=== PATIENT | female | born 1965 | race Caucasian/White ===

== ENCOUNTER 2019-12-13 11:20 | Emergency (ER) | payer OTHER, SELFPAY ==
[2019-12-13 11:22] VITALS: BP 181/105; PULSE 70; RESP 18; TEMP 36.4; O2SAT 99; BMI 24.3
--- NOTE | 2019-12-13 11:45 | XR_ITS ---
EXAMINATION: XR HAND, RIGHT CLINICAL INFORMATION: Pain. Fall. COMPARISON: None TECHNIQUE: PA, lateral, and oblique views of the right hand. FINDINGS: There is a fracture of the base of the fifth metacarpal bone. On the lateral view there is dorsal displacement of the metacarpal shaft with respect to the base. There is also slight radial angulation of the shaft with respect to the base. It is uncertain whether fracture is intra-articular with the fifth USP joint. No other fracture is seen. There is overlying soft tissue swelling. There are several small radiopaque densities in the soft tissues adjacent to the medial or ulnar side of the fifth MCP joint measuring 1 mm. XR/XR hand RT min 3V IMPRESSION: Slightly angulated displaced fracture of the base of the fifth metacarpal bone.
--- NOTE | 2019-12-13 12:14 | ED.FALL ---
HPI - Fall General Chief Complaint: Wound/Laceration Stated Complaint: laceration above rt eye Time Seen by Provider: 12/13/19 11:42 Source: patient Mode of arrival: ambulatory Limitations: no limitations History of Present Illness HPI Narrative: 54 y/o female presenting with laceration above right eyebrow and right hand pain after she sustained a mechanical fall while outside jogging just [employer]. She reports losing her footing when she went from the sidewalk to the grass. She hit her head on the cement and landed on her right hand. She did not lose consciousness. She is not on blood thinners. She denies headache, nausea, vision changes. MD complaint: fall Onset (ago): hour(s) (1) Fall from: standing Fall witnessed: yes, by bystander Place fall occurred: street Loss of consciousness: none Prolonged down time: no Symptoms prior to fall: none Context: tripped/slipped Location of injury: head Location of injury - extremities: right: hand Severity: moderate Severity scale (1-10): 7 Related Data Home Medications Medication Instructions Recorded Confirmed atenolol 25 mg tablet mg PO Q OTHER DAY PRN 11/15/19 11/15/19 atorvastatin 40 mg tablet mg PO 11/15/19 11/15/19 fluoxetine 20 mg capsule 20 mg PO DAILY 11/15/19 11/15/19 Previous Rx's Medication Instructions Recorded cephalexin [Keflex] 500 mg PO QID 7 Days #28 cap 12/13/19 hydrocodone-acetaminophen [Jenkinjones] 1 tab PO Q6H PRN #10 tab 12/13/19 ibuprofen 600 mg PO Q8H PRN #30 tab 12/13/19 Allergies Allergy/AdvReac Type Severity Reaction Status Date / Time Penicillins [PENICILLINS] Allergy Intermediate RASH Unverified 10/26/19 18:59 penicillin V Allergy Unknown rash Unverified 07/14/19 00:00 Review of Systems Review of Systems: Constitutional: No Fever, No Chills ENT/Mouth: No sore throat, No Rhinorrhea, No Swallowing Difficulty Eyes: + Eye Pain, + Swelling, No Redness Cardiovascular: No Chest Pain, No SOB Respiratory: No Cough, No Sputu Gastrointestinal: No Nausea, No Vomiting, No Diarrhea, No abdominal Pain Genitourinary: No Dysuria, No Urinary Frequency, No Hematuria Musculoskeletal: No joint pain, No Myalgias Skin: No Skin Lesions, No rash Neuro: No Weakness, No Numbness, No Dizziness, No Headache Psych: No Anxiety/Panic, No Depression Heme/Lymph: + Bruising, No Lymphadenopathy PMFSH Past Medical History Attestation statement: The following information was validated with the patient. Medical History Carpal tunnel syndrome of right wrist Chronic GERD Generalized anxiety disorder Lipid metabolism disorder Social History Social History Advance Directives: Yes Advance Directives Information Provided: Yes Advance Directives on File: No Physical Exam Vital Signs: Vital Signs: Vital Signs Temp Pulse Resp BP Pulse Ox 12/13/19 11:22 97.6 F 70 18 181/105 H 99 Body Mass Index 24.3 Appearance: Alert. Oriented X3. No acute distress. HEENT: 3cm linear laceration over right eyebrow, no deformity, no active bleeding. Respiratory: No respiratory distress. Skin: Skin warm and dry. Normal skin color. Normal skin turgor. No rashes. Extremities: right hand tenderness and swelling over 5th MCP joint, able to move all 5 digits. Neuro: Oriented X 3. No motor deficit. No sensory deficit. Course Course Course Narrative: patient AAO x3 and non-focal on exam. low suspicion for concussion. lac repaired, see procedure note. XR showed 5th metacarpal base fx, splint applied with adequate positioning. NV intact distally. she is instructed to follow up with Orthopedics and her PCP for suture removal. stable for d/c. Procedures Laceration Laceration 1: Site: face Side (If applicable): right Size (cm): 3 Description: linear Depth: simple, single layer Local Anesthetic: lidocaine 2% Amount of anesthesia used (mL): 3 Pre-repair: irrigated extensively and deep structures intact Skin layer closed with: nylon Size (cm): 6-0 Number of sutures: 6 Technique: simple, interrupted MDM - Fall Differential Diagnosis Differential diagnosis: Likely fracture and concussion without loss of consciousness Critical Care Time Critical Care Time Critical Care Time: No Discharge Plan Discharge Clinical Impression: Laceration Fracture of base of fifth metacarpal bone of right hand Qualifiers: Encounter type: initial encounter Fracture type: closed Fracture alignment: displaced Qualified Code(s): S62.316A - Displaced fracture of base of fifth metacarpal bone, right hand, initial encounter for closed fracture Patient Disposition: Home, Self-Care Instructions: Laceration (ED), Hand Fracture (ED) Additional Instructions: Keep wound clean and dry - do not get wet for 24 hours and then it is okay to use gentle soap and water. Recommend Neosporin or Bacitracin ointment two times per day. Come back to the ER or see your Primary Care Doctor in 10-14 days for suture removal. Keep your right hand in the splint until you are evaluated by an Orthopedic doctor. Limit use of your right hand. If you develop numbness, tinging or loss of function of your hand or fingers call 911 or come back to the ER for further evaluation. Prescriptions: New cephalexin [Keflex] 500 mg capsule 500 mg PO QID 7 Days Qty: 28 RF: 0 ibuprofen 600 mg tablet 600 mg PO Q8H PRN (Reason: pain) Qty: 30 RF: 0 hydrocodone-acetaminophen [Jenkinjones] 5-325 mg tablet 1 tab PO Q6H PRN (Reason: pain) Qty: 10 RF: 0 No Action atorvastatin 40 mg tablet PO RF: 0 atenolol 25 mg tablet PO Q OTHER DAY PRNRF: 0 fluoxetine 20 mg capsule 20 mg PO DAILY RF: 0 Referrals: Usama Davalos MD [Physician] - 2 days Stand Alone Forms: Work/School Release
[2019-12-13] MEDS: Ibuprofen 600 MG TABLET PO (13:05)
[2019-12-13] MEDS: Lidocaine HCl 2 % MPF 5 ML VIAL INFILTRATI (13:06)
== END 2019-12-13 14:00 | disposition home or self-care (01) ==
PROVIDERS: Emergency Provider Emergency Medicine; PCP Internal Medicine
DX: S01.111A Laceration without foreign body of right eyelid and periocular area, initial encounter (principal); S62.316A Displaced fracture of base of fifth metacarpal bone, right hand, initial encounter for closed fracture; M79.641 Pain in right hand; H57.11 Ocular pain, right eye; W01.0XXA Fall on same level from slipping, tripping and stumbling without subsequent striking against object, initial encounter; Y93.9 Activity, unspecified; Y92.9 Unspecified place or not applicable; Y99.9 Unspecified external cause status; Z79.899 Other long term (current) drug therapy
CPT/HCPCS: 12013; 73130; 99283; 99284

== ENCOUNTER 2019-12-18 10:39 | Outpatient (REF) | payer OTHER, SELFPAY ==
--- NOTE | 2019-12-18 11:20 | XR_ITS ---
EXAMINATION: XR HAND, RIGHT CLINICAL INFORMATION: Fracture follow-up. COMPARISON: 12/13/2019 TECHNIQUE: PA, lateral, and oblique views of the right hand. FINDINGS: The contour deformity of the 5th metacarpal proximal metaphysis is again appreciated with slight radial angulation. The contours are slightly more rounded and smooth indicating osseous bridging from callus formation. There is still dorsal displacement of the distal fragment with respect to the proximal metaphysis. XR/XR hand RT min 3V IMPRESSION: Interval changes of healing involving the 5th metacarpal angulated and displaced fracture. The degree of angulation and displacement is unchanged.
== END 2019-12-18 10:40 | disposition home or self-care (01) ==
LOC: HO.HOSX 10:39
PROVIDERS: PCP Internal Medicine; Visit Provider Physician Assistant
DX: S62.308A Unspecified fracture of other metacarpal bone, initial encounter for closed fracture (principal)
CPT/HCPCS: 26600; 29075; 73130

== ENCOUNTER 2020-01-08 13:37 | Outpatient (REF) | payer OTHER, SELFPAY ==
--- NOTE | 2020-01-08 13:37 | XR_ITS ---
EXAMINATION: XR HAND, RIGHT CLINICAL INFORMATION: Fracture COMPARISON: Previous exams from earlier this month TECHNIQUE: PA, lateral, and oblique views of the right hand. FINDINGS: There is a fracture of the base of the fifth metacarpal bone. This appears unchanged in alignment from prior exams. Fracture line is still seen. No bony callus formation is seen. No other fracture is seen. Small density in the soft tissues adjacent to the ulnar side of the fifth MCP joint is again noted. Soft tissues are otherwise unremarkable. XR/XR hand RT min 3V IMPRESSION: No change in the fracture of the base of the fifth metacarpal bone.
== END 2020-01-08 13:38 | disposition home or self-care (01) ==
LOC: HO.HOSX 13:37
PROVIDERS: Visit Provider Physician Assistant
DX: S62.91XA Unspecified fracture of right hand, initial encounter for closed fracture (principal)
CPT/HCPCS: 73130

== ENCOUNTER 2020-03-05 06:08 | Outpatient (REF) | payer OTHER, SELFPAY ==
[2020-03-05 11:01] LABS: MANUAL DIFF FLAG NO
[2020-03-05 11:26] LABS: Basophils Percent Auto 0.8 % (0-2); Eosinophils Absolute Auto 0.1 X10*3/uL (0.0-0.4); Eosinophils Percent Auto 2.5 % (0-4); Hematocrit 41.9 % (37-47); Hemoglobin 13.8 g/dl (12.0-16.0); Imm Gran Abs Auto 0.01 X10*3/uL (0.00-0.03); Imm Gran Pct Auto 0.2 % (0.0-0.4); Lymphocytes Absolute Auto 1.2 X10*3/uL (1.2-4.9); Lymphocytes Percent Auto 25.3 % (20-40); Mean Corpuscular HGB Conc 32.9 g/dl (31.0-35.0); Mean Corpuscular Hemoglobin 30.1 pg (27.0-33.0); Mean Corpuscular Volume 91.5 fL (80-98); Mean Platelet Volume 10.9 fL (9.4-12.3); Monocytes Absolute Auto 0.6 X10*3/uL (0.1-1.2); Monocytes Percent Auto 12.5 % (2-11); Neutrophils Absolute Auto 2.9 X10*3/uL (2.0-8.3); Neutrophils Percent Auto 58.7 % (45-73); Platelet Count 239 X10*3/uL (160-400); Red Blood Count 4.58 X10*6/uL (4.20-5.50); Red Cell Distribution Width 11.4 % (11.0-16.0); White Blood Count 4.9 X10*3/uL (4.8-10.8)
[2020-03-05 12:28] LABS: Anion Gap 15 (12-20); Blood Urea Nitrogen 13 mg/dL (9-16); Calcium 9.4 mg/dL (8.4-10.2); Carbon Dioxide 27 mmol/L (22-29); Chloride 104 mmol/L (96-108); Cholesterol 208 mg/dL; Estimated Glomerular Filt Rate > 60; Glucose Fasting 106 mg/dL (60-99); HDL Cholesterol 59 mg/dL; LDL Cholesterol Calculated 130 mg/dl; Sodium 142 mmol/L (135-145); Triglycerides 96 mg/dL
== END 2020-03-05 06:09 | disposition home or self-care (01) ==
LOC: HO.HMGCLDS 06:08
PROVIDERS: PCP Internal Medicine; Visit Provider Internal Medicine
DX: K21.9 Gastro-esophageal reflux disease without esophagitis (principal); E78.9 Disorder of lipoprotein metabolism, unspecified; F41.1 Generalized anxiety disorder; I10 Essential (primary) hypertension
CPT/HCPCS: 36415; 80048; 80061; 85025

== ENCOUNTER 2020-08-19 15:17 | Outpatient (REF) | payer OTHER, SELFPAY ==
--- NOTE | ~2020-08-19 | MM_ITS ---
EXAMINATION: MM SCREENING DIGITAL BREAST TOMOSYNTHESIS, BILATERAL CLINICAL INFORMATION: Screening. Asymptomatic. The lifetime risk of breast cancer based on the Tyrer-Cuzick Model is 7%. COMPARISON: Mammography: 08/14/2019, 08/08/2018, 06/28/2017, 05/04/2016, 02/14/2015, 06/01/2012 TECHNIQUE: Digital breast tomosynthesis is performed in both the craniocaudal and mediolateral oblique views along with computer-aided detection (CAD). Synthesized 2D images are generated from the tomosynthesis. FINDINGS: There are scattered areas of fibroglandular density (ACR BI-RADS breast composition Category b). There are no significant masses, abnormal calcifications, or other abnormalities. Parenchymal pattern is similar to prior studies. No developing density. The axilla and skin contours are unremarkable. MM/MM tomosynthesis screening BI IMPRESSION: No mammographic evidence of malignancy. ASSESSMENT: BI-RADS 1: Negative RECOMMENDATION: Routine annual mammography screening. This patient's information was entered into a reminder system with a target due date for their next mammogram.
== END 2020-08-19 15:18 | disposition home or self-care (01) ==
LOC: HO.MAMMO 15:17
PROVIDERS: PCP Internal Medicine; Visit Provider Internal Medicine
DX: Z12.31 Encounter for screening mammogram for malignant neoplasm of breast (principal)
CPT/HCPCS: 77063; 77067

== ENCOUNTER 2020-09-17 10:15 | Outpatient (REF) | payer OTHER, SELFPAY ==
[2020-09-17 11:22] LABS: MANUAL DIFF FLAG NO
[2020-09-17 11:35] LABS: Basophils Absolute Auto 0.1 X10*3/uL (0.0-0.2); Basophils Percent Auto 1.3 % (0-2); Eosinophils Absolute Auto 0.1 X10*3/uL (0.0-0.4); Eosinophils Percent Auto 2.3 % (0-4); Hematocrit 41.5 % (37-47); Hemoglobin 13.9 g/dl (12.0-16.0); Imm Gran Abs Auto 0.01 X10*3/uL (0.00-0.03); Imm Gran Pct Auto 0.3 % (0.0-0.4); Lymphocytes Absolute Auto 1.1 X10*3/uL (1.2-4.9); Lymphocytes Percent Auto 29.4 % (20-40); Mean Corpuscular HGB Conc 33.5 g/dl (31.0-35.0); Mean Corpuscular Hemoglobin 30.2 pg (27.0-33.0); Mean Platelet Volume 10.6 fL (9.4-12.3); Monocytes Absolute Auto 0.4 X10*3/uL (0.1-1.2); Monocytes Percent Auto 11.2 % (2-11); Neutrophils Absolute Auto 2.1 X10*3/uL (2.0-8.3); Neutrophils Percent Auto 55.5 % (45-73); Platelet Count 239 X10*3/uL (160-400); Red Blood Count 4.61 X10*6/uL (4.20-5.50); Red Cell Distribution Width 11.1 % (11.0-16.0); White Blood Count 3.8 X10*3/uL (4.8-10.8)
[2020-09-17 12:12] LABS: Alanine Aminotransferase 27 U/L (0-31); Albumin Level 4.5 g/dL (3.5-5.0); Alkaline Phosphatase 85 U/L (39-117); Anion Gap 12 (12-20); Aspartate Amino Transferase 28 U/L (5-31); Bilirubin Total 1.1 mg/dL (0.0-1.0); Blood Urea Nitrogen 11 mg/dL (9-16); Calcium 9.6 mg/dL (8.4-10.2); Carbon Dioxide 29 mmol/L (22-29); Chloride 104 mmol/L (96-108); Cholesterol 176 mg/dL; Estimated Glomerular Filt Rate > 60; Glucose Fasting 96 mg/dL (60-99); HDL Cholesterol 50 mg/dL; LDL Cholesterol Calculated 113 mg/dl; Potassium 4.7 mmol/L (3.3-5.1); Sodium 140 mmol/L (135-145); Total Protein 7.5 g/dL (6.5-8.0); Triglycerides 68 mg/dL
== END 2020-09-17 10:16 | disposition home or self-care (01) ==
LOC: HO.HMGCLDS 10:15
PROVIDERS: PCP Internal Medicine; Visit Provider Internal Medicine
DX: E78.9 Disorder of lipoprotein metabolism, unspecified (principal); F41.1 Generalized anxiety disorder; I10 Essential (primary) hypertension; R21 Rash and other nonspecific skin eruption
CPT/HCPCS: 36415; 80053; 80061; 85025

== ENCOUNTER 2020-11-26 10:43 | Outpatient (REF) | payer OTHER, SELFPAY ==
[2020-11-26 12:05] LABS: Appearance Urine CLEAR; Color Urine YELLOW; Glucose Urine UA NEG (NEG); Leukocyte Esterase Urine NEG (NEG); Nitrite Urine NEG (NEG); PH 5.5 (5.0-8.0); Specific Gravity - Urine >= 1.030 (1.005-1.025); Urine Blood NEG (NEG); Urine Ketones NEG (NEG); Urine Protein NEG (NEG-TRACE)
== END 2020-11-26 10:44 | disposition home or self-care (01) ==
LOC: HO.HMGCLDS 10:43
PROVIDERS: PCP Internal Medicine; Visit Provider Internal Medicine
DX: R30.0 Dysuria (principal)
CPT/HCPCS: 81003

== ENCOUNTER 2021-04-11 09:32 | Outpatient (REF) | payer OTHER, SELFPAY ==
[2021-04-11 11:29] LABS: MANUAL DIFF FLAG NO
[2021-04-11 11:40] LABS: Basophils Percent Auto 0.9 % (0-2); Eosinophils Absolute Auto 0.1 X10*3/uL (0.0-0.4); Hematocrit 41.5 % (37.0-47.0); Hemoglobin 13.6 g/dl (12.0-16.0); Imm Gran Abs Auto 0.01 X10*3/uL (0.00-0.03); Imm Gran Pct Auto 0.2 % (0.0-0.4); Lymphocytes Absolute Auto 1.3 X10*3/uL (1.2-4.9); Lymphocytes Percent Auto 29.1 % (20-40); Mean Corpuscular HGB Conc 32.8 g/dl (31.0-35.0); Mean Corpuscular Hemoglobin 29.8 pg (27.0-33.0); Mean Corpuscular Volume 90.8 fL (80.0-98.0); Mean Platelet Volume 10.7 fL (9.4-12.3); Monocytes Absolute Auto 0.6 X10*3/uL (0.1-1.2); Monocytes Percent Auto 12.1 % (2-11); Neutrophils Absolute Auto 2.5 x10*3/uL (2.0-8.3); Neutrophils Percent Auto 55.7 % (45-73); Platelet Count 220 X10*3/uL (160-400); Red Blood Count 4.57 X10*6/uL (4.20-5.50); Red Cell Distribution Width 11.6 % (11.0-16.0); White Blood Count 4.5 X10*3/uL (4.8-10.8)
[2021-04-11 11:57] LABS: Alanine Aminotransferase 20 U/L (0-31); Albumin Level 4.4 g/dL (3.5-5.0); Alkaline Phosphatase 72 U/L (39-117); Anion Gap 8 (12-20); Aspartate Amino Transferase 23 U/L (5-31); Bilirubin Total 0.9 mg/dL (0.0-1.0); Blood Urea Nitrogen 18 mg/dL (9-16); Carbon Dioxide 31 mmol/L (22-29); Chloride 104 mmol/L (96-108); Estimated Glomerular Filt Rate > 60; Glucose Random 99 mg/dL (60-115); Potassium 4.3 mmol/L (3.3-5.1); Sodium 139 mmol/L (135-145); Total Protein 7.6 g/dL (6.5-8.0)
[2021-04-12 06:40] LABS: LDL Cholesterol Direct 139 mg/dL (<100)
== END 2021-04-11 09:33 | disposition home or self-care (01) ==
LOC: HO.HMGCLDS 09:32
PROVIDERS: Visit Provider Internal Medicine
DX: E78.9 Disorder of lipoprotein metabolism, unspecified (principal); F41.1 Generalized anxiety disorder; I10 Essential (primary) hypertension
CPT/HCPCS: 36415; 80053; 83721; 85025

== ENCOUNTER 2021-08-21 08:20 | Outpatient (REF) | payer OTHER, SELFPAY ==
--- NOTE | ~2021-08-21 | MM_ITS ---
EXAMINATION: MM SCREENING DIGITAL BREAST TOMOSYNTHESIS, BILATERAL CLINICAL INFORMATION: Screening. Asymptomatic. The lifetime risk of breast cancer based on the Tyrer-Cuzick Model is 6%. COMPARISON: Mammography: 08/19/2020, 08/14/2019, 08/08/2018 TECHNIQUE: Digital breast tomosynthesis is performed in both the craniocaudal and mediolateral oblique views along with computer-aided detection (CAD). Synthesized 2D images are generated from the tomosynthesis. Additional left CC view is provided. FINDINGS: There are scattered areas of fibroglandular density (ACR BI-RADS breast composition Category b). There are no significant masses, abnormal calcifications, or other abnormalities. No significant changes from prior studies. MM/MM tomosynthesis screening BI IMPRESSION: No mammographic evidence of malignancy. ASSESSMENT: BI-RADS 1: Negative RECOMMENDATION: Routine annual mammography screening. This patient's information was entered into a reminder system with a target due date for their next mammogram.
== END 2021-08-21 08:21 | disposition home or self-care (01) ==
LOC: HO.MAMMO 08:20
PROVIDERS: Visit Provider Internal Medicine
DX: Z12.31 Encounter for screening mammogram for malignant neoplasm of breast (principal)
CPT/HCPCS: 77063; 77067

== ENCOUNTER 2021-11-21 07:06 | Outpatient (REF) | payer OTHER, SELFPAY ==
[2021-11-21 12:11] LABS: Alanine Aminotransferase 23 U/L (0-31); Albumin Level 4.6 g/dL (3.5-5.0); Alkaline Phosphatase 67 U/L (39-117); Anion Gap 14 (12-20); Aspartate Amino Transferase 29 U/L (5-31); Bilirubin Total 1.4 mg/dL (0.0-1.0); Blood Urea Nitrogen 15 mg/dL (9-16); Calcium 9.8 mg/dL (8.4-10.2); Carbon Dioxide 29 mmol/L (22-29); Chloride 103 mmol/L (96-108); Cholesterol 230 mg/dL; Estimated Glomerular Filt Rate > 60; Glucose Fasting 107 mg/dL (60-99); HDL Cholesterol 64 mg/dL; LDL Cholesterol Calculated 140 mg/dl; Potassium 4.5 mmol/L (3.3-5.1); Sodium 141 mmol/L (135-145); Total Protein 7.6 g/dL (6.5-8.0); Triglycerides 132 mg/dL
== END 2021-11-21 07:07 | disposition home or self-care (01) ==
LOC: HO.HMGCLDS 07:06
PROVIDERS: PCP Internal Medicine; Visit Provider Internal Medicine
DX: I10 Essential (primary) hypertension (principal); F41.1 Generalized anxiety disorder; E78.9 Disorder of lipoprotein metabolism, unspecified; R21 Rash and other nonspecific skin eruption
CPT/HCPCS: 36415; 80053; 80061

== ENCOUNTER 2022-01-21 14:13 | Outpatient (REF) | payer OTHER, SELFPAY ==
[2022-01-21 16:04] LABS: Influenza A PCR NEGATIVE (Negative); Influenza B PCR NEGATIVE (Negative); Resp Syncy Virus RNA Qual PCR NEGATIVE (Negative); SARS COV2 PCR INHOUSE NEGATIVE (Negative)
== END 2022-01-21 14:14 | disposition home or self-care (01) ==
LOC: HO.LNP 14:13
PROVIDERS: Visit Provider Internal Medicine
DX: Z20.822 Contact with and (suspected) exposure to COVID-19 (principal); R09.89 Other specified symptoms and signs involving the circulatory and respiratory systems
CPT/HCPCS: 0241U

== ENCOUNTER 2022-07-17 06:06 | Outpatient (REF) | payer OTHER, SELFPAY ==
[2022-07-17 11:18] LABS: MANUAL DIFF FLAG NO
[2022-07-17 11:39] LABS: Basophils Percent Auto 1.1 % (0-2); Eosinophils Absolute Auto 0.1 X10*3/uL (0.0-0.4); Eosinophils Percent Auto 2.4 % (0-4); Hemoglobin 14.3 g/dl (12.0-16.0); Lymphocytes Absolute Auto 1.7 X10*3/uL (1.2-4.9); Lymphocytes Percent Auto 44.5 % (20-40); Mean Corpuscular HGB Conc 33.3 g/dl (31.0-35.0); Mean Corpuscular Hemoglobin 30.7 pg (27.0-33.0); Mean Corpuscular Volume 92.3 fL (80.0-98.0); Mean Platelet Volume 10.7 fL (9.4-12.3); Monocytes Absolute Auto 0.4 X10*3/uL (0.1-1.2); Monocytes Percent Auto 11.6 % (2-11); Neutrophils Absolute Auto 1.5 x10*3/uL (2.0-8.3); Neutrophils Percent Auto 40.4 % (45-73); Platelet Count 198 X10*3/uL (160-400); Red Blood Count 4.66 X10*6/uL (4.20-5.50); Red Cell Distribution Width 11.5 % (11.0-16.0); White Blood Count 3.8 X10*3/uL (4.8-10.8)
[2022-07-17 11:58] LABS: Alanine Aminotransferase 23 U/L (0-31); Albumin Level 4.5 g/dL (3.5-5.0); Alkaline Phosphatase 70 U/L (39-117); Anion Gap 13 (12-20); Aspartate Amino Transferase 29 U/L (5-31); Bilirubin Total 1.6 mg/dL (0.0-1.0); Blood Urea Nitrogen 15 mg/dL (9-16); Calcium 10.1 mg/dL (8.4-10.2); Carbon Dioxide 29 mmol/L (22-29); Chloride 106 mmol/L (96-108); Estimated Glomerular Filt Rate > 60; Glucose Random 94 mg/dL (60-115); Sodium 144 mmol/L (135-145); Total Protein 7.5 g/dL (6.5-8.0)
[2022-07-17 12:10] LABS: Estimated Average Glucose 100 mg/dL; Hemoglobin A1c % 5.1 %
[2022-07-18 14:18] LABS: LDL Cholesterol Direct 138 mg/dL (<100)
== END 2022-07-17 06:07 | disposition home or self-care (01) ==
LOC: HO.HMGCLDS 06:06
PROVIDERS: PCP Internal Medicine; Visit Provider Internal Medicine
DX: E78.9 Disorder of lipoprotein metabolism, unspecified (principal); F41.1 Generalized anxiety disorder; K21.9 Gastro-esophageal reflux disease without esophagitis; L71.9 Rosacea, unspecified; I10 Essential (primary) hypertension
CPT/HCPCS: 36415; 80053; 83036; 83721; 85025

== ENCOUNTER 2022-08-27 09:19 | Outpatient (REF) | payer OTHER, SELFPAY ==
--- NOTE | ~2022-08-27 | MM_ITS ---
EXAMINATION: MM SCREENING DIGITAL BREAST TOMOSYNTHESIS, BILATERAL CLINICAL INFORMATION: Screening. Asymptomatic. The lifetime risk of breast cancer based on the Tyrer-Cuzick Model is 5%. COMPARISON: Mammography: This study is compared with prior exams dating back to 2017. TECHNIQUE: Digital breast tomosynthesis is performed in both the craniocaudal and mediolateral oblique views along with computer-aided detection (CAD). Synthesized 2D images are generated from the tomosynthesis. FINDINGS: There are scattered areas of fibroglandular density (ACR BI-RADS breast composition Category b). There are no significant masses, abnormal calcifications, or other abnormalities. MM/MM tomosynthesis screening BI IMPRESSION: No mammographic evidence of malignancy. ASSESSMENT: BI-RADS BI-RADS 1 - Negative RECOMMENDATION: Routine annual mammography screening. 1 year F/U This examination should not preclude the clinical evaluation of a suspicious palpable abnormality. This patient's information was entered into a reminder system with a target due date for their next mammogram.
== END 2022-08-27 09:20 | disposition home or self-care (01) ==
LOC: HO.MAMMO 09:19
PROVIDERS: PCP Internal Medicine; Visit Provider Internal Medicine
DX: Z12.31 Encounter for screening mammogram for malignant neoplasm of breast (principal)
CPT/HCPCS: 77063; 77067

== ENCOUNTER → 2022-08-27 09:30 | Outpatient (BNV) | payer OTHER, SELFPAY | PROVIDERS: PCP Internal Medicine; Visit Provider Radiology Diagnostic Radiology | DX: Z12.31 Encounter for screening mammogram for malignant neoplasm of breast (principal) | CPT/HCPCS: 77063; 77067 ==

== ENCOUNTER 2022-12-08 12:53 | Outpatient (AMB) | payer OTHER, SELFPAY ==
--- NOTE | 2022-12-08 12:55 | MHC.PC.OV ---
Vital Signs 12/08/22 12:56 Height 5 ft 2 in Weight 124 lb BMI 22.7 BP 134/80 Blood Pressure Location Lt brachial Position Sitting Pulse 58 Pulse Source Pulse Oximeter Pulse Oximetry (%) 100 Oxygen Delivery Method Room Air Intake Visit Reasons: Transfer from [facility] Note: Pt is here today as a 2ND [facility] transfer from Dr. Peterson Allergies Penicillins [PENICILLINS] Allergy (Intermediate, Verified 12/08/22 12:56) RASH penicillin V Allergy (Unknown, Verified 12/08/22 12:56) rash Medication List - Last Reconciled 12/08/22 by BAILEY Silva atenolol 100 mg PO ONCE 90 days atorvastatin 40 mg PO ONCE 90 days fluoxetine 20 mg PO DAILY 90 days losartan 25 mg PO DAILY Tobacco use date assessed: 12/08/22 Dental Screening Dental Screen Date: 12/08/22 Did you have a dental visit in the last 12 months?: Yes Did you have a dental problem in the last 6 months where you did not have access to dental care?: Yes Was dental information given to patient?: Patient has dentist HPI Transfer from [facility] HPI Details New pt is here to transfer care from another provider. Mammo is up to date. Colon screen is up to date, due next year. HTN: Blood pressure is stable, managed with atenolol 100mg and losartan 25mg. Will order labs. Denies chest pain, shortness of breath, headache, dizziness, and blurred vision. 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 1. Little interest or pleasure in doing things: not at all 2. Feeling down, depressed, or hopeless: not at all 3. Trouble falling or staying asleep, or sleeping too much: not at all 4. Feeling tired or having little energy: not at all 5. Poor appetite or overeating: not at all 6. Feeling bad about yourself - or that you are a failure or have let yourself or your family down: not at all 7. Trouble concentrating on things, such as reading the newspaper or watching television: not at all 8. Moving or speaking so slowly that other people could have noticed. Or the opposite - being so fidgety or restless that you have been moving around a lot more than usual: not at all 9. Thoughts that you would be better off or of hurting yourself in some way: not at all Total score: 0 Depression Screening Interpretation: Negative Depression Screening Done: Yes 51313 - PHQ-9 Billing: Yes Source: Developed by Drs. Braulio Williamson, Chasity Salamanca, Jose Alberto Franco and colleagues, with an educational adelia from [employer]. Thrive Questionnaire Date Thrive assessed: 12/08/22 I am a: Patient What is your living situation today?: I have a steady place to live Within the past 12 months, did the food you bought not last and you didn't have the money to get more?: Never true Within the past 12 months, did you worry whether your food would run out before you got money to buy more?: Never true Do you have trouble paying for medicines?: No Do you have trouble getting transportation to medical appointments?: No Do you have trouble paying your heating and electricity bill?: No Do you have trouble taking care of your child, family member or friend?: No Do you have trouble with day-to-day activities such as bathing, preparing meals, shopping, managing finances, etc.?: No Are you currently unemployed and looking for a job?: No Are you interested in more education?: No RAFAEL-7 AMB Questionnaire RAFAEL-7 Date RAFAEL - 7 assessed: 12/08/22 Feeling nervous, anxious, or on edge: 0 = Not at all Not being able to stop or control worryin = Not at all Worrying too much about different things: 0 = Not at all Trouble relaxin = Not at all Being so restless that it is hard to sit still: 0 = Not at all Becoming easily annoyed or irritable: 0 = Not at all Feeling afraid as if something awful might happen: 0 = Not at all Total RAFAEL-7 score (0-4 normal; 5-9 mild; 10-14 moderate; 15-21 severe): 0 Source: Developed by Drs. Braulio Williamson, Chasity Salamanca, Jose Alberto Franco and colleagues, with an educational adelia from [employer]. Review of Systems Const Reports as per HPI Physical exam (Primary Care) Vital Signs: Last Vital Signs Pulse 58 12/08/22 12:56 BP 134/80 12/08/22 12:56 Pulse Ox 100 12/08/22 12:56 Oxygen Delivery Method Room Air 12/08/22 12:56 BMI result Body Mass Index 22.7 Tobacco/Smoking Status: Tobacco use Status Tobacco use date assessed 12/08/22 12/08/22 12:59 Patient Tobacco Use Status Former Tobacco user (33 12/08/22 12:56 years ago ) e-Cigarette/Vaping Use Never Used 12/08/22 12:56 PHQ-9: PHQ-9 Score PHQ-9: Total score 0 12/08/22 13:06 Depression Screening Interpretation: Negative Thrive Assessment: Date of Thrive Assessment Date Thrive assessed 12/08/22 12/08/22 12:59 Const General: cooperative Orientation/consciousness: patient oriented x3 Resp Effort & Inspection: normal respiratory effort Auscultation: clear to auscultation bilaterally Cardio Rate: regular rate Rhythm: regular rhythm Heart sounds: S1 normal heart sound present and S2 normal heart sound present Neuro General: patient oriented x3 Extrem Right lower extremity: no edema Left lower extremity: no edema Psych Appearance: grossly normal Mental Status: mental status grossly normal Speech and movement: Normal speech and movement present Affect: normal affect Attitude: cooperative Thought process: Normal thought process present Thought content: Normal thought content present Insight: Good insight present (Psych) Judgement: Good judgement present (Psych) Assessment and Plan Assessment & Plan (1) Hypertension, essential: Code(s): I10 - Essential (primary) hypertension Plan: Labs ordered Plan The patient agreed to the use of a medical apparatus model maker for this encounter. Scribed for BAILEY Hernández by Jina Worthington medical apparatus model maker, on 12/08/2022 at 13:05 EST. Orders: Orders Comprehensive [place]. Panel Fast Today I10 - Essential (primary) hypertension UA CC w/rflx Micro + Cult Today I10 - Essential (primary) hypertension Complete Blood Count Auto Diff Today I10 - Essential (primary) hypertension TSH reflex Free T4 Today I10 - Essential (primary) hypertension Lipid Panel Today I10 - Essential (primary) hypertension Coding Level of Care Code New Pt Level 3 (01100) Diagnoses Hypertension, essential I10
[2022-12-08 12:56] VITALS: BP 134/80; PULSE 58; O2SAT 100; BMI 22.7
== END 2022-12-08 13:27 | disposition home or self-care (01) ==
PROVIDERS: PCP Internal Medicine; Visit Provider Nurse Practitioner Family
DX: I10 Essential (primary) hypertension (principal)
CPT/HCPCS: 99203

== ENCOUNTER 2023-02-06 09:03 | Emergency (ER) | payer OTHER, SELFPAY ==
--- NOTE | ~2023-02-06 | CT_ITS ---
EXAMINATION: CT ABDOMEN AND PELVIS WITH CONTRAST CLINICAL INFORMATION: Left lower quadrant pain. COMPARISON: None available. TECHNIQUE: Multidetector volumetric images were obtained from the superior aspect of the liver through the pubic symphysis following administration 85 mL of Omnipaque 350 intravenous contrast. Sagittal and coronal reformatted images were obtained on the technologist's workstation. Oral contrast: No This CT examination was performed using dose optimization techniques as appropriate, variously including the following: *Automated exposure control *Adjustment of mA and/or kV according to patient size (this includes techniques or standardized protocols for targeted exams where dose is matched to indication/reason for exam; i.e. extremities or head) *Use of iterative reconstruction technique DLP: 385 mGy-cm FINDINGS: LUNG BASES: The visualized lung bases are unremarkable. LIVER, GALLBLADDER, AND BILIARY TREE: The liver is normal in size, shape, and attenuation. No focal hepatic lesion or biliary ductal dilatation is present. The gallbladder is unremarkable with no evidence of radiopaque gallstones, gallbladder wall thickening, or obvious pericholecystic inflammatory changes. PANCREAS: Unremarkable. SPLEEN: Unremarkable. ADRENAL GLANDS: Unremarkable. KIDNEYS AND URETERS: The kidneys are normal in size, shape, and attenuation. Right lower pole 0.3 cm renal stone located approximately 8.4 cm from the posterior axillary line. No additional right-sided renal or ureteral stone. Left lower pole renal stone measuring up to 0.3 cm and located approximately 9.3 cm from the posterior axillary line. No left ureteral stone. No left-sided hydronephrosis or hydroureter. No perinephric stranding. BLADDER: Unremarkable. GASTROINTESTINAL TRACT: Moderate stool within the rectum. Sigmoid diverticulosis. Circumferential wall thickening with minimal stranding just proximal to the rectosigmoid junction which could be related to muscle hypertrophy or indicate early diverticulitis. No extraluminal air or organized fluid collection to suggest perforation or abscess formation. No additional bowel wall thickening. No small- or large-bowel obstruction. Appendix not well visualized; however, no right lower quadrant inflammatory change to suggest acute appendicitis. PERITONEAL CAVITY: No intra-abdominal free air or free fluid. No intra-abdominal mass or organized fluid collection. ABDOMINAL WALL: No significant hernia is appreciated. LYMPH NODES: No significant lymphadenopathy. VASCULAR: Unremarkable. PELVIC VISCERA: Status post hysterectomy. OSSEOUS STRUCTURES: Unremarkable. CT/CT abdomen pelvis w IV con IMPRESSION: 1. Sigmoid diverticulosis with circumferential wall thickening and minimal adjacent stranding just proximal to the rectosigmoid junction which could be related to muscle hypertrophy or indicate early diverticulitis. No evidence of perforation or abscess formation. 2. Moderate stool within the rectum. No small- or large-bowel obstruction. Appendix not well visualized; however, no right lower quadrant inflammatory change to suggest acute appendicitis. 3. Bilateral lower pole renal stones measuring up to 0.3 cm on the right and 0.3 cm on the left. No ureteral stone. No hydronephrosis or hydroureter. Unremarkable urinary bladder. 4. No intra-abdominal mass, lymphadenopathy, or ascites. Fleischner guidelines were followed.
[2023-02-06 09:15] VITALS: BP 156/63; PULSE 65; RESP 18; TEMP 35.9; O2SAT 97; BMI 23.5
[2023-02-06 09:29] LABS: MANUAL DIFF FLAG NO
[2023-02-06 09:31] LABS: Appearance Urine Turbid; Color Urine Yellow; Glucose Urine UA Negative (Negative); Leukocyte Esterase Urine Negative (Negative); Nitrite Urine Negative (Negative); PH 5.5 (5.0-9.0); Urine Blood Negative (Negative); Urine Ketones Negative (Negative); Urine Protein Negative (Neg-Trace)
[2023-02-06 09:34] LABS: Basophils Absolute Auto 0.1 X10*3/uL (0.0-0.2); Basophils Percent Auto 1.1 % (0-2); Eosinophils Absolute Auto 0.1 X10*3/uL (0.0-0.4); Eosinophils Percent Auto 2.3 % (0-4); Hematocrit 39.1 % (37.0-47.0); Hemoglobin 13.3 g/dl (12.0-16.0); Imm Gran Abs Auto 0.03 X10*3/uL (0.00-0.03); Imm Gran Pct Auto 0.5 % (0.0-0.4); Lymphocytes Absolute Auto 1.8 X10*3/uL (1.2-4.9); Lymphocytes Percent Auto 32.7 % (20-40); Mean Corpuscular Hemoglobin 30.2 pg (27.0-33.0); Mean Corpuscular Volume 88.9 fL (80.0-98.0); Mean Platelet Volume 9.2 fL (9.4-12.3); Monocytes Absolute Auto 0.6 X10*3/uL (0.1-1.2); Monocytes Percent Auto 10.3 % (2-11); Neutrophils Percent Auto 53.1 % (45-73); Platelet Count 278 X10*3/uL (160-400); Red Cell Distribution Width 11.3 % (11.0-16.0); White Blood Count 5.6 X10*3/uL (4.8-10.8)
[2023-02-06 09:49] LABS: Alanine Aminotransferase 18 U/L (0-31); Albumin Level 4.3 g/dL (3.5-5.0); Alkaline Phosphatase 73 U/L (39-117); Anion Gap 9 (12-20); Aspartate Amino Transferase 19 U/L (5-31); Bilirubin Direct 0.1 mg/dL (0.0-0.5); Bilirubin Total 0.4 mg/dL (0.0-1.0); Blood Urea Nitrogen 18 mg/dL (9-16); Calcium 9.6 mg/dL (8.4-10.2); Carbon Dioxide 29 mmol/L (22-29); Chloride 106 mmol/L (96-108); Creatinine Clr Calc Pharmacy 71.7; Estimated Glomerular Filt Rate > 60; Glucose Random 100 mg/dL (60-115); Lipase 35 U/L (8-78); Potassium 4.4 mmol/L (3.3-5.1); Sodium 140 mmol/L (135-145); Total Protein 7.8 g/dL (6.5-8.0)
--- NOTE | 2023-02-06 11:07 | ED_ITS ---
HPI - Abdominal Pain General Chief Complaint: Abdominal Pain Stated Complaint: L side pain Time Seen by Provider: 02/06/23 10:42 Source: patient Mode of arrival: ambulatory Limitations: no limitations History of Present Illness HPI narrative: 58 yo female with PMH of GERD, normal colonoscopy in the past here with c/o 4 days of LLQ pain worse with bowel movements. Had fever at the start that has stopped. No urinary symptoms. When she has a bowel movement the pain is so severe she cannot take it. She has not had diverticulitis before. No black or bloody stools. She is eating okay. MD elicited complaint: abdominal pain Pertinent past history: none Onset (ago): day(s) (4) Pain Consistency: intermittent Location: LLQ Severity: moderate Quality: stabbing Radiation: other (vaginal area) Migration to: no migration Exacerbating factors: movement and other (BM) Relieving factors: nothing Associated symptoms: nausea Related Data Previous Rx's Medication Instructions Recorded losartan 25 mg tablet 25 mg PO DAILY #90 tabs 11/09/22 atenolol 100 mg tablet 100 mg PO ONCE 90 days #90 tabs 01/08/23 atorvastatin 40 mg tablet 40 mg PO ONCE 90 days #90 tabs 01/23/23 fluoxetine 20 mg capsule 20 mg PO DAILY 90 days #90 caps 01/23/23 docusate sodium 100 mg capsule 100 mg PO BID PRN constipation #30 02/06/23 (Colace) caps levofloxacin 750 mg tablet 750 mg PO DAILY #6 tabs 02/06/23 metronidazole 500 mg tablet 500 mg PO BID 7 days #14 tabs 02/06/23 sennosides 8.6 mg capsule (senna) 8.6 mg PO BEDTIME PRN constipation 02/06/23 #30 caps Allergies Allergy/AdvReac Type Severity Reaction Status Date / Time Penicillins [PENICILLINS] Allergy Intermediate RASH Verified 02/06/23 09:17 penicillin V Allergy Unknown rash Verified 02/06/23 09:17 Review of Systems Review of Systems Constitutional : No Weight loss, No Fever, No Chills ENT/Mouth : No sore throat, No Rhinorrhea Eyes: No Swelling, No Redness Cardiovascular : No Chest Pain, No SOB, NoEdema Respiratory : No Cough, No Sputum, No Wheezing Gastrointestinal : Positive Nausea, no Vomiting, no Diarrhea, positive abdominal Pain, No Hematochezia, No Melena Genitourinary : No Dysuria, No Urinary Frequency, No Hematuria, No Urgency Musculoskeletal : No joint pain, No Myalgias, No Joint Swelling Skin : No Skin Lesions, No rash Neuro : No Weakness, No Numbness, No Dizziness, No Headache Psych : No Anxiety/Panic, No Depression All other systems reviewed and are negative. [facility] Past Medical History Attestation statement: The following information was validated with the patient. Source: old records reviewed Medical History Carpal tunnel syndrome of right wrist Chronic GERD Lipid metabolism disorder Generalized anxiety disorder Surgical History History of carpal tunnel surgery History of hysterectomy History of appendectomy Family History Family History Other Substance use disorder Social History Social History Housing: House Alcohol intake: current Alcohol type: wine Patient Tobacco Use Status: Former Tobacco user (33 years ago ) Years Smoked: 7 Smoked in Last 30 Days: No e-Cigarette/Vaping Use: Never Used Use of substances other than those prescribed or required for medical reasons: No Advance Directives: No Advance Directives Information Provided: Yes service: No Current occupational status: employed 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 Oriented X3. No acute distress. Eyes: Pupils equal, round and reactive to light. ENT: Pharynx normal. Neck: Normal inspection. Neck supple. CVS: Normal heart rate and rhythm. Pulses normal. Respiratory: No respiratory distress. Breath sounds normal. Abdomen: Soft and moderate ttp in LLQ no rebound or mass noted. Skin: Skin warm and dry. Normal skin color. Normal skin turgor. Extremities: No lower extremity edema. No calf ttp Neuro: Oriented X 3. No motor deficit. No sensory deficit. Medical Decision Making Medical Decision Making MDM Narrative: 58 yo female with PMH of GERD here with 4 days of LLQ pain worse with bowel movements no reported GIB at this time will need UA, basic labs, CT scan for diverticulitis, mass, renal colic, IVF and IV toradol for pain Differential Diagnosis Differential Diagnoses: The differential diagnosis associated with the presentation includes diverticulitis, mass, renal colic, Admission/Observation Consideration of admission/observation: Escalation of care including admission/observation considered not toxic, able to tolerate PO, will start on oral abx and refer to PCP/GI Lab Data [facility] Lab Attestation statement: I reviewed the patient's lab results. 02/06/23 09:25 02/06/23 09:25 Labs: Lab Results 02/06/23 Range/Units 09:25 WBC 5.6 (4.8-10.8) X10*3/uL RBC 4.40 (4.20-5.50) X10*6/uL Hgb 13.3 (12.0-16.0) g/dl Hct 39.1 (37.0-47.0) % MCV 88.9 (80.0-98.0) fL MCH 30.2 (27.0-33.0) pg MCHC 34.0 (31.0-35.0) g/dl RDW 11.3 (11.0-16.0) % Plt Count 278 D (160-400) X10*3/uL MPV 9.2 L (9.4-12.3) fL Immature Gran % (Auto) 0.5 H (0.0-0.4) % Neut % (Auto) 53.1 (45-73) % Lymph % (Auto) 32.7 (20-40) % [place] % (Auto) 10.3 (2-11) % Eos % (Auto) 2.3 (0-4) % Baso % (Auto) 1.1 (0-2) % Lymph # (Auto) 1.8 (1.2-4.9) X10*3/uL [place] # (Auto) 0.6 (0.1-1.2) X10*3/uL Eos # (Auto) 0.1 (0.0-0.4) X10*3/uL Baso # (Auto) 0.1 (0.0-0.2) X10*3/uL Abs Immat Gran (auto) 0.03 (0.00-0.03) X10*3/uL Absolute Neuts (auto) 3.0 (2.0-8.3) x10*3/uL Absolute Nucleated RBC 0.000 (0.0-0.012) X10*3/uL Nucleated RBC % (auto) 0.0 (0.0-0.2) /100WBC Sodium 140 (135-145) mmol/L Potassium 4.4 (3.3-5.1) mmol/L Chloride 106 (96-108) mmol/L Carbon Dioxide 29 (22-29) mmol/L Anion Gap 9 L (12-20) BUN 18 H (9-16) mg/dL Creatinine 0.66 (0.5-1.4) mg/dL Estim Creat Clear Calc 71.7 Estimated GFR > 60 Random Glucose 100 (60-115) mg/dL Calcium 9.6 (8.4-10.2) mg/dL Total Bilirubin 0.4 (0.0-1.0) mg/dL Direct Bilirubin 0.1 (0.0-0.5) mg/dL AST 19 (5-31) U/L ALT 18 (0-31) U/L Alkaline Phosphatase 73 (39-117) U/L Total Protein 7.8 (6.5-8.0) g/dL Albumin 4.3 (3.5-5.0) g/dL Lipase 35 (8-78) U/L Urine Color Yellow Urine Appearance Turbid Urine pH 5.5 (5.0-9.0) Ur Specific [place] 1.020 (1.005-1.025) Urine Protein Negative (Neg-Trace) mg/dL Urine Glucose (UA) Negative (Negative) mg/dL Urine Ketones Negative (Negative) mg/dL Urine Blood Negative (Negative) Urine Nitrite Negative (Negative) Ur Leukocyte Esterase Negative (Negative) Independent Interpretation I performed an independent interpretation of an: CT Scan (uncomplicated diverticulitis) Radiology Impression Discussion of test interpretation with radiology: I have reviewed the radiologist's reading. External Record Review External record reviewed: Office record Prescription Management I considered prescription management with: Pain Medication, Antibiotic and Other Medications Administered Discontinued Medications Generic Name Dose Route Start Last Admin Trade Name Freq PRN Reason Stop Dose Admin Sodium Chloride 1,000 mls @ 999 mls/hr 02/06/23 11:15 02/06/23 12:50 Ns IV 02/06/23 12:15 Infused .Q1H1M TOYA Infusion Iohexol 100 ml 02/06/23 11:37 02/06/23 11:38 Iohexol 350 Mg/Ml 100 Ml Infus..Btl IV 02/06/23 11:38 85 ml ONCE ONE Administration Ketorolac Tromethamine 15 mg 02/06/23 11:04 02/06/23 11:42 Ketorolac Tromethamine 15 Mg/Ml Vial IVPUSH 02/06/23 11:05 15 mg ONCE ONE Administration Discharge Plan Discharge Clinical Impression: Diverticulitis Constipation Qualifiers: Constipation type: unspecified constipation type Qualified Code(s): K59.00 - Constipation, unspecified Patient Disposition: Home, Self-Care Instructions: Diverticulitis (ED), Constipation (ED), Diverticulitis Diet (ED) Additional Instructions: return for worsening pain, fevers, no improvement, inability to eat or drink, or any other concerns. take antibiotics as prescribed. call your doctor you will need a repeat colonoscopy in the next 8 weeks while on levofloxacin no exercise more than walking or heavy lifting while on it and 5 days after while on flagyl no alcohol you will throw up take a probiotic Prescriptions: New levofloxacin 750 mg tablet 750 mg PO DAILY Qty: 6 0RF Rx Instructions: start on 02/07 metronidazole 500 mg tablet 500 mg PO BID 7 Days Qty: 14 0RF senna 8.6 mg capsule 8.6 mg PO BEDTIME PRN (Reason: constipation) Qty: 30 0RF docusate sodium [Colace] 100 mg capsule 100 mg PO BID PRN (Reason: constipation) Qty: 30 0RF No Action losartan 25 mg tablet 25 mg PO DAILY Qty: 90 0RF atenolol 100 mg tablet 100 mg PO ONCE 90 Days Qty: 90 0RF atorvastatin 40 mg tablet 40 mg PO ONCE 90 Days Qty: 90 1RF fluoxetine 20 mg capsule 20 mg PO DAILY 90 Days Qty: 90 1RF Stand Alone Forms: Work/School Release
--- NOTE | 2023-02-06 11:31 | PC.NURSE ---
pt to CT scan. IV inserted prior. reporting pain in groin area which is 5/10 but jumps to 10/10 when she has a BM. Pt localizes pain to her left inguinal area, but describes feeling it in her vagina when using the bathroom.
[2023-02-06] MEDS: iohexoL 350 MG/ML 100 ML INFUS..BTL IV (11:38)
[2023-02-06] MEDS: 0.9 % Sodium Chloride 1,000 ML 999 ML IV (11:41)
[2023-02-06] MEDS: Ketorolac Tromethamine 15 MG/ML VIAL IVPUSH (11:42)
[2023-02-06] MEDS: levoFLOXacin 750 MG TABLET PO (13:45)
[2023-02-06] MEDS: metroNIDAZOLE 500 MG TABLET PO (13:45)
== END 2023-02-06 14:00 | disposition home or self-care (01) ==
PROVIDERS: Emergency Provider Emergency Medicine; PCP Nurse Practitioner Family
DX: K57.32 Diverticulitis of large intestine without perforation or abscess without bleeding (principal); K59.00 Constipation, unspecified; R10.32 Left lower quadrant pain; R11.2 Nausea with vomiting, unspecified; R50.9 Fever, unspecified; Z79.899 Other long term (current) drug therapy
CPT/HCPCS: 36415; 74177; 80048; 80076; 81003; 83690; 85025; 96361; 96374; 99284; J1885; Q9967

== ENCOUNTER 2023-02-23 11:07 | Emergency (ER) | payer OTHER, SELFPAY ==
--- NOTE | ~2023-02-23 | US_ITS ---
EXAMINATION: US PELVIS CLINICAL INFORMATION: Left lower quadrant pain. History of hysterectomy. COMPARISON: None available. TECHNIQUE: Ultrasound of the pelvis is performed using both transabdominal and transvaginal transducers along with Doppler. Transvaginal imaging is performed due to inadequate visualization transabdominally. FINDINGS: Uterus: The uterus has been removed. The vaginal cuff is normal in appearance. The adnexa are obscured by bowel gas. The ovaries are not seen. US/US pelvic and transvaginal IMPRESSION: 1. Prior hysterectomy. 2. The adnexa are obscured by bowel gas. The ovaries are not seen. If there is continued clinical concern, CT scan of the abdomen and pelvis could be obtained.
--- NOTE | ~2023-02-23 | CT_ITS ---
EXAMINATION: CT ABDOMEN AND PELVIS WITH CONTRAST CLINICAL INFORMATION: Question colovaginal fistula. History of diverticulitis. COMPARISON: Previous CT of the abdomen and pelvis January 2023 and pelvic ultrasound from earlier today TECHNIQUE: Multidetector volumetric images were obtained from the superior aspect of the liver through the pubic symphysis following administration 85 mL of Omnipaque 350 intravenous contrast. Sagittal and coronal reformatted images were obtained on the technologist's workstation. Oral contrast: Yes This CT examination was performed using dose optimization techniques as appropriate, variously including the following: *Automated exposure control *Adjustment of mA and/or kV according to patient size (this includes techniques or standardized protocols for targeted exams where dose is matched to indication/reason for exam; i.e. extremities or head) *Use of iterative reconstruction technique DLP: 418 mGy-cm FINDINGS: LUNG BASES: The visualized lung bases are unremarkable. LIVER, GALLBLADDER, AND BILIARY TREE: The liver is normal in size, shape, and attenuation. No focal hepatic lesion or biliary ductal dilatation is present. The gallbladder is unremarkable with no evidence of radiopaque gallstones, gallbladder wall thickening, or obvious pericholecystic inflammatory changes. PANCREAS: Unremarkable. SPLEEN: Unremarkable. ADRENAL GLANDS: Unremarkable. KIDNEYS AND URETERS: The kidneys are normal in size, shape, and attenuation. Small bilateral nonobstructing stones. No hydronephrosis. BLADDER: Unremarkable. GASTROINTESTINAL TRACT: There is diverticulosis of the colon. There is still wall thickening of the sigmoid colon and stranding of the surrounding fat suggestive of mild sigmoid diverticulitis. From 02/06/2023 exam. There is abnormal soft tissue seen extending from the inferior sigmoid colon to the vaginal cuff. There is air in the vagina. This is new from 02/06/2023 exam. Appearance is questionable for a colovaginal fistula. Constipation. Small and large bowel is otherwise normal. The appendix is not seen. Normal stomach. ABDOMINAL WALL: No significant hernia is appreciated. LYMPH NODES: Normal. VASCULAR: Unremarkable. PELVIC VISCERA: The uterus has been removed. There is new air in the vagina and again questionable for colovaginal fistula. Adnexa appear unremarkable. OSSEOUS STRUCTURES: Degenerative changes of the spine. Probable T10 and T11 vertebral body hemangiomas. CT/CT abdomen pelvis w IV con IMPRESSION: Improving sigmoid diverticulitis. New air in the vagina. Abnormal soft tissue inferior to the sigmoid colon extending to the vagina. 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 Constipation. Small nonobstructing bilateral renal stones. Fleischner guidelines were followed.
[2023-02-23 11:10] VITALS: BP 170/79; PULSE 70; RESP 16; TEMP 35.7; O2SAT 100; BMI 23.7
--- NOTE | 2023-02-23 11:10 | ED.GENADULT ---
HPI - General Adult General Chief complaint: General Medical Stated complaint: Lower abd pain left side Time Seen by Provider: 02/23/23 19:50 Source: patient Mode of arrival: ambulatory Limitations: no limitations History of Present Illness HPI narrative: Patient history of diverticulitis was seen here on 02/06 for left lower quadrant pain uncomplicated started on Levaquin and Flagyl which she took for 7 days was doing much better for last 3 days noticed slight discomfort in left lower quadrant again and brownish color vaginal discharge patient is status post hysterectomy no fever no chills no constipation no rectal bleed no urinary complaint Related Data Previous Rx's Medication Instructions Recorded atenolol 100 mg tablet 100 mg PO ONCE 90 days #90 tabs 01/08/23 atorvastatin 40 mg tablet 40 mg PO ONCE 90 days #90 tabs 01/23/23 fluoxetine 20 mg capsule 20 mg PO DAILY 90 days #90 caps 01/23/23 docusate sodium 100 mg capsule 100 mg PO BID PRN constipation #30 02/06/23 (Colace) caps levofloxacin 750 mg tablet 750 mg PO DAILY #6 tabs 02/06/23 metronidazole 500 mg tablet 500 mg PO BID 7 days #14 tabs 02/06/23 sennosides 8.6 mg capsule (senna) 8.6 mg PO BEDTIME PRN constipation 02/06/23 #30 caps losartan 25 mg tablet 25 mg PO DAILY #90 tabs 02/09/23 ciprofloxacin HCl 500 mg tablet 500 mg PO BID #20 tabs 02/23/23 (Cipro) metronidazole 500 mg tablet 500 mg PO BID 10 days #20 tabs 02/23/23 Allergies Allergy/AdvReac Type Severity Reaction Status Date / Time Penicillins [PENICILLINS] Allergy Intermediate RASH Verified 02/06/23 09:17 penicillin V Allergy Unknown rash Verified 02/06/23 09:17 Review of Systems Review of Systems: Yes all other systems are reviewed and are negative PMFSH Past Medical History Onset Date is defined in the Problem List Problems that require an onset date and time if occurred within 24 hrs of arrival to the ED Aortic Dissection and Rupture; Neurologic impairment; Cardiopulmonary Arrest; Endotracheal Intubation; Insertion or Replacement of Mechanical Circulatory Assist Device Medical History Carpal tunnel syndrome of right wrist Chronic GERD Lipid metabolism disorder Generalized anxiety disorder Surgical History History of carpal tunnel surgery History of hysterectomy History of appendectomy Family History Family History Other Substance use disorder Social History Social History Housing: House Alcohol intake: current Alcohol type: wine Patient Tobacco Use Status: Former Tobacco user (33 years ago ) Years Smoked: 7 Smoked in Last 30 Days: No e-Cigarette/Vaping Use: Never Used Use of substances other than those prescribed or required for medical reasons: No Advance Directives: No Advance Directives Information Provided: No service: No Current occupational status: employed 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 Oriented X3. No acute distress. Eyes: PERRLA, No Nystagmus ENT: Pharynx normal. Oral Mucosa moist Neck: Normal inspection. Neck supple. CVS: Normal heart rate and rhythm. Pulses normal. Respiratory: No respiratory distress. Equal air entry bilateral, no wheezing/rales/rhonchi Abdomen: Soft deep tenderness left lower quadrant no rebound tenderness or guarding Bowel sounds are present, no mass palpable, no CVA tenderness Skin: Skin warm and dry. Normal skin color. Normal skin turgor. Extremities: No lower extremity edema. No calf tenderness Neuro: Oriented X 3. Course Course Course Narrative: This is a rapid medical exam: Additional HPI, ROS, PE not included below will be deferred to primary provider. Patient is a 58-year-old female presenting to the ED with intermittent lower abdominal pain. Was seen here on 02/06, diagnosed with diverticulitis, completed full course of antibiotics. States she finished abx Wednesday and on Wednesday morning she developed left lower abdominal pain and had brown vaginal discharge. Reports she has had her cervix and uterus removed 25 years ago but still has both ovaries. BP elevated in triage, patient is unsure if she took her BP medication this morning. Plan: labs, UA, U/S Medications Administered Discontinued Medications Generic Name Dose Route Start Last Admin Trade Name Roxanna PRN Reason Stop Dose Admin Iohexol 100 ml 02/23/23 20:51 02/23/23 20:52 Iohexol 350 Mg/Ml 100 Ml Infus..Btl IV 02/23/23 20:52 85 ml ONCE ONE Administration Levofloxacin 500 mg 02/23/23 22:00 02/23/23 22:23 Levofloxacin 500 Mg Tablet PO 02/23/23 22:01 500 mg ONCE ONE Administration Metronidazole 500 mg 02/23/23 22:00 02/23/23 22:23 Metronidazole 500 Mg Tablet PO 02/23/23 22:01 500 mg ONCE ONE Administration Medical Decision Making Medical Decision Making [facility] Narrative: Patient with brown discharge from vagina 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 fluids case discussed with surgeon Dr. Donohue advised the patient to follow-up as outpatient no need for admission do any acute surgery advised to give 10 days of antibiotics meanwhile follow with surgeon Differential Diagnosis Differential Diagnoses: The differential diagnosis associated with the presentation includes Colovesical fistula/ colo vaginal fistula/diverticulitis Admission/Observation Consideration of admission/observation: Escalation of care including admission/observation considered Lab Data [facility] Lab Attestation statement: I reviewed the patient's lab results. 02/23/23 11:48 02/23/23 11:48 Labs: Lab Results 02/23/23 Range/Units 11:48 WBC 6.5 (4.8-10.8) X10*3/uL RBC 4.47 (4.20-5.50) X10*6/uL Hgb 13.4 (12.0-16.0) g/dl Hct 39.1 (37.0-47.0) % MCV 87.5 (80.0-98.0) fL MCH 30.0 (27.0-33.0) pg MCHC 34.3 (31.0-35.0) g/dl RDW 11.6 (11.0-16.0) % Plt Count 282 (160-400) X10*3/uL MPV 9.0 L (9.4-12.3) fL Immature Gran % (Auto) 0.3 (0.0-0.4) % Neut % (Auto) 64.7 (45-73) % Lymph % (Auto) 22.3 (20-40) % [place] % (Auto) 8.1 (2-11) % Eos % (Auto) 3.5 (0-4) % Baso % (Auto) 1.1 (0-2) % Lymph # (Auto) 1.5 (1.2-4.9) X10*3/uL [place] # (Auto) 0.5 (0.1-1.2) X10*3/uL Eos # (Auto) 0.2 (0.0-0.4) X10*3/uL Baso # (Auto) 0.1 (0.0-0.2) X10*3/uL Abs Immat Gran (auto) 0.02 (0.00-0.03) X10*3/uL Absolute Neuts (auto) 4.2 (2.0-8.3) x10*3/uL Absolute Nucleated RBC 0.000 (0.0-0.012) X10*3/uL Nucleated RBC % (auto) 0.0 (0.0-0.2) /100WBC Sodium 141 (135-145) mmol/L Potassium 4.8 (3.3-5.1) mmol/L Chloride 106 (96-108) mmol/L Carbon Dioxide 28 (22-29) mmol/L Anion Gap 12 (12-20) BUN 10 (9-16) mg/dL Creatinine 0.71 (0.5-1.4) mg/dL Estim Creat Clear Calc 66.6 Estimated GFR > 60 Random Glucose 99 (60-115) mg/dL Calcium 9.4 (8.4-10.2) mg/dL Total Bilirubin 0.5 (0.0-1.0) mg/dL AST 27 (5-31) U/L ALT 29 (0-31) U/L Alkaline Phosphatase 75 (39-117) U/L Total Protein 8.0 (6.5-8.0) g/dL Albumin 4.1 (3.5-5.0) g/dL Urine Color Yellow Urine Appearance Clear Urine pH 5.5 (5.0-9.0) Ur Specific [place] 1.020 (1.005-1.025) Urine Protein Negative (Neg-Trace) mg/dL Urine Glucose (UA) Negative (Negative) mg/dL Urine Ketones Negative (Negative) mg/dL Urine Blood Negative (Negative) Urine Nitrite Negative (Negative) Ur Leukocyte Esterase Trace H (Negative) Urine RBC 0-2 (0-2) /HPF Urine WBC 6-10 H (0-5) /HPF Ur Squamous Epith Cells 3-5 (0-2) /HPF Urine Bacteria None Seen (None Seen) Hyaline Casts 0-2 (0-2) /LPF Independent Interpretation I performed an independent interpretation of an: CT Scan Radiology Impression Discussion of test interpretation with radiology: I have reviewed the radiologist's reading. Radiologist Impression: CT/CT abdomen pelvis w IV con IMPRESSION: Improving sigmoid diverticulitis. New air in the vagina. Abnormal soft tissue inferior to the sigmoid colon extending to the vagina. 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 Constipation. Small nonobstructing bilateral renal stones. Fleischner guidelines were followed. 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 Patient Disposition: Home, Self-Care Instructions: Diverticulitis (ED), Perforated Bowel (DC) Additional Instructions: The fistula connecting your bowel to the vagina secondary to diverticulitis Have clear liquids advanced slowly as tolerated Antibiotic as prescribed Follow-up with surgeon within 1 week Report to the ER if worsening of the lower abdominal pain Prescriptions: New ciprofloxacin HCl [Cipro] 500 mg tablet 500 mg PO BID Qty: 20 0RF metronidazole 500 mg tablet 500 mg PO BID 10 Days Qty: 20 0RF No Action atenolol 100 mg tablet 100 mg PO ONCE 90 Days Qty: 90 0RF atorvastatin 40 mg tablet 40 mg PO ONCE 90 Days Qty: 90 1RF fluoxetine 20 mg capsule 20 mg PO DAILY 90 Days Qty: 90 1RF losartan 25 mg tablet 25 mg PO DAILY Qty: 90 1RF levofloxacin 750 mg tablet 750 mg PO DAILY Qty: 6 0RF Rx Instructions: start on 02/07 metronidazole 500 mg tablet 500 mg PO BID 7 Days Qty: 14 0RF senna 8.6 mg capsule 8.6 mg PO BEDTIME PRN (Reason: constipation) Qty: 30 0RF docusate sodium [Colace] 100 mg capsule 100 mg PO BID PRN (Reason: constipation) Qty: 30 0RF Referrals: Arvind Clayton MD [Physician] - 3 days (Colovaginal fistula, diverticulitis) Interventions: ED Discharge Assessment Last Done: 02/23/23 22:34 Discharge Date/Time: 02/23/23 22:35
[2023-02-23 11:53] LABS: MANUAL DIFF FLAG NO
[2023-02-23 11:58] LABS: Appearance Urine Clear; Color Urine Yellow; Glucose Urine UA Negative (Negative); Leukocyte Esterase Urine Trace (Negative); Nitrite Urine Negative (Negative); PH 5.5 (5.0-9.0); UMIC TRIGGER UACC YES; Urine Blood Negative (Negative); Urine Ketones Negative (Negative); Urine Protein Negative (Neg-Trace)
[2023-02-23 12:01] LABS: Bacteria Urine None Seen (None Seen); Hyaline Casts Urine 0-2 /LPF (0-2); RBC Urine 0-2 /HPF (0-2); UACC Culture Trigger YES
[2023-02-23 12:02] LABS: Basophils Absolute Auto 0.1 X10*3/uL (0.0-0.2); Basophils Percent Auto 1.1 % (0-2); Eosinophils Absolute Auto 0.2 X10*3/uL (0.0-0.4); Eosinophils Percent Auto 3.5 % (0-4); Hematocrit 39.1 % (37.0-47.0); Hemoglobin 13.4 g/dl (12.0-16.0); Imm Gran Abs Auto 0.02 X10*3/uL (0.00-0.03); Imm Gran Pct Auto 0.3 % (0.0-0.4); Lymphocytes Absolute Auto 1.5 X10*3/uL (1.2-4.9); Lymphocytes Percent Auto 22.3 % (20-40); Mean Corpuscular HGB Conc 34.3 g/dl (31.0-35.0); Mean Corpuscular Volume 87.5 fL (80.0-98.0); Monocytes Absolute Auto 0.5 X10*3/uL (0.1-1.2); Monocytes Percent Auto 8.1 % (2-11); Neutrophils Absolute Auto 4.2 x10*3/uL (2.0-8.3); Neutrophils Percent Auto 64.7 % (45-73); Platelet Count 282 X10*3/uL (160-400); Red Blood Count 4.47 X10*6/uL (4.20-5.50); Red Cell Distribution Width 11.6 % (11.0-16.0); White Blood Count 6.5 X10*3/uL (4.8-10.8)
[2023-02-23 12:10] LABS: Alanine Aminotransferase 29 U/L (0-31); Albumin Level 4.1 g/dL (3.5-5.0); Alkaline Phosphatase 75 U/L (39-117); Anion Gap 12 (12-20); Aspartate Amino Transferase 27 U/L (5-31); Bilirubin Total 0.5 mg/dL (0.0-1.0); Blood Urea Nitrogen 10 mg/dL (9-16); Calcium 9.4 mg/dL (8.4-10.2); Carbon Dioxide 28 mmol/L (22-29); Chloride 106 mmol/L (96-108); Creatinine Clr Calc Pharmacy 66.6; Estimated Glomerular Filt Rate > 60; Glucose Random 99 mg/dL (60-115); Potassium 4.8 mmol/L (3.3-5.1); Sodium 141 mmol/L (135-145)
[2023-02-23 16:50] VITALS: BP 178/69; PULSE 79; RESP 18; TEMP 37.1; O2SAT 97
[2023-02-23 20:35] VITALS: BP 179/82; PULSE 73; RESP 18; O2SAT 99
[2023-02-23] MEDS: iohexoL 350 MG/ML 100 ML INFUS..BTL IV (20:52)
[2023-02-23 20:54] VITALS: BP 174/79; PULSE 81; RESP 14; O2SAT 98
--- NOTE | 2023-02-23 22:01 | PC.NURSE ---
provider at bedside explaining the results to the pt.
[2023-02-23] MEDS: levoFLOXacin 500 MG TABLET PO (22:23)
[2023-02-23] MEDS: metroNIDAZOLE 500 MG TABLET PO (22:23)
[2023-02-23 22:28] VITALS: BP 171/90; PULSE 78; RESP 20; O2SAT 96
== END 2023-02-23 22:35 | disposition home or self-care (01) ==
PROVIDERS: Registered Nurse Emergency; Emergency Provider Internal Medicine; PCP Nurse Practitioner Family
DX: K57.32 Diverticulitis of large intestine without perforation or abscess without bleeding (principal); N32.1 Vesicointestinal fistula; R10.32 Left lower quadrant pain; I10 Essential (primary) hypertension; E78.9 Disorder of lipoprotein metabolism, unspecified; Z79.02 Long term (current) use of antithrombotics/antiplatelets; Z79.899 Other long term (current) drug therapy
CPT/HCPCS: 36415; 74177; 76830; 76856; 80053; 81001; 85025; 87086; 99284; Q9967

== ENCOUNTER 2023-02-25 13:16 | Outpatient (AMB) | payer OTHER, SELFPAY ==
--- NOTE | 2023-02-25 13:20 | MHC.OFFVIS ---
Intake Vital Signs 02/25/23 13:29 Weight 125 lb BP 187/99 H Blood Pressure Location Rt brachial Position Sitting Pulse 77 Intake Visit Reasons: Diverticulitis, colovaginal fistula-[facility] 02/23/23 Intake Note: This patient presents for [facility] follow-up for diverticulitis, colovaginal fistula. Patient c/o; reports odor, reports no improvements. Service Center Specialist Required: No Solution Specialist: Solution Specialist offered & declined Accompanied by: Self / Same As Patient Allergies Penicillins [PENICILLINS] Allergy (Intermediate, Verified 03/02/23 11:09) RASH penicillin V Allergy (Unknown, Verified 03/02/23 11:09) rash HPI Diverticulitis, colovaginal fistula-[facility] 02/23/23 HPI Details 58-year-old female referred by the emergency room for a colovaginal fistula. She 1st had left lower quadrant pain for a few days last January. She eventually went to the ER on 02/06/2023. She had a CAT scan done showing sigmoid diverticulitis. She was sent home with oral antibiotics. She says she did well thereafter. However last week, she had another episode of pain but this time it was much lower in the pelvis she says. She then noticed she described as foul-smelling vaginal discharge whenever she had a bowel movement after that so she went back to the ER 2 days ago.. She had a CAT scan showing what appeared to be sigmoid diverticulitis along with a colovaginal fistula. Her last colonoscopy on record was in 2016. This was done by Dr. Colon and was normal. She does have a family history of tubular adenomas and is due to have a repeat colonoscopy this year. She currently denies abdominal pain but although she does state that whenever she has a bowel movement, she would feel pressure in the pelvis. She denies any fever or chills. Aside from being extremely anxious, she says she otherwise feels well. She has good oral intake. [facility] Medical History (Updated 03/02/23 @ 12:58 by David Jose MD) Colovaginal fistula Carpal tunnel syndrome of right wrist Chronic GERD Lipid metabolism disorder Generalized anxiety disorder Surgical History History of carpal tunnel surgery History of hysterectomy History of appendectomy Family History Other Substance use disorder Social History Housing: House Alcohol intake: current Alcohol type: wine Patient Tobacco Use Status: Former Tobacco user (33 years ago ) Years Smoked: 7 Smoked in Last 30 Days: No e-Cigarette/Vaping Use: Never Used Use of substances other than those prescribed or required for medical reasons: No Advance Directives: No Advance Directives Information Provided: No service: No Current occupational status: employed 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 Cognitive needs: No Hearing needs: No Vision needs: Yes Review of Systems Const Denies chills and Denies fever(s) Card Denies chest pain, Denies dyspnea and Denies dyspnea on exertion Resp Denies cough, Denies dyspnea and Denies dyspnea on exertion GI Denies hematochezia and Denies change in bowel habits Denies hematuria, Reports vaginal discharge and Reports vaginal odor Musc Denies back pain and Denies limited range of motion Neuro Denies focal weakness and Denies convulsions Psych Denies depression and Denies mood swings Physical Exam Vital Signs: Last Vital Signs Pulse 77 02/25/23 13:29 BP 187/99 H 02/25/23 13:29 Const General: comfortable and no acute distress Orientation/consciousness: patient oriented x3 Neck Neck: Yes no lymphadenopathy Resp Auscultation: clear to auscultation bilaterally Cardio Rhythm: regular rhythm GI Palpation (GI): Soft to palpation, nontender and no guarding Neuro General: patient oriented x3 Assessment & Plan Assessment & Plan (1) Colovaginal fistula: Code(s): N82.4 - Other female intestinal-genital tract fistulae Plan: She had appears to be an episode of sigmoid diverticulitis late January,. She was treated with oral antibiotics. She says starting a few days ago, she has been noticing foul-smelling discharge from vagina whenever she has a bowel movement. She went back to the ER 2 days ago and this suggested a colovaginal fistula her vaginal stump. She had a hysterectomy for endometriosis in her 30s. I explained to her that she needs to have sigmoid resection he would since the fistula appears to be in the distal sigmoid, we will plan on a hand assisted anterior resection of the sigmoid. I explained the technique of this procedure and the possibility of converting to an open procedure and a likely diverting ileostomy, and intraop colonoscopy.. I discussed the risks extensively including but not limited to bleeding, infections, bowel injury, injury to the urinary tract, anastomotic and staple line leak, blood clots, pneumonia, inherent risks of anesthesia, as well as the benefits and alternatives. She is due for her colonoscopy this year so I told her that she will have a colonoscopy before her surgery in case there is any other pathology in the rest of her colon. I explained the technique of this colonoscopy. I reviewed the risks, benefits, and alternatives. She has given consent for both procedures So that she will only have 1 bowel prep, I will try to plan for a colonoscopy the day prior to her resection. Coding Level of Care Code New Pt Level 4 (78404) Diagnoses Colovaginal fistula N82.4
[2023-02-25 13:29] VITALS: BP 187/99; PULSE 77
== END 2023-02-25 13:50 | disposition home or self-care (01) ==
PROVIDERS: PCP Nurse Practitioner Family; Referring Provider Surgery; Visit Provider Surgery
DX: N82.4 Other female intestinal-genital tract fistulae (principal)
CPT/HCPCS: 99204

== ENCOUNTER → 2023-02-25 13:16 | Outpatient (BNVA) | payer OTHER, SELFPAY | PROVIDERS: PCP Nurse Practitioner Family; Referring Provider Surgery; Visit Provider Surgery ==

== ENCOUNTER 2023-03-02 11:03 | Inpatient (IN) | payer OTHER, SELFPAY ==
[2023-03-02 11:09] VITALS: BP 159/100; PULSE 63; RESP 18; TEMP 36.6; O2SAT 99; BMI 22.3
--- NOTE | 2023-03-02 11:12 | ED.ABDPAIN ---
HPI - Abdominal Pain General Chief Complaint: General Medical Stated Complaint: Referred by PCP Time Seen by Provider: 03/02/23 12:13 Source: patient and other (General surgeon, Dr. Clayton) Mode of arrival: ambulatory Limitations: no limitations History of Present Illness HPI narrative: 58-year-old female history of GERD, hyperlipidemia, anxiety, hysterectomy, appendectomy who presents emergency department for evaluation of abdominal pain secondary to colovaginal fistula. Patient was diagnosed with sigmoid diverticulitis on 02/06/2023 treated with Levaquin and Flagyl for 7 days. On 02/20/2022 she states she had severe lower abdominal pain and then developed a brown , foul-smelling vaginal discharge. Patient was seen in the emergency department on 02/23/2023 and was diagnosed with a colovaginal fistula. Patient was scheduled for a surgery however she states that she is having increased abdominal pain, increased vaginal discharge with swelling of her vagina and pruritus of her vagina. Patient was advised to go to the emergency department and was seen by Dr. Clayton in the emergency department. Related Data Home Medications Medication Instructions Recorded Confirmed atenolol 100 mg tablet 100 mg PO DAILY 03/02/23 03/02/23 atorvastatin 40 mg tablet 40 mg PO DAILY 03/02/23 03/02/23 Previous Rx's Medication Instructions Recorded fluoxetine 20 mg capsule 20 mg PO DAILY 90 days #90 caps 01/23/23 losartan 25 mg tablet 25 mg PO DAILY #90 tabs 02/09/23 ciprofloxacin HCl 500 mg tablet 500 mg PO BID #20 tabs 02/23/23 (Cipro) metronidazole 500 mg tablet 500 mg PO BID 10 days #20 tabs 02/23/23 Allergies Allergy/AdvReac Type Severity Reaction Status Date / Time Penicillins [PENICILLINS] Allergy Intermediate RASH Verified 03/02/23 11:09 penicillin V Allergy Unknown rash Verified 03/02/23 11:09 Review of Systems Review of Systems Yes all other systems are reviewed and are negative [facility] Past Medical History Medical History (Updated 03/02/23 @ 12:58 by David Jose MD) Colovaginal fistula Carpal tunnel syndrome of right wrist Chronic GERD Lipid metabolism disorder Generalized anxiety disorder Surgical History History of carpal tunnel surgery History of hysterectomy History of appendectomy Family History Family History Other Substance use disorder Social History Social History Housing: House Alcohol intake: current Alcohol type: wine Patient Tobacco Use Status: Former Tobacco user (33 years ago ) Years Smoked: 7 e-Cigarette/Vaping Use: Never Used service: No Current occupational status: employed 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 Cognitive needs: No Hearing needs: No Vision needs: Yes Physical Exam ED Vital Signs: Vital Signs - 24 hr 03/02/23 11:09 03/02/23 13:27 Temperature 98 F Pulse Rate 63 61 Respiratory Rate 18 18 Blood Pressure 159/100 H 159/76 H Pulse Oximetry 99 97 Oxygen Delivery Method Room Air Room Air BMI result Body Mass Index 22.3 Vital signs revealed an elevated blood pressure of 159/100 Exam: General: Awake, anxious, tearful, answers all questions appropriately Head: Normocephalic, atraumatic EENT: PERRL, Lids normal, sclera normal, conjunctiva normal, nose normal , ears normal, throat without erythema or exudates Neck: Supple, no adenopathy Lung: breath sounds symmetric, no wheezing, rales or rhonchi Chest: symmetric movement, nontender Heart: regular rate and rhythm, normal S1, S2 no murmurs or rubs Abdomen: soft, moderate lower abdominal tenderness, moderate suprapubic tenderness, nondistended, normal bowel sounds Back: no vertebral tenderness, no CVAT Extremities: no deformities, moves all extremities symmetrically Neuro: Awake, alert, oriented, normal speech, moves all extremities symmetrically Psych: Pleasant, cooperative Course Course Course Narrative: RME: 58 year-old F w/ PMHx colovaginal fistula presenting to the ED c/o continued abdominal pain and sates she was sent in by Dr. Clayton for admission for surgery Labs ordered Full HPI, ROS and PE to be performed by primary ED provider. Medical Decision Making Medical Decision Making MDM Narrative: 58-year-old female history of GERD, hyperlipidemia, anxiety, hysterectomy, appendectomy who presents emergency department for evaluation of abdominal pain secondary to colovaginal fistula. Vital signs revealed elevated blood pressure. Abdominal exam did reveal lower abdominal tenderness. Following evaluation was ordered: CBC, BMP, liver panel, lipase, PT/INR, PTT, magnesium, type and screen, EKG Patient was treated with the following: Morphine 4 mg IV, Zofran 4 mg IV and lactated Ringer's at 125 cc/hour. 16:00 My independent interpretation patient's laboratory evaluation is as follows: CBC was normal. Coags were normal. AST and ALT were elevated 38 and 35. Lipase was normal. Differential Diagnosis Differential Diagnoses: The differential diagnosis associated with the presentation includes Differential diagnosis includes was not limited to diverticulitis, pancreatitis, pain secondary to colovaginal fistula Admission/Observation Consideration of admission/observation: Escalation of care including admission/observation considered Consult Healthcare Provider Management of the patient was discussed with: Green Pipefitter (Dr. Clayton) Lab Data MDM Lab Attestation statement: I reviewed the patient's lab results. 03/02/23 12:47 03/02/23 12:47 Labs: Lab Results 03/02/23 Range/Units 12:47 WBC 6.6 (4.8-10.8) X10*3/uL RBC 4.31 (4.20-5.50) X10*6/uL Hgb 12.9 (12.0-16.0) g/dl Hct 37.2 (37.0-47.0) % MCV 86.3 (80.0-98.0) fL MCH 29.9 (27.0-33.0) pg MCHC 34.7 (31.0-35.0) g/dl RDW 11.9 (11.0-16.0) % Plt Count 220 (160-400) X10*3/uL MPV 9.4 (9.4-12.3) fL Immature Gran % (Auto) 0.3 (0.0-0.4) % Neut % (Auto) 70.7 (45-73) % Lymph % (Auto) 16.3 L (20-40) % [place] % (Auto) 9.5 (2-11) % Eos % (Auto) 2.3 (0-4) % Baso % (Auto) 0.9 (0-2) % Lymph # (Auto) 1.1 L (1.2-4.9) X10*3/uL [place] # (Auto) 0.6 (0.1-1.2) X10*3/uL Eos # (Auto) 0.2 (0.0-0.4) X10*3/uL Baso # (Auto) 0.1 (0.0-0.2) X10*3/uL Abs Immat Gran (auto) 0.02 (0.00-0.03) X10*3/uL Absolute Neuts (auto) 4.7 (2.0-8.3) x10*3/uL Absolute Nucleated RBC 0.000 (0.0-0.012) X10*3/uL Nucleated RBC % (auto) 0.0 (0.0-0.2) /100WBC PT 12.6 (11.1-13.3) SEC INR 1.0 (0.9-1.1) APTT 31.1 (26.0-36.4) SEC Sodium 140 (135-145) mmol/L Potassium 4.4 (3.3-5.1) mmol/L Chloride 108 (96-108) mmol/L Carbon Dioxide 26 (22-29) mmol/L Anion Gap 10 L (12-20) BUN 10 (9-16) mg/dL Creatinine 0.62 (0.5-1.4) mg/dL Estim Creat Clear Calc 76.2 Estimated GFR > 60 Random Glucose 83 (60-115) mg/dL Calcium 9.6 (8.4-10.2) mg/dL Magnesium 1.7 (1.6-2.6) mg/dL Total Bilirubin 0.6 (0.0-1.0) mg/dL Direct Bilirubin 0.2 (0.0-0.5) mg/dL AST 38 H (5-31) U/L ALT 35 H (0-31) U/L Alkaline Phosphatase 67 (39-117) U/L Total Protein 7.6 (6.5-8.0) g/dL Albumin 4.0 (3.5-5.0) g/dL Lipase 37 (8-78) U/L Blood Type O Positive Antibody Screen NEGATIVE Independent Interpretation I performed an independent interpretation of an: EKG Interpretation: My independent interpretation patient's 12 EKG done at 13:04 hours is as follows: Normal sinus rhythm rate of 63, normal TN interval, QRS duration QTC interval, no ST segment elevation, no ST segment depression, inverted T-waves in lead V1 through V3, no PACs, no PVCs. This is a normal EKG. Independent Historian Clinical information obtained from an independent historian. History obtained from or confirmed by: Other (Dr. Clayton) Chronic Conditions Patient?s care impacted by: Hypertension Medications Administered Generic Name Dose Route Start Last Admin Trade Name Freq PRN Reason Stop Dose Admin Sodium Chloride 1,000 mls @ 100 mls/hr 03/02/23 13:45 03/02/23 14:02 Ns IVCONT 100 mls/hr .Q10H TOYA Administration Discontinued Medications Generic Name Dose Route Start Last Admin Trade Name Freq PRN Reason Stop Dose Admin Lactated Ringer's 1,000 mls @ 125 mls/hr 03/02/23 12:45 03/02/23 14:12 Lr IVCONT Infused .Q8H TOYA Infusion Morphine Sulfate 4 mg 03/02/23 12:33 03/02/23 13:07 Morphine Sulfate 4 Mg/Ml Cartridge IVPUSH 03/02/23 12:34 4 mg ONCE STA Administration Protocol Ondansetron HCl 4 mg 03/02/23 12:33 03/02/23 13:07 Ondansetron Hcl 4 Mg/2 Ml Vial IVPUSH 03/02/23 12:34 4 mg ONCE ONE Administration Discharge Plan Discharge Clinical Impression: Colovaginal fistula Abdominal pain Qualifiers: Abdominal location: lower abdomen, unspecified Qualified Code(s): R10.30 - Lower abdominal pain, unspecified Patient Disposition: Admitted As Inpatient
--- NOTE | 2023-03-02 12:19 | ECG_ITS ---
Test Reason : PRE OP Blood Pressure : / mmHG Vent. Rate : 063 BPM Atrial Rate : 063 BPM P-R Int : 152 ms QRS Dur : 074 ms QT Int : 420 ms P-R-T Axes : 047 032 037 degrees QTc Int : 429 ms Normal sinus rhythm Normal ECG No previous ECGs available Referred By: David Jose Electronically Signed By:Manny Day
--- NOTE | 2023-03-02 12:20 | P.HPGS_ITS ---
History of Present Illness History of Present Illness Date of Service: 03/04/23 <Arvind Clayton MD - Last Filed: 03/04/23 10:57> 03/03/23 <Dennis Sykes MD - Last Filed: 03/03/23 07:24> Chief complaint: Colovaginal fistula <Arvind Clayton MD - Last Filed: 03/04/23 10:57> Narrative: Shruthi Helms is a 58 year old female here in the ER because of a colovaginal fistula. She 1st had left lower quadrant pain for a few days last January,. She eventually went to the ER on 02/06/2023. She had a CAT scan done showing sigmoid diverticulitis. She was sent home with oral antibiotics. She says she did well thereafter. However 2 weeks ago, she had another episode of pain but this time it was much lower in the pelvis. She then noticed what she described as foul-smelling vaginal discharge whenever she had a bowel movement after that so she went back to the ER last week. She had a CAT scan showing what appeared to be sigmoid diverticulitis along with a colovaginal fistula. I had seen her in the office last week. I had scheduled her for colonoscopy as well as hand assisted laparoscopic anterior resection next week However, she had called the office stating that she is stressed by the amount of stool that has been coming out of her vagina each time she has a bowel movement. She says she is starting to have a yeast infection because of the irritation from this. She therefore came to the emergency room today. Her last colonoscopy on record was in 2017. This was done by Dr. Colon and was normal. She does have a family history of tubular adenomas and is due to have a repeat colonoscopy this year. She currently denies abdominal pain although she does state that whenever she bradley s a bowel movement, she would feel pressure in the pelvis. Her urine is clear. She denies any fever or chills. She has good oral intake. She denies dysuria but describes burning in her vagina. She had a hysterectomy and an appendectomy in the distant past. <Arvind Clayton MD - Last Filed: 03/04/23 10:57> Review of Systems Constitutional: Constitutional: Denies chills and Denies fever(s) <Arvind Clayton MD - Last Filed: 03/04/23 10:57> Cardiovascular: Cardiovascular: Denies chest pain, Denies dyspnea and Denies dyspnea on exertion <Arvind Clayton MD - Last Filed: 03/04/23 10:57> Respiratory: Respiratory: Denies cough, Denies dyspnea and Denies dyspnea on exertion <Arvind Clayton MD - Last Filed: 03/04/23 10:57> Gastrointestinal: Gastrointestinal: Denies hematochezia and Denies change in bowel habits <Arvind Clayton MD - Last Filed: 03/04/23 10:57> Genitourinary: Genitourinary: Denies hematuria <Arvind Clayton MD - Last Filed: 03/04/23 10:57> Musculoskeletal: Musculoskeletal: Denies back pain and Denies limited range of motion <Arvind Clayton MD - Last Filed: 03/04/23 10:57> Neurologic: Denies focal weakness and Denies convulsions <Arvind Clayton MD - Last Filed: 03/04/23 10:57> Psychiatric: Psychiatric: Reports anxiety, Reports depression and Denies mood swings <Arvind Clayton MD - Last Filed: 03/04/23 10:57> PMFSH Past Medical History Medical History: Medical History Colovaginal fistula Carpal tunnel syndrome of right wrist Chronic GERD Lipid metabolism disorder Generalized anxiety disorder <Arvind Clayton MD - Last Filed: 03/04/23 10:57> Family History Family History: Family History Other Substance use disorder <Arvind Clayton MD - Last Filed: 03/04/23 10:57> Surgical History Surgical History: Surgical History History of carpal tunnel surgery History of hysterectomy History of appendectomy <Arvind Clayton MD - Last Filed: 03/04/23 10:57> Social History Social History: Social History Household Members: Spouse Housing: House Do you presently have visiting nurse or other home services: No Alcohol intake: current Alcohol intake frequency: holidays/special occasions only Alcohol type: wine Comment: counts correct Patient Tobacco Use Status: Former Tobacco user Years Smoked: 7 Smoked in Last 30 Days: No e-Cigarette/Vaping Use: Never Used Use of substances other than those prescribed or required for medical reasons: No Currently Displaying Signs/Symptoms of Drug Intoxication Withdrawal: No Have you been hit, kicked, punched, or otherwise hurt by someone within the past year? 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 Cognitive needs: No Hearing needs: No Vision needs: Yes <Arvind Clayton MD - Last Filed: 03/04/23 10:57> Meds Allergies/Adverse reactions: Allergies Allergy/AdvReac Type Severity Reaction Status Date / Time Penicillins [PENICILLINS] Allergy Intermediate RASH Verified 03/02/23 11:09 penicillin V Allergy Unknown rash Verified 03/02/23 11:09 <Arvind Clayton MD - Last Filed: 03/04/23 10:57> Home medications: Home Medications Medication Instructions Recorded Confirmed Last Taken Type atenolol 100 mg tablet 100 mg PO DAILY 03/02/23 03/02/23 03/02/23 History atorvastatin 40 mg tablet 40 mg PO DAILY 03/02/23 03/02/23 03/02/23 History <Arvind Clayton MD - Last Filed: 03/04/23 10:57> Physical Exam Vital Signs: Vital Signs: Last Vital Signs Temp 98 F 03/02/23 11:09 Pulse 63 03/02/23 11:09 Resp 18 03/02/23 11:09 BP 159/100 H 03/02/23 11:09 Pulse Ox 99 03/02/23 11:09 O2 Del Method Room Air 03/02/23 11:09 BMI result Body Mass Index 22.3 <Arvind Clayton MD - Last Filed: 03/04/23 10:57> Const: General: comfortable and no acute distress <Arvind Clayton MD - Last Filed: 03/04/23 10:57> Orientation/consciousness: patient oriented x3 <Arvind Clayton MD - Last Filed: 03/04/23 10:57> Neck: Neck: Yes no lymphadenopathy <Arvind Clayton MD - Last Filed: 03/04/23 10:57> Resp: Auscultation: clear to auscultation bilaterally <Arvind Clayton MD - Last Filed: 03/04/23 10:57> Cardio: Rhythm: regular rhythm <Arvind Clayton MD - Last Filed: 03/04/23 10:57> GI: Palpation (GI): Soft to palpation, nontender and no guarding <Arvind Clayton MD - Last Filed: 03/04/23 10:57> : Other: vaginal exam - unable to feel any mass in the vagina, no palpable defect, no bleeding <Arvind Clayton MD - Last Filed: 03/04/23 10:57> Neuro: General: patient oriented x3 <Arvind Clayton MD - Last Filed: 03/04/23 10:57> Assessment and Plan (1) Colovaginal fistula: Status: Acute <Arvind Clayton MD - Last Filed: 03/04/23 10:57> She has a colovaginal fistula likely from acute diverticulitis. The inflammatory process seems to have involved the distal sigmoid all the way to the vaginal cuff. She actually had been scheduled for anterior resection next week. However, she says that the amount of vaginal discharge with bowel movements have been bothering her because of the amount. She says that she has been starting to have significant irritation of her vagina I therefore explained to her that we will try to do the planned procedure tomorrow or . She will be admitted to the hospital. She will undergo bowel prep. The plan is to do a colonoscopy and then a hand assisted anterior resection likely stoma. I had a long discussion with her about the technique of this procedure. I reviewed the risks including but not limited to bleeding, infections, bowel injury, injury to other organs including the urinary tract, blood clots, pneumonia, MT, blood clots, as well as the benefits and alternatives . She understands what to expect postoperatively especially with regards to the stoma . I have discussed the case with Gyne. Dr. Michaels will available for consult tomorrow as needed. <Arvind Clayton MD - Last Filed: 03/04/23 10:57> Quality Stroke Does the patient have a stroke diagnosis?: No <Arvind Clayton MD - Last Filed: 03/04/23 10:57> VTE Prior VTE?: No <Arvind Clayton MD - Last Filed: 03/04/23 10:57> VTE Risk Level:: Medical - moderate - high <Arvind Clayton MD - Last Filed: 03/04/23 10:57> VTE Device Contraindication: N/A - Device Ordered <Arvind Clayton MD - Last Filed: 03/04/23 10:57> VTE Drug Contraindication: N/A - Med Ordered <Arvind Clayton MD - Last Filed: 03/04/23 10:57> Procedures Date of Service Date of Service: 03/04/23 <Arvind Clayton MD - Last Filed: 03/04/23 10:57> 03/03/23 <Dennis Sykes MD - Last Filed: 03/03/23 07:24>
[2023-03-02 12:54] LABS: MANUAL DIFF FLAG NO
[2023-03-02 12:56] LABS: Basophils Absolute Auto 0.1 X10*3/uL (0.0-0.2); Basophils Percent Auto 0.9 % (0-2); Eosinophils Absolute Auto 0.2 X10*3/uL (0.0-0.4); Eosinophils Percent Auto 2.3 % (0-4); Hematocrit 37.2 % (37.0-47.0); Hemoglobin 12.9 g/dl (12.0-16.0); Imm Gran Abs Auto 0.02 X10*3/uL (0.00-0.03); Imm Gran Pct Auto 0.3 % (0.0-0.4); Lymphocytes Absolute Auto 1.1 X10*3/uL (1.2-4.9); Lymphocytes Percent Auto 16.3 % (20-40); Mean Corpuscular HGB Conc 34.7 g/dl (31.0-35.0); Mean Corpuscular Hemoglobin 29.9 pg (27.0-33.0); Mean Corpuscular Volume 86.3 fL (80.0-98.0); Mean Platelet Volume 9.4 fL (9.4-12.3); Monocytes Absolute Auto 0.6 X10*3/uL (0.1-1.2); Monocytes Percent Auto 9.5 % (2-11); Neutrophils Absolute Auto 4.7 x10*3/uL (2.0-8.3); Neutrophils Percent Auto 70.7 % (45-73); Platelet Count 220 X10*3/uL (160-400); Red Blood Count 4.31 X10*6/uL (4.20-5.50); Red Cell Distribution Width 11.9 % (11.0-16.0); White Blood Count 6.6 X10*3/uL (4.8-10.8)
[2023-03-02 13:01] LABS: Prothrombin Time 12.6 SEC (11.1-13.3)
[2023-03-02 13:04] LABS: Partial Thromboplastin Time 31.1 SEC (26.0-36.4)
[2023-03-02] MEDS: ondansetron HCL 4 MG/2 ML VIAL IVPUSH (13:07)
[2023-03-02] MEDS: Morphine Sulfate 4 MG/ML CARTRIDGE IVPUSH (13:07)
[2023-03-02 13:10] LABS: Alanine Aminotransferase 35 U/L (0-31); Alkaline Phosphatase 67 U/L (39-117); Anion Gap 10 (12-20); Aspartate Amino Transferase 38 U/L (5-31); Bilirubin Direct 0.2 mg/dL (0.0-0.5); Bilirubin Total 0.6 mg/dL (0.0-1.0); Blood Urea Nitrogen 10 mg/dL (9-16); Calcium 9.6 mg/dL (8.4-10.2); Carbon Dioxide 26 mmol/L (22-29); Chloride 108 mmol/L (96-108); Creatinine Clr Calc Pharmacy 76.2; Estimated Glomerular Filt Rate > 60; Glucose Random 83 mg/dL (60-115); Lipase 37 U/L (8-78); Magnesium 1.7 mg/dL (1.6-2.6); Potassium 4.4 mmol/L (3.3-5.1); Sodium 140 mmol/L (135-145); Total Protein 7.6 g/dL (6.5-8.0)
[2023-03-02] MEDS: Lactated Ringers 1,000 ML 125 ML IVCONT (13:23)
[2023-03-02 13:27] VITALS: BP 159/76; PULSE 61; RESP 18; O2SAT 97
--- NOTE | 2023-03-02 13:38 | PHA.MEDREC ---
Pharmacy Consult ? Medication Reconciliation Pharmacy has completed the medication reconciliation. Spoke with patient in the ED. Patient listed off all medications. Patient took all medications this morning.
[2023-03-02] MEDS: 0.9 % Sodium Chloride 1,000 ML 100 ML IVCONT (14:02)
--- NOTE | 2023-03-02 14:56 | PM.EVENT ---
Event Note Date of Service: 03/03/23 Event Note: plan to proceed with colonoscopy, HALS anterior resection, stoma tomorrow reviewed plan with pt and explained risks including but not limited to bleeding, infections injury to bowel, urinary tract, blood clots, staple line leak, pneumonia she says she fully understands bowel prep ordered she has a benign exam labs ok Time Spent With Patient Time: Total time managing care of this patient today ____ minutes.
[2023-03-02] MEDS: PEG 3350/Na Sulf,Bicarb,Cl/KCL 4,000 ML SOLN.RECON 4000 ML PO (16:53)
[2023-03-02 17:28] VITALS: BP 173/82; PULSE 59; RESP 18; TEMP 36.5; O2SAT 98
[2023-03-02 18:02] LABS: COVID-19 Test Negative (Negative); IDNOW Serial# 152EDE1D
[2023-03-02 18:10] LABS: IDNOW Serial# 58CA691E
[2023-03-02 18:11] LABS: Influenza A Negative (Negative); Influenza B2 Negative (Negative)
[2023-03-02 19:00] VITALS: BP 178/77; PULSE 63; RESP 18; TEMP 36.5; O2SAT 97
[2023-03-02] MEDS: LORazepam 1 MG TABLET 2 MG PO (19:41)
[2023-03-03] VITALS (14 sets, daily range): BP systolic 103–166; BP diastolic 59–85; PULSE 83–105; RESP 12–20; TEMP 36.2–36.9; O2SAT 95–98; BMI 22.3
[2023-03-03] MEDS: 0.9 % Sodium Chloride 1,000 ML 100 ML IVCONT ×2 (00:06→13:50)
--- NOTE | 2023-03-03 06:51 | PC.NURSE ---
pericare given and repositioned patient denies pain
--- NOTE | 2023-03-03 07:23 | PC.NURSE ---
repositoned for comfort pt denies pain dr starks at bedside explaining procedure/sugery and risks pt verbalized understanding aware careplan nad
--- NOTE | 2023-03-03 07:25 | HO.ANESPROP2 ---
HPI - Anesthesia Eval Consult details Narrative: for right colectomy for repair colovaginal fistula PMFSH Active Problems Active Problems: All Active Problems (Updated 03/02/23 @ 12:58 by David Jose MD) Colovaginal fistula (Acute) Abdominal pain (Acute) Colovaginal fistula (Acute) Urinary tract infection (Acute) Shortness of breath (Acute) Chest heaviness (Acute) Acute bronchitis (Acute) Encounter for general adult medical examination with abnormal findings (Acute) Dysuria (Acute) Rosacea (Acute) Rash (Acute) Fracture of fifth metacarpal bone with routine healing (Acute) Encounter for removal of sutures (Acute) Closed fracture of 5th metacarpal (Acute) Right hand fracture (Acute) Chronic GERD (Acute) Lipid metabolism disorder (Acute) Generalized anxiety disorder (Acute) Hypertension, essential (Acute) Past Medical History Medical History Colovaginal fistula Carpal tunnel syndrome of right wrist Chronic GERD Lipid metabolism disorder Generalized anxiety disorder Family History Family History Other Substance use disorder Family history of problems with anesthesia: No Surgical History Surgical History History of carpal tunnel surgery History of hysterectomy History of appendectomy History of Problems with Anesthesia: Yes (PONV) Social History Social History Household Members: Spouse Housing: House Do you presently have visiting nurse or other home services: No Alcohol intake: current Alcohol intake frequency: holidays/special occasions only Alcohol type: wine Patient Tobacco Use Status: Former Tobacco user Years Smoked: 7 e-Cigarette/Vaping Use: Never Used service: No Current occupational status: employed 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 Cognitive needs: No Hearing needs: No Vision needs: Yes Meds Allergies Allergy/AdvReac Type Severity Reaction Status Date / Time Penicillins [PENICILLINS] Allergy Intermediate RASH Verified 03/02/23 11:09 penicillin V Allergy Unknown rash Verified 03/02/23 11:09 Active Medications: Current Medications Atenolol (Atenolol 100 Mg Tablet) 100 mg PO DAILY TOYA; Protocol Sodium Chloride (Ns) 1,000 mls @ 100 mls/hr IVCONT .Q10H [facility] Last Admin: 03/03/23 00:06 Dose: 100 mls/hr Cefotetan Disodium 2 gm/ (Sodium Chloride) 50 mls @ 100 mls/hr IV PREOP ONE Stop: 03/03/23 07:50 Losartan Potassium (Losartan Potassium 25 Mg Tablet) 25 mg PO DAILY [facility]; Protocol Sodium Chloride (0.9 % Sodium Chloride Flush 3 Ml Syringe) 3 ml IVFLUSH QSHIFT [facility] Last Admin: 03/02/23 23:04 Dose: Not Given Home Medications Medication Instructions Recorded Confirmed Last Taken Type atenolol 100 mg tablet 100 mg PO DAILY 03/02/23 03/02/23 03/02/23 History atorvastatin 40 mg tablet 40 mg PO DAILY 03/02/23 03/02/23 03/02/23 History Exam Height,Weight and Vital Signs: Height 5 ft 2 in Weight 55.338 kg Last Vital Signs Temp 98.3 F 03/03/23 06:40 Pulse 85 03/03/23 06:40 Resp 20 03/03/23 06:40 BP 130/76 03/03/23 06:40 Pulse Ox 98 03/03/23 06:40 O2 Del Method Room Air 03/03/23 06:40 Pertinent Lab Results Pertinent Lab Results: Laboratory Tests 03/02/23 03/02/23 12:47 17:40 WBC 6.6 RBC 4.31 Hgb 12.9 Hct 37.2 MCV 86.3 MCH 29.9 MCHC 34.7 RDW 11.9 Plt Count 220 MPV 9.4 Immature Gran % (Auto) 0.3 Neut % (Auto) 70.7 Lymph % (Auto) 16.3 L [place] % (Auto) 9.5 Eos % (Auto) 2.3 Baso % (Auto) 0.9 Lymph # (Auto) 1.1 L [place] # (Auto) 0.6 Eos # (Auto) 0.2 Baso # (Auto) 0.1 Abs Immat Gran (auto) 0.02 Absolute Neuts (auto) 4.7 Absolute Nucleated RBC 0.000 Nucleated RBC % (auto) 0.0 PT 12.6 INR 1.0 APTT 31.1 Sodium 140 Potassium 4.4 Chloride 108 Carbon Dioxide 26 Anion Gap 10 L BUN 10 Creatinine 0.62 Estim Creat Clear Calc 76.2 Estimated GFR > 60 Random Glucose 83 Calcium 9.6 Magnesium 1.7 Total Bilirubin 0.6 Direct Bilirubin 0.2 AST 38 H ALT 35 H Alkaline Phosphatase 67 Total Protein 7.6 Albumin 4.0 Lipase 37 COVID-19 (ROBERT) Negative COVID-19 Clin Com See Note Influenza Type A (MATTHEW) Negative Influenza Type B (MATTHEW) Negative Influenza A & B Note See Note Blood Type O Positive Antibody Screen NEGATIVE Airway Mallampati Class: II TM Dist: >3cm Partial: Upper (nonremovable upp bridge) Heart: ok Lungs: ok Assessment and Plan Assessment Anesthesia Assessment: Anesthesia Plan Discussed and Chart Reviewed Final Anesthetic Review Family History of Problems with Anesthesia: No History of Problems with Anesthesia: Yes (PONV) NPO: Yes ASA Class: II Final Preanesthetic Review: No Changes in Pt Med Stat, Meds/Allgs Chart Reviewed, Consent Obtained/Reviewed and Anes Risks/Benef Reviewed Patient Risk: Intermediate Procedure Risk: Intermediate Anesthetic Plan Anesthetic Plan: GA and Agree w/ Assess. and Plan Disposition: Standard PACU
--- NOTE | 2023-03-03 07:27 | PC.NURSE ---
anesthesia at bedside going over anesthesia ans risk pt verbalized understanding
--- NOTE | 2023-03-03 07:31 | PC.NURSE ---
report to or nurse
--- NOTE | 2023-03-03 08:10 | W.PM.OPN ---
Operative Note Operative Note Date of Service: 03/03/23 Narrative: Preop diagnosis: colovaginal fistula, diverticular disease Postop diagnosis: Colovaginal fistula, diverticular disease with some fistula seen in the distal sigmoid at about level 20 cm; no obvious fistula seen Procedure: Colonoscopy , hand assisted laparoscopic sigmoid resection, extensive lysis of adhesions, separation of the distal sigmoid from the vaginal cuff, end to end anastomosis, diverting loop ileostomy Surgeon: Arvind Clayton MD The patient is a 58-year-old female with a colovaginal fistula. She is here for sigmoid resection. I have also planned on doing her colonoscopy to rule out any other concomitant pathology in the rest of the colon. She understood the planned technique of procedure also the risks, benefits, and alternatives. The patient was brought to the operating room and placed in left lateral decubitus position under monitored anesthesia care. A surgical time-out was done. A full digital rectal exam was done and this did not reveal any significant anal lesions. The tip of the Olympus colonoscope was gently introduced through the anal orifice advanced with insufflation all the way to the cecum. The cecum was intubated. The cecum was identified by visualization of the ileocecal valve as well as the appendiceal orifice. The cecal mucosa was unremarkable. The scope was gradually withdrawn with careful examination of the entire colonic mucosa being done with scope withdrawal. The patient had adequate bowel prep so it was unlikely that any lesion may have been missed. There was note of a few diverticuli in the sigmoid at about level of 20-25 cm. There was no obvious fistula with there was no obvious acute inflammatory process. The rectum was reached and there were no lesions seen. The anal canal was unremarkable. The scope was then withdrawn completely with desufflation We then prepared the patient for the colon resection. She was placed under general anesthesia via endotracheal tube. She was patient in modified lithotomy. A Galaviz catheter was inserted. The Galaviz catheter output was clear. The abdomen and the perineum were prepped and draped in the usual sterile fashion. Patient had received Cefotan 2 g IV preoperatively A surgical time-out had been done earlier. I made a short incision in the infraumbilical area on the midline using blade 15 This was carried down through the full-thickness of the skin subcutaneous fat down to the fascia. The fascia was incised. The peritoneum was entered. Through this incision we were able to visualize a lot of thick adhesions consisting of omentum and fibrous tissue on the right side and the pelvis from her previous hysterectomy and appendectomy. We had to do a lot of dissection with the LigaSure as well as electrocautery and Metzenbaum scissors to clear up intraperitoneal area of adhesions. Eventually we were able to free up all these adhesions and we were able to apply the Kennedy wound retractor. We insufflated with the GelPort and a insufflating port. With laparoscopic visualization using a 30 degree 10 mm scope, proceeded to then apply a 5/12 port in the epigastric area. 5 mm ports introduced through a small incisions on the right lower quadrant. The patient was placed in a steep head-down and right side down position. Were able to visualize the sigmoid colon. There was very indurated from the mid sigmoid all the way distally. This was very adherent to the pelvic sidewall. Part of this distal sigmoid was actually looped onto the vaginal cuff. We could see indurated tissue on the area of the vaginal cuff in the low pelvis. I had to firstst separate the inflamed, markedly indurated sigmoid from the pelvic sidewall. I had to do this with a careful dissection using the LigaSure as well as blunt dissection with finger fracture technique. This part of the procedure took an extended period of time because of the very dense adhesions. Eventually, I was able to separate this entire sigmoid from the pelvic sidewall. I mobilized the sigmoid and left colon by dividing the peritoneal attachments along the white line of Toldt. I extended this evaluation of the peritoneum past the sigmoid all the way to the left side of the rectosigmoid. I used the LigaSure to divide this very thickened, indurated attachments I was able to eventually separate the entire sigmoid from the rest of the vaginal cuff by a careful finger fracture technique. There was note of a supple segment of the very distal sigmoid near the junction rwith the rectum. Although the peritoneum was markedly thickened in this area and indurated, I felt that it would be safe to do an anastomosis in the rectosigmoid. I therefore had to do more mobilization of the rectosigmoid by dividing the peritoneal attachments which were thickened and indurated I then was able to bring up the entire sigmoid colon. I was able to define the disease segment. I chose a point of dissection distal to this which was already in the rectosigmoid. I created a mesenteric window and fired the Endo-BHAVIK 60 mm stapler I proceeded to then do some dissection of the proximal sigmoid past the level of induration and created a mesenteric window as well. This was divided as well with an Endo-BHAVIK 60 mm stapler I then used the LigaSure to divide the rest of the remaining attached mesentery. Again, there was note of a lot of induration in the mesentery and we had to do careful and slow dissection to be able to separate this entire length of diseased segment. The specimen which consisted of the distal sigmoid was sent for pathology I then removed the GelPort. I brought up the staple stump of the proximal sigmoid. I excised the staple line. I dilated this lumen and it only allow the 25 mm dilator. I then applied a pursestring using a Prolene 3-0 stitch. I proceeded to position the used the 25 mm anvil and this was position within the lumen. I tightened the pursestring. Cleaned up a lot of the indurated fatty areolar tissue surrounding this pulse strength. However, it appeared that we did not good this these tissue so I had to redo this pursestring. I excised more length of the stump. I reduce the pursestring and reapplied the Advil. This was tightened I removed some of the thick fatty areolar tissue surrounding the pursestring gently with electrocautery as well I then proceeded to place this proximal stump back into the peritoneal cavity We had to do more mobilization of the left colon all the way to just at the splenic flexure using the LigaSure. I had to place another port in the left lower quadrant to be able to achieve this Once it appeared that we had good length of left colon and sigmoid to reach the distal rectal stump, I then proceeded to prepare the distal stump. However on examination of the staple line, this appeared to have opened up and loosened. The lumen was visible. I had to redo the staple line . I applied a grasper through the left lower quadrant port to bring up the islas of this old staple line line together. I used my hand as well to bring up the stump into the field. I was able to expose this extra length of stump to reapply our BHAVIK stapler. I had to do this with multiple firings to be able to close this completely We then proceeded to do the end-to-end anastomosis. The assistant store manager trainee JANET Shankar inserted the dilator through the rectum. We are able to see this the staple line. We then used the 25 mm end-to-blending tank tender helper and this was advanced from the anus all the way to the staple line. The spike was activated. I attached the anvil to the spike and locked this in place. We proceeded to then tighten the he apparatus to create our circular stapler. This was fired and removed. We examined the anastomotic donuts and this appeared to be intact on both sides We then tested the anastomosis by insufflating with a bulb syringe rectum. The anastomosis was immersed in irrigating fluid. We insufflated multiple times and there was no evidence of any bubbling leak from the staple line We observed for hemostasis. Once hemostasis was confirmed, I proceeded then irrigated the pelvis and suctioned out a grand fluid I then proceeded to apply a grasper on the terminal ileum. This part of the ileum colon was confirmed to be going into the cecum. I brought this segment through the incision. I created a mesenteric window and inserted a Tala drain. I pulled up this loop through a separate incision in the right lower quadrant for stoma. This stoma opening on the abdominal wall was created by excising discoid piece of skin, dissected the subcutaneous fat, incising the anterior sheath, doing muscle-splitting and opening up the posterior sheath. We pulled up the loop of ileum through this. We positioned the bridge and remove the Tala drain I then proceeded to close the fascia with running Maxon 1 stitch. I examined the fascial closure laparoscopically from a 1 of the remaining ports and this did not reveal any bowel caught within the sutures I therefore desufflated completely and removed all the ports I closed all skin incision with skin chele. I we matured the ileostomy by incising the anterior wall, and securing the wall to the subdermal layer full-thickness Polysorb 3-0 interrupted sutures circumferentially. I was able to palpate for both the efferent and afferent limbs this was patent with a finger exam through the fascia The stoma appliance was then excision. All incisions were infiltrated with Marcaine 0.5 for possible postop analgesia. Dressings were applied. The procedure was completed The patient tolerated procedure well. There were no immediate complications. Initial final counts of sponges and instruments were correct. Estimated blood loss was about 150 cc The patient was extubated without difficulty and transferred to the recovery room with stable vital signs.
[2023-03-03] MEDS: ondansetron HCL 4 MG/2 ML VIAL IVPUSH (12:40)
[2023-03-03] MEDS: droPERidol 5 MG/2 ML VIAL 0.625 MG IVPUSH (12:59)
[2023-03-03] MEDS: HYDROmorphone HCl 0.5 MG/0.5 ML SYRINGE IVPUSH (13:02)
[2023-03-03] MEDS: Morphine Sulfate 4 MG/ML CARTRIDGE IVPUSH ×3 (13:47→20:59)
[2023-03-03] MEDS: oxyCODONE HCl Immed Release 5 MG TABLET 10 MG PO ×3 (15:04→23:57)
--- NOTE | 2023-03-03 15:11 | PM.EVENT ---
Event Note Date of Service: 03/04/23 Event Note: Seen postop She underwent colonoscopy, assisted laparoscopic anterior resection, end-to-end anastomosis, lysis of adhesions, diverting loop ileostomy earlier for colovaginal fistula with severe diverticulitis Stable vital signs Stoma appears viable Good urine output She complains of incisional pain, appropriate with postop course Pain management On clear liquids at bedside, updated Time Spent With Patient Time: Total time managing care of this patient today ____ minutes.
--- NOTE | 2023-03-03 15:23 | MHC.CM.PN ---
pt lives with they are independent had no previous services do not exoect to need servies when dcd dc plan hiome no servies
[2023-03-03] MEDS: oxyCODONE HCl Immed Release 5 MG TABLET PO (16:03)
[2023-03-03] MEDS: Acetaminophen 1,000 MG/100 ML PIGGYBACK 400 MG IV ×2 (16:55→23:57)
[2023-03-04] MEDS: Morphine Sulfate 4 MG/ML CARTRIDGE IVPUSH ×5 (01:11→21:03)
[2023-03-04 03:34] VITALS: BP 164/82; PULSE 100; RESP 18; TEMP 36.5; O2SAT 94
[2023-03-04] MEDS: oxyCODONE HCl Immed Release 5 MG TABLET 10 MG PO ×3 (04:01→15:16)
[2023-03-04] MEDS: 0.9 % Sodium Chloride 1,000 ML 100 ML IVCONT (04:06)
[2023-03-04] MEDS: Acetaminophen 1,000 MG/100 ML PIGGYBACK 400 MG IV ×3 (05:39→17:29)
[2023-03-04 05:55] LABS: MANUAL DIFF FLAG NO
[2023-03-04 05:57] LABS: Basophils Percent Auto 0.4 % (0-2); Eosinophils Percent Auto 0.2 % (0-4); Hematocrit 33.3 % (37.0-47.0); Hemoglobin 11.2 g/dl (12.0-16.0); Imm Gran Abs Auto 0.05 X10*3/uL (0.00-0.03); Imm Gran Pct Auto 0.5 % (0.0-0.4); Lymphocytes Absolute Auto 0.8 X10*3/uL (1.2-4.9); Lymphocytes Percent Auto 8.1 % (20-40); Mean Corpuscular HGB Conc 33.6 g/dl (31.0-35.0); Mean Corpuscular Hemoglobin 29.9 pg (27.0-33.0); Mean Corpuscular Volume 88.8 fL (80.0-98.0); Monocytes Absolute Auto 0.8 X10*3/uL (0.1-1.2); Monocytes Percent Auto 8.5 % (2-11); Neutrophils Absolute Auto 7.9 x10*3/uL (2.0-8.3); Neutrophils Percent Auto 82.3 % (45-73); Platelet Count 175 X10*3/uL (160-400); Red Blood Count 3.75 X10*6/uL (4.20-5.50); Red Cell Distribution Width 12.3 % (11.0-16.0); White Blood Count 9.5 X10*3/uL (4.8-10.8)
[2023-03-04 06:14] LABS: Anion Gap 11 (12-20); Blood Urea Nitrogen 5 mg/dL (9-16); Calcium 8.9 mg/dL (8.4-10.2); Carbon Dioxide 25 mmol/L (22-29); Chloride 106 mmol/L (96-108); Creatinine Clr Calc Pharmacy 77.5; Estimated Glomerular Filt Rate > 60; Glucose Fasting 107 mg/dL (60-99); Potassium 3.5 mmol/L (3.3-5.1); Sodium 138 mmol/L (135-145)
--- NOTE | 2023-03-04 07:44 | P.PNGS_ITS ---
Subjective Subjective Date of Service: 03/04/23 <Kianna Shankar PA-C - Last Filed: 03/04/23 07:47> 03/05/23 <Arvind Clayton MD - Last Filed: 03/05/23 11:05> Interval history: C/o pain this morning when pain meds were delayed. Otherwise pain controlled with analgesics. Tolerating water. Has not been OOB. <Kianna Shankar PA-C - Last Filed: 03/04/23 07:47> Physical Exam 2 Vital Signs: Vital Signs: Last Vital Signs Temp 97.7 F 03/04/23 03:34 Pulse 100 03/04/23 03:34 Resp 18 03/04/23 03:34 BP 164/82 H 03/04/23 03:34 Pulse Ox 94 03/04/23 03:34 O2 Del Method Room Air 03/04/23 03:34 O2 Flow Rate 2 03/03/23 15:34 BMI result Body Mass Index 22.3 <Kianna Shankar PA-C - Last Filed: 03/04/23 07:47> Const: General: comfortable, no acute distress and alert <SUSHMA Farrell Last Filed: 03/04/23 07:47> Orientation/consciousness: patient oriented x3 <SUSHMA Farrell Last Filed: 03/04/23 07:47> Resp: Effort & Inspection: normal respiratory effort <SUSHMA Farrell Last Filed: 03/04/23 07:47> GI: Other: ileostomy viable appearing with some bilious output dressings c/d/i <Kianna Shankar PA-C - Last Filed: 03/04/23 07:47> Palpation (GI): Soft to palpation, Tenderness to palpation present (GI) (mild incisional), no guarding and not rigid <SUSHMA Farrell Last Filed: 03/04/23 07:47> Skin: General skin exam: no rashes or lesions noted <SUSHMA Farrell Last Filed: 03/04/23 07:47> Neuro: General: patient oriented x3 and moves all extremities <SUSHMA Farrell Last Filed: 03/04/23 07:47> Objective Data Active Medications Atenolol (Atenolol 100 Mg Tablet) 100 mg PO DAILY [facility]; Protocol Last Admin: 03/03/23 13:50 Dose: Not Given Documented By: COLIN Non-Admin Reason: Off Unit: Surgery Atorvastatin Calcium (Atorvastatin Calcium 40 Mg Tablet) 40 mg PO DAILY [facility] Fluoxetine HCl (Fluoxetine Hcl 20 Mg Capsule) 20 mg PO DAILY [facility] Heparin Sodium (Porcine) (Heparin Sodium,Porcine 5,000 Unit/Ml Vial) 5,000 unit SUBCUT Q8H [facility] Sodium Chloride (Ns) 1,000 mls @ 100 mls/hr IVCONT .Q10H [facility] Last Admin: 03/04/23 04:06 Dose: 100 mls/hr Documented By: SARITA Acetaminophen (Ofirmev) 1,000 mg in 100 mls @ 400 mls/hr IV Q6H [facility] Last Infusion: 03/04/23 05:56 Dose: Infused Documented By: SARITA Losartan Potassium (Losartan Potassium 25 Mg Tablet) 25 mg PO DAILY [facility]; Protocol Last Admin: 03/03/23 13:50 Dose: Not Given Documented By: COLIN Non-Admin Reason: Off Unit: Surgery Morphine Sulfate (Morphine Sulfate 4 Mg/Ml Cartridge) 4 mg IVPUSH Q4H PRN; Protocol PRN Reason: Pain, Severe (Pain Scale 7-10) Last Admin: 03/04/23 05:38 Dose: 4 mg Documented By: SARITA Oxycodone HCl (Oxycodone Hcl Immed Release 5 Mg Tablet) 5 mg PO Q4H PRN PRN Reason: Pain, Moderate(Pain Scale 4-6) Last Admin: 03/03/23 16:03 Dose: 5 mg Documented By: COLIN Oxycodone HCl (Oxycodone Hcl Immed Release 5 Mg Tablet) 10 mg PO Q4H PRN PRN Reason: Pain, Severe (Pain Scale 7-10) Last Admin: 03/04/23 04:01 Dose: 10 mg Documented By: SARITA Sodium Chloride (0.9 % Sodium Chloride Flush 3 Ml Syringe) 3 ml IVFLUSH QSHIFT [facility] Last Admin: 03/04/23 07:20 Dose: Not Given Documented By: HO.PARROWA Non-Admin Reason: IV Running <Kianna Shankar PA-C - Last Filed: 03/04/23 07:47> Labs CBC & Chem 7: 03/04/23 05:20 03/04/23 05:20 <Kianna Shankar PA-C - Last Filed: 03/04/23 07:47> Labs: Laboratory Results - last 24 hr 03/04/23 05:20 MCV 88.8 MCH 29.9 MCHC 33.6 RDW 12.3 Plt Count 175 MPV 10.0 Immature Gran % (Auto) 0.5 H Neut % (Auto) 82.3 H Lymph % (Auto) 8.1 L [place] % (Auto) 8.5 Eos % (Auto) 0.2 Baso % (Auto) 0.4 Lymph # (Auto) 0.8 L [place] # (Auto) 0.8 Eos # (Auto) 0.0 Baso # (Auto) 0.0 Abs Immat Gran (auto) 0.05 H Absolute Neuts (auto) 7.9 Absolute Nucleated RBC 0.000 Nucleated RBC % (auto) 0.0 Anion Gap 11 L Estim Creat Clear Calc 77.5 Estimated GFR > 60 Fasting Glucose 107 H Calcium 8.9 D <Kianna Shankar PA-C - Last Filed: 03/04/23 07:47> Procedures Date of Service Date of Service: 03/04/23 <Kianna Shankar PA-C - Last Filed: 03/04/23 07:47> 03/05/23 <Arvind Clayton MD - Last Filed: 03/05/23 11:05> Progress Note: A&P Assessment and plan (1) Colovaginal fistula: Status: Acute <Kianna Shankar PA-C - Last Filed: 03/04/23 07:47> Assessment and Plan: Status post sigmoid resection, extensive lysis, ileostomy Complains of pain However no events reported Stoma with output now No vaginal discharge anymore Pain management All of bed to chair Seen and examined independently <Arvind Clayton MD - Last Filed: 03/05/23 11:05> Assessment and Plan: POD #1 s/p Colonoscopy , hand assisted laparoscopic sigmoid resection, extensive lysis of adhesions, separation of the distal sigmoid from the vaginal cuff, end to end anastomosis, diverting loop ileostomy. Patient doing fairly well post op. VSS. Abd exam benign with appropriate post op tenderness, dressings c/d/i, ileostomy viable appearing with small amt of bilious output. Cont clear liquids for now, pain control. Encouraged OOB at least to recliner today, IS use. Dc lopez later today. AM labs reviewed. < SUSHMA Farrell Last Filed: 03/04/23 07:47> Time Spent With Patient Time: Total time managing care of this patient today ____ minutes. <SUSHMA Farrell Last Filed: 03/04/23 07:47> Quality Stroke Does the patient have a stroke diagnosis?: No <Kianna Shankar PA-C - Last Filed: 03/04/23 07:47> VTE Prior VTE?: No <Kianna Shankar PA-C - Last Filed: 03/04/23 07:47> VTE Risk Level:: Medical - moderate - high <SUSHMA Farrell Last Filed: 03/04/23 07:47> VTE Device Contraindication: N/A - Device Ordered <SUSHMA Farrell Last Filed: 03/04/23 07:47> VTE Drug Contraindication: N/A - Med Ordered <SUSHMA Farrell Last Filed: 03/04/23 07:47>
[2023-03-04 07:54] VITALS: BP 142/76; PULSE 102; RESP 16; TEMP 36.3; O2SAT 94
[2023-03-04] MEDS: ondansetron HCL 4 MG/2 ML VIAL IVPUSH ×2 (09:26→17:29)
[2023-03-04] MEDS: Losartan Potassium 25 MG TABLET PO (09:27)
[2023-03-04] MEDS: atenoloL 100 MG TABLET PO (09:27)
[2023-03-04] MEDS: Atorvastatin Calcium 40 MG TABLET PO (09:27)
[2023-03-04] MEDS: FLUoxetine HCl 20 MG CAPSULE PO (09:27)
[2023-03-04 11:40] VITALS: BP 138/67; PULSE 98; RESP 16; TEMP 36.7; O2SAT 92
[2023-03-04] MEDS: Heparin Sodium,Porcine 5,000 UNIT/ML VIAL 5000 UNIT SUBCUT ×2 (12:23→20:07)
--- NOTE | 2023-03-04 15:01 | HO.POSTANES ---
Post Anesthesia Evaluation Post Anesthesia Evaluation Date of Service: 03/04/23 Vital Signs: Vital Signs Temp Pulse Resp BP Pulse Ox O2 Del Method 03/04/23 11:40 98.1 F 98 16 138/67 92 Room Air 03/04/23 07:54 97.4 F 102 H 16 142/76 H 94 Room Air 03/04/23 03:34 97.7 F 100 18 164/82 H 94 Room Air Anesthesia: General Endotracheal-GETA Mental Status: Awake Pain Control: Satisfactory Nausea/Vomiting: None Hydration: Adequate Anesthesia-Related Issues: No Anes. Related Issues
[2023-03-04 15:41] VITALS: BP 140/67; PULSE 84; RESP 16; TEMP 36.6; O2SAT 94
[2023-03-04 19:00] VITALS: BP 133/65; PULSE 82; RESP 18; TEMP 36.3; O2SAT 92
[2023-03-04] MEDS: 0.9 % Sodium Chloride Flush 3 ML SYRINGE IVFLUSH (21:03)
[2023-03-04 23:40] VITALS: BP 148/71; PULSE 92; RESP 16; TEMP 37.1; O2SAT 92
[2023-03-05] MEDS: Morphine Sulfate 4 MG/ML CARTRIDGE IVPUSH ×4 (02:18→19:53)
[2023-03-05 03:41] VITALS: BP 138/73; PULSE 87; RESP 16; TEMP 37.4; O2SAT 93
[2023-03-05] MEDS: Heparin Sodium,Porcine 5,000 UNIT/ML VIAL 5000 UNIT SUBCUT ×3 (04:59→19:55)
[2023-03-05] MEDS: Acetaminophen 1,000 MG/100 ML PIGGYBACK 400 MG IV ×4 (05:57→17:42)
[2023-03-05 07:08] VITALS: BP 124/63; PULSE 84; RESP 20; TEMP 36.8; O2SAT 96
--- NOTE | 2023-03-05 07:56 | PM.PNGS ---
Subjective Subjective Date of Service: 03/05/23 <Kianna Shankar PA-C - Last Filed: 03/05/23 08:05> 03/05/23 <Arvind Clayton MD - Last Filed: 03/05/23 11:06> Interval history: Had a better night with pain control. Tolerating solid diet. Passing flatus via ostomy. No further vaginal discharge. <Kianna Shankar PA-C - Last Filed: 03/05/23 08:05> Physical Exam Vital Signs: Vital Signs: Last Vital Signs Temp 98.2 F 03/05/23 07:08 Pulse 84 03/05/23 07:08 Resp 20 03/05/23 07:08 BP 124/63 03/05/23 07:08 Pulse Ox 96 03/05/23 07:08 O2 Del Method Room Air 03/05/23 07:08 O2 Flow Rate 2 03/03/23 15:34 BMI result Body Mass Index 22.3 <SUSHMA Farrell Last Filed: 03/05/23 08:05> Const: General: comfortable, no acute distress and alert <Kianna Shankar PA-C - Last Filed: 03/05/23 08:05> Orientation/consciousness: patient oriented x3 <SUSHMA Farrell Last Filed: 03/05/23 08:05> Resp: Effort & Inspection: normal respiratory effort <Kianna Shankar PA-C - Last Filed: 03/05/23 08:05> GI: Other: ileostomy viable appearing with bilious output <Kianna Shankar PA-C - Last Filed: 03/05/23 08:05> Inspection: Yes distended and Yes incision (clean) <SUSHMA Farrell Last Filed: 03/05/23 08:05> Palpation (GI): Soft to palpation, Tenderness to palpation present (GI) (mild incisional), no guarding and not rigid <SUSHMA Farrell Last Filed: 03/05/23 08:05> Skin: General skin exam: no rashes or lesions noted <SUSHMA Farrell Last Filed: 01/26/24 08:05> Neuro: General: patient oriented x3 <Kianna Shankar PA-C - Last Filed: 03/05/23 08:05> Objective Data Active Medications Atenolol (Atenolol 100 Mg Tablet) 100 mg PO DAILY [facility]; Protocol Last Admin: 03/04/23 09:27 Dose: 100 mg Documented By: STALIN Atorvastatin Calcium (Atorvastatin Calcium 40 Mg Tablet) 40 mg PO DAILY [facility] Last Admin: 03/04/23 09:27 Dose: 40 mg Documented By: STALIN Fluoxetine HCl (Fluoxetine Hcl 20 Mg Capsule) 20 mg PO DAILY [facility] Last Admin: 03/04/23 09:27 Dose: 20 mg Documented By: STALIN Heparin Sodium (Porcine) (Heparin Sodium,Porcine 5,000 Unit/Ml Vial) 5,000 unit SUBCUT Q8H [facility] Last Admin: 03/05/23 04:59 Dose: 5,000 unit Documented By: SARITA Acetaminophen (Ofirmev) 1,000 mg in 100 mls @ 400 mls/hr IV Q6H [facility] Last Infusion: 03/05/23 06:49 Dose: Infused Documented By: SARITA Losartan Potassium (Losartan Potassium 25 Mg Tablet) 25 mg PO DAILY [facility]; Protocol Last Admin: 03/04/23 09:27 Dose: 25 mg Documented By: STALIN Morphine Sulfate (Morphine Sulfate 4 Mg/Ml Cartridge) 4 mg IVPUSH Q4H PRN; Protocol PRN Reason: Pain, Severe (Pain Scale 7-10) Last Admin: 03/05/23 02:18 Dose: 4 mg Documented By: SARITA Ondansetron HCl (Ondansetron Hcl 4 Mg/2 Ml Vial) 4 mg IVPUSH Q8H PRN PRN Reason: Nausea Last Admin: 03/04/23 17:29 Dose: 4 mg Documented By: STALIN Oxycodone HCl (Oxycodone Hcl Immed Release 5 Mg Tablet) 5 mg PO Q4H PRN PRN Reason: Pain, Moderate(Pain Scale 4-6) Last Admin: 03/03/23 16:03 Dose: 5 mg Documented By: COLIN Oxycodone HCl (Oxycodone Hcl Immed Release 5 Mg Tablet) 10 mg PO Q4H PRN PRN Reason: Pain, Severe (Pain Scale 7-10) Last Admin: 03/04/23 15:16 Dose: 10 mg Documented By: STALIN Sodium Chloride (0.9 % Sodium Chloride Flush 3 Ml Syringe) 3 ml IVFLUSH QSHIFT [facility] Last Admin: 03/04/23 21:03 Dose: 3 ml Documented By: [email or web address] <SUSHMA Farrell Last Filed: 03/05/23 08:05> Labs CBC & Chem 7: 03/04/23 05:20 03/04/23 05:20 <Kianna Shankar PA-C - Last Filed: 03/05/23 08:05> Procedures Date of Service Date of Service: 03/05/23 <Kianna Shankar PA-C - Last Filed: 03/05/23 08:05> 03/05/23 <Arvind Clayton MD - Last Filed: 03/05/23 11:06> Progress Note: A&P Assessment and plan (1) Colovaginal fistula: Status: Acute <Kianna Shankar PA-C - Last Filed: 03/05/23 08:05> Assessment and Plan: Pain control much better Tolerating diet Stoma functioning well Abdomen soft Ileostomy functioning well, viable Plan to discharge wants with adequate pain control Seen and examined independently <Arvind Clayton MD - Last Filed: 03/05/23 11:06> Assessment and Plan: POD #2 s/p Colonoscopy , hand assisted laparoscopic sigmoid resection, extensive lysis of adhesions, separation of the distal sigmoid from the vaginal cuff, end to end anastomosis, diverting loop ileostomy. Continues to do well post op. VSS. Abd exam benign with appropriate post op tenderness, incision clean, ileostomy viable appearing with bilious output. Dc lopez. Continue OOB/ambulation. Ostomy education. Home when pain is controlled on PO analgesics. <Kianna Shankar PA-C - Last Filed: 03/05/23 08:05> Time Spent With Patient Time: Total time managing care of this patient today ____ minutes. <SUSHMA Farrell Last Filed: 03/05/23 08:05> Quality Stroke Does the patient have a stroke diagnosis?: No <SUSHMA Farrell Last Filed: 03/05/23 08:05> VTE Prior VTE?: No <SUSHMA Farrell Last Filed: 03/05/23 08:05> VTE Risk Level:: Medical - moderate - high <SUSHMA Farrell Last Filed: 03/05/23 08:05> VTE Device Contraindication: N/A - Device Ordered <SUSHMA Farrell Last Filed: 03/05/23 08:05> VTE Drug Contraindication: N/A - Med Ordered <SUSHMA Farrell Last Filed: 03/05/23 08:05>
[2023-03-05] MEDS: atenoloL 100 MG TABLET PO (08:04)
[2023-03-05] MEDS: FLUoxetine HCl 20 MG CAPSULE PO (08:04)
[2023-03-05] MEDS: 0.9 % Sodium Chloride Flush 3 ML SYRINGE IVFLUSH ×3 (08:04→19:55)
[2023-03-05] MEDS: Atorvastatin Calcium 40 MG TABLET PO (08:04)
[2023-03-05] MEDS: Losartan Potassium 25 MG TABLET PO (08:04)
--- NOTE | 2023-03-05 08:21 | PC.NURSE ---
lopez catheter removed at 0815, patient is DTV by [id number]
--- NOTE | 2023-03-05 10:53 | MHC.CM.PN ---
Addendum entered by Suzy Fofana RN 03/05/23 12:06: Per surgical PA patient will dc Wednesday, confirmed will dc with [facility] for ileostomy care. [facility] updated. Original Note: EMR reviewed. Not medically cleared for dc, as patient is still requiring IV pain meds. DC when pain is well controlled on PO meds. [facility] is following, pt may require for new ileostomy teaching/care. CM will continue to follow for dc needs.
[2023-03-05] MEDS: ondansetron HCL 4 MG/2 ML VIAL IVPUSH (10:59)
[2023-03-05 11:55] VITALS: BP 122/62; PULSE 76; RESP 18; TEMP 36.4; O2SAT 97
[2023-03-05 15:26] VITALS: BP 117/55; PULSE 74; RESP 18; TEMP 36.7; O2SAT 96
[2023-03-05] MEDS: Magnesium Hydrox/Alum Hydrox 30 ML ORAL.SUSP 15 ML PO ×2 (15:34→19:54)
[2023-03-05 20:00] VITALS: BP 126/60; PULSE 73; RESP 18; TEMP 37; O2SAT 95
[2023-03-05 23:27] VITALS: BP 127/78; PULSE 78; RESP 17; TEMP 36.7; O2SAT 97
[2023-03-06] MEDS: Magnesium Hydrox/Alum Hydrox 30 ML ORAL.SUSP 15 ML PO ×4 (00:59→17:58)
[2023-03-06] MEDS: Acetaminophen 1,000 MG/100 ML PIGGYBACK 400 MG IV ×4 (01:02→17:44)
[2023-03-06] MEDS: Morphine Sulfate 4 MG/ML CARTRIDGE IVPUSH ×4 (01:03→17:46)
[2023-03-06] MEDS: ondansetron HCL 4 MG/2 ML VIAL IVPUSH ×3 (01:03→17:49)
[2023-03-06 03:21] VITALS: BP 150/76; PULSE 74; RESP 18; TEMP 37.1; O2SAT 95
[2023-03-06] MEDS: Heparin Sodium,Porcine 5,000 UNIT/ML VIAL 5000 UNIT SUBCUT ×3 (05:54→19:40)
[2023-03-06 06:46] VITALS: BP 137/76; PULSE 78; RESP 16; TEMP 36.6; O2SAT 96
[2023-03-06] MEDS: FLUoxetine HCl 20 MG CAPSULE PO (08:38)
[2023-03-06] MEDS: Losartan Potassium 25 MG TABLET PO (08:38)
[2023-03-06] MEDS: Atorvastatin Calcium 40 MG TABLET PO (08:38)
[2023-03-06] MEDS: atenoloL 100 MG TABLET PO (08:38)
[2023-03-06] MEDS: 0.9 % Sodium Chloride Flush 3 ML SYRINGE IVFLUSH ×2 (08:38→19:42)
[2023-03-06 10:56] VITALS: BP 138/63; PULSE 77; RESP 17; TEMP 36.6; O2SAT 96
--- NOTE | 2023-03-06 14:21 | P.PNGS_ITS ---
Subjective Subjective Date of Service: 03/06/23 Interval history: Minimal incisional discomfort. Ileostomy has good output. Patient complaining of heartburn 4 hours after meals. She is claimed that she is out of bed ambulating and using her incentive spirometry. Physical Exam 2 Vital Signs: Vital Signs: Last Vital Signs Temp 98 F 03/06/23 10:56 Pulse 77 03/06/23 10:56 Resp 17 03/06/23 10:56 BP 138/63 03/06/23 10:56 Pulse Ox 96 03/06/23 10:56 O2 Del Method Room Air 03/06/23 10:56 O2 Flow Rate 2 03/03/23 15:34 BMI result Body Mass Index 22.3 GI: Other: Abdomen is soft. Output in ostomy. Incisions clean dry and intact. Objective Data Active Medications Al Hydroxide/Mg Hydroxide (Magnesium Hydrox/Alum Hydrox 30 Ml Oral.Susp) 15 ml PO Q4H PRN PRN Reason: Heartburn Last Admin: 03/06/23 11:22 Dose: 15 ml Documented By: ONEIL Atenolol (Atenolol 100 Mg Tablet) 100 mg PO DAILY [facility]; Protocol Last Admin: 03/06/23 08:38 Dose: 100 mg Documented By: JORDAN Atorvastatin Calcium (Atorvastatin Calcium 40 Mg Tablet) 40 mg PO DAILY [facility] Last Admin: 03/06/23 08:38 Dose: 40 mg Documented By: JORDAN Fluoxetine HCl (Fluoxetine Hcl 20 Mg Capsule) 20 mg PO DAILY [facility] Last Admin: 03/06/23 08:38 Dose: 20 mg Documented By: JORDAN Heparin Sodium (Porcine) (Heparin Sodium,Porcine 5,000 Unit/Ml Vial) 5,000 unit SUBCUT Q8H [facility] Last Admin: 03/06/23 12:27 Dose: 5,000 unit Documented By: MAYANK Acetaminophen (Ofirmev) 1,000 mg in 100 mls @ 400 mls/hr IV Q6H [facility] Last Infusion: 03/06/23 14:00 Dose: Infused Documented By: MAYANK Losartan Potassium (Losartan Potassium 25 Mg Tablet) 25 mg PO DAILY [facility]; Protocol Last Admin: 03/06/23 08:38 Dose: 25 mg Documented By: JORDAN Morphine Sulfate (Morphine Sulfate 4 Mg/Ml Cartridge) 4 mg IVPUSH Q4H PRN; Protocol PRN Reason: Pain, Severe (Pain Scale 7-10) Last Admin: 03/06/23 11:23 Dose: 4 mg Documented By: ONEIL Ondansetron HCl (Ondansetron Hcl 4 Mg/2 Ml Vial) 4 mg IVPUSH Q8H PRN PRN Reason: Nausea Last Admin: 03/06/23 08:41 Dose: 4 mg Documented By: JORDAN Oxycodone HCl (Oxycodone Hcl Immed Release 5 Mg Tablet) 5 mg PO Q4H PRN PRN Reason: Pain, Moderate(Pain Scale 4-6) Last Admin: 03/03/23 16:03 Dose: 5 mg Documented By: COLIN Oxycodone HCl (Oxycodone Hcl Immed Release 5 Mg Tablet) 10 mg PO Q4H PRN PRN Reason: Pain, Severe (Pain Scale 7-10) Last Admin: 03/04/23 15:16 Dose: 10 mg Documented By: STALIN Sodium Chloride (0.9 % Sodium Chloride Flush 3 Ml Syringe) 3 ml IVFLUSH [facility] Last Admin: 03/06/23 08:38 Dose: 3 ml Documented By: JORDAN Labs 03/04/23 05:20 03/04/23 05:20 Procedures Date of Service Date of Service: 03/06/23 Progress Note: A&P Assessment and plan (1) Colovaginal fistula: Status: Acute Plan Continue current therapy; out of bed, diet as tolerated, incentive spirometry, symptomatic relief of reflux. Time Spent With Patient Time: Total time managing care of this patient today ____ minutes. Quality Stroke Does the patient have a stroke diagnosis?: No VTE Prior VTE?: No VTE Risk Level:: Medical - moderate - high VTE Device Contraindication: N/A - Device Ordered VTE Drug Contraindication: N/A - Med Ordered
[2023-03-06 15:41] VITALS: BP 129/70; PULSE 76; RESP 20; TEMP 35.9; O2SAT 96
[2023-03-06 18:40] VITALS: BP 134/74; PULSE 70; RESP 18; TEMP 36.4; O2SAT 95
[2023-03-06 23:47] VITALS: BP 133/77; PULSE 68; RESP 16; TEMP 36.8; O2SAT 96
[2023-03-07] VITALS (8 sets, daily range): BP systolic 133–145; BP diastolic 59–72; PULSE 69–79; RESP 16–18; TEMP 36.2–36.8; O2SAT 94–96
[2023-03-07] MEDS: Morphine Sulfate 4 MG/ML CARTRIDGE IVPUSH ×4 (03:32→19:23)
[2023-03-07] MEDS: ondansetron HCL 4 MG/2 ML VIAL IVPUSH ×2 (03:37→12:41)
[2023-03-07] MEDS: Heparin Sodium,Porcine 5,000 UNIT/ML VIAL 5000 UNIT SUBCUT ×3 (03:37→19:23)
[2023-03-07] MEDS: Magnesium Hydrox/Alum Hydrox 30 ML ORAL.SUSP 15 ML PO ×4 (03:43→19:24)
[2023-03-07] MEDS: atenoloL 100 MG TABLET PO (08:03)
[2023-03-07] MEDS: FLUoxetine HCl 20 MG CAPSULE PO (08:03)
[2023-03-07] MEDS: Losartan Potassium 25 MG TABLET PO (08:03)
[2023-03-07] MEDS: Atorvastatin Calcium 40 MG TABLET PO (08:03)
--- NOTE | 2023-03-07 10:14 | PM.PNGS ---
Subjective Subjective Date of Service: 03/07/23 Interval history: Uneventful evening. Tolerating diet. Ostomy functioning. Patient has no new issues or complaints. Minimal incisional discomfort. She is still having appreciable heartburn. This is relieved with current medical regimen. Physical Exam Vital Signs: Vital Signs: Last Vital Signs Temp 97.2 F 03/07/23 07:42 Pulse 79 03/07/23 07:42 Resp 16 03/07/23 07:42 BP 142/65 H 03/07/23 07:42 Pulse Ox 96 03/07/23 07:42 O2 Del Method Room Air 03/07/23 07:42 O2 Flow Rate 2 03/03/23 15:34 BMI result Body Mass Index 22.3 GI: Other: Abdomen soft. Wound clean dry and intact. Ostomy with semi-solid output. Objective Data Active Medications Al Hydroxide/Mg Hydroxide (Magnesium Hydrox/Alum Hydrox 30 Ml Oral.Susp) 15 ml PO Q4H PRN PRN Reason: Heartburn Last Admin: 03/07/23 08:03 Dose: 15 ml Documented By: ISIAH Atenolol (Atenolol 100 Mg Tablet) 100 mg PO DAILY [facility]; Protocol Last Admin: 03/07/23 08:03 Dose: 100 mg Documented By: ISIAH Atorvastatin Calcium (Atorvastatin Calcium 40 Mg Tablet) 40 mg PO DAILY [facility] Last Admin: 03/07/23 08:03 Dose: 40 mg Documented By: ISIAH Fluoxetine HCl (Fluoxetine Hcl 20 Mg Capsule) 20 mg PO DAILY [facility] Last Admin: 03/07/23 08:03 Dose: 20 mg Documented By: ISIAH Heparin Sodium (Porcine) (Heparin Sodium,Porcine 5,000 Unit/Ml Vial) 5,000 unit SUBCUT Q8H [facility] Last Admin: 03/07/23 03:37 Dose: 5,000 unit Documented By: USHA Losartan Potassium (Losartan Potassium 25 Mg Tablet) 25 mg PO DAILY [facility]; Protocol Last Admin: 03/07/23 08:03 Dose: 25 mg Documented By: ISIAH Morphine Sulfate (Morphine Sulfate 4 Mg/Ml Cartridge) 4 mg IVPUSH Q4H PRN; Protocol PRN Reason: Pain, Severe (Pain Scale 7-10) Last Admin: 03/07/23 08:03 Dose: 4 mg Documented By: ISIAH Ondansetron HCl (Ondansetron Hcl 4 Mg/2 Ml Vial) 4 mg IVPUSH Q8H PRN PRN Reason: Nausea Last Admin: 03/07/23 03:37 Dose: 4 mg Documented By: USHA Oxycodone HCl (Oxycodone Hcl Immed Release 5 Mg Tablet) 5 mg PO Q4H PRN PRN Reason: Pain, Moderate(Pain Scale 4-6) Last Admin: 03/03/23 16:03 Dose: 5 mg Documented By: COLIN Oxycodone HCl (Oxycodone Hcl Immed Release 5 Mg Tablet) 10 mg PO Q4H PRN PRN Reason: Pain, Severe (Pain Scale 7-10) Last Admin: 03/04/23 15:16 Dose: 10 mg Documented By: STALIN Sodium Chloride (0.9 % Sodium Chloride Flush 3 Ml Syringe) [facility] Last Admin: 03/07/23 07:20 Dose: Not Given Documented By: ISIAH Non-Admin Reason: See Note Labs 03/04/23 05:20 03/04/23 05:20 Procedures Date of Service Date of Service: 03/07/23 Progress Note: A&P Assessment and plan (1) Colovaginal fistula: Status: Acute Plan Patient does not feel she is ready for home yet. Continue current plan. Time Spent With Patient Time: Total time managing care of this patient today ____ minutes. Quality Stroke Does the patient have a stroke diagnosis?: No VTE Prior VTE?: No VTE Risk Level:: Medical - moderate - high VTE Device Contraindication: N/A - Device Ordered VTE Drug Contraindication: N/A - Med Ordered
[2023-03-07] MEDS: 0.9 % Sodium Chloride Flush 3 ML SYRINGE IVFLUSH (19:25)
[2023-03-08 03:00] VITALS: BP 139/79; PULSE 71; RESP 16; TEMP 36.7; O2SAT 97
[2023-03-08] MEDS: Heparin Sodium,Porcine 5,000 UNIT/ML VIAL 5000 UNIT SUBCUT ×3 (03:41→21:23)
[2023-03-08] MEDS: Magnesium Hydrox/Alum Hydrox 30 ML ORAL.SUSP 15 ML PO ×4 (03:41→21:24)
[2023-03-08 07:05] VITALS: BP 136/69; PULSE 73; RESP 16; TEMP 36.1; O2SAT 96
--- NOTE | 2023-03-08 08:08 | PM.PNGS ---
Subjective Subjective Date of Service: 03/09/23 Interval history: c/o heartburn tolerating diet stoma functioning taking less pain meds has been ambulating Physical Exam Vital Signs: Vital Signs: Last Vital Signs Temp 96.9 F 03/08/23 07:05 Pulse 73 03/08/23 07:05 Resp 16 03/08/23 07:05 BP 136/69 03/08/23 07:05 Pulse Ox 96 03/08/23 07:05 O2 Del Method Room Air 03/08/23 07:05 O2 Flow Rate 2 03/03/23 15:34 BMI result Body Mass Index 22.3 Const: General: comfortable and no acute distress Resp: Effort & Inspection: normal respiratory effort Cardio: Rate: regular rate GI: Other: incision clean, stoma functioning well Palpation (GI): Soft to palpation Objective Data Active Medications Al Hydroxide/Mg Hydroxide (Magnesium Hydrox/Alum Hydrox 30 Ml Oral.Susp) 15 ml PO Q4H PRN PRN Reason: Heartburn Last Admin: 03/08/23 03:41 Dose: 15 ml Documented By: LV Atenolol (Atenolol 100 Mg Tablet) 100 mg PO DAILY [facility]; Protocol Last Admin: 03/07/23 08:03 Dose: 100 mg Documented By: ISIAH Atorvastatin Calcium (Atorvastatin Calcium 40 Mg Tablet) 40 mg PO DAILY [facility] Last Admin: 03/07/23 08:03 Dose: 40 mg Documented By: ISIAH Fluoxetine HCl (Fluoxetine Hcl 20 Mg Capsule) 20 mg PO DAILY [facility] Last Admin: 03/07/23 08:03 Dose: 20 mg Documented By: ISIAH Heparin Sodium (Porcine) (Heparin Sodium,Porcine 5,000 Unit/Ml Vial) 5,000 unit SUBCUT Q8H [facility] Last Admin: 03/08/23 03:41 Dose: 5,000 unit Documented By: LV Losartan Potassium (Losartan Potassium 25 Mg Tablet) 25 mg PO DAILY [facility]; Protocol Last Admin: 03/07/23 08:03 Dose: 25 mg Documented By: ISIAH Morphine Sulfate (Morphine Sulfate 4 Mg/Ml Cartridge) 4 mg IVPUSH Q4H PRN; Protocol PRN Reason: Pain, Severe (Pain Scale 7-10) Last Admin: 03/07/23 19:23 Dose: 4 mg Documented By: LV Ondansetron HCl (Ondansetron Hcl 4 Mg/2 Ml Vial) 4 mg IVPUSH Q8H PRN PRN Reason: Nausea Last Admin: 03/07/23 12:41 Dose: 4 mg Documented By: MAYANK Oxycodone HCl (Oxycodone Hcl Immed Release 5 Mg Tablet) 5 mg PO Q4H PRN PRN Reason: Pain, Moderate(Pain Scale 4-6) Last Admin: 03/03/23 16:03 Dose: 5 mg Documented By: COLIN Oxycodone HCl (Oxycodone Hcl Immed Release 5 Mg Tablet) 10 mg PO Q4H PRN PRN Reason: Pain, Severe (Pain Scale 7-10) Last Admin: 03/04/23 15:16 Dose: 10 mg Documented By: STALIN Sodium Chloride (0.9 % Sodium Chloride Flush 3 Ml Syringe) 3 ml IVFLUSH [facility] Last Admin: 03/07/23 19:25 Dose: 3 ml Documented By: LV Labs 03/04/23 05:20 03/04/23 05:20 Procedures Date of Service Date of Service: 03/09/23 Progress Note: A&P Assessment and plan (1) Colovaginal fistula: Status: Acute Assessment and Plan: s/p sigmoid resection, ileostomy doing well but complains of heartburn advised on small frequent meals PPI ambulate looks well overall Time Spent With Patient Time: Total time managing care of this patient today ____ minutes. Quality Stroke Does the patient have a stroke diagnosis?: No VTE Prior VTE?: No VTE Risk Level:: Medical - moderate - high VTE Device Contraindication: N/A - Device Ordered VTE Drug Contraindication: N/A - Med Ordered
--- NOTE | 2023-03-08 08:19 | PC.NURSE ---
Osotmy bag leaking, changed with primary RN, education given verbally. Will print out info.
[2023-03-08] MEDS: 0.9 % Sodium Chloride Flush 3 ML SYRINGE IVFLUSH ×2 (09:00→23:36)
[2023-03-08] MEDS: ondansetron HCL 4 MG/2 ML VIAL IVPUSH (09:01)
[2023-03-08] MEDS: Morphine Sulfate 4 MG/ML CARTRIDGE IVPUSH (09:01)
--- NOTE | 2023-03-08 09:18 | PC.NURSE ---
0915- Patient appeared to have taken morning medication. Morning pills fell onto floor before administration was complete. Scanning undone in APR with plan to waste and re-admin.
[2023-03-08] MEDS: Atorvastatin Calcium 40 MG TABLET PO (09:50)
[2023-03-08] MEDS: Losartan Potassium 25 MG TABLET PO (09:51)
[2023-03-08] MEDS: FLUoxetine HCl 20 MG CAPSULE PO (09:51)
[2023-03-08] MEDS: atenoloL 100 MG TABLET PO (09:51)
[2023-03-08 11:33] VITALS: BP 153/74; PULSE 66; RESP 16; TEMP 36.6; O2SAT 95
[2023-03-08 15:03] VITALS: BP 159/71; PULSE 64; RESP 18; TEMP 36.6; O2SAT 97
[2023-03-08] MEDS: HYDROcodone Bit/Acetam 5/325 TABLET 1 TAB PO ×2 (17:45→21:24)
[2023-03-08 19:04] VITALS: BP 151/73; PULSE 68; RESP 18; TEMP 36.2; O2SAT 94
[2023-03-08 23:26] VITALS: BP 141/73; PULSE 63; RESP 16; TEMP 36.8; O2SAT 96
[2023-03-09 03:36] VITALS: BP 141/78; PULSE 76; RESP 16; TEMP 36.4; O2SAT 97
[2023-03-09] MEDS: Heparin Sodium,Porcine 5,000 UNIT/ML VIAL 5000 UNIT SUBCUT (05:23)
[2023-03-09] MEDS: Omeprazole 20 MG CAPSULE.DR PO (05:23)
[2023-03-09] MEDS: Magnesium Hydrox/Alum Hydrox 30 ML ORAL.SUSP 15 ML PO (07:09)
[2023-03-09] MEDS: 0.9 % Sodium Chloride Flush 3 ML SYRINGE IVFLUSH (07:11)
[2023-03-09 07:21] VITALS: BP 157/77; PULSE 71; RESP 18; TEMP 36; O2SAT 98
--- NOTE | 2023-03-09 07:36 | P.PNGS_ITS ---
Subjective Subjective Date of Service: 03/09/23 <Kianna Shankar PA-C - Last Filed: 03/09/23 07:39> 03/09/23 <Arvind Clayton MD - Last Filed: 03/09/23 09:10> Interval history: Still complaining of heartburn at night. Received 1 dose of omeprazole yesterday. Denies nausea. Pain has been less. Tolerating solid diet. Would like to go home today. <Kianna Shankar PA-C - Last Filed: 03/09/23 07:39> Physical Exam 2 Vital Signs: Vital Signs: Last Vital Signs Temp 96.8 F 03/09/23 07:21 Pulse 71 03/09/23 07:21 Resp 18 03/09/23 07:21 BP 157/77 H 03/09/23 07:21 Pulse Ox 98 03/09/23 07:21 O2 Del Method Room Air 03/09/23 07:21 O2 Flow Rate 2 03/03/23 15:34 BMI result Body Mass Index 22.3 <Kianna Shaknar PA-C - Last Filed: 03/09/23 07:39> Const: General: comfortable, no acute distress and alert <Kianna Shankar PA-C - Last Filed: 03/09/23 07:39> Orientation/consciousness: patient oriented x3 <SUSHMA Farrell Last Filed: 03/09/23 07:39> Resp: Effort & Inspection: normal respiratory effort <SUSHMA Farrell Last Filed: 03/09/23 07:39> GI: Other: ostomy viable appearing with bilious output <Kianna Shankar PA-C - Last Filed: 03/09/23 07:39> Inspection: No distended and Yes incision (clean) <SUSHMA Farrell Last Filed: 03/09/23 07:39> Palpation (GI): Soft to palpation, Tenderness to palpation present (GI) (mild incisional ), no guarding and not rigid <SUSHMA Farrell Last Filed: 03/09/23 07:39> Skin: General skin exam: no rashes or lesions noted <SUSHMA Farrell Filed: 03/09/23 07:39> Neuro: General: patient oriented x3 <Kianna Shankar PA-C - Last Filed: 03/09/23 07:39> Objective Data Active Medications Al Hydroxide/Mg Hydroxide (Magnesium Hydrox/Alum Hydrox 30 Ml Oral.Susp) 15 ml PO Q4H PRN PRN Reason: Heartburn Last Admin: 03/09/23 07:09 Dose: 15 ml Documented By: DESTINEY Atenolol (Atenolol 100 Mg Tablet) 100 mg PO DAILY [facility]; Protocol Last Admin: 03/08/23 09:51 Dose: 100 mg Documented By: DESTINEY Atorvastatin Calcium (Atorvastatin Calcium 40 Mg Tablet) 40 mg PO DAILY [facility] Last Admin: 03/08/23 09:50 Dose: 40 mg Documented By: DESTINEY Fluoxetine HCl (Fluoxetine Hcl 20 Mg Capsule) 20 mg PO DAILY [facility] Last Admin: 03/08/23 09:51 Dose: 20 mg Documented By: DESTINEY Heparin Sodium (Porcine) (Heparin Sodium,Porcine 5,000 Unit/Ml Vial) 5,000 unit SUBCUT Q8H [facility] Last Admin: 03/09/23 05:23 Dose: 5,000 unit Documented By: CLYDE Losartan Potassium (Losartan Potassium 25 Mg Tablet) 25 mg PO DAILY [facility]; Protocol Last Admin: 03/08/23 09:51 Dose: 25 mg Documented By: DESTINEY Morphine Sulfate (Morphine Sulfate 4 Mg/Ml Cartridge) 4 mg IVPUSH Q4H PRN; Protocol PRN Reason: Pain, Severe (Pain Scale 7-10) Omeprazole (Omeprazole 20 Mg Capsule.Dr) 20 mg PO DAILY@0630 [facility] Last Admin: 03/09/23 05:23 Dose: 20 mg Documented By: CLYDE Ondansetron HCl (Ondansetron Hcl 4 Mg/2 Ml Vial) 4 mg IVPUSH Q8H PRN PRN Reason: Nausea Last Admin: 03/08/23 09:01 Dose: 4 mg Documented By: DESTINEY Sodium Chloride (0.9 % Sodium Chloride Flush 3 Ml Syringe) 3 ml IVFLUSH QSHIFT [facility] Last Admin: 03/09/23 07:11 Dose: 3 ml Documented By: DESTINEY <Kianna Shankar PA-C - Last Filed: 03/09/23 07:39> Labs CBC & Chem 7: 03/04/23 05:20 03/04/23 05:20 <Kianna Shankar PA-C - Last Filed: 03/09/23 07:39> Procedures Date of Service Date of Service: 03/09/23 <Kianna Shankar PA-C - Last Filed: 03/09/23 07:39> 03/09/23 <Arvind Clayton MD - Last Filed: 03/09/23 09:10> Progress Note: A&P Assessment and plan (1) Colovaginal fistula: Status: Acute <Kianna Shankar PA-C - Last Filed: 03/09/23 07:39> Assessment and Plan: feels better tolerating diet stoma functioning no fever abd soft looks well ok to dc home seen and examined independently instructions explained <Arvind Clayton MD - Last Filed: 03/09/23 09:10> Assessment and Plan: Having difficuly with heartburn- omeprazole added yesterday. Was having difficulty with pain meds and nausea. Changed analgesics to tramadol. Will reassess later today, if continues to do well and comfortable in regards of abd pain, stable for dc to home today with VNA services. Continue ostomy education. Patient comfortable with plan. <Kianna Shankar PA-C - Last Filed: 03/09/23 07:39> Time Spent With Patient Time: Total time managing care of this patient today ____ minutes. <Kianna Shankar PA-C - Last Filed: 03/09/23 07:39> Quality Stroke Does the patient have a stroke diagnosis?: No <Kianna Shankar PA-C - Last Filed: 03/09/23 07:39> VTE Prior VTE?: No <Kianna Shankar PA-C - Last Filed: 03/09/23 07:39> VTE Risk Level:: Medical - moderate - high <SUSHMA Farrell Last Filed: 03/09/23 07:39> VTE Device Contraindication: N/A - Device Ordered <SUSHMA Farrell Last Filed: 03/09/23 07:39> VTE Drug Contraindication: N/A - Med Ordered <Kianna Shankar PA-C - Last Filed: 03/09/23 07:39>
[2023-03-09] MEDS: Losartan Potassium 25 MG TABLET PO (08:50)
[2023-03-09] MEDS: Acetaminophen 325 MG TABLET 650 MG PO (08:50)
[2023-03-09] MEDS: atenoloL 100 MG TABLET PO (08:50)
[2023-03-09] MEDS: FLUoxetine HCl 20 MG CAPSULE PO (08:50)
[2023-03-09] MEDS: Atorvastatin Calcium 40 MG TABLET PO (08:50)
--- NOTE | 2023-03-09 12:48 | P.DS_ITS ---
DS: Providers Provider Date of Service: 03/09/23 Date of admission: 03/02/23 13:51 Date of discharge: 03/09/23 Primary care physician: Armond Galeas [facility] Attending physician on admission: Arvind Clayton Attending physician on discharge: Arvind Clayton DS: Diagnosis Discharge Diagnosis (1) Colovaginal fistula: Status: Acute DS: Summary Hospital Course Hospital Course: HPI AT ADMISSION: Shruthi Helms is a 58 year old female here in the ER because of a colovaginal fistula. She 1st had left lower quadrant pain for a few days last January,. She eventually went to the ER on 02/06/2023. She had a CAT scan done showing sigmoid diverticulitis. She was sent home with oral antibiotics. She says she did well thereafter. However 2 weeks ago, she had another episode of pain but this time it was much lower in the pelvis. She then noticed what she described as foul-smelling vaginal discharge whenever she had a bowel movement after that so she went back to the ER last week. She had a CAT scan showing what appeared to be sigmoid diverticulitis along with a colovaginal fistula. I had seen her in the office last week. I had scheduled her for colonoscopy as well as hand assisted laparoscopic anterior resection next week. However, she had called the office stating that she is stressed by the amount of stool that has been coming out of her vagina each time she has a bowel movement. She says she is starting to have a yeast infection because of the irritation from this. She therefore came to the emergency room today. Her last colonoscopy on record was in 2017. This was done by Dr. Colon and was normal. She does have a family history of tubular adenomas and is due to have a repeat colonoscopy this year. She currently denies abdominal pain although she does st ate that whenever she has a bowel movement, she would feel pressure in the pelvis. Her urine is clear. She denies any fever or chills. She has good oral intake. She denies dysuria but describes burning in her vagina. She had a hysterectomy and an appendectomy in the distant past. HOSPITAL COURSE: She was admitted to the surgical service for further treatment. It was recommended to proceed with the planned procedures during her stay. She will undergo bowel prep. On 03/03/23, colonoscopy, hand assisted laparoscopic sigmoid resection, extensive lysis of adhesions, separation of the distal sigmoid from the vaginal cuff, end to end anastomosis, diverting loop ileostomy was performed by Dr. Clayton without complication. The patient tolerated the procedure well. She had an uneventful but slow recovery course. On POD #1, she was doing well post op. She was tolerating clear liquids without nausea or vomiting and had bilious output via her ileostomy. Her pain was well controlled. She was ambulated. On POD #2, her lopez was removed. Her activity was gradually increased. Ileostomy education was performed. Her ileostomy bridge was removed. She had heartburn and was started on Omeprazole. She remained inpatient until POD #6 for pain control and nausea. On the day of discharge, she was tolerating a solid diet with good ileostomy output. Her pain was controlled. Her abdomen was benign with clean incisions. She was discharged to home on 03/09/ in stable condition with VNA services for ileostomy care. Status at Discharge Functional status at discharge: independent ambulation Overall status at discharge: patient is progressing back to baseline Time Attestation Discharge coordination time: Less than 30 minutes Quality: Safe Use of Opioids Does Pt have an Active Cancer Diagnosis on the Problem List?: No Quality: Stroke Does the patient have a stroke diagnosis?: No Physical Exam Vital Signs: Vital Signs: Last Vital Signs Temp 96.8 F 03/09/ 07:21 Pulse 71 03/09/ 07:21 Resp 18 03/09/ 07:21 BP 157/77 H 03/09/24 07:21 Pulse Ox 98 03/09/ 07:21 O2 Del Method Room Air 03/09/23 07:21 O2 Flow Rate 2 03/03/23 15:34 BMI result Body Mass Index 22.3 Const: General: comfortable, no acute distress and alert Orientation/consciousness: patient oriented x3 Resp: Effort & Inspection: normal respiratory effort GI: Other: ileostomy pink, viable appearing, ostomy appliance in place incisions clean Inspection: No distended Palpation (GI): Soft to palpation and not firm Skin: General skin exam: no rashes or lesions noted Neuro: General: patient oriented x3 and moves all extremities DS: Data Data Completed and Pending Completed studies during hospitalization [Text1]: 03/03/23 12:10 Surgical [PTH] Routine Colon, sigmoid, segmental resection: - Diverticular-associated segmental colitis with subserosal abscess formation and adherent fibroinflammatory material. - Separate loop of colon with mucosal congestion and denuded epithelium. - Negative for malignancy. Discharge Plan Discharge Anticipated Discharge Date/Time: 03/07/23 12:09 Patient Disposition: Home Health Service Discharge Diagnosis: s/p MARISOL sigmoid resection, loop ileostomy Referrals: Armond Galeas FNP-BC [Primary Care Provider] - 1 Week Arvind Clayton MD [Physician] - 2 Weeks Discharge Medications: New (DME) colostomy bags 3 misc See Rx Instructions .ROUTE .MEDSUPPLY Qty: 30 1RF Rx Instructions: As directed (DME) Skin Prep Wipes Misc See Rx Instructions .ROUTE .MEDSUPPLY Qty: 1 1RF Rx Instructions: As directed zolpidem [Ambien] 5 mg tablet 5 mg PO BEDTIME Qty: 20 0RF Rx Instructions: may repeat once if no response in 30-60 minutes tramadol 50 mg tablet 50 mg PO Q4H PRN (Reason: pain (scale score 7-10)) Qty: 20 0RF omeprazole 20 mg tablet,delayed release (DR/EC) 20 mg PO DAILY Qty: 30 0RF Continued fluoxetine 20 mg capsule 20 mg PO DAILY 90 Days Qty: 90 1RF losartan 25 mg tablet 25 mg PO DAILY Qty: 90 1RF atorvastatin 40 mg tablet 40 mg PO DAILY atenolol 100 mg tablet 100 mg PO DAILY Discontinued ciprofloxacin HCl [Cipro] 500 mg tablet 500 mg PO BID Qty: 20 0RF metronidazole 500 mg tablet 500 mg PO BID 10 Days Qty: 20 0RF Discharge Orders: Discharge Order (Routine); Ordered 03/09/23 Ordered By: Kianna Shankar Diet: Advance to usual diet Activity on Discharge: No heavy lifting Stand Alone Forms: Patient Portal Discharge page Activity Restrictions/Additional Instructions: If the incision area is tender, you may apply an ice pack for short intervals (No more than 20 minutes on, followed by at least 20 minutes off). Do not apply heat. Do not use creams, lotions, or topical antibiotics. These can cause infection or allergic reaction. Ok to shower. You have chele closing your incision and these will be removed approximately 10-14 days after surgery. NO HEAVY LIFTING (>10lbs) or strenuous activity. ostomy care: coloplast #[id number] change appliance every 3-4 days and as needed. Follow up in office with Dr. Clayton in 2 weeks. ([phone]) Call Your Doctor If: -Your temperature exceeds 101.5? F -You experience excessive pain or swelling -You have an unexpected reaction to medication -You have excessive bleeding -You experience continued vomiting/nausea -Your incision begins to separate -Your incision shows signs of infection such as increased redness, swelling, excessive pain, drainage (light blood or clear fluid is normal) or heat Care Plan Goals: Return to baseline health and resume normal activities following recovery period. Health Concerns: colovaginal fistula s/p MARISOL sigmoid resection, diverting loop ileostomy Plan of Treatment: ostomy care f/u in office in 2 weeks Home with VNA pain control Assessment: Doing well post op Patient Instructions: Colostomy Care (GEN) Discharge Date/Time: 03/09/23 13:18
--- NOTE | 2023-03-09 13:11 | MHC.CM.PN ---
pt dcd home no skilled services ordered
--- NOTE | 2023-03-09 14:46 | P.F2F_ITS ---
Service Date Service Date: 03/09/23 Encounter Date of encounter: 03/09/23 Reasons for Services Signs and symptoms assessed: has new loop ileostomy, midline incision Reason for mcfp: wound care (stoma care) Homebound: Leaving the home is medically contraindicated at this time without the asist of a device and/or another person due th the listed conditions above and below. Reason homebound: pain with ambulation and other (recent surgery ) Certification: Based on the above findings, I certify that this patient is confined to the home and needs intermittent mcfp care, physical therapy and/or speech therapy, or continues to need occupational therapy. The patient is under my care, and I have initiated the establishment of the plan of care. The patient will be followed by a physician who will periodically review the plan of care. Time Spent With Patient Time: Total time managing care of this patient today ____ minutes.
--- NOTE | 2023-03-09 15:00 | MHC.CM.PN ---
PT DCD HOMEWITH HVNS
== END 2023-03-09 13:18 | disposition home health service (06) | DRG 221 ==
LOC: HO.ED 12:58 → HO.EDOVER 13:51 → HO.S3 16:46
PROVIDERS: Physician Assistant; Physician Assistant Surgical; Admitting Provider Surgery; Emergency Provider Emergency Medicine Emergency Medical Services; PCP Nurse Practitioner Family; Visit Provider Surgery
PROC: 0DTE0ZZ Resection of Large Intestine, Open Approach (ICD-10-PCS; principal; 2023-03-03 07:30)
PROC: 0DJD8ZZ Inspection of Lower Intestinal Tract, Via Natural or Artificial Opening Endoscopic (ICD-10-PCS; CPT 45378; 2023-03-03 07:30)
DX: N82.3 Fistula of vagina to large intestine (principal); K21.9 Gastro-esophageal reflux disease without esophagitis; K66.0 Peritoneal adhesions (postprocedural) (postinfection); K57.30 Diverticulosis of large intestine without perforation or abscess without bleeding; Z20.822 Contact with and (suspected) exposure to COVID-19; Z88.0 Allergy status to penicillin; Z79.899 Other long term (current) drug therapy
CPT/HCPCS: 36415; 80048; 80076; 83690; 83735; 85025; 85610; 85730; 86850; 86900; 86901; 87502; 87635; 88305; 88307; 93005; 99024; 99285; C1758; J0131; J0665; J1170; J1644; J1790; J2250; J2270; J2405; J2704; J2795; J3010; J7120

== ENCOUNTER → 2023-03-02 12:19 | Outpatient (BNV) | payer OTHER, SELFPAY | PROVIDERS: Admitting Provider Surgery; Emergency Provider Emergency Medicine Emergency Medical Services; PCP Nurse Practitioner Family; Visit Provider Internal Medicine Cardiovascular Disease | DX: Z01.810 Encounter for preprocedural cardiovascular examination (principal) | CPT/HCPCS: 93010 ==

== ENCOUNTER → 2023-03-02 13:51 | Outpatient (BNV) | payer OTHER, SELFPAY | PROVIDERS: Admitting Provider Surgery; Emergency Provider Emergency Medicine Emergency Medical Services; PCP Nurse Practitioner Family; Visit Provider Surgery | DX: N82.4 Other female intestinal-genital tract fistulae (principal) | CPT/HCPCS: 44208; 44213; 45378; 99024; 99223; 99499; G0180 ==

== ENCOUNTER 2023-03-17 11:26 | Outpatient (AMB) | payer OTHER, SELFPAY ==
--- NOTE | 2023-03-17 11:31 | A.OFFVIS_ITS ---
Intake Vital Signs 03/17/23 11:43 Weight 112 lb BP 131/63 Blood Pressure Location Rt brachial Position Sitting Pulse 117 H Intake Visit Reasons: hand assisted laparoscopic sigmoid resection Intake Note: This patient presents for a post-op assessment status post hand assisted laparoscopic sigmoid resection. Patient c/o; reports no changes, reports has several complaints to discuss with provider. Child Monitor Required: No Accompanied by: Spouse Allergies Penicillins [PENICILLINS] Allergy (Intermediate, Verified 03/17/23 11:44) RASH penicillin V Allergy (Unknown, Verified 03/17/23 11:44) rash HPI hand assisted laparoscopic sigmoid resection HPI Details She had undergone hand assisted laparoscopic sigmoid resection, with reanastomosis, and a diverting loop ileostomy for a colovaginal fistula last March 03, 2023. She tolerated procedure well. She was was discharged on postop day 6. She says that she feels well overall. Her stoma has been functioning well. She denies any further drainage from her vagina. Her main issue is that the past few days, her stoma appliance has not been sticking long enough. She has had a lot of leaking around this and therefore has significant burning of the exposed skin. [facility] Medical History Colovaginal fistula Ileostomy in place Carpal tunnel syndrome of right wrist Chronic GERD Lipid metabolism disorder Generalized anxiety disorder Surgical History S/P laparotomy with lysis of adhesions History of bowel resection History of carpal tunnel surgery History of hysterectomy History of appendectomy Family History Other Substance use disorder Social History Household Members: Spouse Housing: House Do you presently have visiting nurse or other home services: No Alcohol intake: current Alcohol intake frequency: holidays/special occasions only Alcohol type: wine Comment: counts correct Patient Tobacco Use Status: Former Tobacco user Years Smoked: 7 e-Cigarette/Vaping Use: Never Used service: No Current occupational status: employed 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 Cognitive needs: No Hearing needs: No Vision needs: Yes Review of Systems Const Denies chills and Denies fever(s) Card Denies chest pain Resp Denies cough GI Details: Ileostomy functioning Physical Exam Vital Signs: Last Vital Signs Pulse 117 H 03/17/23 11:43 BP 131/63 03/17/23 11:43 Const General: comfortable and no acute distress Resp Effort & Inspection: normal respiratory effort GI Other: Ileostomy functioning well, incisions well healed, significant skin redness on the inferior border of the ileostomy Palpation (GI): Soft to palpation, not firm and no guarding Assessment & Plan Assessment & Plan (1) Colovaginal fistula: Code(s): N82.4 - Other female intestinal-genital tract fistulae Plan: Status post assisted laparoscopic sigmoid resection, reanastomosis, with a diverting loop ileostomy. She is doing very well. Her incisions are well healed. Her ileostomy is functioning well. I removed her skin chele. She is to avoid lifting anything more than 20 lb for at least 3 more weeks. I will see her in the office in a month for another wound check. She does have problems with the stoma appliance not sticking well in long enough. We have applied a ring and we have shown her here in the office takes as to how to make the stoma appliance stick longer. She can follow up with Damien our nurse any time she has questions with a stoma appliance. Her path report shows inflammatory changes on the resected sigmoid consistent with diverticular disease. Coding Level of Care Code Global (43566) Diagnoses Colovaginal fistula N82.4
[2023-03-17 11:43] VITALS: BP 131/63; PULSE 117
== END 2023-03-17 12:18 | disposition home or self-care (01) ==
PROVIDERS: PCP Nurse Practitioner Family; Visit Provider Surgery
DX: N82.4 Other female intestinal-genital tract fistulae (principal)
CPT/HCPCS: 99024

== ENCOUNTER → 2023-03-17 11:26 | Outpatient (BNVA) | payer OTHER, SELFPAY | PROVIDERS: PCP Nurse Practitioner Family; Visit Provider Surgery ==

== ENCOUNTER 2023-04-07 10:55 | Outpatient (AMB) | payer OTHER, SELFPAY ==
--- NOTE | 2023-04-07 10:56 | MHC.OFFVIS ---
Intake Vital Signs 04/07/23 11:02 Weight 112 lb BP 133/89 Blood Pressure Location Rt brachial Position Standing Pulse 147 H Intake Visit Reasons: hand assisted laparoscopic sigmoid resection Intake Note: This patient presents for a post-op assessment status post Hand assisted laparoscopic sigmoid resection. Pt c/o; reports no changes. Beater Lead Required: No Accompanied by: Other Relationship Allergies Penicillins [PENICILLINS] Allergy (Intermediate, Verified 04/07/23 11:02) RASH penicillin V Allergy (Unknown, Verified 04/07/23 11:02) rash HPI hand assisted laparoscopic sigmoid resection HPI Details She is here for follow-up after sigmoid resection and diverting loop ileostomy. She actually says that she is much better now compared to when I last saw 3 weeks ago. She says that she has to change her stoma appliance frequently but this is not as bad as before. She says that the skin irritation has improved significantly. She still has to change her stoma appliance at least once a day. Otherwise, she has good oral intake. She says her stoma has been functioning well. She also says that she has more solid stools from the stoma now. [facility] Medical History (Updated 04/07/23 @ 11:45 by Arvind Clayton MD) Colovaginal fistula Ileostomy in place Carpal tunnel syndrome of right wrist Chronic GERD Lipid metabolism disorder Generalized anxiety disorder Surgical History S/P laparotomy with lysis of adhesions History of bowel resection History of carpal tunnel surgery History of hysterectomy History of appendectomy Family History Other Substance use disorder Social History Household Members: Spouse Housing: House Do you presently have visiting nurse or other home services: No Alcohol intake: current Alcohol intake frequency: holidays/special occasions only Alcohol type: wine Comment: counts correct Patient Tobacco Use Status: Former Tobacco user Years Smoked: 7 e-Cigarette/Vaping Use: Never Used service: No Current occupational status: employed 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 Cognitive needs: No Hearing needs: No Vision needs: Yes Review of Systems Const Denies chills and Denies fever(s) Card Denies chest pain, Denies dyspnea and Denies dyspnea on exertion Resp Denies cough, Denies dyspnea and Denies dyspnea on exertion GI Details: Has a loop ileostomy Denies hematochezia and Denies change in bowel habits Denies hematuria Musc Denies back pain and Denies limited range of motion Neuro Denies focal weakness and Denies convulsions Psych Denies depression and Denies mood swings Physical Exam Vital Signs: Last Vital Signs Pulse 147 H 04/07/23 11:02 BP 133/89 04/07/23 11:02 Const General: comfortable and no acute distress Resp Effort & Inspection: normal respiratory effort GI Other: Soft, nondistended, no guarding, no rebound, incisions well healed, stoma appliance in place, stoma with formed stools Assessment & Plan Assessment & Plan (1) Ileostomy in place: Comment: 02/2023 Code(s): Z93.2 - Ileostomy status Plan: She had undergone sigmoid resection, reanastomosis and diverting loop ileostomy for a colovaginal fistula. She is doing very well. Her incisions are all well healed. She still says that her stoma appliance has to be changed once a day at least. The skin irritation has improved significantly. I will schedule her for a barium enema study next month so we can plan on reversal. I will see her in the office after her barium enema study Our office nurse Damien spend time with her to see if we can improve frequency of the need for change of her stoma appliance. Coding Level of Care Code Global (40729) Diagnoses Ileostomy in place Z93.2
[2023-04-07 11:02] VITALS: BP 133/89; PULSE 147
== END 2023-04-07 11:41 | disposition home or self-care (01) ==
PROVIDERS: PCP Nurse Practitioner Family; Visit Provider Surgery
DX: Z93.2 Ileostomy status (principal)
CPT/HCPCS: 99024

== ENCOUNTER → 2023-04-07 10:55 | Outpatient (BNVA) | payer OTHER, SELFPAY | PROVIDERS: PCP Nurse Practitioner Family; Visit Provider Surgery ==

== ENCOUNTER 2023-05-10 09:58 | Outpatient (REF) | payer OTHER, SELFPAY ==
--- NOTE | ~2023-05-10 | FL_ITS ---
EXAMINATION: FL BARIUM ENEMA CLINICAL INFORMATION: Status post sigmoidectomy and diverting ileostomy for colovaginal fistula. Preop evaluation prior to ileostomy reversal COMPARISON: None available. TECHNIQUE: Retrograde Gastrografin was inserted through a rectal tube. Multiple spot images and cine loops were performed. FINDINGS: Occupational Health Physician view demonstrates a normal bowel gas pattern. Anastomotic sutures are seen overlying the deep central pelvis. Lung bases are clear. There is a minimal levoconvex lumbar scoliosis. Mild degenerative changes in both SI joints. 3 mm calcification overlies the inferior pole of the left kidney. 2 mm calcification seen in the midpole of the right kidney. Suspect nephrolithiasis. There is passage of Gastrografin from the rectum to the distal ileum. The rectosigmoid anastomosis is patent. There is a moderate narrowing, likely postsurgical. There is no extravasation of contrast. The remainder of the colon is normal in caliber and course. Diverticulosis is present in the left, and right colon. No masses are present. FLUOROSCOPY TIME: 3 minutes 58 seconds DOSE AREA PRODUCT: 4540 uGy-m2 (microgray-meter squared) FL/FL barium enema IMPRESSION: 1. Postsurgical changes with rectosigmoid anastomosis. There is no obstruction or anastomotic leak. 2. Diverticulosis of the left and right colon. Colon is otherwise normal in course and caliber. 3. Gastrografin passes from the rectum to the distal ileum. 4. Suspect bilateral nephrolithiasis. This procedure was performed by Eliezer Baldwin PA-C, and supervised by Dr. Pedroza
== END 2023-05-10 09:59 | disposition home or self-care (01) ==
LOC: HO.XRAY 09:58
PROVIDERS: PCP Nurse Practitioner Family; Visit Provider Surgery
DX: Z93.2 Ileostomy status (principal)
CPT/HCPCS: 74270

== ENCOUNTER → 2023-05-10 10:00 | Outpatient (BNV) | payer OTHER, SELFPAY | PROVIDERS: PCP Nurse Practitioner Family; Visit Provider Physician Assistant Surgical | DX: Z93.2 Ileostomy status (principal) | CPT/HCPCS: 74270 ==

== ENCOUNTER 2023-05-13 10:54 | Outpatient (AMB) | payer OTHER, SELFPAY ==
--- NOTE | 2023-05-13 11:00 | A.OFFVIS_ITS ---
Intake Intake Visit Reasons: Ileostomy in place, FL barium results Intake Note: This patient presents for a follow-up assessment for barium enema results. Patient c/o; reports no complaints. [facility] [employer] Required: No Accompanied by: Other Relationship Allergies Penicillins [PENICILLINS] Allergy (Intermediate, Verified 05/13/23 11:04) RASH penicillin V Allergy (Unknown, Verified 05/13/23 11:04) rash Medication List - Last Reconciled 05/13/23 by Arvind Clayton MD atenolol 100 mg PO DAILY atorvastatin 40 mg PO DAILY colostomy bags As directed fluoxetine 20 mg PO DAILY 90 days losartan 25 mg PO DAILY nystatin 1 appl topical BID omeprazole 20 mg PO DAILY ostomy supplies (Skin Prep Wipes) As directed tramadol 50 mg PO Q4H PRN zolpidem (Ambien) 5 mg PO BEDTIME HPI Ileostomy in place, FL barium results HPI Details 58-year-old female here for follow-up fo r her loop ileostomy. She had undergone hand assisted laparoscopic sigmoid resection with a diverting loop ile ostomy for a colovaginal fistula last February,. She had been doing well since that time. She does have issues with the colostomy appliance staying in place I had scheduled her for a barium enema test which was done last week to check the anastomosis. She is here to discuss this and hopefully scheduled for her reversal of the loop ileostomy. She says she doing well overall. She has good oral intake. [facility] Medical History Colovaginal fistula Ileostomy in place Carpal tunnel syndrome of right wrist Chronic GERD Lipid metabolism disorder Generalized anxiety disorder Surgical History S/P laparotomy with lysis of adhesions History of bowel resection History of carpal tunnel surgery History of hysterectomy History of appendectomy Family History Other Substance use disorder Social History Household Members: Spouse Housing: House Do you presently have visiting nurse or other home services: No Alcohol intake: current Alcohol intake frequency: holidays/special occasions only Alcohol type: wine Comment: counts correct Patient Tobacco Use Status: Former Tobacco user Years Smoked: 7 e-Cigarette/Vaping Use: Never Used service: No Current occupational status: employed 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 Cognitive needs: No Hearing needs: No Vision needs: Yes Review of Systems Const Denies chills and Denies fever(s) Card Denies chest pain, Denies dyspnea and Denies dyspnea on exertion Resp Denies cough, Denies dyspnea and Denies dyspnea on exertion GI Denies hematochezia and Denies change in bowel habits Denies hematuria Musc Denies back pain and Denies limited range of motion Neuro Denies focal weakness and Denies convulsions Psych Denies depression and Denies mood swings Physical Exam Const General: comfortable and no acute distress Orientation/consciousness: patient oriented x3 Neck Neck: Yes no lymphadenopathy Resp Auscultation: clear to auscultation bilaterally Cardio Rhythm: regular rhythm GI Other: Ileostomy in place on the right side, functioning well Palpation (GI): Soft to palpation, nontender and no guarding Neuro General: patient oriented x3 Assessment & Plan Assessment & Plan (1) Ileostomy in place: Comment: 02/2023 Code(s): Z93.2 - Ileostomy status Plan: I have reviewed her barium enema test and this shows the anastomosis in the rectosigmoid to be patent and intact. There was no evidence of any leak I reviewed with her the technique of reversal of the loop ileostomy with possible laparotomy. I discussed the risks including but not limited to bleeding, infections, bowel injury, staple line leak, obstruction, inherent risks of anesthesia, as well as the benefits and alternatives. She understands and wants to proceed. I reviewed with her what to expect postoperatively as well. Coding Level of Care Code Est Pt Level 3 (29280) Diagnoses Ileostomy in place Z93.2
== END 2023-05-13 11:17 | disposition home or self-care (01) ==
PROVIDERS: PCP Nurse Practitioner Family; Visit Provider Surgery
DX: Z93.2 Ileostomy status (principal)
CPT/HCPCS: 99024

== ENCOUNTER → 2023-05-13 10:54 | Outpatient (BNVA) | payer OTHER, SELFPAY | PROVIDERS: PCP Nurse Practitioner Family; Visit Provider Surgery ==

== ENCOUNTER 2023-06-11 07:14 | Outpatient (REF) | payer OTHER, SELFPAY ==
[2023-06-11 10:19] LABS: MANUAL DIFF FLAG NO
[2023-06-11 10:35] LABS: Basophils Percent Auto 0.8 % (0-2); Eosinophils Absolute Auto 0.1 X10*3/uL (0.0-0.4); Eosinophils Percent Auto 2.1 % (0-4); Hematocrit 38.3 % (37.0-47.0); Hemoglobin 13.2 g/dl (12.0-16.0); Imm Gran Abs Auto 0.01 X10*3/uL (0.00-0.03); Imm Gran Pct Auto 0.2 % (0.0-0.4); Lymphocytes Absolute Auto 1.3 X10*3/uL (1.2-4.9); Lymphocytes Percent Auto 26.9 % (20-40); Mean Corpuscular HGB Conc 34.5 g/dl (31.0-35.0); Mean Corpuscular Hemoglobin 29.4 pg (27.0-33.0); Mean Corpuscular Volume 85.3 fL (80.0-98.0); Mean Platelet Volume 10.2 fL (9.4-12.3); Monocytes Absolute Auto 0.4 X10*3/uL (0.1-1.2); Monocytes Percent Auto 8.4 % (2-11); Neutrophils Percent Auto 61.6 % (45-73); Platelet Count 273 X10*3/uL (160-400); Red Blood Count 4.49 X10*6/uL (4.20-5.50); Red Cell Distribution Width 12.7 % (11.0-16.0); White Blood Count 4.9 X10*3/uL (4.8-10.8)
[2023-06-11 10:45] LABS: Appearance Urine Cloudy; Color Urine Yellow; Glucose Urine UA Negative (Negative); Leukocyte Esterase Urine Trace (Negative); Nitrite Urine Negative (Negative); Specific Gravity - Urine >= 1.030 (1.005-1.025); UMIC TRIGGER UACC YES; Urine Blood Negative (Negative); Urine Ketones Negative (Negative); Urine Protein Trace mg/dL (Neg-Trace)
[2023-06-11 10:55] LABS: Alanine Aminotransferase 15 U/L (0-31); Albumin Level 4.6 g/dL (3.5-5.0); Alkaline Phosphatase 87 U/L (39-117); Anion Gap 13 (12-20); Aspartate Amino Transferase 19 U/L (5-31); Bilirubin Total 0.9 mg/dL (0.0-1.0); Blood Urea Nitrogen 15 mg/dL (9-16); Calcium 10.2 mg/dL (8.4-10.2); Carbon Dioxide 20 mmol/L (22-29); Chloride 109 mmol/L (96-108); Cholesterol 169 mg/dL (<200); Estimated Glomerular Filt Rate > 60; Glucose Fasting 100 mg/dL (60-99); HDL Cholesterol 76 mg/dL (>40); LDL Cholesterol Calculated 74 mg/dL (<100); Potassium 3.8 mmol/L (3.3-5.1); Sodium 138 mmol/L (135-145); Total Protein 8.3 g/dL (6.5-8.0); Triglycerides 99 mg/dL (<150)
[2023-06-11 11:07] LABS: Bacteria Urine None Seen (None Seen); Hyaline Casts Urine 0-2 /LPF (0-2); Other Crystals Urine Present; RBC Urine 0-2 /HPF (0-2); WBC Urine 0-5 /HPF (0-5)
[2023-06-11 11:14] LABS: TSH reflex Free T4 2.61 uIU/mL (0.32-4.0)
== END 2023-06-11 07:15 | disposition home or self-care (01) ==
LOC: HO.HMGCLDS 07:14
PROVIDERS: PCP Nurse Practitioner Family; Visit Provider Nurse Practitioner Family
DX: I10 Essential (primary) hypertension (principal)
CPT/HCPCS: 36415; 80053; 80061; 81001; 84443; 85025

== ENCOUNTER 2023-06-15 09:55 | Outpatient (AMB) | payer OTHER, SELFPAY ==
--- NOTE | 2023-06-15 10:05 | A.OFFPC_ITS ---
Vital Signs 06/15/23 10:06 Height 5 ft 2 in Weight 116 lb BMI 21.2 BP 124/80 Blood Pressure Location Lt brachial Position Sitting Pulse 108 H Pulse Source Pulse Oximeter Pulse Oximetry (%) 98 Oxygen Delivery Method Room Air Intake Visit Reasons: 6 month fu/labs Intake Note: Patient here to discuss recent labs Allergies Penicillins [PENICILLINS] Allergy (Intermediate, Verified 06/15/23 10:09) RASH Tobacco use date assessed: 06/15/23 Dental Screening Dental Screen Date: 06/15/23 Did you have a dental visit in the last 12 months?: Yes Did you have a dental problem in the last 6 months where you did not have access to dental care?: No Was dental information given to patient?: Patient has dentist HPI 6 month fu/labs HPI Details HTN: Blood pressure is stable, trending in the 130s/70s-80s. Pt reports that her blood pressure medications were stopped due to hypotension. Denies chest pain, shortness of breath, headache, dizziness, and blurred vision. Trace amount of protein in urine, most likely related to dehydration. Will repeat UA. Pt is having an ileostomy reversal next week. [facility] Medical History Dental bridge present Postoperative nausea RAFAEL (generalized anxiety disorder) Insomnia Weight loss Ileostomy in place Colovaginal fistula Carpal tunnel syndrome of right wrist Chronic GERD Lipid metabolism disorder Generalized anxiety disorder Surgical History S/P laparotomy with lysis of adhesions History of bowel resection History of carpal tunnel surgery History of hysterectomy History of appendectomy Family History Other Substance use disorder Social History Household Members: Spouse Housing: House Are you a primary landcare facilitator to a significant other at home: No Do you presently have visiting nurse or other home services: No Alcohol intake: current Alcohol intake frequency: does not drink Alcohol type: wine Comment: counts correct Patient Tobacco Use Status: Former Tobacco user Quit Date: 1990 Years Smoked: 7 e-Cigarette/Vaping Use: Never Used service: No Current occupational status: employed 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 Braulio Williamson, Chasity Salamanca, Jose Alberto Franco and colleagues, with an educational adelia from [employer]. Review of Systems Const Reports as per HPI Physical exam (Primary Care) Vital Signs: Last Vital Signs Pulse 108 H 06/15/23 10:06 BP 124/80 06/15/23 10:06 Pulse Ox 98 06/15/23 10:06 Oxygen Delivery Method Room Air 06/15/23 10:06 BMI result Body Mass Index 21.2 Tobacco/Smoking Status: Tobacco use Status Tobacco use date assessed 06/15/23 06/15/23 10:15 Patient Tobacco Use Status Former Tobacco user 06/15/23 10:05 e-Cigarette/Vaping Use Never Used 06/15/23 10:05 Thrive Assessment: Date of Thrive Assessment Date Thrive assessed 03/03/23 06/15/23 10:05 Const General: cooperative Orientation/consciousness: patient oriented x3 Resp Effort & Inspection: normal respiratory effort Auscultation: clear to auscultation bilaterally Cardio Rate: regular rate Rhythm: regular rhythm Heart sounds: S1 normal heart sound present, S2 normal heart sound present and no murmurs Neuro General: patient oriented x3 Psych Appearance: grossly normal Mental Status: mental status grossly normal Speech and movement: Normal speech and movement present Affect: normal affect Attitude: cooperative Thought process: Normal thought process present Thought content: Normal thought content present Insight: Good insight present (Psych) Judgement: Good judgement present (Psych) Assessment and Plan Assessment & Plan (1) Proteinuria: Code(s): R80.9 - Proteinuria, unspecified Plan: Repeat UA, encouraged pt to stay hydrated (2) Hypertension, essential: Code(s): I10 - Essential (primary) hypertension Plan: BP is stable Plan The patient agreed to the use of a medical lab tech instructor for this encounter. Scribed for BAILEY Hernández by Jina Worthington medical lab tech instructor, on 06/15/2023 at 10:30 EST. Coding Level of Care Code Est Pt Level 3 (32217) Diagnoses Proteinuria R80.9 Hypertension, essential I10
[2023-06-15 10:06] VITALS: BP 124/80; PULSE 108; O2SAT 98; BMI 21.2
== END 2023-06-15 10:45 | disposition home or self-care (01) ==
PROVIDERS: PCP Nurse Practitioner Family; Visit Provider Nurse Practitioner Family
DX: R80.9 Proteinuria, unspecified (principal); I10 Essential (primary) hypertension
CPT/HCPCS: 99213

== ENCOUNTER 2023-06-16 09:07 | Outpatient (REF) | payer OTHER, SELFPAY ==
[2023-06-16 10:28] LABS: Appearance Urine Clear; Color Urine Yellow; Glucose Urine UA Negative (Negative); Leukocyte Esterase Urine Trace (Negative); Nitrite Urine Negative (Negative); PH 6.5 (5.0-9.0); Specific Gravity - Urine <= 1.005 (1.005-1.025); UMIC TRIGGER UACC YES; Urine Blood Negative (Negative); Urine Ketones Negative (Negative); Urine Protein Negative (Neg-Trace)
[2023-06-16 10:33] LABS: Bacteria Urine 1+ (None Seen); Hyaline Casts Urine 0-2 /LPF (0-2); RBC Urine 0-2 /HPF (0-2); WBC Urine 0-5 /HPF (0-5)
== END 2023-06-16 09:08 | disposition home or self-care (01) ==
LOC: HO.HMGCLDS 09:07
PROVIDERS: PCP Nurse Practitioner Family; Visit Provider Nurse Practitioner Family
DX: I10 Essential (primary) hypertension (principal); R82.90 Unspecified abnormal findings in urine
CPT/HCPCS: 81001; 87086

== ENCOUNTER 2023-06-22 07:38 | Outpatient (BNV) | payer OTHER, SELFPAY | END 2023-06-28 03:21 | PROVIDERS: Admitting Provider Surgery; PCP Nurse Practitioner Family; Visit Provider Internal Medicine Cardiovascular Disease | DX: R00.0 Tachycardia, unspecified (principal); R94.31 Abnormal electrocardiogram [ECG] [EKG] | CPT/HCPCS: 93010 ==

== ENCOUNTER 2023-06-22 07:38 | Inpatient (IN) | payer OTHER, SELFPAY ==
[2023-06-07 10:26] VITALS: BMI 21.0
[2023-06-22] VITALS (16 sets, daily range): BP systolic 121–149; BP diastolic 65–82; PULSE 85–105; RESP 10–18; TEMP 36.1–37; O2SAT 95–100; BMI 23.8
--- NOTE | ~2023-06-22 | XR_ITS ---
EXAMINATION: XR ABDOMEN KUB CLINICAL INDICATION: Follow-up abdominal distention COMPARISON: KUB 06/27/2023, CT abdomen pelvis 06/28/2023 TECHNIQUE: AP view of the abdomen. FINDINGS: An NG tube is now coiled in the gastric fundus. There is mild colonic distention with gas but improved when compared to the 06/27/2023 study. There is some air seen in nondilated small bowel. 5 surgical chele are present in the right lower quadrant there is no evidence of ileus or obstruction. No unusual soft tissue calcifications are noted. The bones are unremarkable. XR/XR KUB IMPRESSION: 1. NG tube coiled in the gastric fundus. 2. Mild colonic distention with gas but improved when compared to the 06/27/2023 study.
--- NOTE | ~2023-06-22 | XR_ITS ---
EXAMINATION: XR CHEST CLINICAL INFORMATION: NG tube insertion COMPARISON: None available. TECHNIQUE: Frontal view of the chest was obtained. FINDINGS: The lungs are hypoinflated. The nasogastric tube terminates in the gastric fundus. Large bowel dilatation in the upper abdomen is noted. XR/XR chest 1V IMPRESSION: Nasogastric tube terminates in the gastric fundus.
--- NOTE | ~2023-06-22 | XR_ITS ---
EXAMINATION: XR ABDOMEN COMPLETE CLINICAL INDICATION: Reason for Exam Abdominal distention, nausea, closure of ileostomy COMPARISON: CT abdomen pelvis 02/23/2023 TECHNIQUE: AP view of the abdomen. FINDINGS: Lines or devices: Left lower quadrant surgical chele. Suture material overlies the expected region of the rectosigmoid junction and right lower quadrant. Gas-filled loops of small and large bowel which appear mildly dilated which can be seen in the setting of ileus or distal bowel obstruction. No abnormal calcifications. XR/XR KUB IMPRESSION: 1. Gas-filled loops of small and large bowel which appear mildly dilated which can be seen in the setting of ileus or distal bowel obstruction.
--- NOTE | ~2023-06-22 | CT_ITS ---
EXAMINATION: CT ABDOMEN AND PELVIS WITH CONTRAST CLINICAL INFORMATION: Status post reversal of ileostomy, complains of postoperative nausea COMPARISON: CT scan of abdomen and pelvis on 02/23/2023 TECHNIQUE: Multidetector volumetric images were obtained from the superior aspect of the liver through the pubic symphysis following administration 85 mL of Omnipaque 350 intravenous contrast. Sagittal and coronal reformatted images were obtained on the technologist's workstation. Oral contrast: No This CT examination was performed using dose optimization techniques as appropriate, variously including the following: *Automated exposure control *Adjustment of mA and/or kV according to patient size (this includes techniques or standardized protocols for targeted exams where dose is matched to indication/reason for exam; i.e. extremities or head) *Use of iterative reconstruction technique DLP: 440.04 mGy-cm FINDINGS: LUNG BASES: Bilateral lung bases are clear. LIVER: No focal lesion is seen in the liver. GALLBLADDER AND BILIARY TREE: Gallbladder appears unremarkable without calcified stones. Common bile duct is not dilated. SPLEEN: The spleen is normal in size without focal lesion. PANCREAS: The pancreas appears unremarkable. ADRENAL GLANDS: Adrenal glands are normal in size without focal lesion bilaterally. KIDNEYS: Bilateral kidneys are normal in size without focal lesion. A 0.3 cm left lower renal pole calculus and similar right lower pole renal calculus are seen without caliectasis. BOWELS: At L3-L4 junction level, right anterior ileal anastomosis staple line is seen. Abnormal fluid distention of ileal lobe is similar to the anastomosis is seen, measuring 3.5 cm in transverse diameter. Air-fluid distention of distal ileal lobe measuring 3.1 cm in transverse diameter is present. There is marked dilatation of the ascending and transverse colon with air-fluid levels. Midline transverse colon is dilated to 5.7 cm in AP diameter. Severe dilatation of the ascending colon with edematous fluid density medial wall thickening measuring 1.1 cm in thickness is seen. RETROPERITONEUM: No abnormally enlarged retroperitoneal lymph nodes, mass or hematoma could be seen. BLOOD VESSELS: Abdominal aorta is normal in size and smoothly patent. ABDOMINAL WALL: Small umbilical hernia containing mesenteric fat is seen. Directly beneath the surgical skin chele in right suprapubic anterior abdominal wall, irregular subcutaneous air and fluid collections are present, measuring up to 1.9 cm in AP diameter, 4.6 cm in width, 5.3 cm in vertical height. Less well defined irregular soft tissue stranding is present in left suprapubic anterior subcutaneous abdominal wall. PERITONEUM: There is moderate perihepatic and perisplenic ascites. There were no abdominal peritoneal inflammatory changes seen. No free peritoneal air was seen. No abnormally enlarged mesenteric lymph nodes are found. BONES: Advanced L5-S1 degenerative lumbar disc disease is present. No fracture or dislocation. No focal bone lesion diagnostic of metastatic disease could be seen in the lumbar region. EXAMINATION: CT pelvis. FINDINGS: URINARY BLADDER: Urinary bladder fills poorly with urine. BOWELS: There is massive dilatation of the ascending colon with air-fluid level, abnormal edematous mural thickening, up to 1.1 cm in thickness, measuring up to 7.8 cm in transverse diameter. Cecum is markedly dilated to 11.1 cm in width, with mural thickening measuring 1.0 cm in thickness. Pelvic ileum is dilated to 3.6 cm in transverse diameter, with mural enhancement. Appendix cannot be identified. Starting from descending sigmoid colon junction, there is complete luminal collapse. Anastomosis staple line is seen in the rectosigmoid junction. Rectum is moderately distended with air-fluid level. GENITAL ORGANS: No adnexal mass lesion could be seen. The uterus is surgically absent. LYMPH NODES: No abnormally enlarged iliac or inguinal lymph nodes are seen. PERITONEUM: There is marked pelvic ascites. No free peritoneal air are found in the pelvis. BONES: There is mild L2-L3 levoscoliosis. No fracture or dislocation. No focal bone lesion diagnostic of metastatic disease could be seen in the pelvis. CT/CT abdomen pelvis w IV con IMPRESSION: 1. Interval takedown of right suprapubic ileostomy with subcutaneous abdominal wall air and fluid collections without definite rim-enhancing abscess cavity. 2. Interval performance of right anterior abdominal ileal anastomosis, development of upstream and downstream diffuse fluid distention of ileal loops, severe dilatation of ascending and transverse colon and cecum with air-fluid level, edematous mural thickening, rectal dilatation with fluid stool. Findings could represent enterocolitis with associated ileus, most severe in the ascending colon and cecum, possible diarrhea. 3. Interval appearance of rectosigmoid junction anastomosis. 4. Interval development of moderate abdominal and marked pelvic ascites. 5. Unchanged bilateral lower renal pole nonobstructive calculi. Fleischner guidelines were followed.
[2023-06-22] MEDS: Scopolamine 1.5 MG PATCH.TD.3 TRANSDERMA (06:26)
[2023-06-22] MEDS: Lactated Ringers 1,000 ML 100 ML IVCONT ×3 (06:49→20:39)
--- NOTE | 2023-06-22 07:21 | MHC.SHP ---
Pre-Procedural Eval Section A - 24 Hr Update-Section A only Date of Service: 06/22/23 Section B - Complete if H&P > 30 days Chief Complaint: Ileostomy status Details of Present Illness: had sigmoid resection, reanastomosis and loop ileostomy in Feb 2023 for colovaginal fistula, now for reversal Relevant Family History (Specify if Yes): No Relevant Social History: None Present Medications: see Short Stay Collaborative assessment Medical History: Significant History (HTN, GERD) Allergies: Allergies Allergy/AdvReac Type Severity Reaction Status Date / Time Penicillins [PENICILLINS] Allergy Intermediate RASH Verified 06/22/23 06:09 Review of Systems Sugical H&P ROS: Negative: Constitution, Cardiovascular, Respiratory, Neurological, Psychiatric, Hem-Onc, Allergic/Immunologic, Gastrointestinal, Genitourinary, Musculoskeletal, Integumentary, Endocrine and Eyes/Ears/Nose/Throat Exam Surgical H&P Exam: Normal: HEENT, Normal: Heart, Normal: Lungs, Normal: Extremities, Normal: Abdomen, Normal: Skin and Normal: Neurological Exam Comment: loop ieostomy on left Plan Diagnosis/Plan: Unchanged I have reviewed the history and physical and performed a pertinent physical examination on my patient. No changes have occurred unless specified. Time Spent With Patient Time: Total time managing care of this patient today ____ minutes.
--- NOTE | 2023-06-22 07:40 | P.CONAN_ITS ---
Documented by User: Anastasiya Mckinley NP 06/21/23 10:38 HPI - Anesthesia Eval Consult details Narrative: 58yo F for Reversal of loop ileostomy, possible laparotomy s/p colo resection 02/2023 with GA-ETT 7 PONV PMFSH Active Problems Active Problems: All Active Problems (Updated 06/15/23 @ 10:42 by BAILEY Silva) Proteinuria (Acute) Hypertension, essential (Acute) Ileostomy in place (Acute) Colovaginal fistula (Acute) Chronic GERD (Acute) Lipid metabolism disorder (Acute) Generalized anxiety disorder (Acute) Past Medical History Medical History Dental bridge present Postoperative nausea RAFAEL (generalized anxiety disorder) Insomnia Weight loss Ileostomy in place Colovaginal fistula Carpal tunnel syndrome of right wrist Chronic GERD Lipid metabolism disorder Generalized anxiety disorder Family History Family History Other Substance use disorder Family history of problems with anesthesia: No Surgical History Surgical History S/P laparotomy with lysis of adhesions History of bowel resection History of carpal tunnel surgery History of hysterectomy History of appendectomy History of Problems with Anesthesia: Yes (PONV) Social History Social History Household Members: Spouse Housing: House Are you a primary managed care director to a significant other at home: No Do you presently have visiting nurse or other home services: No Alcohol intake: current Alcohol intake frequency: does not drink Alcohol type: wine Comment: counts correct Patient Tobacco Use Status: Former Tobacco user Quit Date: 1990 Years Smoked: 7 e-Cigarette/Vaping Use: Never Used service: No Current occupational status: employed 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 Cognitive needs: No Hearing needs: No Vision needs: Yes Meds Allergies Allergy/AdvReac Type Severity Reaction Status Date / Time Penicillins [PENICILLINS] Allergy Intermediate RASH Verified 06/22/23 06:09 Home Medications ?Medication ?Instructions ?Recorded ?Confirmed ?Last Taken ?Type atorvastatin 40 mg tablet 40 mg PO DAILY 03/02/23 06/04/23 06/21/23 History Exam Height,Weight and Vital Signs: Height 5 ft 2 in Weight 52.163 kg Pertinent Lab Results Pertinent Lab Results: Laboratory Tests 06/11/23 07:18 WBC 4.9 Hgb 13.2 Hct 38.3 Plt Count 273 D Sodium 138 Potassium 3.8 Chloride 109 H Carbon Dioxide 20 L BUN 15 Creatinine 0.87 Narrative Narrative: EKG 02/2023 Vent. Rate : 063 BPM Atrial Rate : 063 BPM P-R Int : 152 ms QRS Dur : 074 ms QT Int : 420 ms P-R-T Axes : 047 032 037 degrees QTc Int : 429 ms Normal sinus rhythm Normal ECG No previous ECGs available Assessment and Plan Assessment Anesthesia Assessment: Chart Reviewed Final Anesthetic Review Family History of Problems with Anesthesia: No History of Problems with Anesthesia: Yes (PONV) Documented by User: Stephanie Montes DO 06/22/23 08:21 HPI - Anesthesia Eval Consult details Narrative: 58yo F for Reversal of loop ileostomy, possible laparotomy s/p colo resection 02/2023 with GA-ETT 7 PONV - scopolamine patch placed by pre-op LUDY NOLASCO Past Medical History Medical History Dental bridge present Postoperative nausea RAFAEL (generalized anxiety disorder) Insomnia Weight loss Ileostomy in place Colovaginal fistula Carpal tunnel syndrome of right wrist Chronic GERD Lipid metabolism disorder Generalized anxiety disorder Family History Family History Other Substance use disorder Family history of problems with anesthesia: No Surgical History Surgical History S/P laparotomy with lysis of adhesions History of bowel resection History of carpal tunnel surgery History of hysterectomy History of appendectomy History of Problems with Anesthesia: Yes (PONV) Social History Social History Household Members: Spouse Housing: House Are you a primary managed care director to a significant other at home: No Do you presently have visiting nurse or other home services: No Alcohol intake: current Alcohol intake frequency: does not drink Alcohol type: wine Comment: counts correct Patient Tobacco Use Status: Former Tobacco user Quit Date: 1990 Smoked: 7 e-Cigarette/Vaping Use: Never Used service: No Current occupational status: employed 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 Cognitive needs: No Hearing needs: No Vision needs: Yes Meds Allergies Allergy/AdvReac Type Severity Reaction Status Date / Time Penicillins [PENICILLINS] Allergy Intermediate RASH Verified 06/22/23 06:09 Home Medications ?Medication ?Instructions ?Recorded ?Confirmed ?Last Taken ?Type atorvastatin 40 mg tablet 40 mg PO DAILY 03/02/23 06/04/23 06/21/23 History Exam Exam Date and Time: June 22, 2023 0725 Height,Weight and Vital Signs: Height 5 ft 2 in Weight 52.163 kg Vital Signs Temperature 98.6 F 06/22/23 06:50 Pulse Rate 85 06/22/23 06:50 Respiratory Rate 15 06/22/23 06:50 Blood Pressure 140/82 H 06/22/23 06:50 Pulse Oximetry 97 06/22/23 06:50 Oxygen Delivery Method Room Air 06/22/23 06:50 Temperature 98.6 F 06/22/23 06:50 Pulse Rate 85 06/22/23 06:50 Respiratory Rate 15 06/22/23 06:50 Blood Pressure 140/82 H 06/22/23 06:50 Pulse Oximetry 97 06/22/23 06:50 Oxygen Delivery Method Room Air 06/22/23 06:50 Airway Mallampati Class: I TM Dist: >3cm Neck ROM: Full Loose/Missing/Broken Teeth: Yes (permanent upper bridge and multiple missing teeth) Heart: S1S2 Lungs: CTAB Assessment and Plan Assessment Anesthesia Assessment: Anesthesia Plan Discussed and Chart Reviewed Final Anesthetic Review Family History of Problems with Anesthesia: No History of Problems with Anesthesia: Yes (PONV) NPO: Yes ASA Class: II Final Preanesthetic Review: No Changes in Pt Med Stat, Meds/Allgs Chart Reviewed, Consent Obtained/Reviewed and Anes Risks/Benef Reviewed Patient Risk: Low Procedure Risk: Low Anesthetic Plan Anesthetic Plan: GA and Agree w/ Assess. and Plan Disposition: Standard PACU
--- NOTE | 2023-06-22 08:51 | P.OP_ITS ---
Operative Note Operative Note Date of Service: 06/22/23 Narrative: Preop diagnosis: Loop ileostomy in place Postop diagnosis: The same Procedure: Reversal of loop ileostomy Surgeon: Arvind Clayton MD hospital clinic assistant: JANET Shankar The patient is a 58-year-old female who had undergone sigmoid resection for a colovaginal fistula in February,. She is here for reversal of her protective loop ileostomy. She understands the technique of the procedure as well as the risks, benefits, and alternatives She was brought to the operating room and placed supine under general anesthesia via endotracheal tube. The abdomen was prepped and draped in the usual sterile fashion. I would closed both efferent and afferent limbs of the loop ileostomy earlier with a Polysorb 3-0 running stitch A surgical time-out was done. The patient received cefazolin 2 g IV preoperatively I made an elliptical incision on the skin surrounding the ileostomy using blade 15. This carried down with electrocautery through the full-thickness of the skin and subcutaneous fat until was able to visualize the fascia. I gently dissected last of the subcutaneous layer with Metzenbaum scissors until I was able to visualize the interface of the fascial edge and the wall of the ileostomy loops. I defined the fascial edge the ileostomy circumferentially using gentle dissection with Metzenbaum scissors and electrocautery. I had to divide adhesions as well under the fascia to release both efferent and afferent limbs. Eventually is able to achieve good mobilization in free up both loops. I identified both efferent and afferent limbs. I created a mesenteric window towards the end of each limb and divided these with a BHAVIK 60 mm staplers on each side. I then completed resection of the ileostomy itself by dividing mesenteric attachments with serial ligation using 3-0 and division This was sent as a specimen I then prepared for our anastomosis. I aligned the this is a mesenteric side of each staple line. I opened up each staple line under the lumen. I positioned each arm of the BHAVIK 60 mm stapler into the lumen and made sure that there were no other structures caught by the staplers. I fired the stapler to create our [id number] anastomosis. I completed the anastomosis by closing the enterotomy with a TA 60 mm stapler. I examined the anastomosis with my index finger and thumb and this appeared to be patent. The staple lines were all intact and the bowel loops with the anastomosis were viable. I closed the small mesenteric defect with a running Polysorb 3-0 stitch. Hemostasis was ensured on the staple lines I then had to open up the narrow ileostomy opening a little bit by dividing the fascia inferiorly. I was able to then reduce the bowel loops back into the peritoneal cavity. I closed the fascia with a running Maxon 1 stitch. There was some bleeding earlier from the divided muscle but this was controlled by including this with the fascial closure. I irrigated the subcutaneous layer and changed gloves. The skin incision was closed with skin chele. The area was infiltrated with Marcaine 0.5% for postop analgesia. Dressings were applied and the procedure was completed The patient tolerated procedure well. There were no immediate complications. Initial and final counts of sponges and instruments were correct. Estimated blood loss was about 75 cc. The patient was extubated without difficulty and transferred to the recovery room with stable vital signs.
[2023-06-22] MEDS: HYDROmorphone HCl 0.5 MG/0.5 ML SYRINGE 0.25 MG IVPUSH ×2 (09:15→09:25)
[2023-06-22] MEDS: FLUoxetine HCl 20 MG CAPSULE PO (10:45)
[2023-06-22] MEDS: Atorvastatin Calcium 40 MG TABLET PO (10:45)
[2023-06-22] MEDS: Morphine Sulfate 4 MG/ML CARTRIDGE IVPUSH ×4 (10:45→21:41)
--- NOTE | 2023-06-22 13:00 | PHA.MEDREC ---
Pharmacy Consult ? Medication Reconciliation Pharmacy has completed the medication reconciliation.
--- NOTE | 2023-06-22 13:47 | PM.EVENT ---
Event Note Date of Service: 06/22/23 Event Note: seen postop s/p reversal of loop ileostomy adequate pain control stable VS abd soft continue pain mgt OOB incentive spirometry family updated Time Spent With Patient Time: Total time managing care of this patient today ____ minutes.
[2023-06-22] MEDS: Acetaminophen 1,000 MG/100 ML PIGGYBACK 400 MG IV ×2 (15:27→19:38)
[2023-06-22] MEDS: oxyCODONE HCl Immed Release 5 MG TABLET PO (18:31)
[2023-06-22] MEDS: 0.9 % Sodium Chloride Flush 3 ML SYRINGE IVFLUSH (19:38)
[2023-06-23] MEDS: Morphine Sulfate 4 MG/ML CARTRIDGE IVPUSH ×6 (01:29→21:52)
[2023-06-23] MEDS: Acetaminophen 1,000 MG/100 ML PIGGYBACK 400 MG IV ×4 (01:31→21:19)
[2023-06-23 04:00] VITALS: BP 118/65; PULSE 88; RESP 16; TEMP 37; O2SAT 95
[2023-06-23] MEDS: Omeprazole 20 MG CAPSULE.DR PO (04:28)
[2023-06-23] MEDS: Lactated Ringers 1,000 ML 100 ML IVCONT ×2 (06:02→16:32)
[2023-06-23 06:10] LABS: MANUAL DIFF FLAG NO
[2023-06-23 06:25] LABS: Basophils Percent Auto 0.2 % (0-2); Eosinophils Percent Auto 0.1 % (0-4); Hematocrit 31.4 % (37.0-47.0); Imm Gran Abs Auto 0.04 X10*3/uL (0.00-0.03); Imm Gran Pct Auto 0.4 % (0.0-0.4); Lymphocytes Absolute Auto 0.8 X10*3/uL (1.2-4.9); Lymphocytes Percent Auto 7.6 % (20-40); Mean Corpuscular Hemoglobin 29.6 pg (27.0-33.0); Mean Corpuscular Volume 84.4 fL (80.0-98.0); Monocytes Absolute Auto 0.8 X10*3/uL (0.1-1.2); Monocytes Percent Auto 7.6 % (2-11); Neutrophils Absolute Auto 8.3 x10*3/uL (2.0-8.3); Neutrophils Percent Auto 84.1 % (45-73); Platelet Count 219 X10*3/uL (160-400); Red Blood Count 3.72 X10*6/uL (4.20-5.50); Red Cell Distribution Width 12.2 % (11.0-16.0); White Blood Count 9.9 X10*3/uL (4.8-10.8)
[2023-06-23 07:09] VITALS: BP 125/67; PULSE 96; RESP 18; TEMP 36.7; O2SAT 95
[2023-06-23] MEDS: ondansetron HCL 4 MG/2 ML VIAL IVPUSH ×2 (07:25→21:44)
--- NOTE | 2023-06-23 08:20 | P.PNGS_ITS ---
Subjective Subjective Date of Service: 06/23/23 <Kianna Shankar PA-C - Last Filed: 06/23/23 08:22> 06/23/23 <Arvind Clayton MD - Last Filed: 06/23/23 08:33> Interval history: Pain at incision but comfortable with analgesics. Tolerating clears and passed flatus one but feels slightly bloated. OOB to bathroom. <Kianna Shankar PA-C - Last Filed: 06/23/23 08:22> Physical Exam 2 Vital Signs: Vital Signs: Last Vital Signs Temp 98.1 F 06/23/23 07:09 Pulse 96 06/23/23 07:09 Resp 18 06/23/23 07:09 BP 125/67 06/23/23 07:09 Pulse Ox 95 06/23/23 07:09 O2 Del Method Room Air 06/23/23 07:09 O2 Flow Rate 2 06/22/23 09:47 BMI result Body Mass Index 23.8 <Kianna Shankar PA-C - Last Filed: 06/23/23 08:22> Const: General: comfortable, no acute distress and alert <Kianna Shankar PA-C - Last Filed: 06/23/23 08:22> Resp: Effort & Inspection: normal respiratory effort <SUSHMA Farrell Last Filed: 06/23/23 08:22> GI: Inspection: Yes distended and Yes incision (dressing c/d/i) <Kianna Shankar PA-C - Last Filed: 06/23/23 08:22> Palpation (GI): Soft to palpation, Tenderness to palpation present (GI) (incisional) and no guarding <Kianna Shankar PA-C - Last Filed: 06/23/23 08:22> Skin: General skin exam: no rashes or lesions noted <SUSHMA Farrell Last Filed: 06/23/23 08:22> Neuro: General: moves all extremities <SUSHMA Farrell Last Filed: 06/23/23 08:22> Objective Data Active Medications Atorvastatin Calcium (Atorvastatin Calcium 40 Mg Tablet) 40 mg PO DAILY TOYA Last Admin: 06/22/23 10:45 Dose: 40 mg Documented By: JORDAN Calcium Carbonate (Calcium Carbonate 750 Mg Tab.Chew) 750 mg PO Q6H PRN PRN Reason: Heartburn Fluoxetine HCl (Fluoxetine Hcl 20 Mg Capsule) 20 mg PO DAILY [facility] Last Admin: 06/22/23 10:45 Dose: 20 mg Documented By: JORDAN Heparin Sodium (Porcine) (Heparin Sodium,Porcine 5,000 Unit/Ml Vial) 5,000 unit SUBCUT Q8H [facility] Lactated Ringer's (Lr) 1,000 mls @ 100 mls/hr IVCONT .Q10H [facility] Last Admin: 06/23/23 06:02 Dose: 100 mls/hr Documented By: ANTIDRIS Acetaminophen (Ofirmev) 1,000 mg in 100 mls @ 400 mls/hr IV Q6H [facility] Last Infusion: 06/23/23 01:48 Dose: Infused Documented By: SHOAIB Magnesium Hydroxide (Milk Of Magnesia 30 Ml Oral.Susp) 30 ml PO DAILY PRN PRN Reason: Constipation Melatonin (Melatonin 3 Mg Tablet) 6 mg PO BEDTIME PRN PRN Reason: Insomnia Morphine Sulfate (Morphine Sulfate 4 Mg/Ml Cartridge) 4 mg IVPUSH Q3H PRN; Protocol PRN Reason: Pain, Severe (Pain Scale 7-10) Last Admin: 06/23/23 07:25 Dose: 4 mg Documented By: ONEIDA Omeprazole (Omeprazole 20 Mg Capsule.) 20 mg PO DAILY@0630 [facility] Last Admin: 06/23/23 04:28 Dose: 20 mg Documented By: SHOAIB Ondansetron HCl (Ondansetron Hcl 4 Mg/2 Ml Vial) 4 mg IVPUSH Q8H PRN PRN Reason: Nausea and Vomiting Last Admin: 06/23/23 07:25 Dose: 4 mg Documented By: ONEIDA Oxycodone HCl (Oxycodone Hcl Immed Release 5 Mg Tablet) 5 mg PO Q4H PRN PRN Reason: Pain, Moderate(Pain Scale 4-6) Last Admin: 06/22/23 18:31 Dose: 5 mg Documented By: CASPER Polyethylene Glycol (Polyethylene Glycol 3350 17 Gm Powd.Pack) 17 gm PO DAILY PRN PRN Reason: Constipation Sodium Chloride (0.9 % Sodium Chloride Flush 3 Ml Syringe) 3 ml IVFLUSH QSHIFT [facility] Last Admin: 06/23/23 07:32 Dose: Not Given Documented By: ONEIDA Non-Admin Reason: IV Running <Kianna Shankar PA-C - Last Filed: 06/23/23 08:22> Labs CBC & Chem 7: 06/23/23 06:02 <Kianna Shankar PA-C - Last Filed: 06/23/23 08:22> Labs: Laboratory Results - last 24 hr 06/23/23 06:02 MCV 84.4 MCH 29.6 MCHC 35.0 RDW 12.2 Plt Count 219 MPV 9.0 L Immature Gran % (Auto) 0.4 Neut % (Auto) 84.1 H Lymph % (Auto) 7.6 L [place] % (Auto) 7.6 Eos % (Auto) 0.1 Baso % (Auto) 0.2 Lymph # (Auto) 0.8 L [place] # (Auto) 0.8 Eos # (Auto) 0.0 Baso # (Auto) 0.0 Abs Immat Gran (auto) 0.04 H Absolute Neuts (auto) 8.3 Absolute Nucleated RBC 0.000 Nucleated RBC % (auto) 0.0 <Kianna Shankar PA-C - Last Filed: 06/23/23 08:22> Procedures Date of Service Date of Service: 06/23/23 <Kianna Shankar PA-C - Last Filed: 06/23/23 08:22> 06/23/23 <Arvind Clayton MD - Last Filed: 06/23/23 08:33> Progress Note: A&P Assessment and plan (1) Ileostomy in place: Status: Acute <Kianna Shankar PA-C - Last Filed: 06/23/23 08:22> Assessment and Plan: Status post partial of ileostomy Had some nausea Abdomen soft, incision clean Keep on clear liquids for now Ambulate Await return of GI function Seen examined independently <Arvind Clayton MD - Last Filed: 06/23/23 08:33> Assessment and Plan: POD #1 s/p reversal of loop ileostomy. Doing fairly well post op. Abd benign but distended, appropriate post op tenderness. Cont pain control, clear liquids for now, increase activity. Await return of GI function. <Kianna Shankar PA-C - Last Filed: 06/23/23 08:22> Time Spent With Patient Time: Total time managing care of this patient today ____ minutes. <Kianna Shankar PA-C - Last Filed: 06/23/23 08:22> Quality Stroke Does the patient have a stroke diagnosis?: No <Kianna Shankar PA-C - Last Filed: 06/23/23 08:22> VTE Prior VTE?: No <Kianna Shankar PA-C - Last Filed: 06/23/23 08:22> VTE Risk Level:: Medical - moderate - high <Kianna Shankar PA-C - Last Filed: 06/23/23 08:22> VTE Device Contraindication: N/A - Device Ordered <Kianna Shankar PA-C - Last Filed: 06/23/23 08:22> VTE Drug Contraindication: N/A - Med Ordered <Kianna Shankar PA-C - Last Filed: 06/23/23 08:22>
[2023-06-23] MEDS: Heparin Sodium,Porcine 5,000 UNIT/ML VIAL 5000 UNIT SUBCUT ×2 (09:14→17:51)
[2023-06-23] MEDS: FLUoxetine HCl 20 MG CAPSULE PO (09:14)
[2023-06-23] MEDS: Atorvastatin Calcium 40 MG TABLET PO (09:14)
--- NOTE | 2023-06-23 09:28 | MHC.CM.PN ---
Patient from home w/ . Functionally indp. s/p ileostomy reversal. PCP Armond Galeas NO Reports she has an HCP with [facility] listed as [facility]. Copy requested, сергей will bring in. Had [facility] x1 month earlier this year for new ileostomy. Do not anticipate the need for services at this time. DP: Goal is home self care. to transport. CM will continue to follow.
--- NOTE | 2023-06-23 09:32 | HO.POSTANES ---
Post Anesthesia Evaluation Post Anesthesia Evaluation Date of Service: 06/23/23 Vital Signs: Vital Signs Temp Pulse Resp BP Pulse Ox O2 Del Method 06/23/23 07:09 98.1 F 96 18 125/67 95 Room Air 06/23/23 04:00 98.6 F 88 16 118/65 95 Room Air 06/22/23 23:35 98.2 F 97 16 131/70 96 Room Air Anesthesia: General Endotracheal-GETA Mental Status: Awake Pain Control: Satisfactory Nausea/Vomiting: None Hydration: Adequate Anesthesia-Related Issues: No Anes. Related Issues
[2023-06-23 15:21] VITALS: BP 121/71; PULSE 97; RESP 18; TEMP 37.1; O2SAT 94
--- NOTE | 2023-06-23 16:40 | PM.EVENT ---
Event Note Date of Service: 06/23/23 Event Note: Seen on afternoon rounds Says she feels ?fine? Did describe some pain on the incision earlier requiring IV morphine Tolerating clear liquids Says she has passed flatus and had some BMs today Abdomen soft She has been ambulating Encouraged to increase activity level Pain management Overall seems to be doing well Time Spent With Patient Time: Total time managing care of this patient today ____ minutes.
[2023-06-23 19:12] VITALS: BP 129/65; PULSE 98; RESP 18; TEMP 37.1; O2SAT 93
[2023-06-24] MEDS: 0.9 % Sodium Chloride Flush 3 ML SYRINGE IVFLUSH ×4 (00:10→22:24)
[2023-06-24] MEDS: Acetaminophen 1,000 MG/100 ML PIGGYBACK 400 MG IV ×4 (01:10→22:18)
[2023-06-24] MEDS: Heparin Sodium,Porcine 5,000 UNIT/ML VIAL 5000 UNIT SUBCUT ×3 (01:10→18:56)
[2023-06-24] MEDS: Lactated Ringers 1,000 ML 100 ML IVCONT (01:11)
[2023-06-24] MEDS: Morphine Sulfate 4 MG/ML CARTRIDGE IVPUSH ×5 (01:27→22:47)
[2023-06-24 03:22] VITALS: BP 146/72; PULSE 99; RESP 16; TEMP 36.8; O2SAT 95
[2023-06-24] MEDS: Omeprazole 20 MG CAPSULE.DR PO (05:33)
--- NOTE | 2023-06-24 07:38 | P.PNGS_ITS ---
Subjective Subjective Date of Service: 06/24/23 <Kianna Shankar PA-C - Last Filed: 06/24/23 07:41> 06/24/23 <Arvind Clayton MD - Last Filed: 06/24/23 08:12> Interval history: C/o severe incisional soreness and muscle spasms. Tolerating clear liquids, passing flatus. Was OOB yesterday. <Kianna Shankar PA-C - Last Filed: 06/24/23 07:41> Physical Exam 2 Vital Signs: Vital Signs: Last Vital Signs Temp 98.2 F 06/24/23 03:22 Pulse 99 06/24/23 03:22 Resp 16 06/24/23 03:22 BP 146/72 H 06/24/23 03:22 Pulse Ox 95 06/24/23 03:22 O2 Del Method Room Air 06/24/23 03:22 O2 Flow Rate 2 06/22/23 09:47 BMI result Body Mass Index 23.8 <Kianna Shankar PA-C - Last Filed: 06/24/23 07:41> Const: General: comfortable, no acute distress and alert <SUSHMA Farrell Last Filed: 06/24/23 07:41> Orientation/consciousness: patient oriented x3 <SUSHMA Farrell Last Filed: 06/24/23 07:41> Resp: Effort & Inspection: normal respiratory effort <SUSHMA Farrell Last Filed: 06/24/23 07:41> GI: Inspection: Yes distended (mild) and Yes incision (clean) <Kianna Shankar PA-C - Last Filed: 06/24/23 07:41> Palpation (GI): Soft to palpation, Tenderness to palpation present (GI) (incisional) and no guarding <SUSHMA Farrell Last Filed: 06/24/23 07:41> Skin: General skin exam: no rashes or lesions noted <SUSHMA Farrell Last Filed: 06/24/23 07:41> Neuro: General: patient oriented x3 <SUSHMA Farrell Last Filed: 06/24/23 07:41> Objective Data Active Medications Atorvastatin Calcium (Atorvastatin Calcium 40 Mg Tablet) 40 mg PO DAILY [facility] Last Admin: 06/23/23 09:14 Dose: 40 mg Documented By: ONEIDA Calcium Carbonate (Calcium Carbonate 750 Mg Tab.Chew) 750 mg PO Q6H PRN PRN Reason: Heartburn Fluoxetine HCl (Fluoxetine Hcl 20 Mg Capsule) 20 mg PO DAILY [facility] Last Admin: 06/23/23 09:14 Dose: 20 mg Documented By: ONEIDA Heparin Sodium (Porcine) (Heparin Sodium,Porcine 5,000 Unit/Ml Vial) 5,000 unit SUBCUT Q8H [facility] Last Admin: 06/24/23 01:10 Dose: 5,000 unit Documented By: ANTIDRIS Acetaminophen (Ofirmev) 1,000 mg in 100 mls @ 400 mls/hr IV Q6H [facility] Last Infusion: 06/24/23 01:28 Dose: Infused Documented By: SHOAIB Magnesium Hydroxide (Milk Of Magnesia 30 Ml Oral.Susp) 30 ml PO DAILY PRN PRN Reason: Constipation Melatonin (Melatonin 3 Mg Tablet) 6 mg PO BEDTIME PRN PRN Reason: Insomnia Morphine Sulfate (Morphine Sulfate 4 Mg/Ml Cartridge) 4 mg IVPUSH Q3H PRN; Protocol PRN Reason: Pain, Severe (Pain Scale 7-10) Last Admin: 06/24/23 01:27 Dose: 4 mg Documented By: SHOAIB Omeprazole (Omeprazole 20 Mg Capsule.Dr) 20 mg PO DAILY@0630 [facility] Last Admin: 06/24/23 05:33 Dose: 20 mg Documented By: SHOAIB Ondansetron HCl (Ondansetron Hcl 4 Mg/2 Ml Vial) 4 mg IVPUSH Q8H PRN PRN Reason: Nausea and Vomiting Last Admin: 06/23/23 21:44 Dose: 4 mg Documented By: ONEIDA Oxycodone HCl (Oxycodone Hcl Immed Release 5 Mg Tablet) 5 mg PO Q4H PRN PRN Reason: Pain, Moderate(Pain Scale 4-6) Last Admin: 06/22/23 18:31 Dose: 5 mg Documented By: CASPER Polyethylene Glycol (Polyethylene Glycol 3350 17 Gm Powd.Pack) 17 gm PO DAILY PRN PRN Reason: Constipation Sodium Chloride (0.9 % Sodium Chloride Flush 3 Ml Syringe) 3 ml IVFLUSH QSHIFT [facility] Last Admin: 06/24/23 00:10 Dose: 3 ml Documented By: SHOAIB <Kianna Shankar PA-C - Last Filed: 06/24/23 07:41> Labs CBC & Chem 7: 06/23/23 06:02 <Kianna Shankar PA-C - Last Filed: 06/24/23 07:41> Procedures Date of Service Date of Service: 06/24/23 <Kianna Shankar PA-C - Last Filed: 06/24/23 07:41> 06/24/23 <Arvind Clayton MD - Last Filed: 06/24/23 08:12> Progress Note: A&P Assessment and plan (1) Status post reversal of ileostomy: Status: Acute <SUSHMA Farrell Last Filed: 06/24/23 07:41> Assessment and Plan: Complains of abdominal wall spasm on the right side a long incision Tolerating clear liquids well Passing flatus and BMs Abdomen soft Okay to advance diet today Ambulate Pain management Seen and examined independently Looks well clinically <Arvind Clayton MD - Last Filed: 06/24/23 08:12> Assessment and Plan: POD #2 s/p reversal of loop ileostomy. Doing fairly well post op. Abd remains benign, appropriate post op tenderness, incision clean. Cont pain control- will add baclofen for muscle spasms as needed. Advance to solid diet. Cont OOB/ambulation and IS use. Home when tolerating diet, pain comfortable on oral analgesics. <SUSHMA Farrell Last Filed: 06/24/23 07:41> Time Spent With Patient Time: Total time managing care of this patient today ____ minutes. <SUSHMA Farrell Last Filed: 06/24/23 07:41> Quality Stroke Does the patient have a stroke diagnosis?: No <SUSHMA Farrell Last Filed: 06/24/23 07:41> VTE Prior VTE?: No <SUSHMA Farrell Last Filed: 06/24/23 07:41> VTE Risk Level:: Medical - moderate - high <Kianna Shankar PA-C - Last Filed: 06/24/23 07:41> VTE Device Contraindication: N/A - Device Ordered <Kianna Shankar PA-C - Last Filed: 06/24/23 07:41> VTE Drug Contraindication: N/A - Med Ordered <Kianna Shankar PA-C - Last Filed: 06/24/23 07:41>
[2023-06-24 07:50] VITALS: BP 139/71; PULSE 99; RESP 18; TEMP 36.6; O2SAT 94
[2023-06-24] MEDS: Atorvastatin Calcium 40 MG TABLET PO (08:47)
[2023-06-24] MEDS: FLUoxetine HCl 20 MG CAPSULE PO (08:47)
[2023-06-24] MEDS: Baclofen 10 MG TABLET PO ×2 (08:52→22:11)
[2023-06-24 15:58] VITALS: BP 131/64; PULSE 103; RESP 17; TEMP 36.4; O2SAT 95
[2023-06-24 20:00] VITALS: BP 144/72; PULSE 98; RESP 18; TEMP 36.7; O2SAT 95
[2023-06-25] MEDS: Acetaminophen 1,000 MG/100 ML PIGGYBACK 400 MG IV ×3 (02:18→14:28)
[2023-06-25] MEDS: Heparin Sodium,Porcine 5,000 UNIT/ML VIAL 5000 UNIT SUBCUT ×4 (02:20→23:25)
[2023-06-25 02:45] VITALS: BP 146/78; PULSE 99; RESP 18; TEMP 37.1; O2SAT 95
[2023-06-25] MEDS: Morphine Sulfate 4 MG/ML CARTRIDGE IVPUSH ×5 (04:20→23:29)
[2023-06-25] MEDS: Omeprazole 20 MG CAPSULE.DR PO (05:58)
[2023-06-25] MEDS: 0.9 % Sodium Chloride Flush 3 ML SYRINGE IVFLUSH ×3 (07:52→23:32)
[2023-06-25] MEDS: Atorvastatin Calcium 40 MG TABLET PO (07:57)
[2023-06-25] MEDS: FLUoxetine HCl 20 MG CAPSULE PO (07:57)
[2023-06-25] MEDS: Baclofen 10 MG TABLET PO (07:57)
[2023-06-25 08:00] VITALS: BP 142/67; PULSE 100; RESP 18; TEMP 37.3; O2SAT 95
--- NOTE | 2023-06-25 08:49 | PM.PNGS ---
Subjective Subjective Date of Service: 06/25/23 <Kianna Shankar PA-C - Last Filed: 06/25/23 08:53> 06/25/23 <Arvind Clayton MD - Last Filed: 06/25/23 10:25> Interval history: Continues to have severe pain with muscle spasms but slightly improved. Tolerating solid diet and passing flatus, has had 2 BMs. Able to get OOB and ambulate. <Kianna Shankar PA-C - Last Filed: 06/25/23 08:53> Physical Exam Vital Signs: Vital Signs: Last Vital Signs Temp 99.2 F 06/25/23 08:00 Pulse 100 06/25/23 08:00 Resp 18 06/25/23 08:00 BP 142/67 H 06/25/23 08:00 Pulse Ox 95 06/25/23 08:00 O2 Del Method Room Air 06/25/23 08:00 O2 Flow Rate 2 06/22/23 09:47 BMI result Body Mass Index 23.8 <Kianna Shankar PA-C - Last Filed: 06/25/23 08:53> Const: General: comfortable, no acute distress and alert <Kianna Shankar PA-C - Last Filed: 06/25/23 08:53> Orientation/consciousness: patient oriented x3 <SUSHMA Farrell Last Filed: 06/25/23 08:53> Resp: Effort & Inspection: normal respiratory effort <Kianna Shankar PA-C - Last Filed: 06/25/23 08:53> GI: Other: incision clean, chele intact <Kianna Shankar PA-C - Last Filed: 06/25/23 08:53> Inspection: Yes distended (mild ) <SUSHMA Farrell Last Filed: 06/25/23 08:53> Palpation (GI): Soft to palpation and Tenderness to palpation present (GI) (incisional, more on right ) <SUSHMA Farrell Last Filed: 06/25/23 08:53> Skin: General skin exam: no rashes or lesions noted <SUSHMA Farrell Last Filed: 06/25/23 08:53> Neuro: General: patient oriented x3 <Kianna Shankar PA-C - Last Filed: 06/25/23 08:53> Objective Data Active Medications Atorvastatin Calcium (Atorvastatin Calcium 40 Mg Tablet) 40 mg PO DAILY [facility] Last Admin: 06/25/23 07:57 Dose: 40 mg Documented By: ONEIL Baclofen (Baclofen 10 Mg Tablet) 10 mg PO TID PRN PRN Reason: muscle spasm Last Admin: 06/25/23 07:57 Dose: 10 mg Documented By: ONEIL Calcium Carbonate (Calcium Carbonate 750 Mg Tab.Chew) 750 mg PO Q6H PRN PRN Reason: Heartburn Fluoxetine HCl (Fluoxetine Hcl 20 Mg Capsule) 20 mg PO DAILY [facility] Last Admin: 06/25/23 07:57 Dose: 20 mg Documented By: ONEIL Heparin Sodium (Porcine) (Heparin Sodium,Porcine 5,000 Unit/Ml Vial) 5,000 unit SUBCUT Q8H [facility] Last Admin: 06/25/23 02:20 Dose: 5,000 unit Documented By: DANY Acetaminophen (Ofirmev) 1,000 mg in 100 mls @ 400 mls/hr IV Q6H [facility] Last Infusion: 06/25/23 08:39 Dose: Infused Documented By: ONEIL Magnesium Hydroxide (Milk Of Magnesia 30 Ml Oral.Susp) 30 ml PO DAILY PRN PRN Reason: Constipation Melatonin (Melatonin 3 Mg Tablet) 6 mg PO BEDTIME PRN PRN Reason: Insomnia Morphine Sulfate (Morphine Sulfate 4 Mg/Ml Cartridge) 4 mg IVPUSH Q3H PRN; Protocol PRN Reason: Pain, Severe (Pain Scale 7-10) Last Admin: 06/25/23 04:20 Dose: 4 mg Documented By: DANY Omeprazole (Omeprazole 20 Mg Capsule.Dr) 20 mg PO DAILY@0630 [facility] Last Admin: 06/25/23 05:58 Dose: 20 mg Documented By: DANY Ondansetron HCl (Ondansetron Hcl 4 Mg/2 Ml Vial) 4 mg IVPUSH Q8H PRN PRN Reason: Nausea and Vomiting Last Admin: 06/23/23 21:44 Dose: 4 mg Documented By: ONEIDA Oxycodone HCl (Oxycodone Hcl Immed Release 5 Mg Tablet) 5 mg PO Q4H PRN PRN Reason: Pain, Moderate(Pain Scale 4-6) Last Admin: 06/22/23 18:31 Dose: 5 mg Documented By: CASPER Polyethylene Glycol (Polyethylene Glycol 3350 17 Gm Powd.Pack) 17 gm PO DAILY PRN PRN Reason: Constipation Sodium Chloride (0.9 % Sodium Chloride Flush 3 Ml Syringe) 3 ml IVFLUSH QSHIFT [facility] Last Admin: 06/25/23 07:52 Dose: 3 ml Documented By: ONEIL <Kianna Shankar PA-C - Last Filed: 06/25/23 08:53> Labs CBC & Chem 7: 06/23/23 06:02 <Kianna Shankar PA-C - Last Filed: 06/25/23 08:53> Procedures Date of Service Date of Service: 06/25/23 <Kianna Shankar PA-C - Last Filed: 06/25/23 08:53> 06/25/23 <Arvind Clayton MD - Last Filed: 06/25/23 10:25> Progress Note: A&P Assessment and plan (1) Status post reversal of ileostomy: Status: Acute <SUSHMA Farrell Last Filed: 06/25/23 08:53> Assessment and Plan: c/o pain on incision tolerating diet has BMs, flatus abd soft clinically looks well ambulating states muscle relaxant helping with her pain will keep for pain control seen and examined independently <Arvind Clayton MD - Last Filed: 06/25/23 10:25> Assessment and Plan: POD #3 s/p reversal of loop ileostomy. Continues to do fairly well post op but having difficulty with incisional pain. Good GI function. Abd benign, clean incision. Cont OOB/ambulation and IS use. Home when pain comfortable on oral analgesics. <SUSHMA Farrell Last Filed: 06/25/23 08:53> Time Spent With Patient Time: Total time managing care of this patient today ____ minutes. <SUSHMA Farrell Last Filed: 06/25/23 08:53> Quality Stroke Does the patient have a stroke diagnosis?: No <SUSHMA Farrell Last Filed: 06/25/23 08:53> VTE Prior VTE?: No <SUSHMA Farrell Last Filed: 06/25/23 08:53> VTE Risk Level:: Medical - moderate - high <SUSHMA Farrell Last Filed: 06/25/23 08:53> VTE Device Contraindication: N/A - Device Ordered <SUSHMA Farrell Last Filed: 06/25/23 08:53> VTE Drug Contraindication: N/A - Med Ordered <SUSHMA Farrell Last Filed: 06/25/23 08:53>
--- NOTE | 2023-06-25 11:19 | MHC.CM.PN ---
EMR REVIEWED. PATIENT NOT MEDICALLY CLEARED FOR DC AT THIS TIME, STILL REQUIRING IV PAIN MEDS. CM WILL CONTINUE TO FOLLOW.
--- NOTE | 2023-06-25 14:42 | PM.EVENT ---
Event Note Date of Service: 06/28/23 Event Note: says she feels ok still has some spasms at area of incision tolerating diet continues to have flatus, BMs looks well abd soft incision clean possible home tomorrow once with better pain control Time Spent With Patient Time: Total time managing care of this patient today ____ minutes.
[2023-06-25 15:45] VITALS: BP 136/72; PULSE 96; RESP 16; TEMP 36.8; O2SAT 95
[2023-06-25] MEDS: ondansetron HCL 4 MG/2 ML VIAL IVPUSH (18:01)
--- NOTE | 2023-06-25 18:50 | PC.NURSE ---
Pt ambulated in hallway twice this shift. Passing flatus and belching. RLQ chele CDI. States had BM in [place]. Tolerating po
[2023-06-25 19:22] VITALS: BP 149/70; PULSE 100; RESP 18; TEMP 37.1; O2SAT 94
[2023-06-25 23:29] VITALS: RESP 20
[2023-06-26 03:29] VITALS: BP 138/81; PULSE 108; RESP 18; TEMP 36.8; O2SAT 95
[2023-06-26] MEDS: Baclofen 10 MG TABLET PO (04:25)
[2023-06-26] MEDS: Omeprazole 20 MG CAPSULE.DR PO (04:27)
[2023-06-26 07:08] VITALS: BP 165/86; PULSE 105; RESP 18; TEMP 37.4; O2SAT 95
[2023-06-26] MEDS: Atorvastatin Calcium 40 MG TABLET PO (07:32)
[2023-06-26] MEDS: FLUoxetine HCl 20 MG CAPSULE PO (07:32)
[2023-06-26] MEDS: 0.9 % Sodium Chloride Flush 3 ML SYRINGE IVFLUSH ×2 (07:33→17:39)
[2023-06-26] MEDS: ondansetron HCL 4 MG/2 ML VIAL IVPUSH ×2 (07:33→15:32)
[2023-06-26] MEDS: Heparin Sodium,Porcine 5,000 UNIT/ML VIAL 5000 UNIT SUBCUT ×2 (08:49→17:37)
[2023-06-26] MEDS: oxyCODONE HCl Immed Release 5 MG TABLET PO ×3 (08:50→17:38)
--- NOTE | 2023-06-26 09:49 | PM.PNGS ---
Subjective Subjective Date of Service: 06/26/23 Interval history: Patient feels okay but complains of abdominal bloating. Reports passing flatus with bowel movement. Denies nausea or vomiting. Physical Exam Vital Signs: Vital Signs: Last Vital Signs Temp 99.4 F 06/26/23 07:08 Pulse 105 H 06/26/23 07:08 Resp 18 06/26/23 07:08 BP 165/86 H 06/26/23 07:08 Pulse Ox 95 06/26/23 07:08 O2 Del Method Room Air 06/26/23 07:08 O2 Flow Rate 2 06/22/23 09:47 BMI result Body Mass Index 23.8 Const: General: no acute distress Resp: Effort & Inspection: normal respiratory effort GI: Other: Wounds clean and intact Palpation (GI): Soft to palpation, Tenderness to palpation present (GI) (Incisional), no guarding and not rigid Extrem: General: Yes normal to inspection Objective Data Active Medications Atorvastatin Calcium (Atorvastatin Calcium 40 Mg Tablet) 40 mg PO DAILY [facility] Last Admin: 06/26/23 07:32 Dose: 40 mg Documented By: ONEIL Baclofen (Baclofen 10 Mg Tablet) 10 mg PO TID PRN PRN Reason: muscle spasm Last Admin: 06/26/23 04:25 Dose: 10 mg Documented By: KAY Calcium Carbonate (Calcium Carbonate 750 Mg Tab.Chew) 750 mg PO Q6H PRN PRN Reason: Heartburn Fluoxetine HCl (Fluoxetine Hcl 20 Mg Capsule) 20 mg PO DAILY [facility] Last Admin: 06/26/23 07:32 Dose: 20 mg Documented By: ONEIL Heparin Sodium (Porcine) (Heparin Sodium,Porcine 5,000 Unit/Ml Vial) 5,000 unit SUBCUT Q8H [facility] Last Admin: 06/26/23 08:49 Dose: 5,000 unit Documented By: ONEIL Magnesium Hydroxide (Milk Of Magnesia 30 Ml Oral.Susp) 30 ml PO DAILY PRN PRN Reason: Constipation Melatonin (Melatonin 3 Mg Tablet) 6 mg PO BEDTIME PRN PRN Reason: Insomnia Morphine Sulfate (Morphine Sulfate 4 Mg/Ml Cartridge) 4 mg IVPUSH Q3H PRN; Protocol PRN Reason: Pain, Severe (Pain Scale 7-10) Last Admin: 06/25/23 23:29 Dose: 4 mg Documented By: KAY Omeprazole (Omeprazole 20 Mg Capsule.Dr) 20 mg PO DAILY@0630 [facility] Last Admin: 06/26/23 04:27 Dose: 20 mg Documented By: KAY Ondansetron HCl (Ondansetron Hcl 4 Mg/2 Ml Vial) 4 mg IVPUSH Q8H PRN PRN Reason: Nausea and Vomiting Last Admin: 06/26/23 07:33 Dose: 4 mg Documented By: ONEIL Oxycodone HCl (Oxycodone Hcl Immed Release 5 Mg Tablet) 5 mg PO Q4H PRN PRN Reason: Pain, Moderate(Pain Scale 4-6) Last Admin: 06/26/23 08:50 Dose: 5 mg Documented By: ONEIL Polyethylene Glycol (Polyethylene Glycol 3350 17 Gm Powd.Pack) 17 gm PO DAILY PRN PRN Reason: Constipation Sodium Chloride (0.9 % Sodium Chloride Flush 3 Ml Syringe) 3 ml IVFLUSH QSHIFT [facility] Last Admin: 06/26/23 07:33 Dose: 3 ml Documented By: ONEIL Labs 06/23/23 06:02 Procedures Date of Service Date of Service: 06/26/23 Progress Note: A&P Assessment and plan (1) Status post reversal of ileostomy: Status: Acute Plan Pod 4 following closure of loop ileostomy. Patient reports abdominal bloating but is otherwise more comfortable than yesterday Wounds are clean and intact without redness or discharge. No tympany to percussion Encouraged out of bed and ambulation Not ready for discharge today. Time Spent With Patient Time: Total time managing care of this patient today ____ minutes. Quality Stroke Does the patient have a stroke diagnosis?: No VTE Prior VTE?: No VTE Risk Level:: Medical - moderate - high VTE Device Contraindication: N/A - Device Ordered VTE Drug Contraindication: N/A - Med Ordered
[2023-06-26 15:22] VITALS: BP 155/96; PULSE 101; RESP 18; TEMP 36.4; O2SAT 94
--- NOTE | 2023-06-26 17:56 | PC.NURSE ---
Pt ambulated in [place] several times today. Passing flatus and states had a liquid BM in [place]. Medicated with oxycodone for pain and zofran for nausea with good effect
[2023-06-26 19:28] VITALS: BP 159/84; PULSE 106; RESP 18; TEMP 36.7; O2SAT 97
[2023-06-27 04:00] VITALS: BP 162/88; PULSE 102; RESP 18; TEMP 36.5; O2SAT 95
[2023-06-27] MEDS: Heparin Sodium,Porcine 5,000 UNIT/ML VIAL 5000 UNIT SUBCUT ×3 (04:42→17:46)
[2023-06-27] MEDS: 0.9 % Sodium Chloride Flush 3 ML SYRINGE IVFLUSH ×4 (04:44→22:33)
[2023-06-27] MEDS: Baclofen 10 MG TABLET PO (04:44)
[2023-06-27] MEDS: ondansetron HCL 4 MG/2 ML VIAL IVPUSH ×3 (04:50→22:32)
[2023-06-27] MEDS: Omeprazole 20 MG CAPSULE.DR PO (06:39)
[2023-06-27 07:37] VITALS: BP 164/94; PULSE 104; RESP 18; TEMP 36.1; O2SAT 95
--- NOTE | 2023-06-27 08:34 | P.PNGS_ITS ---
Subjective Subjective Date of Service: 06/27/23 Interval history: Does not feel well this morning. Reports feeling distended with no appetite. Has not vomited but does feel nauseated. Reports small bowel movement but not much. Physical Exam 2 Vital Signs: Vital Signs: Last Vital Signs Temp 96.9 F 06/27/23 07:37 Pulse 104 H 06/27/23 07:37 Resp 18 06/27/23 07:37 BP 164/94 H 06/27/23 07:37 Pulse Ox 95 06/27/23 07:37 O2 Del Method Room Air 06/27/23 07:37 O2 Flow Rate 2 06/22/23 09:47 BMI result Body Mass Index 23.8 Const: Other: Anxious, oriented x3 Resp: Other: Breathing comfortably on room air, no respiratory distress GI: Other: Distended with some tympany to percussion. Incision is clean and intact without redness or discharge. Objective Data Active Medications Atorvastatin Calcium (Atorvastatin Calcium 40 Mg Tablet) 40 mg PO DAILY [facility] Last Admin: 06/26/23 07:32 Dose: 40 mg Documented By: ONEIL Baclofen (Baclofen 10 Mg Tablet) 10 mg PO TID PRN PRN Reason: muscle spasm Last Admin: 06/27/23 04:44 Dose: 10 mg Documented By: NICOLE Calcium Carbonate (Calcium Carbonate 750 Mg Tab.Chew) 750 mg PO Q6H PRN PRN Reason: Heartburn Fluoxetine HCl (Fluoxetine Hcl 20 Mg Capsule) 20 mg PO DAILY [facility] Last Admin: 06/26/23 07:32 Dose: 20 mg Documented By: ONEIL Heparin Sodium (Porcine) (Heparin Sodium,Porcine 5,000 Unit/Ml Vial) 5,000 unit SUBCUT Q8H [facility] Last Admin: 06/27/23 04:42 Dose: 5,000 unit Documented By: NICOLE Magnesium Hydroxide (Milk Of Magnesia 30 Ml Oral.Susp) 30 ml PO DAILY PRN PRN Reason: Constipation Melatonin (Melatonin 3 Mg Tablet) 6 mg PO BEDTIME PRN PRN Reason: Insomnia Morphine Sulfate (Morphine Sulfate 4 Mg/Ml Cartridge) 4 mg IVPUSH Q3H PRN; Protocol PRN Reason: Pain, Severe (Pain Scale 7-10) Last Admin: 06/25/23 23:29 Dose: 4 mg Documented By: KAY Omeprazole (Omeprazole 20 Mg Capsule.) 20 mg PO DAILY@0630 [facility] Last Admin: 06/27/23 06:39 Dose: 20 mg Documented By: NICOLE Ondansetron HCl (Ondansetron Hcl 4 Mg/2 Ml Vial) 4 mg IVPUSH Q8H PRN PRN Reason: Nausea and Vomiting Last Admin: 06/27/23 04:50 Dose: 4 mg Documented By: NICOLE Oxycodone HCl (Oxycodone Hcl Immed Release 5 Mg Tablet) 5 mg PO Q4H PRN PRN Reason: Pain, Moderate(Pain Scale 4-6) Last Admin: 06/26/23 17:38 Dose: 5 mg Documented By: ONEIL Polyethylene Glycol (Polyethylene Glycol 3350 17 Gm Powd.Pack) 17 gm PO DAILY PRN PRN Reason: Constipation Sodium Chloride (0.9 % Sodium Chloride Flush 3 Ml Syringe) 3 ml IVFLUSH QSHIFT [facility] Last Admin: 06/27/23 04:44 Dose: 3 ml Documented By: NICOLE Labs 06/23/23 06:02 Procedures Date of Service Date of Service: 06/27/23 Progress Note: A&P Assessment and plan (1) Status post reversal of ileostomy: Status: Acute Plan Pod 5 following closure of loop ileostomy. Patient reports abdominal bloating and is frustrated with her slow progress. Wounds are clean and intact without redness or discharge. Abdomen seems more distended this morning with tympany to percussion. Encouraged out of bed and ambulation Will check abdominal x-ray this morning.. Time Spent With Patient Time: Total time managing care of this patient today ____ minutes. Quality Stroke Does the patient have a stroke diagnosis?: No VTE Prior VTE?: No VTE Risk Level:: Medical - moderate - high VTE Device Contraindication: N/A - Device Ordered VTE Drug Contraindication: N/A - Med Ordered
[2023-06-27] MEDS: Morphine Sulfate 4 MG/ML CARTRIDGE IVPUSH ×4 (08:48→22:31)
[2023-06-27 15:12] VITALS: BP 169/95; PULSE 117; RESP 16; TEMP 36.4; O2SAT 95
--- NOTE | 2023-06-27 15:22 | PC.NURSE ---
Pt sleeping throughout most of day. Arousable but c/o abdomninal pain and nausea. Medicated with IV morphine for pain and IV zofran for nausea with good effect. Encouraged to ambulate in hallway every hour and sit up in recliner. Ambulated once in [place] so far this shift. Verbalizes understanding of importance of ambulation
[2023-06-27 16:50] VITALS: BP 150/90
--- NOTE | 2023-06-27 17:50 | PC.NURSE ---
Pt continues to c/o pain and nausea. Encouraged to ambulate but pt states I just feel lousy This RN witnessed pt pass flatus while lying in bed. Awaiting consult with hospitalist.
--- NOTE | 2023-06-27 18:22 | PC.NURSE ---
Addendum entered by Gilma Villalpando RN 06/27/23 18:33: Po Phenergan ordered and given- pending effect Original Note: Awaiting hospitalist consult. Pt continues to have nausea and dry heaves. Dr Wilson notified via text as pt is not due for IV Zofran until 2011. Awaiting further instructions
[2023-06-27] MEDS: Promethazine HCL 25 MG TABLET PO (18:32)
--- NOTE | 2023-06-27 18:34 | P.CONHOSP_ITS ---
History of Present Illness Data of Consult Service Date: 06/27/23 Primary Care Provider: Armond Galeas, [facility]- HPI Reason for consult: Hypertension Patient is 58-year-old female with PMH significant for HLD, HTN, diverticulitis, and mood disorder who was admitted to the hospital under general surgery services for reversal of ileostomy. 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 Hospitalist consultation for hypertension. Patient seen and examined at bedside where she complained of overall feeling ?horrible?. Patient complained of nausea, vomiting, abdominal pain and distention. Reports passing gas and a small amount of stool earlier today. States she feels worse today than yesterday, also reporting lightheadedness and dizziness, and feeling ?clammy?. Denies chest pressure/pain, palpitations. No shortness of breath or difficulty breathing. Denies headache. Of note, patient reports she previously was on 2 antihypertensives, but was taken off them a few months ago due to hypotension. Review of records indicates patient was on atenolol 100 mg daily and losartan 25 mg daily. Review of Systems 2 Review of Systems: Abdominal pain, distention Nausea, vomiting Lightheadedness, dizziness Reports passing small amount of flatus and stool No chest pain/pressure, palpitations Denies fever, chills No shortness of breath or difficulty breathing Denies headache [facility] Medical History Dental bridge present Postoperative nausea RAFAEL (generalized anxiety disorder) Insomnia Weight loss Ileostomy in place Colovaginal fistula Carpal tunnel syndrome of right wrist Chronic GERD Lipid metabolism disorder Generalized anxiety disorder Family History Other Substance use disorder Surgical History S/P laparotomy with lysis of adhesions History of bowel resection History of carpal tunnel surgery History of hysterectomy History of appendectomy Social History Household Members: Spouse Housing: House Are you a primary director day care center to a significant other at home: No Do you presently have visiting nurse or other home services: No Alcohol intake: current Alcohol intake frequency: does not drink Alcohol type: wine Comment: counts correct Patient Tobacco Use Status: Former Tobacco user Quit Date: 1990 Smoked: 7 Smoked in Last 30 Days: No e-Cigarette/Vaping Use: Never Used Patient Interested in Nicotine Replacement: No Patient Given Instructions on How to Stop Smoking: No Second Hand Smoke Exposure: No Use of substances other than those prescribed or required for medical reasons: No Currently Displaying Signs/Symptoms of Drug Intoxication Withdrawal: No Any prior treatment program specific to substance use: No Have you been hit, kicked, punched, or otherwise hurt by someone within the past year? If so, by whom?: No Do you feel safe in your current relationship?: Yes Is there a partner from a previous relationship who is making you feel unsafe now?: No Are you made to feel afraid or neglected: No Are you DNR?: No Advance Directives: No Advance Directives Information Provided: Yes Advance Directives on File: No Do you have a plan to hurt others: No Plan Recently lost weight without trying: No How much weight loss: 14-23 pounds Eating poorly because of decreased appetite: No Nutrition screen score: 2 Nutrition Risks: No Nutritional Risk Patient : No : No Poor oral hygiene: No service: No Current occupational status: employed 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 Cognitive needs: No Hearing needs: No Vision needs: Yes Meds Allergies Allergy/AdvReac Type Severity Reaction Status Date / Time Penicillins [PENICILLINS] Allergy Intermediate RASH Verified 06/22/23 06:09 Active Medications: Current Medications Atorvastatin Calcium (Atorvastatin Calcium 40 Mg Tablet) 40 mg PO DAILY [facility] Last Admin: 06/27/23 08:50 Dose: Not Given Baclofen (Baclofen 10 Mg Tablet) 10 mg PO TID PRN PRN Reason: muscle spasm Last Admin: 06/27/23 04:44 Dose: 10 mg Calcium Carbonate (Calcium Carbonate 750 Mg Tab.Chew) 750 mg PO Q6H PRN PRN Reason: Heartburn Fluoxetine HCl (Fluoxetine Hcl 20 Mg Capsule) 20 mg PO DAILY [facility] Last Admin: 06/27/23 08:50 Dose: Not Given Heparin Sodium (Porcine) (Heparin Sodium,Porcine 5,000 Unit/Ml Vial) 5,000 unit SUBCUT Q8H [facility] Last Admin: 06/27/23 17:46 Dose: 5,000 unit Magnesium Hydroxide (Milk Of Magnesia 30 Ml Oral.Susp) 30 ml PO DAILY PRN PRN Reason: Constipation Melatonin (Melatonin 3 Mg Tablet) 6 mg PO BEDTIME PRN PRN Reason: Insomnia Morphine Sulfate (Morphine Sulfate 4 Mg/Ml Cartridge) 4 mg IVPUSH Q3H PRN; Protocol PRN Reason: Pain, Severe (Pain Scale 7-10) Last Admin: 06/27/23 16:03 Dose: 4 mg Omeprazole (Omeprazole 20 Mg Capsule.Dr) 20 mg PO DAILY@0630 [facility] Last Admin: 06/27/23 06:39 Dose: 20 mg Ondansetron HCl (Ondansetron Hcl 4 Mg/2 Ml Vial) 4 mg IVPUSH Q8H PRN PRN Reason: Nausea and Vomiting Last Admin: 06/27/23 12:12 Dose: 4 mg Oxycodone HCl (Oxycodone Hcl Immed Release 5 Mg Tablet) 5 mg PO Q4H PRN PRN Reason: Pain, Moderate(Pain Scale 4-6) Polyethylene Glycol (Polyethylene Glycol 3350 17 Gm Powd.Pack) 17 gm PO DAILY PRN PRN Reason: Constipation Promethazine HCl (Promethazine Hcl 25 Mg Tablet) 25 mg PO Q4H PRN PRN Reason: Nausea and Vomiting Last Admin: 06/27/23 18:32 Dose: 25 mg Sodium Chloride (0.9 % Sodium Chloride Flush 3 Ml Syringe) 3 ml [facility] Last Admin: 06/27/23 17:46 Dose: 3 ml Home Medications ?Medication ?Instructions ?Recorded ?Confirmed ?Last Taken ?Type atorvastatin 40 mg tablet 40 mg PO DAILY@1200 03/02/23 06/22/23 06/21/23 History acetaminophen 325 mg tablet 650 mg PO Q6H PRN Pain 06/22/23 06/22/23 Unknown History (Tylenol) ibuprofen 200 mg tablet (Advil) 400 mg PO Q8H PRN Pain 06/22/23 06/22/23 Unknown History zolpidem 5 mg tablet 5 mg PO BEDTIME PRN Sleep 06/22/23 06/22/23 Unknown History Physical Exam 2 Vital Signs and Narrative: Vital Signs: Last Vital Signs Temp 97.5 F 06/27/23 15:12 Pulse 117 H 06/27/23 15:12 Resp 16 06/27/23 15:12 BP 150/90 H 06/27/23 16:50 Pulse Ox 95 05/19/24 15:12 O2 Del Method Room Air 06/27/23 15:12 O2 Flow Rate 2 06/22/23 09:47 BMI result Body Mass Index 23.8 General: AOx3, looks uncomfortable, but in no acute distress Resp: CTA bilaterally CVS: S1, S2, regular but tachycardic GI: +BS, diffusely tender especially LLQ ostomy site, firm, with distention Skin: Warm, dry Neuro: Cranial nerves II-XII grossly intact bilaterally. Motor grossly intact bilaterally Extremities: No edema Results Labs 06/23/23 06:02 Imaging Radiologist's Impressions: Impressions KUB X-Ray 06/27/23 09:40 IMPRESSION: 1. Gas-filled loops of small and large bowel which appear mildly dilated which can be seen in the setting of ileus or distal bowel obstruction. Assessment and Plan (1) Status post reversal of ileostomy: Status: Acute (2) Hypertension, essential: Status: Acute Plan Patient is 58-year-old female with PMH significant for HLD, HTN, diverticulitis, and mood disorder who was admitted to the hospital under general surgery services for reversal of ileostomy. 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 Hospitalist consultation for hypertension. Ileostomy reversal Patient reports nausea, vomiting, abdominal pain, distention Has passed small amount of gas and stool KUB suggestive ileus vs distal SBO Plan as per General surgery HTN Patient has been hypertensive up to 169/95 post-op Likely secondary to pain, discomfort Patient previously on atenolol 100 mg daily and losartan 25 mg daily which were stopped due to hypotension a few months ago Will currently hold on resuming antihypertensives at this time Will continue to monitor BP HLD Continue statin Mood disorder Continue fluoxetine Thank you for allowing us to participate in the care of this patient. Will continue to follow along with you.
[2023-06-27 19:53] VITALS: BP 165/90; PULSE 118; RESP 16; TEMP 36.4; O2SAT 94
[2023-06-28] VITALS (10 sets, daily range): BP systolic 133–155; BP diastolic 85–96; PULSE 116–148; RESP 16–20; TEMP 36.4–36.9; O2SAT 94–96
--- NOTE | 2023-06-28 | ECG_ITS ---
Test Reason : tachycardia Blood Pressure : / mmHG Vent. Rate : 149 BPM Atrial Rate : 149 BPM P-R Int : 112 ms QRS Dur : 068 ms QT Int : 332 ms P-R-T Axes : 016 043 031 degrees QTc Int : [address] & T wave abnormality, consider inferior ischemia Abnormal ECG When compared with ECG of 28-JUN-2023 20:38, No significant change was found Referred By: Lizbeth Snow Electronically Signed By:Manny Day
--- NOTE | 2023-06-28 | ECG_ITS ---
Test Reason : Tachycardia Blood Pressure : / mmHG Vent. Rate : 131 BPM Atrial Rate : 131 BPM P-R Int : 122 ms QRS Dur : 078 ms QT Int : 310 ms P-R-T Axes : 040 056 -06 degrees QTc Int : 457 ms Poor data quality, interpretation may be adversely affected Sinus tachycardia Nonspecific ST abnormality Abnormal QRS-T angle, consider primary T wave abnormality Abnormal ECG When compared with ECG of 02-MAR-2023 13:04, nonspecific T wave changes Sinus tachycardia present Referred By: David Hill Electronically Signed By:Manny Day
[2023-06-28] MEDS: Heparin Sodium,Porcine 5,000 UNIT/ML VIAL 5000 UNIT SUBCUT ×3 (03:07→17:03)
[2023-06-28] MEDS: Morphine Sulfate 4 MG/ML CARTRIDGE IVPUSH ×3 (03:07→12:20)
[2023-06-28] MEDS: Promethazine HCL 25 MG TABLET PO ×2 (03:07→08:53)
[2023-06-28] MEDS: Lactated Ringers 1,000 ML 999 ML IV (03:42)
--- NOTE | 2023-06-28 05:06 | PC.NURSE ---
At 0310 pt's HR was 126-129, pt did not c/o of any chest symptoms, but c/o pain and nausea. [place] text sent to Dr. Sidhu, EKG ordered, labs ordered, 1 liter bolus of LR ordered and administered. Pt was given medication for pain and nausea. After LR bolus pt's HR is now 116. Will continue to monitor.
[2023-06-28 05:53] LABS: Hemoglobin 13.5 g/dl (12.0-16.0); Mean Corpuscular HGB Conc 33.8 g/dl (31.0-35.0); Mean Corpuscular Hemoglobin 28.6 pg (27.0-33.0); Mean Corpuscular Volume 84.7 fL (80.0-98.0); Mean Platelet Volume 8.6 fL (9.4-12.3); Platelet Count 340 X10*3/uL (160-400); Red Blood Count 4.72 X10*6/uL (4.20-5.50); Red Cell Distribution Width 12.4 % (11.0-16.0)
[2023-06-28 05:54] LABS: WBC ABN SCTR FOR CBC 1
[2023-06-28 05:55] LABS: White Blood Count 12.8 X10*3/uL (4.8-10.8)
[2023-06-28] MEDS: ondansetron HCL 4 MG/2 ML VIAL IVPUSH ×3 (06:02→20:16)
[2023-06-28 06:10] LABS: Lactic Acid 1.2 mmol/L (0.5-2.0)
[2023-06-28 06:16] LABS: Troponin-I High Sensitivity 5.5 ng/L (<3.5-17.0)
[2023-06-28 06:20] LABS: Alanine Aminotransferase 8 U/L (0-31); Albumin Level 2.9 g/dL (3.5-5.0); Alkaline Phosphatase 99 U/L (39-117); Anion Gap 21 (12-20); Aspartate Amino Transferase 13 U/L (5-31); Bilirubin Total 0.7 mg/dL (0.0-1.0); Blood Urea Nitrogen 19 mg/dL (9-16); Calcium 8.7 mg/dL (8.4-10.2); Carbon Dioxide 23 mmol/L (22-29); Chloride 97 mmol/L (96-108); Creatinine Clr Calc Pharmacy 62.2; Estimated Glomerular Filt Rate > 60; Glucose Random 140 mg/dL (60-115); Magnesium 1.8 mg/dL (1.6-2.6); Potassium 4.4 mmol/L (3.3-5.1); Sodium 137 mmol/L (135-145)
[2023-06-28 06:22] LABS: Acanthocytes 2+ (3-5) /OIF; Band Neutrophils Percent 16 % (3-5); Lymphocytes Absolute Manual 0.9 X10*3/uL (1.2-4.9); Lymphocytes Percent Manual 7 % (20-40); Metamyelocytes Absolute 0.8 X10*3/uL; Metamyelocytes Percent 6 %; Monocytes Absolute Manual 1.5 X10*3/uL (0.1-1.2); Monocytes Percent Manual 12 % (2-11); Myelocytes Absolute 0.1 X10*/uL; Myelocytes Percent 1 %; Neutrophils Absolute Manual 9.5 X10*3/uL (2.0-8.3); Neutrophils Percent Manual 58 % (45-73); Ovalocytes 1+ (5-14) /OIF; Platelet Estimate NORMAL (NORMAL); Platelet Morphology Comment NORMAL; RBC Morphology NOTED; Schistocytes 1+ (0-2) /OIF
[2023-06-28 06:23] LABS: Polychromasia 1+ (0-2) /OIF
--- NOTE | 2023-06-28 07:46 | PM.PNGS ---
Subjective Subjective Date of Service: 06/28/23 <Kianna Shankar PA-C - Last Filed: 06/28/23 07:49> 06/28/23 <Arvind Clayton MD - Last Filed: 06/28/23 07:51> Interval history: increasing nausea, vomiting and pain over the weekend. Feels horrible. Passing some flatus. <Kianna Shankar PA-C - Last Filed: 06/28/23 07:49> Physical Exam Vital Signs: Vital Signs: Last Vital Signs Temp 98.5 F 06/28/23 07:42 Pulse 120 H 06/28/23 07:42 Resp 20 06/28/23 07:42 BP 145/85 H 06/28/23 07:42 Pulse Ox 95 06/28/23 07:42 O2 Del Method Room Air 06/28/23 07:42 O2 Flow Rate 2 06/22/23 09:47 BMI result Body Mass Index 23.8 <Kianna Shankar PA-C - Last Filed: 06/28/23 07:49> Const: Other: uncomfortable appearing <Kianna Shankar PA-C - Last Filed: 06/28/23 07:49> General: alert <Kianna Shankar PA-C - Last Filed: 06/28/23 07:49> Resp: Effort & Inspection: normal respiratory effort <Kianna Shankar PA-C - Last Filed: 06/28/23 07:49> GI: Inspection: Yes distended and Yes incision (clean) <Kianna Shankar PA-C - Last Filed: 06/28/23 07:49> Palpation (GI): Soft to palpation and Tenderness to palpation present (GI) (diffuse ) <Kianna Shankar PA-C - Last Filed: 06/28/23 07:49> Skin: General skin exam: no rashes or lesions noted <SUSHMA Farrell Last Filed: 06/28/23 07:49> Objective Data Active Medications Atorvastatin Calcium (Atorvastatin Calcium 40 Mg Tablet) 40 mg PO DAILY [facility] Last Admin: 06/27/23 08:50 Dose: Not Given Documented By: ONEIL Non-Admin Reason: Nausea Comments: pt refused Baclofen (Baclofen 10 Mg Tablet) 10 mg PO TID PRN PRN Reason: muscle spasm Last Admin: 06/27/23 04:44 Dose: 10 mg Documented By: NICOLE Calcium Carbonate (Calcium Carbonate 750 Mg Tab.Chew) 750 mg PO Q6H PRN PRN Reason: Heartburn Fluoxetine HCl (Fluoxetine Hcl 20 Mg Capsule) 20 mg PO DAILY [facility] Last Admin: 06/27/23 08:50 Dose: Not Given Documented By: ONEIL Non-Admin Reason: Nausea Comments: pt refused Heparin Sodium (Porcine) (Heparin Sodium,Porcine 5,000 Unit/Ml Vial) 5,000 unit SUBCUT Q8H [facility] Last Admin: 06/28/23 03:07 Dose: 5,000 unit Documented By: AMPARO Lactated Ringer's (Lr) 1,000 mls @ 100 mls/hr IVCONT .Q10H [facility] Magnesium Hydroxide (Milk Of Magnesia 30 Ml Oral.Susp) 30 ml PO DAILY PRN PRN Reason: Constipation Melatonin (Melatonin 3 Mg Tablet) 6 mg PO BEDTIME PRN PRN Reason: Insomnia Morphine Sulfate (Morphine Sulfate 4 Mg/Ml Cartridge) 4 mg IVPUSH Q3H PRN; Protocol PRN Reason: Pain, Severe (Pain Scale 7-10) Last Admin: 06/28/23 06:03 Dose: 4 mg Documented By: AMPARO Omeprazole (Omeprazole 20 Mg Capsule.) 20 mg PO DAILY@0630 [facility] Last Admin: 06/28/23 05:54 Dose: Not Given Documented By: AMPARO Non-Admin Reason: Nausea Ondansetron HCl (Ondansetron Hcl 4 Mg/2 Ml Vial) 4 mg IVPUSH Q8H PRN PRN Reason: Nausea and Vomiting Last Admin: 06/28/23 06:02 Dose: 4 mg Documented By: AMPARO Comments: Dr. Sidhu OK'd to give early. Oxycodone HCl (Oxycodone Hcl Immed Release 5 Mg Tablet) 5 mg PO Q4H PRN PRN Reason: Pain, Moderate(Pain Scale 4-6) Polyethylene Glycol (Polyethylene Glycol 3350 17 Gm Powd.Pack) 17 gm PO DAILY PRN PRN Reason: Constipation Promethazine HCl (Promethazine Hcl 25 Mg Tablet) 25 mg PO Q4H PRN PRN Reason: Nausea and Vomiting Last Admin: 06/28/23 03:07 Dose: 25 mg Documented By: AMPARO Sodium Chloride (0.9 % Sodium Chloride Flush 3 Ml Syringe) 3 ml IVFLUSH QSHIFT [facility] Last Admin: 06/27/23 22:33 Dose: 3 ml Documented By: AMPARO <Kianna Shankar PA-C - Last Filed: 06/28/23 07:49> Labs CBC & Chem 7: 06/28/23 05:41 06/28/23 05:41 <Kianna Shankar PA-C - Last Filed: 06/28/23 07:49> Labs: Laboratory Results - last 24 hr 06/28/23 05:41 MCV 84.7 MCH 28.6 MCHC 33.8 RDW 12.4 Plt Count 340 D MPV 8.6 L Immature Gran % (Auto) Cancelled Neut % (Auto) Cancelled Lymph % (Auto) Cancelled [place] % (Auto) Cancelled Eos % (Auto) Cancelled Baso % (Auto) Cancelled Lymph # (Auto) Cancelled [place] # (Auto) Cancelled Eos # (Auto) Cancelled Baso # (Auto) Cancelled Abs Immat Gran (auto) Cancelled Absolute Neuts (auto) Cancelled Absolute Nucleated RBC 0.000 Nucleated RBC % (auto) 0.0 Neutrophils % (Manual) 58 Band Neutrophils % 16 H Lymphocytes % (Manual) 7 L Monocytes % (Manual) 12 H Metamyelocytes % 6 Myelocytes % 1 Abs Neuts (Manual) 9.5 H Lymphocytes # (Manual) 0.9 L Monocytes # (Manual) 1.5 H Metamyelocytes # 0.8 Myelocytes # 0.1 Platelet Estimate NORMAL Plt Morphology Comment NORMAL RBC Morphology NOTED Polychromasia 1+ (0-2) Ovalocytes 1+ (5-14) Acanthocytes (Spur) 2+ (3-5) Schistocytes 1+ (0-2) Anion Gap 21 H Estim Creat Clear Calc 62.2 Estimated GFR > 60 Random Glucose 140 H Lactic Acid 1.2 Calcium 8.7 D Magnesium 1.8 Total Bilirubin 0.7 AST 13 ALT 8 Alkaline Phosphatase 99 Troponin I High Sens 5.5 Total Protein 6.0 L Albumin 2.9 L <Kianna Shankar PA-C - Last Filed: 06/28/23 07:49> Procedures Date of Service Date of Service: 06/28/23 <Kianna Shankar PA-C - Last Filed: 06/28/23 07:49> 06/28/23 <Arvidn Clayton MD - Last Filed: 06/28/23 07:51> Progress Note: A&P Assessment and plan (1) Status post reversal of ileostomy: Status: Acute <Kianna Shankar PA-C - Last Filed: 06/28/23 07:49> Assessment and Plan: has had nausea, vomitting and pain abd soft but distended passing flatus HR elevated CT ordered IVF seen and examined independently explained plan to pt <Arvind Clayton MD - Last Filed: 06/28/23 07:51> Assessment and Plan: Increasing nausea/vomiting and pain over the weekend, now tachycardic with leukocytosis. Will obtain CT scan abd/pelvis to assess. Patient made NPO, started on IVF. <Kianna Shankar PA-C - Last Filed: 06/28/23 07:49> Time Spent With Patient Time: Total time managing care of this patient today ____ minutes. <Kianna Shankar PA-C - Last Filed: 06/28/23 07:49> Quality Stroke Does the patient have a stroke diagnosis?: No <Kianna Shankar PA-C - Last Filed: 06/28/23 07:49> VTE Prior VTE?: No <Kianna Shankar PA-C - Last Filed: 06/28/23 07:49> VTE Risk Level:: Medical - moderate - high <Kianna Shankar PA-C - Last Filed: 06/28/23 07:49> VTE Device Contraindication: N/A - Device Ordered <Kianna Shankar PA-C - Last Filed: 06/28/23 07:49> VTE Drug Contraindication: N/A - Med Ordered <SUSHMA Farrell Last Filed: 06/28/23 07:49>
[2023-06-28] MEDS: 0.9 % Sodium Chloride Flush 3 ML SYRINGE IVFLUSH (08:54)
[2023-06-28] MEDS: Lactated Ringers 1,000 ML 125 ML IVCONT ×3 (08:54→23:28)
[2023-06-28] MEDS: iohexoL 350 MG/ML 100 ML INFUS..BTL 85 ML IV (10:48)
--- NOTE | 2023-06-28 11:08 | MHC.CM.PN ---
EMR reviewed. Patient is not medically cleared for dc at this time, c/o increased N/V, awaiting CT. CM will continue to follow.
--- NOTE | 2023-06-28 12:29 | PM.EVENT ---
Event Note Date of Service: 06/28/23 Event Note: CT scan reviewed - diffuse distention of the small bowel and colon all the way to the rectum with some free fluid No free air Anastomosis appears patent Explained the above to patient Since stomach was also distended I told her that it would be best to have an NG tube in place to decompress She had given consent NG tube placed and note of about 450 cc of output We will keep on low wall suction for now NPO except ice chips Advised to chew gum Ambulate more if possible Time Spent With Patient Time: Total time managing care of this patient today ____ minutes.
--- NOTE | 2023-06-28 13:49 | PC.NURSE ---
NG tube inserted by surgeon at 1215. Intermittent suction in room not working. Surgeon at bedside, order to connect NG tube to low continuous suction until suction is fixed.
--- NOTE | 2023-06-28 14:41 | PM.EVENT ---
Event Note Date of Service: 06/29/23 Event Note: Seen on afternoon rounds again Says that her abdominal pain, discomfort has improved after NG tube placement She has had no further nausea Abdomen is still distended but soft with no guarding or rebound She still appears very anxious although looks more comfortable We will keep NG tube to suction Re-evaluate in the morning NPO but okay to have ice chips and okay to chew gum Encouraged ambulation Time Spent With Patient Time: Total time managing care of this patient today ____ minutes.
[2023-06-28] MEDS: Morphine Sulfate 4 MG/ML CARTRIDGE 3 MG IVPUSH ×3 (16:31→23:39)
--- NOTE | 2023-06-28 17:51 | PC.NURSE ---
Room changed, now on low-intermittent suction.
--- NOTE | 2023-06-28 18:15 | PC.NURSE ---
refusing compression boots
--- NOTE | 2023-06-28 20:54 | PM.EVENT ---
Event Note Date of Service: 06/28/23 Event Note: Was notified by the nurse that patient is tachycardic. Heart rate 130s to 140s. Obtained 12 lead EKG with sinus tachycardia. Obtaining troponin Time Spent With Patient Time: Total time managing care of this patient today ____ minutes.
[2023-06-28] MEDS: HYDROmorphone HCl 1 MG/ML SYRINGE IVPUSH (21:28)
[2023-06-28 21:46] LABS: Troponin-I High Sensitivity 9.3 ng/L (<3.5-17.0)
[2023-06-28] MEDS: Metoprolol Tartrate 5 MG/5 ML VIAL IVPUSH (23:18)
[2023-06-29] VITALS (7 sets, daily range): BP systolic 127–154; BP diastolic 84–93; PULSE 114–144; RESP 16–18; TEMP 36.2–36.8; O2SAT 93–94
--- NOTE | 2023-06-29 00:55 | PC.NURSE ---
Addendum entered by Claudia Parker RN 06/29/23 06:30: At 0300, pt HR sustained at 130s, Dr. Snow was made aware, no further orders made. Original Note: Pt seen on bed alert and oriented, still in constant abd pain8/10 and some nausea, abd is firm round and distended, + BS, loose watery stool,NGT right nares to intermittent suction, intact and secured, minimal light yello output noted, prn Morphine Iv given with no effect, prn Zofran given with minimal effect, routine Vitals noted with HR at 140s, no CP nor SOB, Dr. Snow was notified, EKG was done, tracing seen by Dr. Snow, Troponin level ordered, result came at 9.3, relayed to Dr. Snow, Dr. Snow ordered Dilaudid and med given, pt claimed relief from pain, HR still on the 140s, Dr. Snow was updated, ordered Metoprolol 5 mg IV, pt was put on email marketing intern, ST on the 140s, Metoprolol given, HR went down to 116 after, pt got up and used the commode after , noted with watery yellow stool, HR jumped up to the 120s and sustaining after toileted, Dr. Snow was made aware.
[2023-06-29] MEDS: Heparin Sodium,Porcine 5,000 UNIT/ML VIAL 5000 UNIT SUBCUT ×3 (02:30→17:53)
[2023-06-29] MEDS: Morphine Sulfate 4 MG/ML CARTRIDGE 3 MG IVPUSH ×5 (03:10→21:29)
[2023-06-29] MEDS: ondansetron HCL 4 MG/2 ML VIAL IVPUSH ×3 (05:41→21:30)
[2023-06-29 06:25] LABS: Hematocrit 40.2 % (37.0-47.0); Hemoglobin 13.6 g/dl (12.0-16.0); Mean Corpuscular HGB Conc 33.8 g/dl (31.0-35.0); Mean Corpuscular Hemoglobin 29.2 pg (27.0-33.0); Mean Corpuscular Volume 86.3 fL (80.0-98.0); Mean Platelet Volume 9.2 fL (9.4-12.3); NRBC Pct Auto 0.1 /100WBC (0.0-0.2); Platelet Count 427 X10*3/uL (160-400); Red Blood Count 4.66 X10*6/uL (4.20-5.50)
[2023-06-29 06:26] LABS: WBC ABN SCTR FOR CBC 1; White Blood Count 27.1 X10*3/uL (4.8-10.8)
[2023-06-29 06:47] LABS: Anion Gap 19 (12-20); Blood Urea Nitrogen 36 mg/dL (9-16); Calcium 8.4 mg/dL (8.4-10.2); Carbon Dioxide 23 mmol/L (22-29); Chloride 100 mmol/L (96-108); Creatinine Clr Calc Pharmacy 54.3; Estimated Glomerular Filt Rate > 60; Glucose Fasting 155 mg/dL (60-99); Potassium 3.9 mmol/L (3.3-5.1); Sodium 138 mmol/L (135-145)
[2023-06-29] MEDS: Lactated Ringers 1,000 ML 125 ML IVCONT ×2 (07:13→18:49)
[2023-06-29 07:22] LABS: Band Neutrophils Percent 39 % (3-5); Lymphocytes Absolute Manual 0.8 X10*3/uL (1.2-4.9); Lymphocytes Percent Manual 3 % (20-40); Metamyelocytes Absolute 1.4 X10*3/uL; Metamyelocytes Percent 5 %; Monocytes Absolute Manual 2.4 X10*3/uL (0.1-1.2); Monocytes Percent Manual 9 % (2-11); Myelocytes Absolute 0.8 X10*/uL; Myelocytes Percent 3 %; Neutrophils Absolute Manual 21.7 X10*3/uL (2.0-8.3); Neutrophils Percent Manual 41 % (45-73)
[2023-06-29 07:23] LABS: RBC Morphology NOTED
[2023-06-29 07:25] LABS: Acanthocytes 2+ (3-5) /OIF; Ovalocytes 1+ (5-14) /OIF; Polychromasia 1+ (0-2) /OIF
[2023-06-29 07:26] LABS: Toxic Vacuolation PRESENT
[2023-06-29 07:27] LABS: Toxic Granulation PRESENT
[2023-06-29 07:31] LABS: Platelet Estimate SLIGHTLY INCREASED (NORMAL)
[2023-06-29 07:32] LABS: Platelet Morphology Comment NORMAL
[2023-06-29] MEDS: Acetaminophen 1,000 MG/100 ML PIGGYBACK 400 MG IV ×2 (07:48→18:49)
[2023-06-29] MEDS: Lactated Ringers 1,000 ML 999 ML IV ×2 (07:48→17:48)
[2023-06-29] MEDS: LORazepam 2 MG/ML VIAL 0.5 MG IVPUSH ×2 (07:49→16:44)
[2023-06-29 08:17] LABS: Hematocrit 38.9 % (37.0-47.0); Hemoglobin 13.5 g/dl (12.0-16.0); Mean Corpuscular HGB Conc 34.7 g/dl (31.0-35.0); Mean Corpuscular Hemoglobin 29.3 pg (27.0-33.0); Mean Corpuscular Volume 84.6 fL (80.0-98.0); Mean Platelet Volume 8.9 fL (9.4-12.3); Platelet Count 398 X10*3/uL (160-400); Red Cell Distribution Width 12.8 % (11.0-16.0); White Blood Count 25.8 X10*3/uL (4.8-10.8)
--- NOTE | 2023-06-29 08:40 | P.PNGS_ITS ---
Subjective Subjective Date of Service: 06/29/23 <Kianna Shankar PA-C - Last Filed: 06/29/23 08:46> 06/29/23 <Arvind Clayton MD - Last Filed: 06/29/23 17:22> Interval history: Continues to c/o severe pain, generally feeling unwell. Passing flatus and liquid stools. NGT without significant output since placement. <Kianna Shankar PA-C - Last Filed: 06/29/23 08:46> Physical Exam 2 Vital Signs: Vital Signs: Last Vital Signs Temp 97.9 F 06/29/23 07:13 Pulse 136 H 06/29/23 07:13 Resp 16 06/29/23 07:13 BP 154/93 H 06/29/23 07:13 Pulse Ox 93 06/29/23 07:13 O2 Del Method Room Air 06/29/23 07:13 O2 Flow Rate 2 06/22/23 09:47 BMI result Body Mass Index 23.8 <Kianna Shaknar PA-C - Last Filed: 06/29/23 08:46> Const: Other: uncomfortable appearing <Kianna Shankar PA-C - Last Filed: 06/29/23 08:46> General: alert <SUSHMA Farrell Last Filed: 06/29/23 08:46> Orientation/consciousness: patient oriented x3 <SUSHMA Farrell Last Filed: 06/29/23 08:46> Resp: Effort & Inspection: normal respiratory effort <SUSHMA Farrell Last Filed: 06/29/23 08:46> GI: Inspection: Yes distended (softly ) and Yes incision (clean ) < SUSHMA Farrell Last Filed: 06/29/23 08:46> Palpation (GI): Soft to palpation, not firm, Tenderness to palpation present (GI) (incisional) and no guarding <SUSHMA Farrell Last Filed: 06/29/23 08:46> Percussion: Yes tympanic to percussion <SUSHMA Farrell Last Filed: 06/29/23 08:46> Skin: General skin exam: no rashes or lesions noted <Kianna Shankar PA-C - Last Filed: 06/29/23 08:46> Neuro: General: patient oriented x3 and moves all extremities <Kianna Shankar PA-C - Last Filed: 06/29/23 08:46> Objective Data Active Medications Atorvastatin Calcium (Atorvastatin Calcium 40 Mg Tablet) 40 mg PO DAILY [facility] Last Admin: 06/29/23 07:25 Dose: Not Given Documented By: RONI Non-Admin Reason: Patient Refused Baclofen (Baclofen 10 Mg Tablet) 10 mg PO TID PRN PRN Reason: muscle spasm Last Admin: 06/27/23 04:44 Dose: 10 mg Documented By: NICOLE Benzocaine (Throat Lozenge, Medicated Lozenge) 1 lozenge MUCOUS MEM Q2H PRN PRN Reason: Sore Throat Calcium Carbonate (Calcium Carbonate 750 Mg Tab.Chew) 750 mg PO Q6H PRN PRN Reason: Heartburn Fluoxetine HCl (Fluoxetine Hcl 20 Mg Capsule) 20 mg PO DAILY [facility] Last Admin: 06/29/23 07:25 Dose: Not Given Documented By: RONI Non-Admin Reason: Patient Refused Heparin Sodium (Porcine) (Heparin Sodium,Porcine 5,000 Unit/Ml Vial) 5,000 unit SUBCUT Q8H [facility] Last Admin: 06/29/23 02:30 Dose: 5,000 unit Documented By: CASTILPranav Lactated Ringer's (Lr) 1,000 mls @ 125 mls/hr IVCONT .Q8H [facility] Last Admin: 06/29/23 07:13 Dose: 125 mls/hr Documented By: RONI Acetaminophen (Ofirmev) 1,000 mg in 100 mls @ 400 mls/hr IV Q6H [facility] Stop: 06/30/23 01:44 Last Infusion: 06/29/23 08:33 Dose: Infused Documented By: RONI Lactated Ringer's (Lr) 1,000 mls @ 999 mls/hr IV .Q1H1M [facility] Stop: 06/29/23 08:45 Last Admin: 06/29/23 07:48 Dose: 999 mls/hr Documented By: RONI Metronidazole (Flagyl) 500 mg in 100 mls @ 100 mls/hr IV Q8H [facility] Lorazepam (Lorazepam 2 Mg/Ml Vial) 0.5 mg IVPUSH Q6H PRN PRN Reason: Anxiety Last Admin: 06/29/23 07:49 Dose: 0.5 mg Documented By: RONI Magnesium Hydroxide (Milk Of Magnesia 30 Ml Oral.Susp) 30 ml PO DAILY PRN PRN Reason: Constipation Melatonin (Melatonin 3 Mg Tablet) 6 mg PO BEDTIME PRN PRN Reason: Insomnia Morphine Sulfate (Morphine Sulfate 4 Mg/Ml Cartridge) 3 mg IVPUSH Q3H PRN; Protocol PRN Reason: Pain, Severe (Pain Scale 7-10) Last Admin: 06/29/23 06:04 Dose: 3 mg Documented By: DEREK Omeprazole (Omeprazole 20 Mg Capsule.Dr) 20 mg PO DAILY@0630 [facility] Last Admin: 06/29/23 05:42 Dose: Not Given Documented By: DEREK Non-Admin Reason: Patient Refused Ondansetron HCl (Ondansetron Hcl 4 Mg/2 Ml Vial) 4 mg IVPUSH Q8H PRN PRN Reason: Nausea and Vomiting Last Admin: 06/29/23 05:41 Dose: 4 mg Documented By: DEREK Comments: pt c/o nausea Oxycodone HCl (Oxycodone Hcl Immed Release 5 Mg Tablet) 5 mg PO Q4H PRN PRN Reason: Pain, Moderate(Pain Scale 4-6) Polyethylene Glycol (Polyethylene Glycol 3350 17 Gm Powd.Pack) 17 gm PO DAILY PRN PRN Reason: Constipation Promethazine HCl (Promethazine Hcl 25 Mg Tablet) 25 mg PO Q4H PRN PRN Reason: Nausea and Vomiting Last Admin: 06/28/23 08:53 Dose: 25 mg Documented By: RONI Sodium Chloride (0.9 % Sodium Chloride Flush 3 Ml Syringe) 3 ml IVFLUSH QSHIFT [facility] Last Admin: 06/29/23 07:14 Dose: Not Given Documented By: RNOI Non-Admin Reason: IV Running Vancomycin HCl (Vancomycin Hcl 125 Mg Capsule) 125 mg PO Q6H [facility] Zolpidem Tartrate (Zolpidem Tartrate 5 Mg Tablet) 5 mg PO BEDTIME PRN PRN Reason: Sleep <Kianna Shankar PA-C - Last Filed: 06/29/23 08:46> Labs CBC & Chem 7: 06/29/23 07:56 06/29/23 13:57 <Kianna Shankar PA-C - Last Filed: 06/29/23 08:46> Labs: Laboratory Results - last 24 hr 06/28/23 06/29/23 06/29/23 21:17 05:47 07:56 MCV 86.3 84.6 MCH 29.2 29.3 MCHC 33.8 34.7 RDW 13.0 12.8 Plt Count 427 H D 398 MPV 9.2 L 8.9 L Immature Gran % (Auto) Cancelled Neut % (Auto) Cancelled Lymph % (Auto) Cancelled [place] % (Auto) Cancelled Eos % (Auto) Cancelled Baso % (Auto) Cancelled Lymph # (Auto) Cancelled [place] # (Auto) Cancelled Eos # (Auto) Cancelled Baso # (Auto) Cancelled Abs Immat Gran (auto) Cancelled Absolute Neuts (auto) Cancelled Absolute Nucleated RBC 0.020 H 0.000 Nucleated RBC % (auto) 0.1 0.0 Neutrophils % (Manual) 41 L Band Neutrophils % 39 H Lymphocytes % (Manual) 3 L Monocytes % (Manual) 9 Metamyelocytes % 5 Myelocytes % 3 Abs Neuts (Manual) 21.7 H Lymphocytes # (Manual) 0.8 L Monocytes # (Manual) 2.4 H Metamyelocytes # 1.4 Myelocytes # 0.8 Toxic Granulation PRESENT Toxic Vacuolation PRESENT Dohle Bodies Not Reportable Platelet Estimate SLIGHTLY INCREASED Plt Morphology Comment NORMAL RBC Morphology NOTED Polychromasia 1+ (0-2) Ovalocytes 1+ (5-14) Acanthocytes (Spur) 2+ (3-5) Anion Gap 19 Estim Creat Clear Calc 54.3 Estimated GFR > 60 Fasting Glucose 155 H Calcium 8.4 Troponin I High Sens 9.3 D <Kianna Shankar PA-C - Last Filed: 06/29/23 08:46> Procedures Date of Service Date of Service: 06/29/23 <Kianna Shankar PA-C - Last Filed: 06/29/23 08:46> 06/29/23 <Arvind Clayton MD - Last Filed: 06/29/23 17:22> Progress Note: A&P Assessment and plan (1) Status post reversal of ileostomy: Status: Acute <Kianna Shankar PA-C - Last Filed: 06/29/23 08:46> Assessment and Plan: Seen multiple times today Remains distended Passing flatus and loose stools Patient frustrated - she feels she is not better NG not much overnight Abdomen soft but distended WBC elevated BUN rising CT reviewed from yesterday - thickening/edema of colon, no extraluminal area Consider infection stool specimen ordered LR bolus Keep NG tube in place PICC line and TPN Seen and examined independently <Arvind Clayton MD - Last Filed: 06/29/23 17:22> Assessment and Plan: S/p ileostomy reversal. CT scan yesterday showed diffuse distention of the small bowel and colon all the way to the rectum with thickening and some free fluid without free air, anastomosis appears patent. Continued tachycardic with significant leukocytosis this am and liquid stools. Discussed with hospitalist - will start on C diff treatment. Cont IVF, give bolus. Obtain PICC line for possible TPN. Ambulation and OOB as tolerated. Keep NGT for now, ok for ice chips. Cont to follow closely. Repeat labs in AM. <Kianna Shankar PA-C - Last Filed: 06/29/23 08:46> Time Spent With Patient Time: Total time managing care of this patient today ____ minutes. <Kianna Shankar PA-C - Last Filed: 06/29/23 08:46> Quality Stroke Does the patient have a stroke diagnosis?: No <Kianna Shankar PA-C - Last Filed: 06/29/23 08:46> VTE Prior VTE?: No <Kianna Shankar PA-C - Last Filed: 06/29/23 08:46> VTE Risk Level:: Medical - moderate - high <Kianna Shankar PA-C - Last Filed: 06/29/23 08:46> VTE Device Contraindication: N/A - Device Ordered <Kianna Shankar PA-C - Last Filed: 06/29/23 08:46> VTE Drug Contraindication: N/A - Med Ordered <Kianna Shankar PA-C - Last Filed: 06/29/23 08:46>
[2023-06-29 08:41] LABS: Anion Gap 19 (12-20); Blood Urea Nitrogen 38 mg/dL (9-16); Calcium 8.1 mg/dL (8.4-10.2); Carbon Dioxide 21 mmol/L (22-29); Chloride 102 mmol/L (96-108); Creatinine Clr Calc Pharmacy 60.6; Estimated Glomerular Filt Rate > 60; Glucose Random 156 mg/dL (60-115); Potassium 3.5 mmol/L (3.3-5.1); Sodium 138 mmol/L (135-145)
[2023-06-29 09:24] LABS: Lactic Acid 2.2 mmol/L (0.5-2.0)
[2023-06-29] MEDS: metroNIDAZOLE/NS 500 MG/100 ML PIGGYBACK 100 MG IV ×3 (09:35→23:19)
[2023-06-29 10:35] LABS: Reflex Lactate? Lactic Acid Added
[2023-06-29 11:03] LABS: ~Lactic Acid-LAB USE ONLY 1.4 mmol/L (0.5-2.0)
--- NOTE | 2023-06-29 11:57 | HO.PM.IMPN ---
Subjective Subjective Date of Service: 06/29/23 Interval History: seen and evaluated this morning feels sick, nauseated and having abdominal pain and diarrhea +ve C.Diff testing Review of Systems Review of Systems: Yes all other systems are reviewed and are negative Physical Exam Vital Signs: Vital Signs: Last Vital Signs Temp 97.9 F 06/29/23 07:13 Pulse 136 H 06/29/23 07:13 Resp 16 06/29/23 07:13 BP 154/93 H 06/29/23 07:13 Pulse Ox 93 06/29/23 07:13 O2 Del Method Room Air 06/29/23 07:13 O2 Flow Rate 2 06/22/23 09:47 BMI result Body Mass Index 23.8 Const: Other: Constitutional : Awake, interactive, in moderate distress with pain Neck : Normal inspection, Supple Cardiovascular : RRR, no JVP, no lower extremity edema Respiratory : fair bilateral air entry, no crackles Gastrointestinal: guarded, decreased bowel sounds, tenderness all over mainly LLQ Skin : Warm, Dry Neurological : Alert & oriented x3, No focal deficit Objective Data Active Medications Atorvastatin Calcium (Atorvastatin Calcium 40 Mg Tablet) 40 mg PO DAILY [facility] Last Admin: 06/29/23 07:25 Dose: Not Given Documented By: RONI Non-Admin Reason: Patient Refused Baclofen (Baclofen 10 Mg Tablet) 10 mg PO TID PRN PRN Reason: muscle spasm Last Admin: 06/27/23 04:44 Dose: 10 mg Documented By: NICOLE Benzocaine (Throat Lozenge, Medicated Lozenge) 1 lozenge MUCOUS MEM Q2H PRN PRN Reason: Sore Throat Calcium Carbonate (Calcium Carbonate 750 Mg Tab.Chew) 750 mg PO Q6H PRN PRN Reason: Heartburn Fluoxetine HCl (Fluoxetine Hcl 20 Mg Capsule) 20 mg PO DAILY [facility] Last Admin: 06/29/23 07:25 Dose: Not Given Documented By: RONI Non-Admin Reason: Patient Refused Heparin Sodium (Porcine) (Heparin Sodium,Porcine 5,000 Unit/Ml Vial) 5,000 unit SUBCUT Q8H [facility] Last Admin: 06/29/23 02:30 Dose: 5,000 unit Documented By: CASTILM Lactated Ringer's (Lr) 1,000 mls @ 125 mls/hr IVCONT .Q8H [facility] Last Admin: 06/29/23 07:13 Dose: 125 mls/hr Documented By: RONI Acetaminophen (Ofirmev) 1,000 mg in 100 mls @ 400 mls/hr IV Q6H [facility] Stop: 06/30/23 01:44 Last Infusion: 06/29/23 08:33 Dose: Infused Documented By: RONI Metronidazole (Flagyl) 500 mg in 100 mls @ 100 mls/hr IV Q8H [facility] Last Infusion: 06/29/23 10:39 Dose: Infused Documented By: RONI Lorazepam (Lorazepam 2 Mg/Ml Vial) 0.5 mg IVPUSH Q6H PRN PRN Reason: Anxiety Last Admin: 06/29/23 07:49 Dose: 0.5 mg Documented By: RONI Magnesium Hydroxide (Milk Of Magnesia 30 Ml Oral.Susp) 30 ml PO DAILY PRN PRN Reason: Constipation Melatonin (Melatonin 3 Mg Tablet) 6 mg PO BEDTIME PRN PRN Reason: Insomnia Morphine Sulfate (Morphine Sulfate 4 Mg/Ml Cartridge) 3 mg IVPUSH Q3H PRN; Protocol PRN Reason: Pain, Severe (Pain Scale 7-10) Last Admin: 06/29/23 06:04 Dose: 3 mg Documented By: DEREK Omeprazole (Omeprazole 20 Mg Capsule.Dr) 20 mg PO DAILY@0630 [facility] Last Admin: 06/29/23 05:42 Dose: Not Given Documented By: DEREK Non-Admin Reason: Patient Refused Ondansetron HCl (Ondansetron Hcl 4 Mg/2 Ml Vial) 4 mg IVPUSH Q8H PRN PRN Reason: Nausea and Vomiting Last Admin: 06/29/23 05:41 Dose: 4 mg Documented By: DEREK Comments: pt c/o nausea Oxycodone HCl (Oxycodone Hcl Immed Release 5 Mg Tablet) 5 mg PO Q4H PRN PRN Reason: Pain, Moderate(Pain Scale 4-6) Polyethylene Glycol (Polyethylene Glycol 3350 17 Gm Powd.Pack) 17 gm PO DAILY PRN PRN Reason: Constipation Promethazine HCl (Promethazine Hcl 25 Mg Tablet) 25 mg PO Q4H PRN PRN Reason: Nausea and Vomiting Last Admin: 06/28/23 08:53 Dose: 25 mg Documented By: RONI Sodium Chloride (0.9 % Sodium Chloride Flush 3 Ml Syringe) 3 ml IVFLUSH QSHIFT [facility] Last Admin: 06/29/23 07:14 Dose: Not Given Documented By: RONI Non-Admin Reason: IV Running Vancomycin HCl (Vancomycin Hcl Oral Solution 125 Mg/5 Ml Soln.Recon) 125 mg PO Q6H [facility] Zolpidem Tartrate (Zolpidem Tartrate 5 Mg Tablet) 5 mg PO BEDTIME PRN PRN Reason: Sleep Labs 06/29/23 07:56 06/29/23 13:57 Labs: Laboratory Results - last 24 hr 06/28/23 06/29/23 06/29/23 21:17 05:47 07:56 MCV 86.3 84.6 MCH 29.2 29.3 MCHC 33.8 34.7 RDW 13.0 12.8 Plt Count 427 H D 398 MPV 9.2 L 8.9 L Immature Gran % (Auto) Cancelled Neut % (Auto) Cancelled Lymph % (Auto) Cancelled [place] % (Auto) Cancelled Eos % (Auto) Cancelled Baso % (Auto) Cancelled Lymph # (Auto) Cancelled [place] # (Auto) Cancelled Eos # (Auto) Cancelled Baso # (Auto) Cancelled Abs Immat Gran (auto) Cancelled Absolute Neuts (auto) Cancelled Absolute Nucleated RBC 0.020 H 0.000 Nucleated RBC % (auto) 0.1 0.0 Neutrophils % (Manual) 41 L Band Neutrophils % 39 H Lymphocytes % (Manual) 3 L Monocytes % (Manual) 9 Metamyelocytes % 5 Myelocytes % 3 Abs Neuts (Manual) 21.7 H Lymphocytes # (Manual) 0.8 L Monocytes # (Manual) 2.4 H Metamyelocytes # 1.4 Myelocytes # 0.8 Toxic Granulation PRESENT Toxic Vacuolation PRESENT Dohle Bodies Not Reportable Platelet Estimate SLIGHTLY INCREASED Plt Morphology Comment NORMAL RBC Morphology NOTED Polychromasia 1+ (0-2) Ovalocytes 1+ (5-14) Acanthocytes (Spur) 2+ (3-5) Anion Gap 19 19 Estim Creat Clear Calc 54.3 60.6 Estimated GFR > 60 > 60 Random Glucose 156 H Fasting Glucose 155 H Lactic Acid Lactic Acid F/U @ 2Hr Calcium 8.4 8.1 L Troponin I High Sens 9.3 D 06/29/23 06/29/23 08:30 10:49 MCV MCH MCHC RDW Plt Count MPV Immature Gran % (Auto) Neut % (Auto) Lymph % (Auto) [place] % (Auto) Eos % (Auto) Baso % (Auto) Lymph # (Auto) [place] # (Auto) Eos # (Auto) Baso # (Auto) Abs Immat Gran (auto) Absolute Neuts (auto) Absolute Nucleated RBC Nucleated RBC % (auto) Neutrophils % (Manual) Band Neutrophils % Lymphocytes % (Manual) Monocytes % (Manual) Metamyelocytes % Myelocytes % Abs Neuts (Manual) Lymphocytes # (Manual) Monocytes # (Manual) Metamyelocytes # Myelocytes # Toxic Granulation Toxic Vacuolation Dohle Bodies Platelet Estimate Plt Morphology Comment RBC Morphology Polychromasia Ovalocytes Acanthocytes (Spur) Anion Gap Estim Creat Clear Calc Estimated GFR Random Glucose Fasting Glucose Lactic Acid 2.2 H* Lactic Acid F/U @ 2Hr 1.4 Calcium Troponin I High Sens Assessment and Plan (1) Status post reversal of ileostomy: Status: Acute (2) Clostridium difficile colitis: Status: Acute Plan Patient is 58-year-old female with PMH significant for HLD, HTN, diverticulitis, and mood disorder who was admitted to the hospital under general surgery services for reversal of ileostomy. 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 Hospitalist consultation for hypertension. Abdominal pain and diarrhea 2/2 Sepsis from C.Diff colitis Elevated WBCs, lactic acidosis, tachycardia Start NG Vancomycin and IV Flagy Pending blood cultures LA resolved w IVFl reflux tachycardia from dehydration continue IVF Post Ileostomy reversal KUB suggestive ileus vs distal SBO Plan as per General surgery HTN Hold on medications for now given stress from pain and infection Will monitor while inpatient HLD Continue statin Mood disorder Continue fluoxetine Thank you for allowing us to participate in the care of this patient. Will continue to follow along with you as needed Quality Stroke Does the patient have a stroke diagnosis?: No VTE Prior VTE?: No VTE Risk Level:: Medical - moderate - high VTE Device Contraindication: N/A - Device Ordered VTE Drug Contraindication: N/A - Med Ordered
[2023-06-29] MEDS: vancomycin HCL Oral Solution 125 MG/5 ML SOLN.RECON PO ×3 (12:15→21:27)
[2023-06-29] MEDS: Acetaminophen 1,000 MG/100 ML PIGGYBACK 100 MG IV (12:16)
[2023-06-29 13:54] LABS: CDiff Gene PCR POSITIVE (Negative)
[2023-06-29 14:38] LABS: Alanine Aminotransferase 8 U/L (0-31); Albumin Level 2.4 g/dL (3.5-5.0); Alkaline Phosphatase 101 U/L (39-117); Anion Gap 19 (12-20); Aspartate Amino Transferase 20 U/L (5-31); Bilirubin Total 1.5 mg/dL (0.0-1.0); Blood Urea Nitrogen 42 mg/dL (9-16); Calcium 7.8 mg/dL (8.4-10.2); Carbon Dioxide 22 mmol/L (22-29); Chloride 101 mmol/L (96-108); Creatinine Clr Calc Pharmacy 53.7; Estimated Glomerular Filt Rate > 60; Glucose Random 147 mg/dL (60-115); Magnesium 1.7 mg/dL (1.6-2.6); Phosphorus 3.7 mg/dL (2.7-4.5); Potassium 3.6 mmol/L (3.3-5.1); Sodium 138 mmol/L (135-145); Total Protein 5.1 g/dL (6.5-8.0)
[2023-06-29 14:50] LABS: CDiff Toxin Positive (Negative)
[2023-06-29 14:51] LABS: CDIFF Internal ctrl Dots and bkg OK (V)
[2023-06-29] MEDS: Promethazine HCL 25 MG TABLET PO (16:43)
--- NOTE | 2023-06-29 16:44 | PM.EVENT ---
Event Note Date of Service: 06/30/23 Event Note: remains distended but soft C diff test - positive - explains distension, edema of colon, pain, and elevated WBC started on Vanc and Flagyl this AM repeat lactate this AM - normal keep NGT in pt continues to have loose stools, passing flatus IVF follow labs pain mgt Time Spent With Patient Time: Total time managing care of this patient today ____ minutes.
[2023-06-29] MEDS: 0.9 % Sodium Chloride Flush 3 ML SYRINGE IVFLUSH (21:30)
[2023-06-29] MEDS: Metoprolol Tartrate 5 MG/5 ML VIAL IVPUSH (23:28)
[2023-06-30] VITALS (7 sets, daily range): BP systolic 108–147; BP diastolic 58–90; PULSE 102–132; RESP 16–19; TEMP 36.3–36.9; O2SAT 93–96; BMI 23.8
[2023-06-30] MEDS: Albumin Human 25 % 100 ML IV ×2 (00:29→01:28)
--- NOTE | 2023-06-30 01:38 | PC.NURSE ---
Pt's HR in the 140's from 7-11pm, two tiger texts sent to Dr. Snow regarding pt's HR. 5 mg IV Metoprolol ordered and administered at 2328. Pt's HR dropped to the 110's, BP remained stable. Also, 2 doses of IV Albumin ordered and administered. Will continue to monitor.
[2023-06-30] MEDS: Heparin Sodium,Porcine 5,000 UNIT/ML VIAL 5000 UNIT SUBCUT ×3 (02:27→18:02)
[2023-06-30] MEDS: Acetaminophen 1,000 MG/100 ML PIGGYBACK 400 MG IV ×3 (02:27→20:11)
[2023-06-30] MEDS: Morphine Sulfate 4 MG/ML CARTRIDGE 3 MG IVPUSH ×5 (02:34→18:59)
[2023-06-30] MEDS: vancomycin HCL Oral Solution 125 MG/5 ML SOLN.RECON PO ×4 (03:14→21:46)
[2023-06-30] MEDS: Lactated Ringers 1,000 ML 125 ML IVCONT ×2 (06:02→12:45)
[2023-06-30 06:21] LABS: Hematocrit 29.3 % (37.0-47.0); Mean Corpuscular HGB Conc 34.1 g/dl (31.0-35.0); Mean Corpuscular Hemoglobin 29.1 pg (27.0-33.0); Mean Corpuscular Volume 85.2 fL (80.0-98.0); Mean Platelet Volume 8.7 fL (9.4-12.3); Platelet Count 270 X10*3/uL (160-400); Red Blood Count 3.44 X10*6/uL (4.20-5.50)
[2023-06-30 06:49] LABS: Alanine Aminotransferase 15 U/L (0-31); Albumin Level 3.1 g/dL (3.5-5.0); Alkaline Phosphatase 80 U/L (39-117); Anion Gap 15 (12-20); Aspartate Amino Transferase 33 U/L (5-31); Bilirubin Total 1.3 mg/dL (0.0-1.0); Blood Urea Nitrogen 49 mg/dL (9-16); Calcium 7.6 mg/dL (8.4-10.2); Carbon Dioxide 23 mmol/L (22-29); Chloride 101 mmol/L (96-108); Creatinine Clr Calc Pharmacy 43.8; Estimated Glomerular Filt Rate 52; Glucose Random 130 mg/dL (60-115); Magnesium 1.7 mg/dL (1.6-2.6); Phosphorus 2.8 mg/dL (2.7-4.5); Potassium 3.4 mmol/L (3.3-5.1); Sodium 136 mmol/L (135-145)
[2023-06-30 06:50] LABS: Anion Gap 15 (12-20); Blood Urea Nitrogen 48 mg/dL (9-16); Calcium 7.6 mg/dL (8.4-10.2); Carbon Dioxide 22 mmol/L (22-29); Chloride 102 mmol/L (96-108); Creatinine Clr Calc Pharmacy 45.1; Estimated Glomerular Filt Rate 53; Glucose Random 128 mg/dL (60-115); Potassium 3.4 mmol/L (3.3-5.1); Sodium 136 mmol/L (135-145)
--- NOTE | 2023-06-30 08:03 | P.PNGS_ITS ---
Subjective Subjective Date of Service: 06/30/23 Interval history: Says she still has states she still has abdominal pain although better than yesterday Stools still loose Says she has good urine output NG tube output not a lot Physical Exam 2 Vital Signs: Vital Signs: Last Vital Signs Temp 98.5 F 06/30/23 07:29 Pulse 121 H 06/30/23 07:29 Resp 16 06/30/23 07:29 BP 129/77 06/30/23 07:29 Pulse Ox 94 06/30/23 07:29 O2 Del Method Room Air 06/30/23 07:29 O2 Flow Rate 2 06/22/23 09:47 BMI result Body Mass Index 23.8 Const: Other: Anxious and uncomfortable Resp: Auscultation: clear to auscultation bilaterally Cardio: Rate: tachycardic GI: Other: Distended, soft, some tenderness diffusely Palpation (GI): no guarding Objective Data Active Medications Atorvastatin Calcium (Atorvastatin Calcium 40 Mg Tablet) 40 mg PO DAILY [facility] Last Admin: 06/29/23 07:25 Dose: Not Given Documented By: RONI Non-Admin Reason: Patient Refused Benzocaine (Throat Lozenge, Medicated Lozenge) 1 lozenge MUCOUS MEM Q2H PRN PRN Reason: Sore Throat Calcium Carbonate (Calcium Carbonate 750 Mg Tab.Chew) 750 mg PO Q6H PRN PRN Reason: Heartburn Fluoxetine HCl (Fluoxetine Hcl 20 Mg Capsule) 20 mg PO DAILY [facility] Last Admin: 06/29/23 07:25 Dose: Not Given Documented By: RONI Non-Admin Reason: Patient Refused Heparin Sodium (Porcine) (Heparin Sodium,Porcine 5,000 Unit/Ml Vial) 5,000 unit SUBCUT Q8H [facility] Last Admin: 06/30/23 02:27 Dose: 5,000 unit Documented By: AMPARO Lactated Ringer's (Lr) 1,000 mls @ 125 mls/hr IVCONT .Q8H [facility] Last Admin: 06/30/23 06:02 Dose: 125 mls/hr Documented By: AMPARO Metronidazole (Flagyl) 500 mg in 100 mls @ 100 mls/hr IV Q8H [facility] Last Infusion: 06/30/23 00:30 Dose: Infused Documented By: AMPARO Lorazepam (Lorazepam 2 Mg/Ml Vial) 0.5 mg IVPUSH Q6H PRN PRN Reason: Anxiety Last Admin: 06/29/23 16:44 Dose: 0.5 mg Documented By: AMPAOR Magnesium Hydroxide (Milk Of Magnesia 30 Ml Oral.Susp) 30 ml PO DAILY PRN PRN Reason: Constipation Melatonin (Melatonin 3 Mg Tablet) 6 mg PO BEDTIME PRN PRN Reason: Insomnia Morphine Sulfate (Morphine Sulfate 4 Mg/Ml Cartridge) 3 mg IVPUSH Q3H PRN; Protocol PRN Reason: Pain, Severe (Pain Scale 7-10) Last Admin: 06/30/23 02:34 Dose: 3 mg Documented By: AMPARO Omeprazole (Omeprazole 20 Mg Capsule.Dr) 20 mg PO DAILY@629 [facility] Last Admin: 06/30/23 05:39 Dose: Not Given Documented By: AMPARO Non-Admin Reason: Patient Refused Ondansetron HCl (Ondansetron Hcl 4 Mg/2 Ml Vial) 4 mg IVPUSH Q8H PRN PRN Reason: Nausea and Vomiting Last Admin: 06/29/23 21:30 Dose: 4 mg Documented By: AMPARO Oxycodone HCl (Oxycodone Hcl Immed Release 5 Mg Tablet) 5 mg PO Q4H PRN PRN Reason: Pain, Moderate(Pain Scale 4-6) Polyethylene Glycol (Polyethylene Glycol 3350 17 Gm Powd.Pack) 17 gm PO DAILY PRN PRN Reason: Constipation Promethazine HCl (Promethazine Hcl 25 Mg Tablet) 25 mg PO Q4H PRN PRN Reason: Nausea and Vomiting Last Admin: 06/29/23 16:43 Dose: 25 mg Documented By: AMPARO Sodium Chloride (0.9 % Sodium Chloride Flush 3 Ml Syringe) [facility] Last Admin: 06/29/23 21:30 Dose: 3 ml Documented By: AMPARO Vancomycin HCl (Vancomycin Hcl Oral Solution 125 Mg/5 Ml Soln.Recon) 125 mg PO Q6H [facility] Last Admin: 06/30/23 03:14 Dose: 125 mg Documented By: AMPARO Zolpidem Tartrate (Zolpidem Tartrate 5 Mg Tablet) 5 mg PO BEDTIME PRN PRN Reason: Sleep Labs 06/30/23 06:09 05/22/24 06:09 Labs: Laboratory Results - last 24 hr 06/29/23 06/29/23 06/29/23 07:56 08:30 10:49 MCV 84.6 MCH 29.3 MCHC 34.7 RDW 12.8 Plt Count 398 MPV 8.9 L Absolute Nucleated RBC 0.000 Nucleated RBC % (auto) 0.0 Anion Gap 19 Estim Creat Clear Calc 60.6 Estimated GFR > 60 Random Glucose 156 H Lactic Acid 2.2 H* Lactic Acid F/U @ 2Hr 1.4 Calcium 8.1 L Phosphorus Magnesium Total Bilirubin AST ALT Alkaline Phosphatase Total Protein Albumin C. difficile Tox B Gene C. difficile Toxin A&B C. difficile Interpret 06/29/23 06/29/23 06/30/23 12:50 13:57 06:09 MCV 85.2 MCH 29.1 MCHC 34.1 RDW 13.0 Plt Count 270 D MPV 8.7 L Absolute Nucleated RBC 0.000 Nucleated RBC % (auto) 0.0 Anion Gap 19 15 Estim Creat Clear Calc 53.7 Estimated GFR > 60 Random Glucose 147 H Lactic Acid Lactic Acid F/U @ 2Hr Calcium 7.8 L Phosphorus 3.7 Magnesium 1.7 Total Bilirubin 1.5 H AST 20 ALT 8 Alkaline Phosphatase 101 Total Protein 5.1 L Albumin 2.4 L C. difficile Tox B Gene POSITIVE A* C. difficile Toxin A&B Positive A* C. difficile Interpret SEE NOTE 06/30/23 06/30/23 06/30/23 06:09 06:09 06:09 MCV MCH MCHC RDW Plt Count MPV Absolute Nucleated RBC Nucleated RBC % (auto) Anion Gap 15 Estim Creat Clear Calc 43.8 45.1 Estimated GFR 52 53 Random Glucose 130 H Lactic Acid Lactic Acid F/U @ 2Hr Calcium Phosphorus Magnesium Total Bilirubin AST ALT Alkaline Phosphatase Total Protein Albumin C. difficile Tox B Gene C. difficile Toxin A&B C. difficile Interpret 06/30/23 06/30/23 06:09 06:09 MCV MCH MCHC RDW Plt Count MPV Absolute Nucleated RBC Nucleated RBC % (auto) Anion Gap Estim Creat Clear Calc Estimated GFR Random Glucose 128 H Lactic Acid Lactic Acid F/U @ 2Hr Calcium 7.6 L 7.6 L Phosphorus 2.8 Magnesium 1.7 Total Bilirubin 1.3 H AST 33 H ALT 15 Alkaline Phosphatase 80 Total Protein 5.0 L Albumin 3.1 L C. difficile Tox B Gene C. difficile Toxin A&B C. difficile Interpret Procedures Date of Service Date of Service: 06/30/23 Progress Note: A&P Assessment and plan (1) Clostridium difficile colitis: Status: Acute Assessment and Plan: Status post reversal of ileostomy with abdominal pain and distention C diff test positive Started on vanco and Flagyl yesterday WBC has gone down significantly She says that her pain seems somewhat improved compared to yesterday Creatinine and BUN rising Will need additional IV fluids today PICC line and TPN Encouraged to get out of bed Reviewed with hospitalist Time Spent With Patient Time: Total time managing care of this patient today ____ minutes. Quality Stroke Does the patient have a stroke diagnosis?: No VTE Prior VTE?: No VTE Risk Level:: Medical - moderate - high VTE Device Contraindication: N/A - Device Ordered VTE Drug Contraindication: N/A - Med Ordered
[2023-06-30] MEDS: metroNIDAZOLE/NS 500 MG/100 ML PIGGYBACK 100 MG IV ×3 (08:10→23:22)
--- NOTE | 2023-06-30 09:24 | MHC.CLN ---
Addendum entered by Marisa Simon, ALEXX 06/30/23 10:34: REC FOR PPN IF CONTINUES WITH PERIPHERAL IV. START PPN AT 40 ML PER HOUR, 41 G PROTEIN, 96 G DEXTROSE, 490 KCALS. REPLETE LYTES NEEDED. Original Note: NUTRITION NPO SINCE 06/28/23. S/P REVERSAL OF ILEOSTOMY. NOW WITH C-DIFF. HAS NGT. UNABLE TO OBTAIN ADEQUATE NUTRITION VIA PO. COMMUNICATED WITH PHARMACY. PER PROVIDER, PATIENT TO RECEIVE PICC LINE AND START TPN. RECOMMEND DAY 1 (06/30/23): TPN AT 40 ML PER HOUR, 48 G PROTEIN, 144 G DEXTROSE, 682 KCALS. REPLETE LYTES NEEDED. CHECK TRIGLYCERIDES. DAY 2 (07/01/23): ADVANCE TPN TO MAX GOAL RATE OF 60 ML PER HOUR AND ADD 58 G LIPIDS. 72 G PROTEIN (1.22 G/KG), 216 G DEXTROSE, 1602 TOTAL KCALS (27.2 KCALS/KG). REPLETE LYTES NEEDED. FOLLOW FOR TPN TOLERANCE AND POSSIBLE DIET ADVANCEMENT.
[2023-06-30] MEDS: Atorvastatin Calcium 40 MG TABLET PO (10:25)
[2023-06-30] MEDS: ondansetron HCL 4 MG/2 ML VIAL IVPUSH ×2 (10:26→18:00)
[2023-06-30] MEDS: FLUoxetine HCl 20 MG CAPSULE PO (10:26)
[2023-06-30] MEDS: oxyCODONE HCl Immed Release 5 MG TABLET PO (10:26)
--- NOTE | 2023-06-30 10:50 | HO.PM.IMPN ---
Subjective Subjective Date of Service: 06/30/23 Interval History: seen and evaluated this morning feels little better still having abdominal pain and diarrhea +ve C.Diff colitis Review of Systems Review of Systems: Yes all other systems are reviewed and are negative Physical Exam Vital Signs: Vital Signs: Last Vital Signs Temp 98.5 F 06/30/23 07:29 Pulse 121 H 06/30/23 07:29 Resp 16 06/30/23 07:29 BP 129/77 06/30/23 07:29 Pulse Ox 94 06/30/23 07:29 O2 Del Method Room Air 06/30/23 07:29 O2 Flow Rate 2 06/22/23 09:47 BMI result Body Mass Index 23.8 Const: Other: Constitutional : Awake, interactive, in mild distress with pain Neck : Normal inspection, Supple Cardiovascular : RRR, no JVP, no lower extremity edema Respiratory : fair bilateral air entry, no crackles Gastrointestinal: guarded, decreased bowel sounds, NG tube in place, tenderness all over mainly LLQ Skin : Warm, Dry Neurological : Alert & oriented x3, No focal deficit Objective Data Active Medications Atorvastatin Calcium (Atorvastatin Calcium 40 Mg Tablet) 40 mg PO DAILY [facility] Last Admin: 06/30/23 10:25 Dose: 40 mg Documented By: ONEIL Benzocaine (Throat Lozenge, Medicated Lozenge) 1 lozenge MUCOUS MEM Q2H PRN PRN Reason: Sore Throat Calcium Carbonate (Calcium Carbonate 750 Mg Tab.Chew) 750 mg PO Q6H PRN PRN Reason: Heartburn Fluoxetine HCl (Fluoxetine Hcl 20 Mg Capsule) 20 mg PO DAILY [facility] Last Admin: 06/30/23 10:26 Dose: 20 mg Documented By: ONEIL Heparin Sodium (Porcine) (Heparin Sodium,Porcine 5,000 Unit/Ml Vial) 5,000 unit SUBCUT Q8H [facility] Last Admin: 06/30/23 10:23 Dose: 5,000 unit Documented By: ONEIL Lactated Ringer's (Lr) 1,000 mls @ 125 mls/hr IVCONT .Q8H [facility] Last Admin: 06/30/23 06:02 Dose: 125 mls/hr Documented By: AMPARO Metronidazole (Flagyl) 500 mg in 100 mls @ 100 mls/hr IV Q8H [facility] Last Infusion: 06/30/23 09:55 Dose: Infused Documented By: ONEIL Nutrition (Parenteral) (Parenteral Nutrition) 960 mls @ 40 mls/hr IV .Q24H [facility]; Protocol Stop: 07/01/23 20:59 Lorazepam (Lorazepam 2 Mg/Ml Vial) 0.5 mg IVPUSH Q6H PRN PRN Reason: Anxiety Last Admin: 06/29/23 16:44 Dose: 0.5 mg Documented By: AMPARO Magnesium Hydroxide (Milk Of Magnesia 30 Ml Oral.Susp) 30 ml PO DAILY PRN PRN Reason: Constipation Melatonin (Melatonin 3 Mg Tablet) 6 mg PO BEDTIME PRN PRN Reason: Insomnia Morphine Sulfate (Morphine Sulfate 4 Mg/Ml Cartridge) 3 mg IVPUSH Q3H PRN; Protocol PRN Reason: Pain, Severe (Pain Scale 7-10) Last Admin: 06/30/23 08:10 Dose: 3 mg Documented By: ONEIL Omeprazole (Omeprazole 20 Mg Capsule.Dr) 20 mg PO DAILY@0630 [facility] Last Admin: 06/30/23 05:39 Dose: Not Given Documented By: AMPARO Non-Admin Reason: Patient Refused Ondansetron HCl (Ondansetron Hcl 4 Mg/2 Ml Vial) 4 mg IVPUSH Q8H PRN PRN Reason: Nausea and Vomiting Last Admin: 06/30/23 10:26 Dose: 4 mg Documented By: ONEIL Oxycodone HCl (Oxycodone Hcl Immed Release 5 Mg Tablet) 5 mg PO Q4H PRN PRN Reason: Pain, Moderate(Pain Scale 4-6) Last Admin: 06/30/23 10:26 Dose: 5 mg Documented By: ONEIL Pharmacy Consult (Consult Rx Parenteral Nutrition Ordering) 1 each MISCELLANE DAILY PRN PRN Reason: Consult order Polyethylene Glycol (Polyethylene Glycol 3350 17 Gm Powd.Pack) 17 gm PO DAILY PRN PRN Reason: Constipation Promethazine HCl (Promethazine Hcl 25 Mg Tablet) 25 mg PO Q4H PRN PRN Reason: Nausea and Vomiting Last Admin: 06/29/23 16:43 Dose: 25 mg Documented By: AMPARO Sodium Chloride (0.9 % Sodium Chloride Flush 3 Ml Syringe) 3 ml IVFLUSH QSHIFT [facility] Last Admin: 06/30/23 08:04 Dose: Not Given Documented By: ONEIL Non-Admin Reason: IV Running Vancomycin HCl (Vancomycin Hcl Oral Solution 125 Mg/5 Ml Soln.Recon) 125 mg PO Q6H [facility] Last Admin: 06/30/23 10:24 Dose: 125 mg Documented By: ONEIL Zolpidem Tartrate (Zolpidem Tartrate 5 Mg Tablet) 5 mg PO BEDTIME PRN PRN Reason: Sleep Labs 06/30/23 06:09 06/30/23 06:09 Labs: Laboratory Results - last 24 hr 06/29/23 06/29/23 06/29/23 10:49 12:50 13:57 MCV MCH MCHC RDW Plt Count MPV Absolute Nucleated RBC Nucleated RBC % (auto) Anion Gap 19 Estim Creat Clear Calc 53.7 Estimated GFR > 60 Random Glucose 147 H Lactic Acid F/U @ 2Hr 1.4 Calcium 7.8 L Phosphorus 3.7 Magnesium 1.7 Total Bilirubin 1.5 H AST 20 ALT 8 Alkaline Phosphatase 101 Total Protein 5.1 L Albumin 2.4 L C. difficile Tox B Gene POSITIVE A* C. difficile Toxin A&B Positive A* C. difficile Interpret SEE NOTE 06/30/23 06/30/23 06/30/23 06:09 06:09 06:09 MCV 85.2 MCH 29.1 MCHC 34.1 RDW 13.0 Plt Count 270 D MPV 8.7 L Absolute Nucleated RBC 0.000 Nucleated RBC % (auto) 0.0 Anion Gap 15 15 Estim Creat Clear Calc 43.8 45.1 Estimated GFR 52 Random Glucose Lactic Acid F/U @ 2Hr Calcium Phosphorus Magnesium Total Bilirubin AST ALT Alkaline Phosphatase Total Protein Albumin C. difficile Tox B Gene C. difficile Toxin A&B C. difficile Interpret 06/30/23 06/30/23 06/30/23 06:09 06:09 06:09 MCV MCH MCHC RDW Plt Count MPV Absolute Nucleated RBC Nucleated RBC % (auto) Anion Gap Estim Creat Clear Calc Estimated GFR 53 Random Glucose 130 H 128 H Lactic Acid F/U @ 2Hr Calcium 7.6 L 7.6 L Phosphorus 2.8 Magnesium 1.7 Total Bilirubin 1.3 H AST 33 H ALT 15 Alkaline Phosphatase 80 Total Protein 5.0 L Albumin 3.1 L C. difficile Tox B Gene C. difficile Toxin A&B C. difficile Interpret Microbiology Microbiology Results: Microbiology 06/29/23 08:30 Blood Culture - Preliminary Blood - Venous No growth after 24 hours. 06/29/23 08:30 Blood Culture - Preliminary Blood - Venous No growth after 24 hours. Assessment and Plan (1) Clostridium difficile colitis: Status: Acute (2) Sepsis: Status: Acute Plan Patient is 58-year-old female with PMH significant for HLD, HTN, diverticulitis, and mood disorder who was admitted to the hospital under general surgery services for reversal of ileostomy. 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 Hospitalist consultation for hypertension. Abdominal pain and diarrhea 2/2 Sepsis from C.Diff colitis WBCs trending down Pending blood cultures Continue NG Vancomycin 125 mg q6 and IV Flagy reflux tachycardia from dehydration continue IVF Post Ileostomy reversal Plan per General surgery HTN Hold on medications for now given stress from pain and infection Will monitor while inpatient HLD Continue statin Mood disorder Continue fluoxetine Thank you for allowing us to participate in the care of this patient. Will continue to follow along with you as needed Quality Stroke Does the patient have a stroke diagnosis?: No VTE Prior VTE?: No VTE Risk Level:: Medical - moderate - high VTE Device Contraindication: N/A - Device Ordered VTE Drug Contraindication: N/A - Med Ordered
[2023-06-30] MEDS: 0.9 % Sodium Chloride 1,000 ML 999 ML IV (11:47)
--- NOTE | 2023-06-30 14:20 | MHC.CM.PN ---
EMR reviewed. Patient awaiting PICC plcment for TPN. Per surgical PA, will not need on dc. CM will continue to follow.
--- NOTE | 2023-06-30 16:24 | PM.EVENT ---
Event Note Date of Service: 07/01/23 Event Note: Remains distended but soft Continues to have pain Has loose stools and flatus I have reviewed her KUB - dilated bowel loops the upper abdomen We will keep NG tube in place Pain management Continue nahun and Mary Encouraged to get out of bed Time Spent With Patient Time: Total time managing care of this patient today ____ minutes.
--- NOTE | 2023-06-30 17:46 | HO.PICC ---
[facility] Diagnosis: colovaginal fistula s/p ileostomy reversal Indication: TPN Pertinent Labs: reviewed Technique: Following informed consent including risks, benefits and alternatives and using sterile technique including cap and mask, sterile gown, glove and drape, the right arm was prepped and draped in the usual sterile fashion of full barrier technique with CHG. Following completion of [place] Protocol the skin and soft tissues were anesthetized with 1% Lidocaine plain. Using ultrasound guidance, right basilic vein access was obtained. Over an 0.018 wire through peel-away sheath, a 5fr triple lumen PASV PICC line was positioned. Catheter length is 38cm internal length, 0cm external length, for a total trimmed length of 38cm. The procedure was performed in [facility]. Tip verification was performed by Contreras Nichole with Sherlock 3CG. Tip located in SVC. Ultrasound was used to document vein patency and for needle entry. A formal ultrasound picture and cardiac rhythm strip was recorded. Vascular Resource Management Specialist has released the line for use and it is currently dressed with a StatLock, Tegaderm, and CHG disc. Verification has been performed for blood return and line patency. Arm Circumference: 23 cm Equipment: RedKLEVER PowerPICC SOLO HF catheter with Sherlock 3CG tip Catheter Type: 5FR triple lumen PASV catheter Lot #: [id number]
--- NOTE | 2023-06-30 18:25 | PC.NURSE ---
Pt sleeping most of day. Ambulated to BR a few times today to void and with liquid stools. Pt refused to sit up in chair or wear sequentials. States I just feel crappy . Medicated twice with zofran for nausea and with morphine for abdominal pain with some effect. NGT draining clear light yellow. PICC placed this evening to right arm.
[2023-06-30] MEDS: Parenteral Nutrition 960 ML 40 ML IV (20:15)
[2023-06-30] MEDS: 0.9 % Sodium Chloride Flush 10 ML SYRINGE 5 ML IVFLUSH (20:18)
[2023-06-30] MEDS: 0.9 % Sodium Chloride Flush 3 ML SYRINGE IVFLUSH (20:29)
[2023-06-30] MEDS: LORazepam 2 MG/ML VIAL 0.5 MG IVPUSH (20:29)
[2023-07-01] VITALS (9 sets, daily range): BP systolic 115–140; BP diastolic 72–86; PULSE 107–136; RESP 13–19; TEMP 36–37.1; O2SAT 93–96
[2023-07-01] MEDS: Lactated Ringers 1,000 ML 125 ML IVCONT (00:51)
[2023-07-01] MEDS: Acetaminophen 1,000 MG/100 ML PIGGYBACK 400 MG IV ×2 (02:00→09:03)
[2023-07-01] MEDS: Heparin Sodium,Porcine 5,000 UNIT/ML VIAL 5000 UNIT SUBCUT ×3 (02:02→16:58)
[2023-07-01] MEDS: Morphine Sulfate 4 MG/ML CARTRIDGE 3 MG IVPUSH ×4 (02:06→20:07)
--- NOTE | 2023-07-01 03:26 | PC.NURSE ---
Pt's HR went up to 167 at 0055 and then 164 at 0104. Pt resting quietly in bed and asymptomatic. Dr. Edy whitlock.
[2023-07-01] MEDS: vancomycin HCL Oral Solution 125 MG/5 ML SOLN.RECON PO ×4 (03:35→21:39)
[2023-07-01 06:50] LABS: Hematocrit 31.7 % (37.0-47.0); Hemoglobin 10.5 g/dl (12.0-16.0); Mean Corpuscular HGB Conc 33.1 g/dl (31.0-35.0); Mean Corpuscular Hemoglobin 28.8 pg (27.0-33.0); Mean Corpuscular Volume 86.8 fL (80.0-98.0); Platelet Count 259 X10*3/uL (160-400); Red Blood Count 3.65 X10*6/uL (4.20-5.50); Red Cell Distribution Width 13.3 % (11.0-16.0); White Blood Count 6.7 X10*3/uL (4.8-10.8)
[2023-07-01 07:18] LABS: Albumin Level 2.4 g/dL (3.5-5.0); Anion Gap 13 (12-20); Blood Urea Nitrogen 34 mg/dL (9-16); Calcium 7.3 mg/dL (8.4-10.2); Carbon Dioxide 24 mmol/L (22-29); Chloride 106 mmol/L (96-108); Creatinine Clr Calc Pharmacy 68.5; Estimated Glomerular Filt Rate > 60; Glucose Random 144 mg/dL (60-115); Potassium 2.9 mmol/L (3.3-5.1); Sodium 140 mmol/L (135-145)
--- NOTE | 2023-07-01 07:35 | PM.PNGS ---
Subjective Subjective Date of Service: 07/01/23 <Kianna Shankar PA-C - Last Filed: 07/01/23 07:41> 07/01/23 <Arvind Clayton MD - Last Filed: 07/01/23 07:59> Interval history: Still generally feels unwell but a little better, less nausea. Continues to pass flatus and liquid BM. OOB to commode. <Kianna Shankar PA-C - Last Filed: 07/01/23 07:41> Physical Exam Vital Signs: Vital Signs: Last Vital Signs Temp 97.3 F 07/01/23 03:38 Pulse 126 H 07/01/23 03:38 Resp 16 07/01/23 03:38 BP 120/72 07/01/23 03:38 Pulse Ox 94 07/01/23 03:38 O2 Del Method Room Air 07/01/23 03:38 O2 Flow Rate 2 06/22/23 09:47 BMI result Body Mass Index 23.8 <Kianna Shankar PA-C - Last Filed: 07/01/23 07:41> Const: General: alert <Kianna Shankar PA-C - Last Filed: 07/01/23 07:41> Orientation/consciousness: patient oriented x3 <SUSHMA Farrell Last Filed: 07/01/23 07:41> HEENT: Other: NGT with scant clear drainage <Kianna Shankar PA-C - Last Filed: 07/01/23 07:41> Resp: Effort & Inspection: normal respiratory effort <Kianna Shankar PA-C - Last Filed: 07/01/23 07:41> GI: Other: remains significantly distended and tympanitic incision clean <SUSHMA Farrell Last Filed: 07/01/23 07:41> Skin: General skin exam: no rashes or lesions noted <SUSHMA Farrell Last Filed: 07/01/23 07:41> Neuro: General: patient oriented x3 and moves all extremities <SUSHMA Farrell Last Filed: 07/01/23 07:41> Objective Data Active Medications Atorvastatin Calcium (Atorvastatin Calcium 40 Mg Tablet) 40 mg PO DAILY [facility] Last Admin: 06/30/23 10:25 Dose: 40 mg Documented By: ONEIL Benzocaine (Throat Lozenge, Medicated Lozenge) 1 lozenge MUCOUS MEM Q2H PRN PRN Reason: Sore Throat Calcium Carbonate (Calcium Carbonate 750 Mg Tab.Chew) 750 mg PO Q6H PRN PRN Reason: Heartburn Fluoxetine HCl (Fluoxetine Hcl 20 Mg Capsule) 20 mg PO DAILY [facility] Last Admin: 06/30/23 10:26 Dose: 20 mg Documented By: ONEIL Heparin Sodium (Porcine) (Heparin Sodium,Porcine 5,000 Unit/Ml Vial) 5,000 unit SUBCUT Q8H [facility] Last Admin: 07/01/23 02:02 Dose: 5,000 unit Documented By: AMPARO Metronidazole (Flagyl) 500 mg in 100 mls @ 100 mls/hr IV Q8H [facility] Last Infusion: 07/01/23 00:22 Dose: Infused Documented By: AMPARO Nutrition (Parenteral) (Parenteral Nutrition) 960 mls @ 40 mls/hr IV .Q24H [facility]; Protocol Stop: 07/01/23 20:59 Last Admin: 06/30/23 20:15 Dose: 40 mls/hr Documented By: AMPARO Acetaminophen (Ofirmev) 1,000 mg in 100 mls @ 400 mls/hr IV Q6H [facility] Stop: 07/01/23 08:14 Last Infusion: 07/01/23 02:15 Dose: Infused Documented By: AMPARO Potassium Cl/Dextrose/Lact Ringer's (Kcl 20 Meq In 5 % Dex/Lact Rin) 20 meq in 1,000 mls @ 125 mls/hr IVCONT .Q8H [facility] Potassium Chloride (Potassium Chloride/H20) 10 meq in 100 mls @ 100 mls/hr IV Q1H [facility] Stop: 07/01/23 09:29 Lorazepam (Lorazepam 2 Mg/Ml Vial) 0.5 mg IVPUSH Q6H PRN PRN Reason: Anxiety Last Admin: 06/30/23 20:29 Dose: 0.5 mg Documented By: AMPARO Melatonin (Melatonin 3 Mg Tablet) 6 mg PO BEDTIME PRN PRN Reason: Insomnia Morphine Sulfate (Morphine Sulfate 4 Mg/Ml Cartridge) 3 mg IVPUSH Q3H [facility]; Protocol PRN Reason: Pain, Severe (Pain Scale 7-10) Last Admin: 07/01/23 02:06 Dose: 3 mg Documented By: AMPARO Omeprazole (Omeprazole 20 Mg Capsule.Dr) 20 mg PO DAILY@0630 [facility] Last Admin: 07/01/23 05:35 Dose: Not Given Documented By: AMPARO Non-Admin Reason: Patient Refused Ondansetron HCl (Ondansetron Hcl 4 Mg/2 Ml Vial) 4 mg IVPUSH Q8H PRN PRN Reason: Nausea and Vomiting Last Admin: 06/30/23 18:00 Dose: 4 mg Documented By: ONEIL Oxycodone HCl (Oxycodone Hcl Immed Release 5 Mg Tablet) 5 mg PO Q4H PRN PRN Reason: Pain, Moderate(Pain Scale 4-6) Last Admin: 06/30/23 10:26 Dose: 5 mg Documented By: ONEIL Pharmacy Consult (Consult Rx Parenteral Nutrition Ordering) 1 each MISCELLANE DAILY PRN PRN Reason: Consult order Polyethylene Glycol (Polyethylene Glycol 3350 17 Gm Powd.Pack) 17 gm PO DAILY PRN PRN Reason: Constipation Promethazine HCl (Promethazine Hcl 25 Mg Tablet) 25 mg PO Q4H PRN PRN Reason: Nausea and Vomiting Last Admin: 06/29/23 16:43 Dose: 25 mg Documented By: AMPRAO Sodium Chloride (0.9 % Sodium Chloride Flush 3 Ml Syringe) 3 ml IVFLUSH QSHIFT [facility] Last Admin: 06/30/23 20:29 Dose: 3 ml Documented By: AMPARO Sodium Chloride (0.9 % Sodium Chloride Flush 10 Ml Syringe) 5 ml IVFLUSH TID [facility] Last Admin: 06/30/23 20:18 Dose: 5 ml Documented By: AMPARO Vancomycin HCl (Vancomycin Hcl Oral Solution 125 Mg/5 Ml Soln.Recon) 125 mg PO Q6H [facility] Last Admin: 07/01/23 03:35 Dose: 125 mg Documented By: AMPARO Zolpidem Tartrate (Zolpidem Tartrate 5 Mg Tablet) 5 mg PO BEDTIME PRN PRN Reason: Sleep <Kianna Shankar PA-C - Last Filed: 07/01/23 07:41> Labs CBC & Chem 7: 07/01/23 05:52 07/01/23 05:52 <Kianna Shankar PA-C - Last Filed: 07/01/23 07:41> Labs: Laboratory Results - last 24 hr 07/01/23 05:52 MCV 86.8 MCH 28.8 MCHC 33.1 RDW 13.3 Plt Count 259 MPV 9.0 L Absolute Nucleated RBC 0.000 Nucleated RBC % (auto) 0.0 Anion Gap 13 Estim Creat Clear Calc 68.5 Estimated GFR > 60 Random Glucose 144 H Calcium 7.3 L Albumin 2.4 L <Kianna Shankar PA-C - Last Filed: 07/01/23 07:41> Microbiology Microbiology Results: Microbiology 06/29/23 08:30 Blood Culture - Preliminary Blood - Venous No growth after 24 hours. 06/29/23 08:30 Blood Culture - Preliminary Blood - Venous No growth after 24 hours. <Kianna Shankar PA-C - Last Filed: 07/01/23 07:41> Procedures Date of Service Date of Service: 07/01/23 <Kianna Shankar PA-C - Last Filed: 07/01/23 07:41> 07/01/23 <Arvind Clayton MD - Last Filed: 07/01/23 07:59> Progress Note: A&P Assessment and plan (1) Sepsis: Status: Acute <Kianna Shankar PA-C - Last Filed: 07/01/23 07:41> (2) Clostridium difficile colitis: Status: Acute <Kianna Shankar PA-C - Last Filed: 07/01/23 07:41> (3) Status post reversal of ileostomy: Status: Acute <Kianna Shankar PA-C - Last Filed: 07/01/23 07:41> Assessment and Plan: Remains distended Overall, she feels better Passing flatus and loose stools Vanco and Flagyl Replace potassium On TPN Encouraged to ambulate Review of records show she had been on beta blockers last year - in need to be restarted Creatinine improving updated regularly Seen and examined independently <Arvind Clayton MD - Last Filed: 07/01/23 07:59> Assessment and Plan: Status post reversal of ileostomy with abdominal pain and distention C diff test positive, started on vanco and Flagyl WBC now normalized but remains significantly distended, KUB yesterday, cont NGT Kidney function improved PICC line and TPN Encouraged to get out of bed at least to recliner today <Kianna Shankar PA-C - Last Filed: 07/01/23 07:41> Time Spent With Patient Time: Total time managing care of this patient today ____ minutes. <Kianna Shankar PA-C - Last Filed: 07/01/23 07:41> Quality Stroke Does the patient have a stroke diagnosis?: No <Kianna Shankar PA-C - Last Filed: 07/01/23 07:41> VTE Prior VTE?: No <Kianna Shankar PA-C - Last Filed: 07/01/23 07:41> VTE Risk Level:: Medical - moderate - high <SUSHMA Farrell Last Filed: 07/01/23 07:41> VTE Device Contraindication: N/A - Device Ordered <Kianna Shankar PA-C - Last Filed: 07/01/23 07:41> VTE Drug Contraindication: N/A - Med Ordered <Kianna Shankar PA-C - Last Filed: 07/01/23 07:41>
[2023-07-01 08:27] LABS: Magnesium 1.7 mg/dL (1.6-2.6); Phosphorus 1.9 mg/dL (2.7-4.5)
[2023-07-01] MEDS: 0.9 % Sodium Chloride Flush 3 ML SYRINGE IVFLUSH ×3 (09:05→21:28)
[2023-07-01] MEDS: 0.9 % Sodium Chloride Flush 10 ML SYRINGE 5 ML IVFLUSH ×3 (09:05→21:28)
[2023-07-01] MEDS: ondansetron HCL 4 MG/2 ML VIAL IVPUSH ×2 (09:07→20:06)
[2023-07-01] MEDS: Potassium Chloride/H20 10 MEQ/100 ML PIGGYBACK 100 MEQ IV ×2 (09:11→10:30)
[2023-07-01] MEDS: FLUoxetine HCl 20 MG CAPSULE PO (09:15)
[2023-07-01] MEDS: Atorvastatin Calcium 40 MG TABLET PO (09:15)
[2023-07-01] MEDS: metroNIDAZOLE/NS 500 MG/100 ML PIGGYBACK 100 MG IV ×2 (09:22→15:48)
--- NOTE | 2023-07-01 10:55 | MHC.CLN ---
F/U REVIEWED LABS NOTED C-DIFF + DISCUSSED WITH PHARMACY PICC LINE PLACED AND CONFIRMED ADVANCE TPN TO RATE OF 60 ML PER HOUR TO PROVIDE 1022KCALS, 72 G PROTEIN (1.22 G/KG), 216 G DEXTROSE CHECK TRIGS REPLETE LYTES NEEDED PLAN TO ADD LIPIDS TOMORROW
[2023-07-01 12:08] LABS: Triglycerides 83 mg/dL (<150)
--- NOTE | 2023-07-01 15:06 | P.PNIM_ITS ---
Subjective Subjective Date of Service: 07/01/23 Interval History: Offers no acute complaints, NPO denies nausea, no vomiting, passing flatus, and loose stool, no fevers, no chills ,no acute issues overnight, denies chest pain, feel intermittent palpitations, no shortness of breath. Review of Systems All other system reviewed and negative Physical Exam 2 Vital Signs: Vital Signs: Last Vital Signs Temp 96.8 F 07/01/23 12:00 Pulse 124 H 07/01/23 12:00 Resp 16 07/01/23 12:00 BP 115/80 07/01/23 12:00 Pulse Ox 96 07/01/23 12:00 O2 Del Method Room Air 07/01/23 12:00 O2 Flow Rate 2 06/22/23 09:47 BMI result Body Mass Index 23.8 Const: Other: Constitutional : Awake, alert in no acute distress Neck : Normal inspection, Supple Cardiovascular : RRR, Respiratory : Clear to auscultation, no crackles Gastrointestinal: Distended, tympanic, NG tube in place scant clear drainage Skin : Warm, Dry Extremities bilateral lower extremity edema Neurological : Alert & oriented x3, No focal deficit Appropriate affect Objective Data Active Medications Atorvastatin Calcium (Atorvastatin Calcium 40 Mg Tablet) 40 mg PO DAILY [facility] Last Admin: 07/01/23 09:15 Dose: 40 mg Documented By: COTEMA Benzocaine (Throat Lozenge, Medicated Lozenge) 1 lozenge MUCOUS MEM Q2H PRN PRN Reason: Sore Throat Calcium Carbonate (Calcium Carbonate 750 Mg Tab.Chew) 750 mg PO Q6H PRN PRN Reason: Heartburn Fluoxetine HCl (Fluoxetine Hcl 20 Mg Capsule) 20 mg PO DAILY [facility] Last Admin: 07/01/23 09:15 Dose: 20 mg Documented By: JOSE RAFAEL.COTEMA Heparin Sodium (Porcine) (Heparin Sodium,Porcine 5,000 Unit/Ml Vial) 5,000 unit SUBCUT Q8H [facility] Last Admin: 07/01/23 09:15 Dose: 5,000 unit Documented By: COTEMA Metronidazole (Flagyl) 500 mg in 100 mls @ 100 mls/hr IV Q8H [facility] Last Infusion: 07/01/23 10:31 Dose: Infused Documented By: COTEMA Nutrition (Parenteral) (Parenteral Nutrition) 960 mls @ 40 mls/hr IV .Q24H [facility]; Protocol Stop: 07/01/23 20:59 Last Admin: 06/30/23 20:15 Dose: 40 mls/hr Documented By: AMPARO Nutrition (Parenteral) (Parenteral Nutrition) 1,440 mls @ 60 mls/hr IV .Q24H [facility]; Protocol Stop: 07/02/23 20:59 Lorazepam (Lorazepam 2 Mg/Ml Vial) 0.5 mg IVPUSH Q6H PRN PRN Reason: Anxiety Last Admin: 06/30/23 20:29 Dose: 0.5 mg Documented By: AMPARO Melatonin (Melatonin 3 Mg Tablet) 6 mg PO BEDTIME PRN PRN Reason: Insomnia Morphine Sulfate (Morphine Sulfate 4 Mg/Ml Cartridge) 3 mg IVPUSH Q3H [facility]; Protocol PRN Reason: Pain, Severe (Pain Scale 7-10) Last Admin: 07/01/23 09:07 Dose: 3 mg Documented By: COTFLORIN Omeprazole (Omeprazole 20 Mg Capsule.Dr) 20 mg PO DAILY@0630 [facility] Last Admin: 07/01/23 05:35 Dose: Not Given Documented By: AMPARO Non-Admin Reason: Patient Refused Ondansetron HCl (Ondansetron Hcl 4 Mg/2 Ml Vial) 4 mg IVPUSH Q8H PRN PRN Reason: Nausea and Vomiting Last Admin: 07/01/23 09:07 Dose: 4 mg Documented By: HAMILTON Oxycodone HCl (Oxycodone Hcl Immed Release 5 Mg Tablet) 5 mg PO Q4H PRN PRN Reason: Pain, Moderate(Pain Scale 4-6) Last Admin: 06/30/23 10:26 Dose: 5 mg Documented By: ONEIL Pharmacy Consult (Consult Rx Parenteral Nutrition Ordering) 1 each MISCELLANE DAILY PRN PRN Reason: Consult order Polyethylene Glycol (Polyethylene Glycol 3350 17 Gm Powd.Pack) 17 gm PO DAILY PRN PRN Reason: Constipation Promethazine HCl (Promethazine Hcl 25 Mg Tablet) 25 mg PO Q4H PRN PRN Reason: Nausea and Vomiting Last Admin: 06/29/23 16:43 Dose: 25 mg Documented By: AMPARO Sodium Chloride (0.9 % Sodium Chloride Flush 3 Ml Syringe) 3 ml IVFLUSH [facility] Last Admin: 07/01/23 09:05 Dose: 3 ml Documented By: COTEMA Sodium Chloride (0.9 % Sodium Chloride Flush 10 Ml Syringe) 5 ml IVFLUSH TID [facility] Last Admin: 07/01/23 09:05 Dose: 5 ml Documented By: COTEMA Vancomycin HCl (Vancomycin Hcl Oral Solution 125 Mg/5 Ml Soln.Recon) 125 mg PO Q6H [facility] Last Admin: 07/01/23 09:15 Dose: 125 mg Documented By: COTEMA Zolpidem Tartrate (Zolpidem Tartrate 5 Mg Tablet) 5 mg PO BEDTIME PRN PRN Reason: Sleep Labs 07/01/23 05:52 07/01/23 05:52 Labs: Laboratory Results - last 24 hr 07/01/23 07/01/23 05:52 11:41 MCV 86.8 MCH 28.8 MCHC 33.1 RDW 13.3 Plt Count 259 MPV 9.0 L Absolute Nucleated RBC 0.000 Nucleated RBC % (auto) 0.0 Anion Gap 13 Estim Creat Clear Calc 68.5 Estimated GFR > 60 Random Glucose 144 H Calcium 7.3 L Phosphorus 1.9 L Magnesium 1.7 Albumin 2.4 L Triglycerides 83 Microbiology Microbiology Results: Microbiology 06/29/23 08:30 Blood Culture - Preliminary Blood - Venous No growth after 48 hours. 06/29/23 08:30 Blood Culture - Preliminary Blood - Venous No growth after 48 hours. Assessment and Plan (1) Clostridium difficile colitis: Status: Acute (2) Sepsis: Status: Acute Plan Patient is 58-year-old female with PMH significant for HLD, HTN, diverticulitis, and mood disorder who was admitted to the hospital under general surgery services for reversal of ileostomy. 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 Hospitalist consultation for hypertension. Abdominal pain and diarrhea 2/2 Sepsis from C.Diff colitis WBCs normalized, no fevers, stable renal function blood cultures no growth times 48 hours Continue NG Vancomycin 125 mg q6 and IV Flagyl tachycardia previously was on beta-blockers, were discontinued due to improved blood pressures, TSH 2.61 dc IVF appears fluid overloaded Continue TPN as per General surgery Hypokalemia Likely due to GI loss will replete and follow labs Post Ileostomy reversal Plan per General surgery HTN Not on antihypertensive, previously was on atenolol that was discontinued by PCP due to stable blood pressures Will resume low-dose metoprolol 12.5 mg b.i.d. follow BP closely HLD Hold statins while having diarrhea. Mood disorder Continue fluoxetine Will continue to follow along with you to monitor electrolyte abnormality and tachycardia Quality Stroke Does the patient have a stroke diagnosis?: No VTE Prior VTE?: No VTE Risk Level:: Medical - moderate - high VTE Device Contraindication: N/A - Device Ordered VTE Drug Contraindication: N/A - Med Ordered
[2023-07-01] MEDS: Metoprolol Tartrate 12.5 MG HALFTAB PO ×2 (15:47→20:07)
[2023-07-01] MEDS: Promethazine HCL 25 MG TABLET PO (15:47)
[2023-07-01] MEDS: Potassium Chloride ER 20 MEQ TAB.ER.PRT PO (15:47)
[2023-07-01] MEDS: LORazepam 2 MG/ML VIAL 0.5 MG IVPUSH ×2 (15:48→21:29)
--- NOTE | 2023-07-01 16:21 | PM.EVENT ---
Event Note Date of Service: 07/02/23 Event Note: Still with distention Pain however better Continues to have loose stools and passing flatus She is asking to have the NG tube removed Abdomen distended but benign She was able to get out of bed and sit on the recliner today Hopefully we can DC the NG tube tomorrow Continue vanco and Flagyl TPN Encourage ambulation Appreciate ffup by hospitalist Time Spent With Patient Time: Total time managing care of this patient today ____ minutes.
[2023-07-01] MEDS: Parenteral Nutrition 1,440 ML 60 ML IV (21:22)
[2023-07-02] MEDS: Morphine Sulfate 4 MG/ML CARTRIDGE 3 MG IVPUSH ×3 (00:53→08:47)
[2023-07-02] MEDS: metroNIDAZOLE/NS 500 MG/100 ML PIGGYBACK 100 MG IV ×3 (00:54→15:49)
[2023-07-02] MEDS: Heparin Sodium,Porcine 5,000 UNIT/ML VIAL 5000 UNIT SUBCUT ×3 (01:01→17:32)
[2023-07-02 03:20] VITALS: BP 118/79; PULSE 116; RESP 18; TEMP 37.2; O2SAT 94
[2023-07-02] MEDS: vancomycin HCL Oral Solution 125 MG/5 ML SOLN.RECON PO ×4 (03:20→21:03)
[2023-07-02 07:36] LABS: Alanine Aminotransferase 16 U/L (0-31); Albumin Level 2.4 g/dL (3.5-5.0); Alkaline Phosphatase 99 U/L (39-117); Anion Gap 11 (12-20); Aspartate Amino Transferase 31 U/L (5-31); Bilirubin Total 0.6 mg/dL (0.0-1.0); Blood Urea Nitrogen 27 mg/dL (9-16); Calcium 7.8 mg/dL (8.4-10.2); Carbon Dioxide 26 mmol/L (22-29); Chloride 107 mmol/L (96-108); Creatinine Clr Calc Pharmacy 71.7; Estimated Glomerular Filt Rate > 60; Glucose Random 145 mg/dL (60-115); Magnesium 1.9 mg/dL (1.6-2.6); Phosphorus 1.5 mg/dL (2.7-4.5); Sodium 140 mmol/L (135-145); Total Protein 4.8 g/dL (6.5-8.0)
[2023-07-02 07:40] VITALS: BP 133/87; PULSE 120; RESP 14; TEMP 36.6; O2SAT 96
[2023-07-02 07:52] LABS: Potassium 3.5 mmol/L (3.3-5.1)
--- NOTE | 2023-07-02 08:42 | PM.PNGS ---
Subjective Subjective Date of Service: 07/05/23 Interval history: Continues to have loose stools Feels better with regards to pain Remains distended Physical Exam Vital Signs: Vital Signs: Last Vital Signs Temp 97.8 F 07/02/23 07:40 Pulse 120 H 07/02/23 07:40 Resp 14 07/02/23 07:40 BP 133/87 07/02/23 07:40 Pulse Ox 96 07/02/23 07:40 O2 Del Method Room Air 07/02/23 07:40 O2 Flow Rate 2 06/22/23 09:47 BMI result Body Mass Index 23.8 Const: Other: Appears anxious Resp: Effort & Inspection: normal respiratory effort GI: Other: Distended, soft, incision clean and dry Palpation (GI): no guarding Objective Data Active Medications Benzocaine (Throat Lozenge, Medicated Lozenge) 1 lozenge MUCOUS MEM Q2H PRN PRN Reason: Sore Throat Calcium Carbonate (Calcium Carbonate 750 Mg Tab.Chew) 750 mg PO Q6H PRN PRN Reason: Heartburn Fluoxetine HCl (Fluoxetine Hcl 20 Mg Capsule) 20 mg PO DAILY [facility] Last Admin: 07/01/23 09:15 Dose: 20 mg Documented By: HAMILTON Heparin Sodium (Porcine) (Heparin Sodium,Porcine 5,000 Unit/Ml Vial) 5,000 unit SUBCUT Q8H [facility] Last Admin: 07/02/23 01:01 Dose: 5,000 unit Documented By: AMPARO Metronidazole (Flagyl) 500 mg in 100 mls @ 100 mls/hr IV Q8H [facility] Last Infusion: 07/02/23 01:58 Dose: Infused Documented By: AMPARO Nutrition (Parenteral) (Parenteral Nutrition) 1,440 mls @ 60 mls/hr IV .Q24H [facility]; Protocol Stop: 07/02/23 20:59 Last Admin: 07/01/23 21:22 Dose: 60 mls/hr Documented By: AMPARO Lorazepam (Lorazepam 2 Mg/Ml Vial) 0.5 mg IVPUSH Q6H PRN PRN Reason: Anxiety Last Admin: 07/01/23 21:29 Dose: 0.5 mg Documented By: AMPARO Melatonin (Melatonin 3 Mg Tablet) 6 mg PO BEDTIME PRN PRN Reason: Insomnia Metoprolol Tartrate (Metoprolol Tartrate 12.5 Mg Halftab) 12.5 mg PO BID [facility]; Protocol Last Admin: 07/01/23 20:07 Dose: 12.5 mg Documented By: AMPARO Morphine Sulfate (Morphine Sulfate 4 Mg/Ml Cartridge) 3 mg IVPUSH Q3H PRN; Protocol PRN Reason: Pain, Severe (Pain Scale 7-10) Last Admin: 07/02/23 04:28 Dose: 3 mg Documented By: AMPARO Omeprazole (Omeprazole 20 Mg Capsule.Dr) 20 mg PO DAILY@0630 [facility] Last Admin: 07/02/23 06:39 Dose: Not Given Documented By: AMPARO Non-Admin Reason: Patient Refused Ondansetron HCl (Ondansetron Hcl 4 Mg/2 Ml Vial) 4 mg IVPUSH Q8H PRN PRN Reason: Nausea and Vomiting Last Admin: 07/01/23 20:06 Dose: 4 mg Documented By: AMPARO Oxycodone HCl (Oxycodone Hcl Immed Release 5 Mg Tablet) 5 mg PO Q4H PRN PRN Reason: Pain, Moderate(Pain Scale 4-6) Last Admin: 06/30/23 10:26 Dose: 5 mg Documented By: ONEIL Pharmacy Consult (Consult Rx Parenteral Nutrition Ordering) 1 each MISCELLANE DAILY PRN PRN Reason: Consult order Polyethylene Glycol (Polyethylene Glycol 3350 17 Gm Powd.Pack) 17 gm PO DAILY PRN PRN Reason: Constipation Promethazine HCl (Promethazine Hcl 25 Mg Tablet) 25 mg PO Q4H PRN PRN Reason: Nausea and Vomiting Last Admin: 07/01/23 15:47 Dose: 25 mg Documented By: HAMILTON Sodium Chloride (0.9 % Sodium Chloride Flush 3 Ml Syringe) 3 ml IVFLUSH QSHIFT [facility] Last Admin: 07/01/23 21:28 Dose: 3 ml Documented By: AMPARO Sodium Chloride (0.9 % Sodium Chloride Flush 10 Ml Syringe) 5 ml IVFLUSH TID [facility] Last Admin: 07/01/23 21:28 Dose: 5 ml Documented By: AMPARO Vancomycin HCl (Vancomycin Hcl Oral Solution 125 Mg/5 Ml Soln.Recon) 125 mg PO Q6H [facility] Last Admin: 07/02/23 03:20 Dose: 125 mg Documented By: MAYLINQC Zolpidem Tartrate (Zolpidem Tartrate 5 Mg Tablet) 5 mg PO BEDTIME PRN PRN Reason: Sleep Labs 07/01/23 05:52 07/05/23 05:14 Labs: Laboratory Results - last 24 hr 07/01/23 07/02/23 11:41 05:35 Hold Purple Top SEE NOTE Anion Gap 11 L Estim Creat Clear Calc 71.7 Estimated GFR > 60 Random Glucose 145 H Calcium 7.8 L D Phosphorus 1.5 L Magnesium 1.9 Total Bilirubin 0.6 AST 31 ALT 16 Alkaline Phosphatase 99 Total Protein 4.8 L Albumin 2.4 L Triglycerides 83 Microbiology Microbiology Results: Microbiology 06/29/23 08:30 Blood Culture - Preliminary Blood - Venous No growth after 48 hours. 06/29/23 08:30 Blood Culture - Preliminary Blood - Venous No growth after 48 hours. Procedures Date of Service Date of Service: 07/05/23 Progress Note: A&P Assessment and plan (1) Clostridium difficile colitis: Status: Acute Assessment and Plan: Still with loose stools, flatus Abdomen remains distended but softer Less pain BUN and creatinine much better, potassium now normal Will DC NG tube Keep on ice chips, small sips Vanco p.o. and Flagyl Encouraged to get out of bed more TPN Decrease narcotic intake Time Spent With Patient Time: Total time managing care of this patient today ____ minutes. Quality Stroke Does the patient have a stroke diagnosis?: No VTE Prior VTE?: No VTE Risk Level:: Medical - moderate - high VTE Device Contraindication: N/A - Device Ordered VTE Drug Contraindication: N/A - Med Ordered
[2023-07-02] MEDS: Metoprolol Tartrate 12.5 MG HALFTAB PO (08:47)
[2023-07-02] MEDS: FLUoxetine HCl 20 MG CAPSULE PO (08:47)
[2023-07-02] MEDS: 0.9 % Sodium Chloride Flush 3 ML SYRINGE IVFLUSH (08:47)
[2023-07-02] MEDS: ondansetron HCL 4 MG/2 ML VIAL IVPUSH ×2 (08:47→17:32)
[2023-07-02] MEDS: 0.9 % Sodium Chloride Flush 10 ML SYRINGE 5 ML IVFLUSH ×2 (08:48→15:51)
--- NOTE | 2023-07-02 10:28 | MHC.CM.PN ---
EMR REVIEWED. PATIENT NOT MEDICALLY CLEARED FOR DC AT THIS TIME, STILL REQUIRING TPN. PER SURGERY, NOT PLANNED TO GO HOME W/ TPN. HOWEVER, REFERRAL IS IN TO [facility] IF NEEDED. CM WILL CONTINUE TO FOLLOW.
--- NOTE | 2023-07-02 10:30 | MHC.CLN ---
F/U NPO SINCE 06/28/23. S/P REVERSAL OF ILEOSTOMY. NOW WITH C-DIFF. UNABLE TO OBTAIN ADEQUATE NUTRITION VIA PO. PATIENT RECEIVING TPN. REVIEWED LABS. COMMUNICATED WITH PHARMACY. RECOMMEND ADD LIPIDS TODAY FOR TPN AT MAX GOAL: TPN AT 60 ML PER HOUR AND ADD 58 G LIPIDS. 72 G PROTEIN (1.22 G/KG), 216 G DEXTROSE, 1602 TOTAL KCALS (27.2 KCALS/KG). REPLETE LYTES NEEDED. FOLLOW FOR TPN TOLERANCE AND POSSIBLE DIET ADVANCEMENT.
[2023-07-02] MEDS: Acetaminophen 1,000 MG/100 ML PIGGYBACK 400 MG IV ×3 (10:34→20:47)
[2023-07-02 12:00] VITALS: BP 127/77; PULSE 112; RESP 16; TEMP 36.6; O2SAT 96
--- NOTE | 2023-07-02 14:32 | HO.PM.IMPN ---
Subjective Subjective Date of Service: 07/02/23 Interval History: Feeling better, still tired, continued to have loose stools, mostly in bed, NG removed by General surgery Denies shortness of breath, no PND, no orthopnea, no chest pain, intermittent palpitations, no fevers, no chills. Review of Systems All other system reviewed and negative Physical Exam Vital Signs: Vital Signs: Last Vital Signs Temp 97.8 F 07/02/23 12:00 Pulse 112 H 07/02/23 12:00 Resp 16 07/02/23 12:00 BP 127/77 07/02/23 12:00 Pulse Ox 96 07/02/23 12:00 O2 Del Method Room Air 07/02/23 12:00 O2 Flow Rate 2 06/22/23 09:47 BMI result Body Mass Index 23.8 Const: Other: Constitutional : Awake, alert in no acute distress Neck : Normal inspection, Supple Cardiovascular : RRR, Respiratory : Clear to auscultation, no crackles Gastrointestinal: Distended, bowel sounds audible, nontender Skin : Warm, Dry Extremities bilateral lower extremity edema Neurological : Alert & oriented x3, No focal deficit Appropriate affect Objective Data Active Medications Benzocaine (Throat Lozenge, Medicated Lozenge) 1 lozenge MUCOUS MEM Q2H PRN PRN Reason: Sore Throat Calcium Carbonate (Calcium Carbonate 750 Mg Tab.Chew) 750 mg PO Q6H PRN PRN Reason: Heartburn Fluoxetine HCl (Fluoxetine Hcl 20 Mg Capsule) 20 mg PO DAILY [facility] Last Admin: 07/02/23 08:47 Dose: 20 mg Documented By: STALIN Heparin Sodium (Porcine) (Heparin Sodium,Porcine 5,000 Unit/Ml Vial) 5,000 unit SUBCUT Q8H [facility] Last Admin: 07/02/23 10:34 Dose: 5,000 unit Documented By: STALIN Metronidazole (Flagyl) 500 mg in 100 mls @ 100 mls/hr IV Q8H [facility] Last Infusion: 07/02/23 10:40 Dose: Infused Documented By: STALIN Nutrition (Parenteral) (Parenteral Nutrition) 1,440 mls @ 60 mls/hr IV .Q24H [facility]; Protocol Stop: 07/02/23 20:59 Last Admin: 07/01/23 21:22 Dose: 60 mls/hr Documented By: AMPARO Acetaminophen (Ofirmev) 1,000 mg in 100 mls @ 400 mls/hr IV Q6H [facility] Stop: 07/03/23 02:59 Last Infusion: 07/02/23 10:48 Dose: Infused Documented By: STALIN Nutrition (Parenteral) (Parenteral Nutrition) 1,440 mls @ 60 mls/hr IV .Q24H [facility]; Protocol Stop: 07/03/23 20:59 Lorazepam (Lorazepam 2 Mg/Ml Vial) 0.5 mg IVPUSH Q6H PRN PRN Reason: Anxiety Last Admin: 07/01/23 21:29 Dose: 0.5 mg Documented By: AMPARO Melatonin (Melatonin 3 Mg Tablet) 6 mg PO BEDTIME PRN PRN Reason: Insomnia Metoprolol Tartrate (Metoprolol Tartrate 12.5 Mg Halftab) 12.5 mg PO BID [facility]; Protocol Last Admin: 07/02/23 08:47 Dose: 12.5 mg Documented By: STALIN Morphine Sulfate (Morphine Sulfate 4 Mg/Ml Cartridge) 3 mg IVPUSH Q3H PRN; Protocol PRN Reason: Pain, Severe (Pain Scale 7-10) Last Admin: 07/02/23 08:47 Dose: 3 mg Documented By: STALIN Omeprazole (Omeprazole 20 Mg Capsule.Dr) 20 mg PO DAILY@0630 [facility] Last Admin: 07/02/23 06:39 Dose: Not Given Documented By: AMPARO Non-Admin Reason: Patient Refused Ondansetron HCl (Ondansetron Hcl 4 Mg/2 Ml Vial) 4 mg IVPUSH Q8H PRN PRN Reason: Nausea and Vomiting Last Admin: 07/02/23 08:47 Dose: 4 mg Documented By: STALIN Oxycodone HCl (Oxycodone Hcl Immed Release 5 Mg Tablet) 5 mg PO Q4H PRN PRN Reason: Pain, Moderate(Pain Scale 4-6) Last Admin: 06/30/23 10:26 Dose: 5 mg Documented By: ONEIL Pharmacy Consult (Consult Rx Parenteral Nutrition Ordering) 1 each MISCELLANE DAILY PRN PRN Reason: Consult order Polyethylene Glycol (Polyethylene Glycol 3350 17 Gm Powd.Pack) 17 gm PO DAILY PRN PRN Reason: Constipation Promethazine HCl (Promethazine Hcl 25 Mg Tablet) 25 mg PO Q4H PRN PRN Reason: Nausea and Vomiting Last Admin: 07/01/23 15:47 Dose: 25 mg Documented By: COTEMA Sodium Chloride (0.9 % Sodium Chloride Flush 3 Ml Syringe) 3 ml IVFLUSH QSHIFT [facility] Last Admin: 07/02/23 08:47 Dose: 3 ml Documented By: STALIN Sodium Chloride (0.9 % Sodium Chloride Flush 10 Ml Syringe) 5 ml IVFLUSH TID [facility] Last Admin: 07/02/23 08:48 Dose: 5 ml Documented By: STALIN Vancomycin HCl (Vancomycin Hcl Oral Solution 125 Mg/5 Ml Soln.Recon) 125 mg PO Q6H [facility] Last Admin: 07/02/23 10:34 Dose: 125 mg Documented By: STALIN Zolpidem Tartrate (Zolpidem Tartrate 5 Mg Tablet) 5 mg PO BEDTIME PRN PRN Reason: Sleep Labs 07/01/23 05:52 07/02/23 05:35 Labs: Laboratory Results - last 24 hr 07/02/23 05:35 Hold Purple Top SEE NOTE Anion Gap 11 L Estim Creat Clear Calc 71.7 Estimated GFR > 60 Random Glucose 145 H Calcium 7.8 L D Phosphorus 1.5 L Magnesium 1.9 Total Bilirubin 0.6 AST 31 ALT 16 Alkaline Phosphatase 99 Total Protein 4.8 L Albumin 2.4 L Microbiology Microbiology Results: Microbiology 06/29/23 08:30 Blood Culture - Preliminary Blood - Venous No growth after 48 hours. 06/29/23 08:30 Blood Culture - Preliminary Blood - Venous No growth after 48 hours. Assessment and Plan (1) Clostridium difficile colitis: Status: Acute (2) Sepsis: Status: Acute Plan Patient is 58-year-old female with PMH significant for HLD, HTN, diverticulitis, and mood disorder who was admitted to the hospital under general surgery services for reversal of ileostomy. 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 Hospitalist consultation for hypertension. Abdominal pain and diarrhea 2/2 Sepsis from C.Diff colitis WBCs normalized, no fevers, stable renal function blood cultures no growth times 48 hours Continue NG Vancomycin 125 mg q6 and IV Flagyl started 06/28 for 10-14 days Sinus tachycardia previously was on beta-blockers, were discontinued due to improved blood pressures, question related to pain, anxiety, TSH 2.61, started on beta-blockers and Continue TPN as per General surgery Recommend ambulation/decrease dose of morphine and oxycodone Hypokalemia repleted and normalized Low phosphorus will give IV K-Phos x2 Post Ileostomy reversal Plan per General surgery HTN Not on antihypertensive, previously was on atenolol that was discontinued by PCP due to stable blood pressures Started on low-dose metoprolol 25 mg b.i.d. follow BP closely HLD Hold statins while having diarrhea. Mood disorder Continue fluoxetine Will continue to follow along with you to monitor electrolyte abnormality and tachycardia Quality Stroke Does the patient have a stroke diagnosis?: No VTE Prior VTE?: No VTE Risk Level:: Medical - moderate - high VTE Device Contraindication: N/A - Device Ordered VTE Drug Contraindication: N/A - Med Ordered
[2023-07-02 15:38] VITALS: BP 127/80; PULSE 100; RESP 16; TEMP 36.1; O2SAT 97
[2023-07-02] MEDS: Morphine Sulfate 4 MG/ML CARTRIDGE 2 MG IVPUSH ×2 (15:41→20:44)
[2023-07-02] MEDS: Potassium Phosphate/NS 15 MMOL/250 ML PLAST..BAG 62.5 MMOL IV ×2 (15:46→20:30)
[2023-07-02] MEDS: oxyCODONE HCl Immed Release 5 MG TABLET PO (18:28)
[2023-07-02 19:58] VITALS: BP 130/78; PULSE 109; RESP 16; TEMP 36.6; O2SAT 97
[2023-07-02 20:37] VITALS: BP 130/78; PULSE 109
[2023-07-02] MEDS: Metoprolol Tartrate 25 MG TABLET PO (20:37)
[2023-07-02] MEDS: Parenteral Nutrition 1,440 ML 60 ML IV (20:55)
[2023-07-03] VITALS (9 sets, daily range): BP systolic 122–143; BP diastolic 73–91; PULSE 88–98; RESP 16–18; TEMP 36.1–36.9; O2SAT 95–97
[2023-07-03] MEDS: Morphine Sulfate 4 MG/ML CARTRIDGE 2 MG IVPUSH ×5 (00:51→18:43)
[2023-07-03] MEDS: Heparin Sodium,Porcine 5,000 UNIT/ML VIAL 5000 UNIT SUBCUT ×3 (00:51→17:06)
[2023-07-03] MEDS: metroNIDAZOLE/NS 500 MG/100 ML PIGGYBACK 100 MG IV ×4 (00:52→23:42)
[2023-07-03] MEDS: Acetaminophen 1,000 MG/100 ML PIGGYBACK 400 MG IV (02:06)
[2023-07-03] MEDS: vancomycin HCL Oral Solution 125 MG/5 ML SOLN.RECON PO ×4 (04:56→21:14)
[2023-07-03 07:54] LABS: Alanine Aminotransferase 14 U/L (0-31); Albumin Level 2.3 g/dL (3.5-5.0); Alkaline Phosphatase 110 U/L (39-117); Anion Gap 12 (12-20); Aspartate Amino Transferase 27 U/L (5-31); Bilirubin Total 0.5 mg/dL (0.0-1.0); Blood Urea Nitrogen 18 mg/dL (9-16); Calcium 7.9 mg/dL (8.4-10.2); Carbon Dioxide 25 mmol/L (22-29); Chloride 107 mmol/L (96-108); Creatinine Clr Calc Pharmacy 70.6; Estimated Glomerular Filt Rate > 60; Glucose Random 141 mg/dL (60-115); Magnesium 1.7 mg/dL (1.6-2.6); Phosphorus 2.6 mg/dL (2.7-4.5); Sodium 140 mmol/L (135-145); Total Protein 5.1 g/dL (6.5-8.0)
[2023-07-03] MEDS: FLUoxetine HCl 20 MG CAPSULE PO (08:26)
[2023-07-03] MEDS: Metoprolol Tartrate 25 MG TABLET PO ×2 (08:26→21:14)
[2023-07-03] MEDS: 0.9 % Sodium Chloride Flush 10 ML SYRINGE 5 ML IVFLUSH ×2 (08:27→21:28)
[2023-07-03 09:17] LABS: C Reactive Protein 9.72 mg/dL (< or = 0.50)
--- NOTE | 2023-07-03 14:04 | P.PNIM_ITS ---
Subjective Subjective Date of Service: 07/03/23 Interval History: c/o abd pain passing some gas Review of Systems Review of Systems: Yes all other systems are reviewed and are negative Physical Exam 2 Vital Signs: Vital Signs: Last Vital Signs Temp 96.9 F 07/03/23 11:46 Pulse 93 07/03/23 11:46 Resp 18 07/03/23 11:46 BP 131/81 07/03/23 11:46 Pulse Ox 97 07/03/23 11:46 O2 Del Method Room Air 07/03/23 11:46 O2 Flow Rate 2 06/22/23 09:47 BMI result Body Mass Index 23.8 Gen: in no acute distress HEENT: sclera anicteric, moist mucus membranes Neck: supple Lungs: clear to auscultation bilaterally Heart: regular rate and rhythm, no murmurs Abd: distended, minimal bowel sounds, chele intact Ext: no edema Skin: warm/well-perfused Neuro: alert and oriented x3, no focal findings Psych: appropriate affect Objective Data Active Medications Benzocaine (Throat Lozenge, Medicated Lozenge) 1 lozenge MUCOUS MEM Q2H PRN PRN Reason: Sore Throat Calcium Carbonate (Calcium Carbonate 750 Mg Tab.Chew) 750 mg PO Q6H PRN PRN Reason: Heartburn Fluoxetine HCl (Fluoxetine Hcl 20 Mg Capsule) 20 mg PO DAILY [facility] Last Admin: 07/03/23 08:26 Dose: 20 mg Documented By: ONEIDA Heparin Sodium (Porcine) (Heparin Sodium,Porcine 5,000 Unit/Ml Vial) 5,000 unit SUBCUT Q8H [facility] Last Admin: 07/03/23 10:42 Dose: 5,000 unit Documented By: ONEIDA Metronidazole (Flagyl) 500 mg in 100 mls @ 100 mls/hr IV Q8H [facility] Last Infusion: 07/03/23 10:26 Dose: Infused Documented By: ONEIDA Nutrition (Parenteral) (Parenteral Nutrition) 1,440 mls @ 60 mls/hr IV .Q24H [facility]; Protocol Stop: 07/03/23 20:59 Last Admin: 07/02/23 20:55 Dose: 60 mls/hr Documented By: DANY Nutrition (Parenteral) (Parenteral Nutrition) 1,440 mls @ 60 mls/hr IV .Q24H [facility]; Protocol Stop: 07/04/23 20:59 Lorazepam (Lorazepam 2 Mg/Ml Vial) 0.5 mg IVPUSH Q6H PRN PRN Reason: Anxiety Last Admin: 07/01/23 21:29 Dose: 0.5 mg Documented By: AMPARO Melatonin (Melatonin 3 Mg Tablet) 6 mg PO BEDTIME PRN PRN Reason: Insomnia Metoprolol Tartrate (Metoprolol Tartrate 25 Mg Tablet) 25 mg PO BID [facility]; Protocol Last Admin: 07/03/23 08:26 Dose: 25 mg Documented By: ONEIDA Morphine Sulfate (Morphine Sulfate 4 Mg/Ml Cartridge) 2 mg IVPUSH Q4H PRN; Protocol PRN Reason: Pain, Severe (Pain Scale 7-10) Last Admin: 07/03/23 10:20 Dose: 2 mg Documented By: DAQUAN Omeprazole (Omeprazole 20 Mg Capsule.Dr) 20 mg PO DAILY@0630 [facility] Last Admin: 07/03/23 05:57 Dose: Not Given Documented By: DANY Non-Admin Reason: Patient Refused Ondansetron HCl (Ondansetron Hcl 4 Mg/2 Ml Vial) 4 mg IVPUSH Q8H PRN PRN Reason: Nausea and Vomiting Last Admin: 07/02/23 17:32 Dose: 4 mg Documented By: STALIN Oxycodone HCl (Oxycodone Hcl Immed Release 5 Mg Tablet) 5 mg PO Q6H PRN PRN Reason: Pain, Moderate(Pain Scale 4-6) Last Admin: 07/02/23 18:28 Dose: 5 mg Documented By: STALIN Pharmacy Consult (Consult Rx Parenteral Nutrition Ordering) 1 each MISCELLANE DAILY PRN PRN Reason: Consult order Polyethylene Glycol (Polyethylene Glycol 3350 17 Gm Powd.Pack) 17 gm PO DAILY PRN PRN Reason: Constipation Promethazine HCl (Promethazine Hcl 25 Mg Tablet) 25 mg PO Q4H PRN PRN Reason: Nausea and Vomiting Last Admin: 07/01/23 15:47 Dose: 25 mg Documented By: MANUELITOEMA Sodium Chloride (0.9 % Sodium Chloride Flush 3 Ml Syringe) [facility] Last Admin: 07/03/23 08:27 Dose: Not Given Documented By: ONEIDA Non-Admin Reason: PICC Sodium Chloride (0.9 % Sodium Chloride Flush 10 Ml Syringe) 5 ml IVFLUSH TID [facility] Last Admin: 07/03/23 08:27 Dose: 5 ml Documented By: ONEIDA Vancomycin HCl (Vancomycin Hcl Oral Solution 125 Mg/5 Ml Soln.Recon) 125 mg PO Q6H [facility] Last Admin: 07/03/23 08:40 Dose: 125 mg Documented By: ONEIDA Zolpidem Tartrate (Zolpidem Tartrate 5 Mg Tablet) 5 mg PO BEDTIME PRN PRN Reason: Sleep Labs 07/01/23 05:52 07/03/23 05:44 Labs: Laboratory Results - last 24 hr 07/03/23 05:44 Hold Purple Top SEE NOTE Anion Gap 12 Estim Creat Clear Calc 70.6 Estimated GFR > 60 Random Glucose 141 H Calcium 7.9 L Phosphorus 2.6 L Magnesium 1.7 Total Bilirubin 0.5 AST 27 ALT 14 Alkaline Phosphatase 110 C-Reactive Protein 9.72 H Total Protein 5.1 L Albumin 2.3 L Assessment and Plan (1) Clostridium difficile colitis: Status: Acute (2) Sepsis: Status: Acute Plan d12 58yo F with HLD, HTN, diverticulitis, mood disorder, prior sigmoid resection + loop ileostomy for colovaginal fistula underwent ileostomy reversal 06/21 then admitted to Gen Surg hospitalist consultation for HTN sepsis due to C. difficile colitis - continue vancomycin 125 mg q6h 06/28-07/11, also on IV metronidazole 06/28- - NPO, continue TPN as per Gen Surg hypoK - repleted hypoPO4 - repleted HTN tachycardia - resolved with resuming beta-blockers [now on metoprolol tartrate, previously on atenolol] mood disorder - fluoxetine VTE ppx - UF Thank you for this consultation. We will continue to follow the patient while they are admitted to your service. Total time managing care of this patient today: 35 minutes. Quality Stroke Does the patient have a stroke diagnosis?: No VTE Prior VTE?: No VTE Risk Level:: Medical - moderate - high VTE Device Contraindication: N/A - Device Ordered VTE Drug Contraindication: N/A - Med Ordered
--- NOTE | 2023-07-03 15:37 | P.PNGS_ITS ---
Subjective Subjective Date of Service: 07/03/23 Interval history: Patient tolerating liquids. She had some loose stool earlier today. Patient is somewhat saddened by her situation but was encouraged that her symptoms will improve over time. Physical Exam 2 Vital Signs: Vital Signs: Last Vital Signs Temp 96.9 F 07/03/23 11:46 Pulse 93 07/03/23 11:46 Resp 18 07/03/23 11:46 BP 131/81 07/03/23 11:46 Pulse Ox 97 07/03/23 11:46 O2 Del Method Room Air 07/03/23 11:46 O2 Flow Rate 2 06/22/23 09:47 BMI result Body Mass Index 23.8 GI: Other: Abdomen is markedly distended but no evidence of any guarding, rebound, or rigidity. Mild diffuse tenderness but no evidence of any acute abdomen. Incision clean dry and intact healing uneventfully Objective Data Active Medications Benzocaine (Throat Lozenge, Medicated Lozenge) 1 lozenge MUCOUS MEM Q2H PRN PRN Reason: Sore Throat Calcium Carbonate (Calcium Carbonate 750 Mg Tab.Chew) 750 mg PO Q6H PRN PRN Reason: Heartburn Fluoxetine HCl (Fluoxetine Hcl 20 Mg Capsule) 20 mg PO DAILY [facility] Last Admin: 07/03/23 08:26 Dose: 20 mg Documented By: ONEIDA Heparin Sodium (Porcine) (Heparin Sodium,Porcine 5,000 Unit/Ml Vial) 5,000 unit SUBCUT Q8H [facility] Last Admin: 07/03/23 10:42 Dose: 5,000 unit Documented By: ONEIDA Metronidazole (Flagyl) 500 mg in 100 mls @ 100 mls/hr IV Q8H [facility] Last Infusion: 07/03/23 10:26 Dose: Infused Documented By: ONEIDA Nutrition (Parenteral) (Parenteral Nutrition) 1,440 mls @ 60 mls/hr IV .Q24H [facility]; Protocol Stop: 07/03/23 20:59 Last Admin: 07/02/23 20:55 Dose: 60 mls/hr Documented By: DANY Nutrition (Parenteral) (Parenteral Nutrition) 1,440 mls @ 60 mls/hr IV .Q24H [facility]; Protocol Stop: 07/04/23 20:59 Lorazepam (Lorazepam 2 Mg/Ml Vial) 0.5 mg IVPUSH Q6H PRN PRN Reason: Anxiety Last Admin: 07/01/23 21:29 Dose: 0.5 mg Documented By: AMPARO Melatonin (Melatonin 3 Mg Tablet) 6 mg PO BEDTIME PRN PRN Reason: Insomnia Metoprolol Tartrate (Metoprolol Tartrate 25 Mg Tablet) 25 mg PO BID [facility]; Protocol Last Admin: 07/03/23 08:26 Dose: 25 mg Documented By: ONEIDA Morphine Sulfate (Morphine Sulfate 4 Mg/Ml Cartridge) 2 mg IVPUSH Q4H PRN; Protocol PRN Reason: Pain, Severe (Pain Scale 7-10) Last Admin: 07/03/23 14:33 Dose: 2 mg Documented By: ONEIDA Omeprazole (Omeprazole 20 Mg Capsule.Dr) 20 mg PO DAILY@0630 [facility] Last Admin: 07/03/23 05:57 Dose: Not Given Documented By: DANY Non-Admin Reason: Patient Refused Ondansetron HCl (Ondansetron Hcl 4 Mg/2 Ml Vial) 4 mg IVPUSH Q8H PRN PRN Reason: Nausea and Vomiting Last Admin: 07/02/23 17:32 Dose: 4 mg Documented By: STALIN Oxycodone HCl (Oxycodone Hcl Immed Release 5 Mg Tablet) 5 mg PO Q6H PRN PRN Reason: Pain, Moderate(Pain Scale 4-6) Last Admin: 07/02/23 18:28 Dose: 5 mg Documented By: STALIN Pharmacy Consult (Consult Rx Parenteral Nutrition Ordering) 1 each MISCELLANE DAILY PRN PRN Reason: Consult order Polyethylene Glycol (Polyethylene Glycol 3350 17 Gm Powd.Pack) 17 gm PO DAILY PRN PRN Reason: Constipation Promethazine HCl (Promethazine Hcl 25 Mg Tablet) 25 mg PO Q4H PRN PRN Reason: Nausea and Vomiting Last Admin: 07/01/23 15:47 Dose: 25 mg Documented By: MANUELITOEMA Sodium Chloride (0.9 % Sodium Chloride Flush 3 Ml Syringe) 3 ml IVFLUSH QSHIFT [facility] Last Admin: 07/03/23 15:07 Dose: Not Given Documented By: ONEIDA Non-Admin Reason: PICC Sodium Chloride (0.9 % Sodium Chloride Flush 10 Ml Syringe) 5 ml IVFLUSH TID [facility] Last Admin: 07/03/23 14:58 Dose: Not Given Documented By: ONEIDA Non-Admin Reason: Previously Administered Vancomycin HCl (Vancomycin Hcl Oral Solution 125 Mg/5 Ml Soln.Recon) 125 mg PO Q6H [facility] Last Admin: 07/03/23 08:40 Dose: 125 mg Documented By: ONEIDA Zolpidem Tartrate (Zolpidem Tartrate 5 Mg Tablet) 5 mg PO BEDTIME PRN PRN Reason: Sleep Labs 07/01/23 05:52 07/03/23 05:44 Labs: Laboratory Results - last 24 hr 07/03/23 05:44 Hold Purple Top SEE NOTE Anion Gap 12 Estim Creat Clear Calc 70.6 Estimated GFR > 60 Random Glucose 141 H Calcium 7.9 L Phosphorus 2.6 L Magnesium 1.7 Total Bilirubin 0.5 AST 27 ALT 14 Alkaline Phosphatase 110 C-Reactive Protein 9.72 H Total Protein 5.1 L Albumin 2.3 L Procedures Date of Service Date of Service: 07/03/23 Progress Note: A&P Assessment and plan (1) Clostridium difficile colitis: Status: Acute (2) Postop check: Status: Acute Plan The plan is to continue current management. Patient has been encouraged to get out of bed, incentive spirometry, diet as tolerated. Time Spent With Patient Time: Total time managing care of this patient today ____ minutes. Quality Stroke Does the patient have a stroke diagnosis?: No VTE Prior VTE?: No VTE Risk Level:: Medical - moderate - high VTE Device Contraindication: N/A - Device Ordered VTE Drug Contraindication: N/A - Med Ordered
[2023-07-03] MEDS: Zolpidem Tartrate 5 MG TABLET PO (21:14)
[2023-07-03] MEDS: Parenteral Nutrition 1,440 ML 60 ML IV (21:27)
[2023-07-04] MEDS: Heparin Sodium,Porcine 5,000 UNIT/ML VIAL 5000 UNIT SUBCUT ×3 (00:55→16:59)
[2023-07-04] MEDS: Melatonin 3 MG TABLET 6 MG PO (01:01)
[2023-07-04 01:56] VITALS: BP 143/92; PULSE 90; RESP 18; TEMP 36.3; O2SAT 96
[2023-07-04] MEDS: vancomycin HCL Oral Solution 125 MG/5 ML SOLN.RECON PO ×4 (03:55→21:32)
[2023-07-04] MEDS: Omeprazole 20 MG CAPSULE.DR PO (06:34)
[2023-07-04] MEDS: LORazepam 2 MG/ML VIAL 0.5 MG IVPUSH ×3 (06:40→23:51)
[2023-07-04 06:48] VITALS: BP 131/74; PULSE 89; RESP 17; TEMP 36.6; O2SAT 98
[2023-07-04 07:18] LABS: Alanine Aminotransferase 14 U/L (0-31); Albumin Level 2.3 g/dL (3.5-5.0); Alkaline Phosphatase 171 U/L (39-117); Anion Gap 11 (12-20); Aspartate Amino Transferase 31 U/L (5-31); Bilirubin Total 0.3 mg/dL (0.0-1.0); Blood Urea Nitrogen 14 mg/dL (9-16); Calcium 7.9 mg/dL (8.4-10.2); Carbon Dioxide 26 mmol/L (22-29); Chloride 106 mmol/L (96-108); Creatinine Clr Calc Pharmacy 73.9; Estimated Glomerular Filt Rate > 60; Glucose Random 130 mg/dL (60-115); Magnesium 1.5 mg/dL (1.6-2.6); Phosphorus 2.7 mg/dL (2.7-4.5); Potassium 4.7 mmol/L (3.3-5.1); Sodium 138 mmol/L (135-145); Total Protein 5.4 g/dL (6.5-8.0)
[2023-07-04 08:00] VITALS: BP 131/74; PULSE 89
[2023-07-04] MEDS: FLUoxetine HCl 20 MG CAPSULE PO (08:00)
[2023-07-04] MEDS: Metoprolol Tartrate 25 MG TABLET PO ×2 (08:00→21:32)
[2023-07-04] MEDS: 0.9 % Sodium Chloride Flush 10 ML SYRINGE 5 ML IVFLUSH ×3 (08:00→21:43)
[2023-07-04] MEDS: metroNIDAZOLE/NS 500 MG/100 ML PIGGYBACK 100 MG IV ×3 (08:00→23:51)
[2023-07-04] MEDS: Magnesium Sulfate/H2O 2 GM/50 ML PIGGYBACK IV (09:16)
[2023-07-04] MEDS: Morphine Sulfate 4 MG/ML CARTRIDGE 2 MG IVPUSH ×2 (09:38→21:32)
--- NOTE | 2023-07-04 10:34 | HO.PM.IMPN ---
Subjective Subjective Date of Service: 07/04/23 Interval History: c/o abd pain having liquid stools Review of Systems Review of Systems: Yes all other systems are reviewed and are negative Physical Exam Vital Signs: Vital Signs: Last Vital Signs Temp 97.8 F 07/04/23 06:48 Pulse 89 07/04/23 08:00 Resp 17 07/04/23 06:48 BP 131/74 07/04/23 08:00 Pulse Ox 98 07/04/23 06:48 O2 Del Method Room Air 07/04/23 06:48 O2 Flow Rate 2 06/22/23 09:47 BMI result Body Mass Index 23.8 Gen: in no acute distress HEENT: sclera anicteric, moist mucus membranes Neck: supple Lungs: clear to auscultation bilaterally Heart: regular rate and rhythm, no murmurs Abd: distended, scattered bowel sounds, chele intact Ext: no edema, RUE PICC Skin: warm/well-perfused Neuro: alert and oriented x3, no focal findings Psych: appropriate affect Objective Data Active Medications Benzocaine (Throat Lozenge, Medicated Lozenge) 1 lozenge MUCOUS MEM Q2H PRN PRN Reason: Sore Throat Calcium Carbonate (Calcium Carbonate 750 Mg Tab.Chew) 750 mg PO Q6H PRN PRN Reason: Heartburn Fluoxetine HCl (Fluoxetine Hcl 20 Mg Capsule) 20 mg PO DAILY [facility] Last Admin: 07/04/23 08:00 Dose: 20 mg Documented By: ONEIDA Heparin Sodium (Porcine) (Heparin Sodium,Porcine 5,000 Unit/Ml Vial) 5,000 unit SUBCUT Q8H [facility] Last Admin: 07/04/23 09:16 Dose: 5,000 unit Documented By: ONEIDA Metronidazole (Flagyl) 500 mg in 100 mls @ 100 mls/hr IV Q8H [facility] Last Infusion: 07/04/23 09:24 Dose: Infused Documented By: ONEIDA Nutrition (Parenteral) (Parenteral Nutrition) 1,440 mls @ 60 mls/hr IV .Q24H [facility]; Protocol Stop: 07/04/23 20:59 Last Admin: 07/03/23 21:27 Dose: 60 mls/hr Documented By: DANY Nutrition (Parenteral) (Parenteral Nutrition) 1,440 mls @ 60 mls/hr IV .Q24H [facility]; Protocol Stop: 07/05/23 20:59 Lorazepam (Lorazepam 2 Mg/Ml Vial) 0.5 mg IVPUSH Q6H PRN PRN Reason: Anxiety Last Admin: 07/04/23 06:40 Dose: 0.5 mg Documented By: DANY Comments: pt feels anxious Melatonin (Melatonin 3 Mg Tablet) 6 mg PO BEDTIME PRN PRN Reason: Insomnia Last Admin: 07/04/23 01:01 Dose: 6 mg Documented By: DANY Comments: pt unable to sleep Metoprolol Tartrate (Metoprolol Tartrate 25 Mg Tablet) 25 mg PO BID [facility]; Protocol Last Admin: 07/04/23 08:00 Dose: 25 mg Documented By: ONEIDA Morphine Sulfate (Morphine Sulfate 4 Mg/Ml Cartridge) 2 mg IVPUSH Q4H PRN; Protocol PRN Reason: Pain, Severe (Pain Scale 7-10) Last Admin: 07/04/23 09:38 Dose: 2 mg Documented By: DAQUAN Omeprazole (Omeprazole 20 Mg Capsule.Dr) 20 mg PO DAILY@0630 [facility] Last Admin: 07/04/23 06:34 Dose: 20 mg Documented By: DANY Ondansetron HCl (Ondansetron Hcl 4 Mg/2 Ml Vial) 4 mg IVPUSH Q8H PRN PRN Reason: Nausea and Vomiting Last Admin: 07/02/23 17:32 Dose: 4 mg Documented By: STALIN Oxycodone HCl (Oxycodone Hcl Immed Release 5 Mg Tablet) 5 mg PO Q6H PRN PRN Reason: Pain, Moderate(Pain Scale 4-6) Last Admin: 07/02/23 18:28 Dose: 5 mg Documented By: STALIN Pharmacy Consult (Consult Rx Parenteral Nutrition Ordering) 1 each MISCELLANE DAILY PRN PRN Reason: Consult order Polyethylene Glycol (Polyethylene Glycol 3350 17 Gm Powd.Pack) 17 gm PO DAILY PRN PRN Reason: Constipation Promethazine HCl (Promethazine Hcl 25 Mg Tablet) 25 mg PO Q4H PRN PRN Reason: Nausea and Vomiting Last Admin: 07/01/23 15:47 Dose: 25 mg Documented By: COTEMA Sodium Chloride (0.9 % Sodium Chloride Flush 3 Ml Syringe) 3 ml IVFLUSH [facility] Last Admin: 07/04/23 07:47 Dose: Not Given Documented By: ONEIDA Non-Admin Reason: PICC Sodium Chloride (0.9 % Sodium Chloride Flush 10 Ml Syringe) 5 ml IVFLUSH TID [facility] Last Admin: 07/04/23 08:00 Dose: 5 ml Documented By: ONEIDA Vancomycin HCl (Vancomycin Hcl Oral Solution 125 Mg/5 Ml Soln.Recon) 125 mg PO Q6H [facility] Last Admin: 07/04/23 09:16 Dose: 125 mg Documented By: ONEIDA Zolpidem Tartrate (Zolpidem Tartrate 5 Mg Tablet) 5 mg PO BEDTIME PRN PRN Reason: Sleep Last Admin: 07/03/23 21:14 Dose: 5 mg Documented By: DANY Labs 07/01/23 05:52 07/04/23 06:10 Labs: Laboratory Results - last 24 hr 07/04/23 06:10 Hold Purple Top SEE NOTE Anion Gap 11 L Estim Creat Clear Calc 73.9 Estimated GFR > 60 Random Glucose 130 H Calcium 7.9 L Phosphorus 2.7 Magnesium 1.5 L Total Bilirubin 0.3 AST 31 ALT 14 Alkaline Phosphatase 171 H Total Protein 5.4 L Albumin 2.3 L Microbiology Microbiology Results: Microbiology 06/29/23 08:30 Blood Culture - Final Blood - Venous No growth after 5 days. 06/29/23 08:30 Blood Culture - Final Blood - Venous No growth after 5 days. Assessment and Plan (1) Clostridium difficile colitis: Status: Acute (2) Sepsis: Status: Acute Plan d13 58yo F with HLD, HTN, diverticulitis, mood disorder, prior sigmoid resection + loop ileostomy for colovaginal fistula underwent ileostomy reversal 06/21 then admitted to Gen Surg hospitalist consultation for HTN sepsis due to C. difficile colitis - continue vancomycin 125 mg q6h 06/28-07/11, also on IV metronidazole 06/28- - NPO except sips/chips, continue TPN and advance diet as per Gen Surg hypoMg - replete, recheck level in AM hypoK - repleted hypoPO4 - repleted HTN tachycardia - resolved with resuming beta-blockers [now on metoprolol tartrate, previously on atenolol] mood disorder - fluoxetine VTE ppx - UFH Thank you for this consultation. We will continue to follow the patient while they are admitted to your service. Total time managing care of this patient today: 35 minutes. Quality Stroke Does the patient have a stroke diagnosis?: No VTE Prior VTE?: No VTE Risk Level:: Medical - moderate - high VTE Device Contraindication: N/A - Device Ordered VTE Drug Contraindication: N/A - Med Ordered
--- NOTE | 2023-07-04 14:14 | P.PNGS_ITS ---
Subjective Subjective Date of Service: 07/04/23 Interval history: Patient had several bouts of loose stool last evening. Feeling a little better today. Tolerating her liquids. Still diffuse abdominal discomfort. Physical Exam 2 Vital Signs: Vital Signs: Last Vital Signs Temp 97.8 F 07/04/23 06:48 Pulse 89 07/04/23 08:00 Resp 17 07/04/23 06:48 BP 131/74 07/04/23 08:00 Pulse Ox 98 07/04/23 06:48 O2 Del Method Room Air 07/04/23 06:48 O2 Flow Rate 2 06/22/23 09:47 BMI result Body Mass Index 23.8 GI: Other: Abdomen is still distended, minimally improved from yesterday. Incision clean dry and intact. No evidence of any guarding, rebound, rigidity. Objective Data Active Medications Benzocaine (Throat Lozenge, Medicated Lozenge) 1 lozenge MUCOUS MEM Q2H PRN PRN Reason: Sore Throat Calcium Carbonate (Calcium Carbonate 750 Mg Tab.Chew) 750 mg PO Q6H PRN PRN Reason: Heartburn Fluoxetine HCl (Fluoxetine Hcl 20 Mg Capsule) 20 mg PO DAILY [facility] Last Admin: 07/04/23 08:00 Dose: 20 mg Documented By: ONEIDA Heparin Sodium (Porcine) (Heparin Sodium,Porcine 5,000 Unit/Ml Vial) 5,000 unit SUBCUT Q8H [facility] Last Admin: 07/04/23 09:16 Dose: 5,000 unit Documented By: ONEIDA Metronidazole (Flagyl) 500 mg in 100 mls @ 100 mls/hr IV Q8H [facility] Last Infusion: 07/04/23 09:24 Dose: Infused Documented By: ONEIDA Nutrition (Parenteral) (Parenteral Nutrition) 1,440 mls @ 60 mls/hr IV .Q24H [facility]; Protocol Stop: 07/04/23 20:59 Last Admin: 07/03/23 21:27 Dose: 60 mls/hr Documented By: DANY Nutrition (Parenteral) (Parenteral Nutrition) 1,440 mls @ 60 mls/hr IV .Q24H [facility]; Protocol Stop: 07/05/23 20:59 Lorazepam (Lorazepam 2 Mg/Ml Vial) 0.5 mg IVPUSH Q6H PRN PRN Reason: Anxiety Last Admin: 07/04/23 06:40 Dose: 0.5 mg Documented By: DANY Comments: pt feels anxious Melatonin (Melatonin 3 Mg Tablet) 6 mg PO BEDTIME PRN PRN Reason: Insomnia Last Admin: 07/04/23 01:01 Dose: 6 mg Documented By: DANY Comments: pt unable to sleep Metoprolol Tartrate (Metoprolol Tartrate 25 Mg Tablet) 25 mg PO BID [facility]; Protocol Last Admin: 07/04/23 08:00 Dose: 25 mg Documented By: ONEIDA Morphine Sulfate (Morphine Sulfate 4 Mg/Ml Cartridge) 2 mg IVPUSH Q4H PRN; Protocol PRN Reason: Pain, Severe (Pain Scale 7-10) Last Admin: 07/04/23 09:38 Dose: 2 mg Documented By: DAQUAN Omeprazole (Omeprazole 20 Mg Capsule.Dr) 20 mg PO DAILY@0630 [facility] Last Admin: 07/04/23 06:34 Dose: 20 mg Documented By: DANY Ondansetron HCl (Ondansetron Hcl 4 Mg/2 Ml Vial) 4 mg IVPUSH Q8H PRN PRN Reason: Nausea and Vomiting Last Admin: 07/02/23 17:32 Dose: 4 mg Documented By: STALIN Oxycodone HCl (Oxycodone Hcl Immed Release 5 Mg Tablet) 5 mg PO Q6H PRN PRN Reason: Pain, Moderate(Pain Scale 4-6) Last Admin: 07/02/23 18:28 Dose: 5 mg Documented By: STALIN Pharmacy Consult (Consult Rx Parenteral Nutrition Ordering) 1 each MISCELLANE DAILY PRN PRN Reason: Consult order Polyethylene Glycol (Polyethylene Glycol 3350 17 Gm Powd.Pack) 17 gm PO DAILY PRN PRN Reason: Constipation Promethazine HCl (Promethazine Hcl 25 Mg Tablet) 25 mg PO Q4H PRN PRN Reason: Nausea and Vomiting Last Admin: 07/01/23 15:47 Dose: 25 mg Documented By: MANUELITOEMA Sodium Chloride (0.9 % Sodium Chloride Flush 3 Ml Syringe) 3 ml IVFLUSH [facility] Last Admin: 07/04/23 07:47 Dose: Not Given Documented By: ONEIDA Non-Admin Reason: PICC Sodium Chloride (0.9 % Sodium Chloride Flush 10 Ml Syringe) 5 ml IVFLUSH TID [facility] Last Admin: 07/04/23 08:00 Dose: 5 ml Documented By: ONEIDA Vancomycin HCl (Vancomycin Hcl Oral Solution 125 Mg/5 Ml Soln.Recon) 125 mg PO Q6H [facility] Last Admin: 07/04/23 09:16 Dose: 125 mg Documented By: ONEIDA Zolpidem Tartrate (Zolpidem Tartrate 5 Mg Tablet) 5 mg PO BEDTIME PRN PRN Reason: Sleep Last Admin: 07/03/23 21:14 Dose: 5 mg Documented By: DANY Labs 07/01/23 05:52 07/04/23 06:10 Labs: Laboratory Results - last 24 hr 07/04/23 06:10 Hold Purple Top SEE NOTE Anion Gap 11 L Estim Creat Clear Calc 73.9 Estimated GFR > 60 Random Glucose 130 H Calcium 7.9 L Phosphorus 2.7 Magnesium 1.5 L Total Bilirubin 0.3 AST 31 ALT 14 Alkaline Phosphatase 171 H Total Protein 5.4 L Albumin 2.3 L Microbiology Microbiology Results: Microbiology 06/29/23 08:30 Blood Culture - Final Blood - Venous No growth after 5 days. 06/29/23 08:30 Blood Culture - Final Blood - Venous No growth after 5 days. Procedures Date of Service Date of Service: 07/04/23 Progress Note: A&P Assessment and plan (1) Postop check: Status: Acute (2) Clostridium difficile colitis: Status: Acute Plan Continue current plan of supportive therapy, out of bed, incentive spirometry, follow I's and O's, hyperalimentation Time Spent With Patient Time: Total time managing care of this patient today ____ minutes. Quality Stroke Does the patient have a stroke diagnosis?: No VTE Prior VTE?: No VTE Risk Level:: Medical - moderate - high VTE Device Contraindication: N/A - Device Ordered VTE Drug Contraindication: N/A - Med Ordered
[2023-07-04 15:36] VITALS: BP 157/92; PULSE 99; RESP 18; TEMP 36.1; O2SAT 98
[2023-07-04 19:32] VITALS: BP 153/88; PULSE 99; RESP 18; TEMP 36.3; O2SAT 98
[2023-07-04] MEDS: Parenteral Nutrition 1,440 ML 60 ML IV (21:27)
[2023-07-04] MEDS: Zolpidem Tartrate 5 MG TABLET PO (21:32)
[2023-07-04] MEDS: 0.9 % Sodium Chloride Flush 3 ML SYRINGE IVFLUSH (21:44)
[2023-07-04 23:43] VITALS: BP 147/86; PULSE 88; RESP 16; TEMP 36.7; O2SAT 97
[2023-07-05] VITALS (9 sets, daily range): BP systolic 133–172; BP diastolic 72–91; PULSE 91–103; RESP 16–18; TEMP 36.2–36.7; O2SAT 96–98
[2023-07-05] MEDS: vancomycin HCL Oral Solution 125 MG/5 ML SOLN.RECON PO ×4 (03:14→20:32)
[2023-07-05] MEDS: Heparin Sodium,Porcine 5,000 UNIT/ML VIAL 5000 UNIT SUBCUT ×3 (03:14→18:20)
[2023-07-05] MEDS: Morphine Sulfate 4 MG/ML CARTRIDGE 2 MG IVPUSH ×2 (03:15→12:59)
[2023-07-05 06:00] LABS: Alanine Aminotransferase 15 U/L (0-31); Albumin Level 2.3 g/dL (3.5-5.0); Alkaline Phosphatase 137 U/L (39-117); Anion Gap 10 (12-20); Aspartate Amino Transferase 24 U/L (5-31); Bilirubin Total 0.3 mg/dL (0.0-1.0); Blood Urea Nitrogen 12 mg/dL (9-16); Calcium 7.9 mg/dL (8.4-10.2); Carbon Dioxide 28 mmol/L (22-29); Chloride 106 mmol/L (96-108); Creatinine Clr Calc Pharmacy 77.5; Estimated Glomerular Filt Rate > 60; Glucose Random 143 mg/dL (60-115); Magnesium 1.6 mg/dL (1.6-2.6); Phosphorus 3.4 mg/dL (2.7-4.5); Potassium 4.5 mmol/L (3.3-5.1); Sodium 139 mmol/L (135-145); Total Protein 5.4 g/dL (6.5-8.0)
[2023-07-05] MEDS: Omeprazole 20 MG CAPSULE.DR PO (06:21)
[2023-07-05] MEDS: metroNIDAZOLE/NS 500 MG/100 ML PIGGYBACK 100 MG IV ×2 (07:55→15:02)
[2023-07-05] MEDS: 0.9 % Sodium Chloride Flush 10 ML SYRINGE 5 ML IVFLUSH ×2 (07:57→20:38)
[2023-07-05] MEDS: Metoprolol Tartrate 25 MG TABLET PO ×2 (09:15→20:32)
[2023-07-05] MEDS: FLUoxetine HCl 20 MG CAPSULE PO (09:15)
[2023-07-05] MEDS: LORazepam 2 MG/ML VIAL 0.5 MG IVPUSH ×2 (09:15→16:00)
--- NOTE | 2023-07-05 09:59 | MHC.CLN ---
F/U DIET ADVANCED TO CLEAR LIQUIDS ON 07/04. CONTINUES WITH TPN AT MAX GOAL RATE. REVIEWED LABS. COMMUNICATED WITH PHARMACY. RECOMMEND CONTINUE TPN AT MAX GOAL RATE: TPN AT 60 ML PER HOUR AND ADD 58 G LIPIDS. 72 G PROTEIN (1.22 G/KG), 216 G DEXTROSE, 1602 TOTAL KCALS (27.2 KCALS/KG). REPLETE LYTES NEEDED. FOLLOW FOR TPN TOLERANCE AND POSSIBLE DIET ADVANCEMENT.
--- NOTE | 2023-07-05 10:11 | PM.PNGS ---
Subjective Subjective Date of Service: 07/06/23 Interval history: Less pain Continues to pass flatus Says she has loose stools According to nurses, she is not really getting out of bed as much Physical Exam Vital Signs: Vital Signs: Last Vital Signs Temp 97.2 F 07/05/23 07:39 Pulse 95 07/05/23 09:37 Resp 16 07/05/23 07:39 BP 146/86 H 07/05/23 09:15 Pulse Ox 97 07/05/23 07:39 O2 Del Method Room Air 07/05/23 07:39 O2 Flow Rate 2 06/22/23 09:47 BMI result Body Mass Index 23.8 Const: Other: Anxious General: no acute distress Resp: Effort & Inspection: normal respiratory effort Cardio: Rate: regular rate GI: Other: Less distended, softer, incision clean, much less tender Palpation (GI): no guarding Objective Data Active Medications Benzocaine (Throat Lozenge, Medicated Lozenge) 1 lozenge MUCOUS MEM Q2H PRN PRN Reason: Sore Throat Calcium Carbonate (Calcium Carbonate 750 Mg Tab.Chew) 750 mg PO Q6H PRN PRN Reason: Heartburn Fluoxetine HCl (Fluoxetine Hcl 20 Mg Capsule) 20 mg PO DAILY [facility] Last Admin: 07/05/23 09:15 Dose: 20 mg Documented By: ONEIDA Heparin Sodium (Porcine) (Heparin Sodium,Porcine 5,000 Unit/Ml Vial) 5,000 unit SUBCUT Q8H [facility] Last Admin: 07/05/23 09:15 Dose: 5,000 unit Documented By: ONEIDA Metronidazole (Flagyl) 500 mg in 100 mls @ 100 mls/hr IV Q8H [facility] Last Infusion: 07/05/23 09:27 Dose: Infused Documented By: ONEIDA Nutrition (Parenteral) (Parenteral Nutrition) 1,440 mls @ 60 mls/hr IV .Q24H [facility]; Protocol Stop: 07/05/23 20:59 Last Admin: 07/04/23 21:27 Dose: 60 mls/hr Documented By: TIFFANY Lorazepam (Lorazepam 2 Mg/Ml Vial) 0.5 mg IVPUSH Q6H PRN PRN Reason: Anxiety Last Admin: 07/05/23 09:15 Dose: 0.5 mg Documented By: ONEIDA Melatonin (Melatonin 3 Mg Tablet) 6 mg PO BEDTIME PRN PRN Reason: Insomnia Last Admin: 07/04/23 01:01 Dose: 6 mg Documented By: DANY Comments: pt unable to sleep Metoprolol Tartrate (Metoprolol Tartrate 25 Mg Tablet) 25 mg PO BID [facility]; Protocol Last Admin: 07/05/23 09:15 Dose: 25 mg Documented By: ONEIDA Morphine Sulfate (Morphine Sulfate 4 Mg/Ml Cartridge) 2 mg IVPUSH Q4H PRN; Protocol PRN Reason: Pain, Severe (Pain Scale 7-10) Last Admin: 07/05/23 03:15 Dose: 2 mg Documented By: TIFFANY Omeprazole (Omeprazole 20 Mg Capsule.Dr) 20 mg PO DAILY@0630 [facility] Last Admin: 07/05/23 06:21 Dose: 20 mg Documented By: TIFFANY Ondansetron HCl (Ondansetron Hcl 4 Mg/2 Ml Vial) 4 mg IVPUSH Q8H PRN PRN Reason: Nausea and Vomiting Last Admin: 07/02/23 17:32 Dose: 4 mg Documented By: STALIN Oxycodone HCl (Oxycodone Hcl Immed Release 5 Mg Tablet) 5 mg PO Q6H PRN PRN Reason: Pain, Moderate(Pain Scale 4-6) Last Admin: 07/02/23 18:28 Dose: 5 mg Documented By: STALIN Pharmacy Consult (Consult Rx Parenteral Nutrition Ordering) 1 each MISCELLANE DAILY PRN PRN Reason: Consult order Polyethylene Glycol (Polyethylene Glycol 3350 17 Gm Powd.Pack) 17 gm PO DAILY PRN PRN Reason: Constipation Promethazine HCl (Promethazine Hcl 25 Mg Tablet) 25 mg PO Q4H PRN PRN Reason: Nausea and Vomiting Last Admin: 07/01/23 15:47 Dose: 25 mg Documented By: MANUELITOEMA Sodium Chloride (0.9 % Sodium Chloride Flush 3 Ml Syringe) 3 ml IVFLUSH QSHIFT [facility] Last Admin: 07/05/23 07:11 Dose: Not Given Documented By: ONEIDA Non-Admin Reason: PICC Sodium Chloride (0.9 % Sodium Chloride Flush 10 Ml Syringe) 5 ml IVFLUSH TID [facility] Last Admin: 07/05/23 07:57 Dose: 5 ml Documented By: ONEIDA Vancomycin HCl (Vancomycin Hcl Oral Solution 125 Mg/5 Ml Soln.Recon) 125 mg PO Q6H [facility] Last Admin: 07/05/23 09:15 Dose: 125 mg Documented By: ONEIDA Zolpidem Tartrate (Zolpidem Tartrate 5 Mg Tablet) 5 mg PO BEDTIME PRN PRN Reason: Sleep Last Admin: 07/04/23 21:32 Dose: 5 mg Documented By: TIFFANY Labs 07/01/23 05:52 07/06/23 05:21 Labs: Laboratory Results - last 24 hr 07/05/23 05:14 Hold Purple Top SEE NOTE Anion Gap 10 L Estim Creat Clear Calc 77.5 Estimated GFR > 60 Random Glucose 143 H Calcium 7.9 L Phosphorus 3.4 Magnesium 1.6 Total Bilirubin 0.3 AST 24 ALT 15 Alkaline Phosphatase 137 H Total Protein 5.4 L Albumin 2.3 L Microbiology Microbiology Results: Microbiology 06/29/23 08:30 Blood Culture - Final Blood - Venous No growth after 5 days. 06/29/23 08:30 Blood Culture - Final Blood - Venous No growth after 5 days. Procedures Date of Service Date of Service: 07/06/23 Progress Note: A&P Assessment and plan (1) Clostridium difficile colitis: Status: Acute Assessment and Plan: Less distended Clinically improved Abdomen softer On vanco and Flagyl TPN Lytes okay We will start on clear liquids and advance as tolerated Encouraged to ambulate Time Spent With Patient Time: Total time managing care of this patient today ____ minutes. Quality Stroke Does the patient have a stroke diagnosis?: No VTE Prior VTE?: No VTE Risk Level:: Medical - moderate - high VTE Device Contraindication: N/A - Device Ordered VTE Drug Contraindication: N/A - Med Ordered
--- NOTE | 2023-07-05 12:42 | P.PNIM_ITS ---
Subjective Subjective Date of Service: 07/05/23 Interval History: abd pain + distension improving no fever Review of Systems Review of Systems: Yes all other systems are reviewed and are negative Physical Exam 2 Vital Signs: Vital Signs: Last Vital Signs Temp 97.7 F 07/05/23 11:28 Pulse 91 07/05/23 11:28 Resp 16 07/05/23 11:28 BP 133/84 07/05/23 11:28 Pulse Ox 97 07/05/23 11:28 O2 Del Method Room Air 07/05/23 11:28 O2 Flow Rate 2 06/22/23 09:47 BMI result Body Mass Index 23.8 Gen: in no acute distress HEENT: sclera anicteric, moist mucus membranes Neck: supple Lungs: clear to auscultation bilaterally Heart: regular rate and rhythm, no murmurs Abd: distended, scattered bowel sounds, chele intact Ext: no edema, RUE PICC Skin: warm/well-perfused Neuro: alert and oriented x3, no focal findings Psych: appropriate affect Objective Data Active Medications Benzocaine (Throat Lozenge, Medicated Lozenge) 1 lozenge MUCOUS MEM Q2H PRN PRN Reason: Sore Throat Calcium Carbonate (Calcium Carbonate 750 Mg Tab.Chew) 750 mg PO Q6H PRN PRN Reason: Heartburn Fluoxetine HCl (Fluoxetine Hcl 20 Mg Capsule) 20 mg PO DAILY [facility] Last Admin: 07/05/23 09:15 Dose: 20 mg Documented By: ONEIDA Heparin Sodium (Porcine) (Heparin Sodium,Porcine 5,000 Unit/Ml Vial) 5,000 unit SUBCUT Q8H [facility] Last Admin: 07/05/23 09:15 Dose: 5,000 unit Documented By: ONEIDA Metronidazole (Flagyl) 500 mg in 100 mls @ 100 mls/hr IV Q8H [facility] Last Infusion: 07/05/23 09:27 Dose: Infused Documented By: ONEIDA Nutrition (Parenteral) (Parenteral Nutrition) 1,440 mls @ 60 mls/hr IV .Q24H [facility]; Protocol Stop: 07/05/23 20:59 Last Admin: 07/04/23 21:27 Dose: 60 mls/hr Documented By: TIFFANY Nutrition (Parenteral) (Parenteral Nutrition) 1,440 mls @ 60 mls/hr IV .Q24H [facility]; Protocol Stop: 07/06/23 20:59 Lorazepam (Lorazepam 2 Mg/Ml Vial) 0.5 mg IVPUSH Q6H PRN PRN Reason: Anxiety Last Admin: 07/05/23 09:15 Dose: 0.5 mg Documented By: ONEIDA Melatonin (Melatonin 3 Mg Tablet) 6 mg PO BEDTIME PRN PRN Reason: Insomnia Last Admin: 07/04/23 01:01 Dose: 6 mg Documented By: DANY Comments: pt unable to sleep Metoprolol Tartrate (Metoprolol Tartrate 25 Mg Tablet) 25 mg PO BID [facility]; Protocol Last Admin: 07/05/23 09:15 Dose: 25 mg Documented By: ONEIDA Morphine Sulfate (Morphine Sulfate 4 Mg/Ml Cartridge) 2 mg IVPUSH Q4H PRN; Protocol PRN Reason: Pain, Severe (Pain Scale 7-10) Last Admin: 07/05/23 03:15 Dose: 2 mg Documented By: TIFFANY Omeprazole (Omeprazole 20 Mg Capsule.Dr) 20 mg PO DAILY@0630 [facility] Last Admin: 07/05/23 06:21 Dose: 20 mg Documented By: TIFFANY Ondansetron HCl (Ondansetron Hcl 4 Mg/2 Ml Vial) 4 mg IVPUSH Q8H PRN PRN Reason: Nausea and Vomiting Last Admin: 07/02/23 17:32 Dose: 4 mg Documented By: STALIN Oxycodone HCl (Oxycodone Hcl Immed Release 5 Mg Tablet) 5 mg PO Q6H PRN PRN Reason: Pain, Moderate(Pain Scale 4-6) Last Admin: 07/02/23 18:28 Dose: 5 mg Documented By: STALIN Pharmacy Consult (Consult Rx Parenteral Nutrition Ordering) 1 each MISCELLANE DAILY PRN PRN Reason: Consult order Polyethylene Glycol (Polyethylene Glycol 3350 17 Gm Powd.Pack) 17 gm PO DAILY PRN PRN Reason: Constipation Promethazine HCl (Promethazine Hcl 25 Mg Tablet) 25 mg PO Q4H PRN PRN Reason: Nausea and Vomiting Last Admin: 07/01/23 15:47 Dose: 25 mg Documented By: COTEMA Sodium Chloride (0.9 % Sodium Chloride Flush 3 Ml Syringe) 3 ml IVFLUSH [facility] Last Admin: 07/05/23 07:11 Dose: Not Given Documented By: ONEIDA Non-Admin Reason: PICC Sodium Chloride (0.9 % Sodium Chloride Flush 10 Ml Syringe) 5 ml IVFLUSH TID [facility] Last Admin: 07/05/23 07:57 Dose: 5 ml Documented By: ONEIDA Vancomycin HCl (Vancomycin Hcl Oral Solution 125 Mg/5 Ml Soln.Recon) 125 mg PO Q6H [facility] Last Admin: 07/05/23 09:15 Dose: 125 mg Documented By: ONEIDA Zolpidem Tartrate (Zolpidem Tartrate 5 Mg Tablet) 5 mg PO BEDTIME PRN PRN Reason: Sleep Last Admin: 07/04/23 21:32 Dose: 5 mg Documented By: TIFFANY Labs 07/01/23 05:52 07/05/23 05:14 Labs: Laboratory Results - last 24 hr 07/05/23 05:14 Hold Purple Top SEE NOTE Anion Gap 10 L Estim Creat Clear Calc 77.5 Estimated GFR > 60 Random Glucose 143 H Calcium 7.9 L Phosphorus 3.4 Magnesium 1.6 Total Bilirubin 0.3 AST 24 ALT 15 Alkaline Phosphatase 137 H Total Protein 5.4 L Albumin 2.3 L Microbiology Microbiology Results: Microbiology 06/29/23 08:30 Blood Culture - Final Blood - Venous No growth after 5 days. 06/29/23 08:30 Blood Culture - Final Blood - Venous No growth after 5 days. Assessment and Plan (1) Clostridium difficile colitis: Status: Acute (2) Sepsis: Status: Acute Plan d14 58yo F with HLD, HTN, diverticulitis, mood disorder, prior sigmoid resection + loop ileostomy for colovaginal fistula underwent ileostomy reversal 06/21 then admitted to Gen Surg hospitalist consultation for HTN sepsis due to C. difficile colitis - continue vancomycin 125 mg q6h 06/28-07/11, also on IV metronidazole 06/28- - continue TPN, per Gen Surg start clear liquids hypoMg hypoK hypoPO4 - repleted HTN tachycardia - resolved with resuming beta-blockers [now on metoprolol tartrate, previously on atenolol] mood disorder - fluoxetine VTE ppx - UFH Thank you for this consultation. We will continue to follow the patient while they are admitted to your service. Total time managing care of this patient today: 35 minutes. Quality Stroke Does the patient have a stroke diagnosis?: No VTE Prior VTE?: No VTE Risk Level:: Medical - moderate - high VTE Device Contraindication: N/A - Device Ordered VTE Drug Contraindication: N/A - Med Ordered
--- NOTE | 2023-07-05 14:52 | MHC.CM.PN ---
PT NOT YET MEDICALLY CLEARED, DCP REMAINS HOME VIA PRIVATE TRANSPORT
[2023-07-05] MEDS: oxyCODONE HCl Immed Release 5 MG TABLET PO ×2 (15:02→20:32)
--- NOTE | 2023-07-05 15:15 | PM.EVENT ---
Event Note Date of Service: 07/05/23 Event Note: seen on pm rounds says she is very anxious tolerating clear liquids looks well abd soft, less distended, less tenderness and pain ok to give Ativan for anxiety hope to advance diet tomorrow ambulate Time Spent With Patient Time: Total time managing care of this patient today ____ minutes.
[2023-07-05] MEDS: Zolpidem Tartrate 5 MG TABLET PO (20:32)
[2023-07-05] MEDS: Parenteral Nutrition 1,440 ML 60 ML IV (20:33)
[2023-07-06] VITALS (8 sets, daily range): BP systolic 128–167; BP diastolic 77–85; PULSE 88–95; RESP 16–19; TEMP 36.1–36.7; O2SAT 97–98
[2023-07-06] MEDS: Morphine Sulfate 4 MG/ML CARTRIDGE 2 MG IVPUSH ×4 (00:10→17:00)
[2023-07-06] MEDS: 0.9 % Sodium Chloride Flush 3 ML SYRINGE IVFLUSH (00:13)
[2023-07-06] MEDS: metroNIDAZOLE/NS 500 MG/100 ML PIGGYBACK 100 MG IV ×2 (00:14→08:02)
[2023-07-06] MEDS: Heparin Sodium,Porcine 5,000 UNIT/ML VIAL 5000 UNIT SUBCUT ×3 (02:08→16:51)
[2023-07-06] MEDS: oxyCODONE HCl Immed Release 5 MG TABLET PO ×3 (03:35→20:49)
[2023-07-06] MEDS: vancomycin HCL Oral Solution 125 MG/5 ML SOLN.RECON PO ×4 (03:35→23:55)
[2023-07-06] MEDS: Omeprazole 20 MG CAPSULE.DR PO (05:28)
[2023-07-06 06:09] LABS: Alanine Aminotransferase 14 U/L (0-31); Albumin Level 2.5 g/dL (3.5-5.0); Alkaline Phosphatase 126 U/L (39-117); Anion Gap 11 (12-20); Aspartate Amino Transferase 25 U/L (5-31); Bilirubin Total 0.3 mg/dL (0.0-1.0); Blood Urea Nitrogen 11 mg/dL (9-16); Calcium 8.3 mg/dL (8.4-10.2); Carbon Dioxide 29 mmol/L (22-29); Chloride 104 mmol/L (96-108); Creatinine Clr Calc Pharmacy 80.2; Estimated Glomerular Filt Rate > 60; Glucose Random 140 mg/dL (60-115); Magnesium 1.7 mg/dL (1.6-2.6); Phosphorus 3.5 mg/dL (2.7-4.5); Sodium 139 mmol/L (135-145)
[2023-07-06] MEDS: 0.9 % Sodium Chloride Flush 10 ML SYRINGE 5 ML IVFLUSH ×2 (08:02→13:58)
[2023-07-06] MEDS: FLUoxetine HCl 20 MG CAPSULE PO (08:03)
[2023-07-06] MEDS: Metoprolol Tartrate 25 MG TABLET PO ×2 (08:03→20:49)
--- NOTE | 2023-07-06 08:24 | P.PNGS_ITS ---
Subjective Subjective Date of Service: 07/07/23 Interval history: much less abdl pain still with loose stools although better she says she has been ambulating more wants to eat Physical Exam 2 Vital Signs: Vital Signs: Last Vital Signs Temp 97.1 F 07/06/23 07:26 Pulse 95 07/06/23 08:03 Resp 16 07/06/23 07:26 BP 132/80 07/06/23 08:03 Pulse Ox 97 07/06/23 07:26 O2 Del Method Room Air 07/06/23 07:26 O2 Flow Rate 2 06/22/23 09:47 BMI result Body Mass Index 23.8 Const: Other: anxious General: no acute distress Resp: Effort & Inspection: normal respiratory effort Cardio: Rate: regular rate GI: Other: distended but soft, incision clean and dry Objective Data Active Medications Benzocaine (Throat Lozenge, Medicated Lozenge) 1 lozenge MUCOUS MEM Q2H PRN PRN Reason: Sore Throat Calcium Carbonate (Calcium Carbonate 750 Mg Tab.Chew) 750 mg PO Q6H PRN PRN Reason: Heartburn Fluoxetine HCl (Fluoxetine Hcl 20 Mg Capsule) 20 mg PO DAILY [facility] Last Admin: 07/06/23 08:03 Dose: 20 mg Documented By: RONI Heparin Sodium (Porcine) (Heparin Sodium,Porcine 5,000 Unit/Ml Vial) 5,000 unit SUBCUT Q8H [facility] Last Admin: 07/06/23 02:08 Dose: 5,000 unit Documented By: CELESTINA Metronidazole (Flagyl) 500 mg in 100 mls @ 100 mls/hr IV Q8H [facility] Last Admin: 07/06/23 08:02 Dose: 100 mls/hr Documented By: RONI Nutrition (Parenteral) (Parenteral Nutrition) 1,440 mls @ 60 mls/hr IV .Q24H [facility]; Protocol Stop: 07/06/23 20:59 Last Admin: 07/05/23 20:33 Dose: 60 mls/hr Documented By: SOMMER Lorazepam (Lorazepam 2 Mg/Ml Vial) 0.5 mg IVPUSH Q6H PRN PRN Reason: Anxiety Last Admin: 07/05/23 16:00 Dose: 0.5 mg Documented By: SOMMER Melatonin (Melatonin 3 Mg Tablet) 6 mg PO BEDTIME PRN PRN Reason: Insomnia Last Admin: 07/04/23 01:01 Dose: 6 mg Documented By: DANY Comments: pt unable to sleep Metoprolol Tartrate (Metoprolol Tartrate 25 Mg Tablet) 25 mg PO BID [facility]; Protocol Last Admin: 07/06/23 08:03 Dose: 25 mg Documented By: RONI Morphine Sulfate (Morphine Sulfate 4 Mg/Ml Cartridge) 2 mg IVPUSH Q4H PRN; Protocol PRN Reason: Pain, Severe (Pain Scale 7-10) Last Admin: 07/06/23 08:01 Dose: 2 mg Documented By: RONI Omeprazole (Omeprazole 20 Mg Capsule.Dr) 20 mg PO DAILY@0630 [facility] Last Admin: 07/06/23 05:28 Dose: 20 mg Documented By: CELESTINA Ondansetron HCl (Ondansetron Hcl 4 Mg/2 Ml Vial) 4 mg IVPUSH Q8H PRN PRN Reason: Nausea and Vomiting Last Admin: 07/02/23 17:32 Dose: 4 mg Documented By: STALIN Oxycodone HCl (Oxycodone Hcl Immed Release 5 Mg Tablet) 5 mg PO Q6H PRN PRN Reason: Pain, Moderate(Pain Scale 4-6) Last Admin: 07/06/23 03:35 Dose: 5 mg Documented By: CELESTINA Pharmacy Consult (Consult Rx Parenteral Nutrition Ordering) 1 each MISCELLANE DAILY PRN PRN Reason: Consult order Polyethylene Glycol (Polyethylene Glycol 3350 17 Gm Powd.Pack) 17 gm PO DAILY PRN PRN Reason: Constipation Promethazine HCl (Promethazine Hcl 25 Mg Tablet) 25 mg PO Q4H PRN PRN Reason: Nausea and Vomiting Last Admin: 07/01/23 15:47 Dose: 25 mg Documented By: COTEMA Sodium Chloride (0.9 % Sodium Chloride Flush 3 Ml Syringe) 3 ml IVFLUSH QSHIFT [facility] Last Admin: 07/06/23 00:13 Dose: 3 ml Documented By: CELESTINA Sodium Chloride (0.9 % Sodium Chloride Flush 10 Ml Syringe) 5 ml IVFLUSH TID [facility] Last Admin: 07/06/23 08:02 Dose: 5 ml Documented By: RONI Vancomycin HCl (Vancomycin Hcl Oral Solution 125 Mg/5 Ml Soln.Recon) 125 mg PO Q6H [facility] Last Admin: 07/06/23 03:35 Dose: 125 mg Documented By: CELESTINA Zolpidem Tartrate (Zolpidem Tartrate 5 Mg Tablet) 5 mg PO BEDTIME PRN PRN Reason: Sleep Last Admin: 07/05/23 20:32 Dose: 5 mg Documented By: SOMMER Labs 07/01/23 05:52 07/07/23 05:13 Labs: Laboratory Results - last 24 hr 07/06/23 05:21 Anion Gap 11 L Estim Creat Clear Calc 80.2 Estimated GFR > 60 Random Glucose 140 H Calcium 8.3 L Phosphorus 3.5 Magnesium 1.7 Total Bilirubin 0.3 AST 25 ALT 14 Alkaline Phosphatase 126 H Total Protein 6.0 L Albumin 2.5 L Procedures Date of Service Date of Service: 07/07/23 Progress Note: A&P Assessment and plan (1) Clostridium difficile colitis: Status: Acute Assessment and Plan: distension improving try regular diet ambulate more she subjectively feels much better and asking about going home dc TPN later if tolerating diet Vanco and Metronidazole Time Spent With Patient Time: Total time managing care of this patient today ____ minutes. Quality Stroke Does the patient have a stroke diagnosis?: No VTE Prior VTE?: No VTE Risk Level:: Medical - moderate - high VTE Device Contraindication: N/A - Device Ordered VTE Drug Contraindication: N/A - Med Ordered
--- NOTE | 2023-07-06 09:57 | HO.PM.IMPN ---
Subjective Subjective Date of Service: 07/06/23 Interval History: abd pain/distension improved; tolerating clear liquids has loose stools Review of Systems Review of Systems: Yes all other systems are reviewed and are negative Physical Exam Vital Signs: Vital Signs: Last Vital Signs Temp 97.1 F 07/06/23 07:26 Pulse 95 07/06/23 08:03 Resp 16 07/06/23 07:26 BP 132/80 07/06/23 08:03 Pulse Ox 97 07/06/23 07:26 O2 Del Method Room Air 07/06/23 07:26 O2 Flow Rate 2 06/22/23 09:47 BMI result Body Mass Index 23.8 Gen: in no acute distress HEENT: sclera anicteric, moist mucus membranes Neck: supple Lungs: clear to auscultation bilaterally Heart: regular rate and rhythm, no murmurs Abd: minimal tenderness, active bowel sounds, chele intact Ext: no edema, RUE PICC Skin: warm/well-perfused Neuro: alert and oriented x3, no focal findings Psych: appropriate affect Objective Data Active Medications Benzocaine (Throat Lozenge, Medicated Lozenge) 1 lozenge MUCOUS MEM Q2H PRN PRN Reason: Sore Throat Calcium Carbonate (Calcium Carbonate 750 Mg Tab.Chew) 750 mg PO Q6H PRN PRN Reason: Heartburn Fluoxetine HCl (Fluoxetine Hcl 20 Mg Capsule) 20 mg PO DAILY [facility] Last Admin: 07/06/23 08:03 Dose: 20 mg Documented By: RONI Heparin Sodium (Porcine) (Heparin Sodium,Porcine 5,000 Unit/Ml Vial) 5,000 unit SUBCUT Q8H [facility] Last Admin: 07/06/23 09:20 Dose: 5,000 unit Documented By: RONI Nutrition (Parenteral) (Parenteral Nutrition) 1,440 mls @ 60 mls/hr IV .Q24H [facility]; Protocol Stop: 07/06/23 20:59 Last Admin: 07/05/23 20:33 Dose: 60 mls/hr Documented By: SOMMER Lorazepam (Lorazepam 2 Mg/Ml Vial) 0.5 mg IVPUSH Q6H PRN PRN Reason: Anxiety Last Admin: 07/05/23 16:00 Dose: 0.5 mg Documented By: SOMMER Melatonin (Melatonin 3 Mg Tablet) 6 mg PO BEDTIME PRN PRN Reason: Insomnia Last Admin: 07/04/23 01:01 Dose: 6 mg Documented By: DANY Comments: pt unable to sleep Metoprolol Tartrate (Metoprolol Tartrate 25 Mg Tablet) 25 mg PO BID [facility]; Protocol Last Admin: 07/06/23 08:03 Dose: 25 mg Documented By: RONI Metronidazole (Metronidazole 500 Mg Tablet) 500 mg PO Q8H [facility] Morphine Sulfate (Morphine Sulfate 4 Mg/Ml Cartridge) 2 mg IVPUSH Q4H PRN; Protocol PRN Reason: Pain, Severe (Pain Scale 7-10) Last Admin: 07/06/23 08:01 Dose: 2 mg Documented By: RONI Omeprazole (Omeprazole 20 Mg Capsule.Dr) 20 mg PO DAILY@0630 [facility] Last Admin: 07/06/23 05:28 Dose: 20 mg Documented By: CELESTINA Ondansetron HCl (Ondansetron Hcl 4 Mg/2 Ml Vial) 4 mg IVPUSH Q8H PRN PRN Reason: Nausea and Vomiting Last Admin: 07/02/23 17:32 Dose: 4 mg Documented By: STALIN Oxycodone HCl (Oxycodone Hcl Immed Release 5 Mg Tablet) 5 mg PO Q6H PRN PRN Reason: Pain, Moderate(Pain Scale 4-6) Last Admin: 07/06/23 03:35 Dose: 5 mg Documented By: CELESTINA Pharmacy Consult (Consult Rx Parenteral Nutrition Ordering) 1 each MISCELLANE DAILY PRN PRN Reason: Consult order Polyethylene Glycol (Polyethylene Glycol 3350 17 Gm Powd.Pack) 17 gm PO DAILY PRN PRN Reason: Constipation Promethazine HCl (Promethazine Hcl 25 Mg Tablet) 25 mg PO Q4H PRN PRN Reason: Nausea and Vomiting Last Admin: 07/01/23 15:47 Dose: 25 mg Documented By: COTEMA Sodium Chloride (0.9 % Sodium Chloride Flush 3 Ml Syringe) 3 ml IVFLUSH QSHIFT [facility] Last Admin: 07/06/23 09:18 Dose: Not Given Documented By: RONI Non-Admin Reason: picc line, flushed with 5CC Sodium Chloride (0.9 % Sodium Chloride Flush 10 Ml Syringe) 5 ml IVFLUSH TID [facility] Last Admin: 07/06/23 08:02 Dose: 5 ml Documented By: RONI Vancomycin HCl (Vancomycin Hcl Oral Solution 125 Mg/5 Ml Soln.Harish) 125 mg PO Q6H [facility] Last Admin: 07/06/23 09:18 Dose: 125 mg Documented By: RONI Zolpidem Tartrate (Zolpidem Tartrate 5 Mg Tablet) 5 mg PO BEDTIME PRN PRN Reason: Sleep Last Admin: 07/05/23 20:32 Dose: 5 mg Documented By: SOMMER Labs 07/01/23 05:52 07/06/23 05:21 Labs: Laboratory Results - last 24 hr 07/06/23 05:21 Anion Gap 11 L Estim Creat Clear Calc 80.2 Estimated GFR > 60 Random Glucose 140 H Calcium 8.3 L Phosphorus 3.5 Magnesium 1.7 Total Bilirubin 0.3 AST 25 ALT 14 Alkaline Phosphatase 126 H Total Protein 6.0 L Albumin 2.5 L Assessment and Plan (1) Clostridium difficile colitis: Status: Acute (2) Sepsis: Status: Acute Plan d15 58yo F with HLD, HTN, diverticulitis, mood disorder, prior sigmoid resection + loop ileostomy for colovaginal fistula underwent ileostomy reversal 06/21 then admitted to Gen Surg hospitalist consultation for HTN sepsis due to C. difficile colitis - continue vancomycin 125 mg q6h 06/28-07/11, also on IV metronidazole 06/28- [can stop metronidazole upon d/c home] - per Gen Surg advance to solids then d/c TPN if tolerating hypoMg hypoK hypoPO4 - repleted HTN tachycardia - resolved with resuming beta-blockers [now on metoprolol tartrate, previously on atenolol] mood disorder - fluoxetine VTE ppx - [facility] Thank you for this consultation. We will continue to follow the patient while they are admitted to your service. Total time managing care of this patient today: 35 minutes. Quality Stroke Does the patient have a stroke diagnosis?: No VTE Prior VTE?: No VTE Risk Level:: Medical - moderate - high VTE Device Contraindication: N/A - Device Ordered VTE Drug Contraindication: N/A - Med Ordered
--- NOTE | 2023-07-06 14:19 | PM.EVENT ---
Event Note Date of Service: 07/06/23 Event Note: tolerating diet feels much better abd soft she says she is ready to be discharged looks well poss. pop Cook Time Spent With Patient Time: Total time managing care of this patient today ____ minutes.
[2023-07-06] MEDS: ondansetron HCL 4 MG/2 ML VIAL IVPUSH (14:31)
[2023-07-06] MEDS: metroNIDAZOLE 500 MG TABLET PO ×2 (16:20→23:54)
[2023-07-06] MEDS: Zolpidem Tartrate 5 MG TABLET PO (20:49)
[2023-07-06] MEDS: Parenteral Nutrition 1,440 ML 60 ML IV (20:49)
[2023-07-07] MEDS: LORazepam 2 MG/ML VIAL 0.5 MG IVPUSH (00:09)
[2023-07-07] MEDS: Acetaminophen 325 MG TABLET 975 MG PO (00:11)
[2023-07-07 01:11] VITALS: RESP 16
[2023-07-07 03:13] VITALS: BP 123/77; PULSE 88; RESP 16; TEMP 36.2; O2SAT 97
[2023-07-07] MEDS: Heparin Sodium,Porcine 5,000 UNIT/ML VIAL 5000 UNIT SUBCUT (03:37)
[2023-07-07 03:49] VITALS: RESP 18
[2023-07-07] MEDS: Morphine Sulfate 4 MG/ML CARTRIDGE 2 MG IVPUSH (03:49)
[2023-07-07] MEDS: vancomycin HCL Oral Solution 125 MG/5 ML SOLN.RECON PO ×2 (03:55→11:30)
[2023-07-07 04:19] VITALS: PULSE 90; RESP 16
[2023-07-07 06:11] LABS: Alanine Aminotransferase 17 U/L (0-31); Albumin Level 2.4 g/dL (3.5-5.0); Alkaline Phosphatase 119 U/L (39-117); Anion Gap 11 (12-20); Aspartate Amino Transferase 29 U/L (5-31); Bilirubin Total 0.3 mg/dL (0.0-1.0); Blood Urea Nitrogen 12 mg/dL (9-16); Calcium 8.1 mg/dL (8.4-10.2); Carbon Dioxide 27 mmol/L (22-29); Chloride 105 mmol/L (96-108); Creatinine Clr Calc Pharmacy 75.1; Estimated Glomerular Filt Rate > 60; Glucose Random 130 mg/dL (60-115); Magnesium 1.8 mg/dL (1.6-2.6); Phosphorus 3.8 mg/dL (2.7-4.5); Potassium 5.1 mmol/L (3.3-5.1); Sodium 138 mmol/L (135-145); Total Protein 5.6 g/dL (6.5-8.0)
[2023-07-07] MEDS: Omeprazole 20 MG CAPSULE.DR PO (06:33)
[2023-07-07] MEDS: metroNIDAZOLE 500 MG TABLET PO (07:19)
[2023-07-07] MEDS: 0.9 % Sodium Chloride Flush 3 ML SYRINGE IVFLUSH (07:19)
[2023-07-07] MEDS: Metoprolol Tartrate 25 MG TABLET PO (07:19)
[2023-07-07] MEDS: FLUoxetine HCl 20 MG CAPSULE PO (07:19)
[2023-07-07] MEDS: oxyCODONE HCl Immed Release 5 MG TABLET PO (07:19)
[2023-07-07 07:56] VITALS: BP 142/71; PULSE 93; RESP 18; TEMP 36; O2SAT 99
[2023-07-07] MEDS: LORazepam 1 MG TABLET PO (08:00)
[2023-07-07] MEDS: oxyCODONE HCl Immed Release 5 MG TABLET 10 MG PO ×2 (08:00→11:30)
--- NOTE | 2023-07-07 08:27 | MHC.CM.PN ---
DP: PT HAS BEEN MEDICALLY CLEARED FOR DC HOME, NO SERVICES. PT SPOUSE WILL TRANSPORT.
--- NOTE | 2023-07-07 08:37 | PM.PNGS ---
Subjective Subjective Date of Service: 07/07/23 Interval history: Says she feels ?great? Tolerating diet well Loose stools still but better Denies significant pain Physical Exam Vital Signs: Vital Signs: Last Vital Signs Temp 96.8 F 07/07/23 07:56 Pulse 93 07/07/23 07:56 Resp 18 07/07/23 07:56 BP 142/71 H 07/07/23 07:56 Pulse Ox 99 07/07/23 07:56 O2 Del Method Room Air 07/07/23 07:56 O2 Flow Rate 2 06/22/23 09:47 BMI result Body Mass Index 23.8 Const: Other: Looks well General: comfortable and no acute distress Resp: Effort & Inspection: normal respiratory effort Cardio: Rate: regular rate GI: Other: Still distended but much improved Palpation (GI): Soft to palpation, not firm, nontender and no guarding Objective Data Active Medications Acetaminophen (Acetaminophen 325 Mg Tablet) 975 mg PO Q6H PRN PRN Reason: mild pain, headache or fever Last Admin: 07/07/23 00:11 Dose: 975 mg Documented By: ROHIT Benzocaine (Throat Lozenge, Medicated Lozenge) 1 lozenge MUCOUS MEM Q2H PRN PRN Reason: Sore Throat Calcium Carbonate (Calcium Carbonate 750 Mg Tab.Chew) 750 mg PO Q6H PRN PRN Reason: Heartburn Fluoxetine HCl (Fluoxetine Hcl 20 Mg Capsule) 20 mg PO DAILY [facility] Last Admin: 07/07/23 07:19 Dose: 20 mg Documented By: SOMMER Heparin Sodium (Porcine) (Heparin Sodium,Porcine 5,000 Unit/Ml Vial) 5,000 unit SUBCUT Q8H [facility] Last Admin: 07/07/23 03:37 Dose: 5,000 unit Documented By: ROHIT Nutrition (Parenteral) (Parenteral Nutrition) 1,440 mls @ 60 mls/hr IV .Q24H [facility]; Protocol Stop: 07/07/23 20:59 Last Admin: 07/06/23 20:49 Dose: 60 mls/hr Documented By: ROHIT Lorazepam (Lorazepam 1 Mg Tablet) 1 mg PO Q6H PRN PRN Reason: anxiety Last Admin: 07/07/23 08:00 Dose: 1 mg Documented By: SOMMER Melatonin (Melatonin 3 Mg Tablet) 6 mg PO BEDTIME PRN PRN Reason: Insomnia Last Admin: 07/04/23 01:01 Dose: 6 mg Documented By: DANY Comments: pt unable to sleep Metoprolol Tartrate (Metoprolol Tartrate 25 Mg Tablet) 25 mg PO BID [facility]; Protocol Last Admin: 07/07/23 07:19 Dose: 25 mg Documented By: SOMMER Metronidazole (Metronidazole 500 Mg Tablet) 500 mg PO Q8H [facility] Last Admin: 07/07/23 07:19 Dose: 500 mg Documented By: SOMMER Omeprazole (Omeprazole 20 Mg Capsule.Dr) 20 mg PO DAILY@0630 [facility] Last Admin: 07/07/23 06:33 Dose: 20 mg Documented By: AMPARO Ondansetron HCl (Ondansetron Hcl 4 Mg/2 Ml Vial) 4 mg IVPUSH Q8H PRN PRN Reason: Nausea and Vomiting Last Admin: 07/06/23 14:31 Dose: 4 mg Documented By: RONI Oxycodone HCl (Oxycodone Hcl Immed Release 5 Mg Tablet) 5 mg PO Q6H PRN PRN Reason: Pain, Moderate(Pain Scale 4-6) Last Admin: 07/07/23 07:19 Dose: 5 mg Documented By: SOMMER Oxycodone HCl (Oxycodone Hcl Immed Release 5 Mg Tablet) 10 mg PO Q4H PRN PRN Reason: Pain, Severe (Pain Scale 7-10) Last Admin: 07/07/23 08:00 Dose: 10 mg Documented By: SOMMER Pharmacy Consult (Consult Rx Parenteral Nutrition Ordering) 1 each MISCELLANE DAILY PRN PRN Reason: Consult order Polyethylene Glycol (Polyethylene Glycol 3350 17 Gm Powd.Pack) 17 gm PO DAILY PRN PRN Reason: Constipation Promethazine HCl (Promethazine Hcl 25 Mg Tablet) 25 mg PO Q4H PRN PRN Reason: Nausea and Vomiting Last Admin: 07/01/23 15:47 Dose: 25 mg Documented By: COTEMA Sodium Chloride (0.9 % Sodium Chloride Flush 3 Ml Syringe) 3 ml IVFLUSH QSHIFT [facility] Last Admin: 07/07/23 07:19 Dose: 3 ml Documented By: SOMMER Sodium Chloride (0.9 % Sodium Chloride Flush 10 Ml Syringe) 5 ml IVFLUSH TID [facility] Last Admin: 07/07/23 07:19 Dose: Not Given Documented By: SOMMER Non-Admin Reason: IV Running Vancomycin HCl (Vancomycin Hcl Oral Solution 125 Mg/5 Ml Soln.Recon) 125 mg PO Q6H [facility] Last Admin: 07/07/23 03:55 Dose: 125 mg Documented By: ROHIT Zolpidem Tartrate (Zolpidem Tartrate 5 Mg Tablet) 5 mg PO BEDTIME PRN PRN Reason: Sleep Last Admin: 07/06/23 20:49 Dose: 5 mg Documented By: ROHIT Labs 07/01/23 05:52 07/07/23 05:13 Labs: Laboratory Results - last 24 hr 07/07/23 05:13 Hold Purple Top SEE NOTE Anion Gap 11 L Estim Creat Clear Calc 75.1 Estimated GFR > 60 Random Glucose 130 H Calcium 8.1 L Phosphorus 3.8 Magnesium 1.8 Total Bilirubin 0.3 AST 29 ALT 17 Alkaline Phosphatase 119 H Total Protein 5.6 L Albumin 2.4 L Procedures Date of Service Date of Service: 07/07/23 Progress Note: A&P Assessment and plan (1) Clostridium difficile colitis: Status: Acute Assessment and Plan: Clinically much improved Now with good GI function Loose stools better Okay to DC home Continue vanco until July 11 Discussed with hospitalist service Follow-up in the office (2) Status post reversal of ileostomy: Status: Acute Assessment and Plan: Clinically doing well [place] DC Has good GI function Time Spent With Patient Time: Total time managing care of this patient today ____ minutes. Quality Stroke Does the patient have a stroke diagnosis?: No VTE Prior VTE?: No VTE Risk Level:: Medical - moderate - high VTE Device Contraindication: N/A - Device Ordered VTE Drug Contraindication: N/A - Med Ordered
--- NOTE | 2023-07-07 10:32 | P.PNIM_ITS ---
Subjective Subjective Date of Service: 07/07/23 Interval History: post op pain controlled, having BMs, tolerating solids Review of Systems Review of Systems: Yes all other systems are reviewed and are negative Physical Exam 2 Vital Signs: Vital Signs: Last Vital Signs Temp 96.8 F 07/07/23 07:56 Pulse 93 07/07/23 07:56 Resp 18 07/07/23 07:56 BP 142/71 H 07/07/23 07:56 Pulse Ox 99 07/07/23 07:56 O2 Del Method Room Air 07/07/23 07:56 O2 Flow Rate 2 06/22/23 09:47 BMI result Body Mass Index 23.8 Gen: in no acute distress HEENT: sclera anicteric, moist mucus membranes Neck: supple Lungs: clear to auscultation bilaterally Heart: regular rate and rhythm, no murmurs Abd: minimal tenderness, active bowel sounds, chele intact Ext: no edema, RUE PICC Skin: warm/well-perfused Neuro: alert and oriented x3, no focal findings Psych: appropriate affect Objective Data Active Medications Acetaminophen (Acetaminophen 325 Mg Tablet) 975 mg PO Q6H PRN PRN Reason: mild pain, headache or fever Last Admin: 07/07/23 00:11 Dose: 975 mg Documented By: ROHIT Benzocaine (Throat Lozenge, Medicated Lozenge) 1 lozenge MUCOUS MEM Q2H PRN PRN Reason: Sore Throat Calcium Carbonate (Calcium Carbonate 750 Mg Tab.Chew) 750 mg PO Q6H PRN PRN Reason: Heartburn Fluoxetine HCl (Fluoxetine Hcl 20 Mg Capsule) 20 mg PO DAILY [facility] Last Admin: 07/07/23 07:19 Dose: 20 mg Documented By: SOMMER Heparin Sodium (Porcine) (Heparin Sodium,Porcine 5,000 Unit/Ml Vial) 5,000 unit SUBCUT Q8H [facility] Last Admin: 07/07/23 03:37 Dose: 5,000 unit Documented By: ROHIT Nutrition (Parenteral) (Parenteral Nutrition) 1,440 mls @ 60 mls/hr IV .Q24H [facility]; Protocol Stop: 07/07/23 20:59 Last Admin: 07/06/23 20:49 Dose: 60 mls/hr Documented By: ROHIT Lorazepam (Lorazepam 1 Mg Tablet) 1 mg PO Q6H PRN PRN Reason: anxiety Last Admin: 07/07/23 08:00 Dose: 1 mg Documented By: SOMMER Melatonin (Melatonin 3 Mg Tablet) 6 mg PO BEDTIME PRN PRN Reason: Insomnia Last Admin: 07/04/23 01:01 Dose: 6 mg Documented By: DANY Comments: pt unable to sleep Metoprolol Tartrate (Metoprolol Tartrate 25 Mg Tablet) 25 mg PO BID [facility]; Protocol Last Admin: 07/07/23 07:19 Dose: 25 mg Documented By: SOMMER Metronidazole (Metronidazole 500 Mg Tablet) 500 mg PO Q8H [facility] Last Admin: 07/07/23 07:19 Dose: 500 mg Documented By: SOMMER Omeprazole (Omeprazole 20 Mg Capsule.Dr) 20 mg PO DAILY@0630 [facility] Last Admin: 07/07/23 06:33 Dose: 20 mg Documented By: AMPARO Ondansetron HCl (Ondansetron Hcl 4 Mg/2 Ml Vial) 4 mg IVPUSH Q8H PRN PRN Reason: Nausea and Vomiting Last Admin: 07/06/23 14:31 Dose: 4 mg Documented By: RONI Oxycodone HCl (Oxycodone Hcl Immed Release 5 Mg Tablet) 5 mg PO Q6H PRN PRN Reason: Pain, Moderate(Pain Scale 4-6) Last Admin: 07/07/23 07:19 Dose: 5 mg Documented By: SOMMER Oxycodone HCl (Oxycodone Hcl Immed Release 5 Mg Tablet) 10 mg PO Q4H PRN PRN Reason: Pain, Severe (Pain Scale 7-10) Last Admin: 07/07/23 08:00 Dose: 10 mg Documented By: SOMMER Pharmacy Consult (Consult Rx Parenteral Nutrition Ordering) 1 each MISCELLANE DAILY PRN PRN Reason: Consult order Polyethylene Glycol (Polyethylene Glycol 3350 17 Gm Powd.Pack) 17 gm PO DAILY PRN PRN Reason: Constipation Promethazine HCl (Promethazine Hcl 25 Mg Tablet) 25 mg PO Q4H PRN PRN Reason: Nausea and Vomiting Last Admin: 07/01/23 15:47 Dose: 25 mg Documented By: COTEMA Sodium Chloride (0.9 % Sodium Chloride Flush 3 Ml Syringe) [facility] Last Admin: 07/07/23 07:19 Dose: 3 ml Documented By: SOMMER Sodium Chloride (0.9 % Sodium Chloride Flush 10 Ml Syringe) 5 ml IVFLUSH TID [facility] Last Admin: 07/07/23 07:19 Dose: Not Given Documented By: SOMMER Non-Admin Reason: IV Running Vancomycin HCl (Vancomycin Hcl Oral Solution 125 Mg/5 Ml Soln.Recon) 125 mg PO Q6H [facility] Last Admin: 07/07/23 03:55 Dose: 125 mg Documented By: ROHIT Zolpidem Tartrate (Zolpidem Tartrate 5 Mg Tablet) 5 mg PO BEDTIME PRN PRN Reason: Sleep Last Admin: 07/06/23 20:49 Dose: 5 mg Documented By: ROHIT Labs 07/01/23 05:52 07/07/23 05:13 Labs: Laboratory Results - last 24 hr 07/07/23 05:13 Hold Purple Top SEE NOTE Anion Gap 11 L Estim Creat Clear Calc 75.1 Estimated GFR > 60 Random Glucose 130 H Calcium 8.1 L Phosphorus 3.8 Magnesium 1.8 Total Bilirubin 0.3 AST 29 ALT 17 Alkaline Phosphatase 119 H Total Protein 5.6 L Albumin 2.4 L Assessment and Plan (1) Clostridium difficile colitis: Status: Acute (2) Sepsis: Status: Acute Plan d16 58yo F with HLD, HTN, diverticulitis, mood disorder, prior sigmoid resection + loop ileostomy for colovaginal fistula underwent ileostomy reversal 06/21 then admitted to Gen Surg hospitalist consultation for HTN sepsis due to C. difficile colitis - continue vancomycin 125 mg q6h 06/28-07/11, stop metronidazole hypoMg hypoK hypoPO4 - repleted HTN tachycardia - resolved with resuming beta-blockers [now on metoprolol tartrate, previously on atenolol- please discharge on metoprolol] mood disorder - fluoxetine VTE ppx - [facility] Thank you for this consultation. We will continue to follow the patient while they are admitted to your service. Total time managing care of this patient today: 35 minutes. Quality Stroke Does the patient have a stroke diagnosis?: No VTE Prior VTE?: No VTE Risk Level:: Medical - moderate - high VTE Device Contraindication: N/A - Device Ordered VTE Drug Contraindication: N/A - Med Ordered
--- NOTE | 2023-07-07 12:52 | P.DS_ITS ---
DS: Providers Provider Date of Service: 07/07/23 Date of admission: 06/22/23 07:38 Date of discharge: 07/07/23 Primary care physician: ELBA Glaser Attending physician on admission: Arvind Clayton Consults: 06/27/23 16:57 Consult to Hospitalist Routine Comment: Consulting Provider: Hospitalist Reason For Exam: elevated BP Attending physician on discharge: Arvind Clayton DS: Diagnosis Discharge Diagnosis (1) Clostridium difficile colitis: Status: Resolved (2) Sepsis: Status: Resolved DS: Summary Hospital Course Hospital Course: HPI AT ADMISSION: The patient is a 58-year-old female who had undergone sigmoid resection for a colovaginal fistula in February,. She is here for reversal of her protective loop ileostomy. She understands the technique of the procedure as well as the risks, benefits, and alternatives HOSPITAL COURSE: On 06/22/23, reversal of loop ileostomy was performed by Dr. Clayton without complication. Patient tolerated the procedure well and was admitted to the medical/surgical floor for observation. She initially was doing well post op however had difficulty with pain and return of GI function- thought it was slow to return secondary to surgery. However she had worsening pain, distention and became tachycardic with leukocytosis. Hospitalist consult was obtained for medical management. CT scan was obtained which showed dilated stomach, diffuse distention of the small bowel and colon all the way to the rectum with some free fluid. NGT was inserted for decompression. She began to have frequent loose stools. C diff was obtained which was positive. Blood cultures were negative. She was started on NG Vancomycin and IV Flagyl on 06/29/23 for treatment of C diff colitis. IVF were increased. PICC line was obtained and TPN initiated. She developed an ALKA due to dehydration from GI losses. This improved with additional IVF. Her WBC count downtrended and normalized. She began to improve symptomatically. Her NGT had low output was eventually removed. Vancomycin was transitioned to PO. Her activity was slowly increased. She was gradually advanced from sips of liquids to clear liquid diet and then solid diet over time. Her TPN was discontinued as her oral intake increased. Her abdominal distention and loose stools improved. She felt overall well and was ambulating without difficulty. Her pain was minimal. Her abdomen was benign with clean incision and still mildly distended but soft and nontender. She was discharged to home on 07/07/23 in stable condition. She was discharged to home on vancomycin 125 mg PO q6h until 07/12/23. Flagyl was stopped on dc. She is to follow up in the office. Of note, with her resolving C diff colitis, she remained tachycardic. She was previously on a beta gage for hypertension. Metoprolol tartrate 25mg BID was initiated and she was continued on this at me. She is to follow up with her PCP regarding further management. Status at Discharge Functional status at discharge: independent ambulation Overall status at discharge: patient is progressing back to baseline Time Attestation Discharge Coordination Time (in mins): 50 Quality: Safe Use of Opioids Does Pt have an Active Cancer Diagnosis on the Problem List?: No Quality: Stroke Does the patient have a stroke diagnosis?: No Physical Exam Vital Signs: Vital Signs: Last Vital Signs Temp 96.8 F 07/07/23 07:56 Pulse 93 07/07/23 07:56 Resp 18 07/07/23 07:56 BP 142/71 H 07/07/23 07:56 Pulse Ox 99 07/07/23 07:56 O2 Del Method Room Air 07/07/23 07:56 O2 Flow Rate 2 06/22/23 09:47 BMI result Body Mass Index 23.8 Const: General: comfortable and no acute distress GI: Inspection: Yes distended (improved ) and Yes incision (clean) Palpation (GI): Soft to palpation and nontender DS: Data Data Completed and Pending Completed studies during hospitalization [Text1]: 06/22/23 08:43 Surgical [PTH] Routine Ileostomy, reversal: Inflamed enterocutaneous tissue with vascular congestion Procedures Bypass Ileum to Cutaneous, Open Approach (03/02/23) Excision of Sigmoid Colon, Open Approach (03/02/23) Release Peritoneum, Open Approach (03/02/23) Repair Ileum, Open Approach (06/22/23) Discharge Plan Discharge Anticipated Discharge Date/Time: 06/26/23 09:01 Patient Disposition: Home, Self-Care Discharge Diagnosis: s/p ileostomy reversal Referrals: Armond Galeas FNP-BC [Primary Care Provider] - 1 Week Arvind Clayton MD [Physician] - 2 Weeks Discharge Medications: New vancomycin [Vancocin] 250 mg capsule 250 mg PO QID Qty: 23 0RF oxycodone-acetaminophen [Percocet] 5-325 mg tablet 1 tab PO TID PRN (Reason: pain) Qty: 10 0RF Rx Instructions: Partial Fill upon patient request. metoprolol tartrate 25 mg tablet 25 mg PO BID Qty: 60 0RF Continued acetaminophen [Tylenol] 325 mg Tablet 650 mg PO Q6H PRN (Reason: Pain) ibuprofen [Advil] 200 mg Tablet 400 mg PO Q8H PRN (Reason: Pain) zolpidem 5 mg tablet 5 mg PO BEDTIME PRN (Reason: Sleep) (DME) colostomy bags 3 misc See Rx Instructions .ROUTE .MEDSUPPLY Qty: 30 1RF Rx Instructions: As directed (DME) Skin Prep Wipes Misc See Rx Instructions .ROUTE .MEDSUPPLY Qty: 1 1RF Rx Instructions: As directed No Action fluoxetine 20 mg capsule 20 mg PO DAILY 90 Days Qty: 90 1RF atorvastatin 40 mg tablet 40 mg PO DAILY Qty: 90 1RF Discharge Orders: Discharge Order (Routine); Ordered 07/07/23 Ordered By: Arvind Clayton Diet: Advance to usual diet Activity on Discharge: No heavy lifting Stand Alone Forms: Patient Portal Discharge page Print Language: Bulgarian Activity Restrictions/Additional Instructions: Ok to shower. NO HEAVY LIFTING (>10lbs) or strenuous activity. Follow up in office in 1 week. ([phone]) Call Your Doctor If: -Your temperature exceeds 101.5? F -You experience excessive pain or swelling -You have an unexpected reaction to medication -You have excessive bleeding -You experience continued vomiting/nausea -Your incision begins to separate -Your incision shows signs of infection such as increased redness, swelling, excessive pain, drainage (light blood or clear fluid is normal) or heat Care Plan Goals: Return to baseline health and resume normal activities following recovery period. Health Concerns: ileostomy in place c diff colitis Plan of Treatment: s/p ileostomy reversal pain control PO vanco until 07/11 f/u in office Assessment: Improved Discharge Date/Time: 07/07/23 11:32
== END 2023-07-07 11:32 | disposition home or self-care (01) | DRG 230 ==
LOC: HO.SSSA 07:42 → HO.S3 09:52
PROVIDERS: Family Medicine; Internal Medicine; Physician Assistant Surgical; Student in an Organized Health Care Education/Training Program; Admitting Provider Surgery; PCP Nurse Practitioner Family; Visit Provider Surgery
PROC: 0DQB0ZZ Repair Ileum, Open Approach (ICD-10-PCS; CPT 44620; principal; 2023-06-22 07:30)
DX: Z43.2 Encounter for attention to ileostomy (principal); A41.4 Sepsis due to anaerobes; A04.72 Enterocolitis due to Clostridium difficile, not specified as recurrent; E83.42 Hypomagnesemia; R00.0 Tachycardia, unspecified; E87.6 Hypokalemia; F39 Unspecified mood [affective] disorder; E83.39 Other disorders of phosphorus metabolism; E78.5 Hyperlipidemia, unspecified; F41.1 Generalized anxiety disorder; I10 Essential (primary) hypertension; E86.0 Dehydration; Z79.899 Other long term (current) drug therapy
CPT/HCPCS: 36415; 36573; 71045; 74018; 74177; 80048; 80053; 82040; 83605; 83735; 84100; 84478; 84484; 85007; 85025; 85027; 86140; 87040; 87324; 87493; 88304; 92950; 93005; C1751; J0131; J0690; J1100; J1170; J1644; J1836; J2060; J2250; J2270; J2405; J2704; J2795; J3010; J3475; J3480; J7120; P9047; Q9967

== ENCOUNTER → 2023-06-22 07:38 | Outpatient (BNV) | payer OTHER, SELFPAY | PROVIDERS: Admitting Provider Surgery; PCP Nurse Practitioner Family; Visit Provider Surgery | DX: A04.72 Enterocolitis due to Clostridium difficile, not specified as recurrent (principal); A41.9 Sepsis, unspecified organism | CPT/HCPCS: 44625; 99024; 99499 ==

== ENCOUNTER → 2023-06-22 07:38 | Outpatient (BNV) | payer OTHER, SELFPAY | PROVIDERS: Admitting Provider Surgery; PCP Nurse Practitioner Family; Visit Provider Student in an Organized Health Care Education/Training Program | DX: A41.9 Sepsis, unspecified organism (principal); A04.72 Enterocolitis due to Clostridium difficile, not specified as recurrent | CPT/HCPCS: 99222; 99232 ==

== ENCOUNTER → 2023-07-06 15:48 | Outpatient (RCR) | payer OTHER, SELFPAY | END | disposition home or self-care (01) | LOC: HO.OT 01-17 12:59 | PROVIDERS: Visit Provider Physician Assistant | DX: S62.308D Unspecified fracture of other metacarpal bone, subsequent encounter for fracture with routine healing (principal) | CPT/HCPCS: 97110; 97165 ==

== ENCOUNTER 2023-07-21 13:58 | Outpatient (AMB) | payer OTHER, SELFPAY ==
--- NOTE | 2023-07-21 14:13 | A.OFFVIS_ITS ---
Vital Signs 07/21/23 14:20 Weight 110 lb Intake Visit Reasons: s/p reversal of ileostomy from 06/22/23 Intake Note: This patient presents for a post-op assessment status post Reversal of loop ileostomy. Patient c/o; reports no complaints. Cpht Required: No Accompanied by: Self / Same As Patient Allergies Penicillins [PENICILLINS] Allergy (Intermediate, Verified 07/21/23 14:14) RASH HPI HPI s/p reversal of ileostomy from 06/22/23: Details: She is here for postop visit after reversal of ileostomy last 06/22/2023. She was admitted for 2 weeks because of C diff colitis with severe abdominal pain and distention during that time. She says she is doing great now. She has good bowel movements. She has good oral intake. She denies any pain. He has been active already she says. [facility] Medical History Sepsis Dental bridge present Postoperative nausea RAFAEL (generalized anxiety disorder) Insomnia Weight loss Ileostomy in place Colovaginal fistula Carpal tunnel syndrome of right wrist Chronic GERD Lipid metabolism disorder Generalized anxiety disorder Surgical History Hx of surgical procedure (~06/22/23) S/P laparotomy with lysis of adhesions History of bowel resection History of carpal tunnel surgery History of hysterectomy History of appendectomy Family History Other Substance use disorder Social History Household Members: Spouse Housing: House Are you a primary healthcare applications analyst to a significant other at home: No Do you presently have visiting nurse or other home services: No Alcohol intake: current Alcohol intake frequency: does not drink Alcohol type: wine Comment: counts correct Patient Tobacco Use Status: Former Tobacco user Years Smoked: 7 e-Cigarette/Vaping Use: Never Used Second Hand Smoke Exposure: No service: No Current occupational status: employed 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 Cognitive needs: No Hearing needs: No Vision needs: Yes Review of Systems Const Denies chills and Denies fever(s) Card Denies chest pain, Denies dyspnea and Denies dyspnea on exertion Resp Denies cough, Denies dyspnea and Denies dyspnea on exertion GI Denies hematochezia and Denies change in bowel habits Denies hematuria Musc Denies back pain and Denies limited range of motion Neuro Denies focal weakness and Denies convulsions Psych Denies depression and Denies mood swings Physical Exam Const General: comfortable and no acute distress Resp Effort & Inspection: normal respiratory effort GI Other: Incision clean and dry and well healed Palpation (GI): Soft to palpation, not firm, nontender and no guarding Assessment & Plan Assessment & Plan (1) Status post reversal of ileostomy: Code(s): Z98.890 - Other specified postprocedural states Category: Surgical Plan: She is doing very well now postoperatively. Her C diff colitis seems clinically resolved She has good GI functions She was advised to avoid any lifting of more than 20 lb about 3 more weeks. She can follow up on a p.r.n. basis. Coding Level of Care Code Global (99622) Diagnoses Status post reversal of ileostomy Z98.890
== END 2023-07-21 14:29 | disposition home or self-care (01) ==
PROVIDERS: PCP Nurse Practitioner Family; Visit Provider Surgery
DX: Z98.890 Other specified postprocedural states (principal)
CPT/HCPCS: 99024

== ENCOUNTER → 2023-07-21 13:58 | Outpatient (BNVA) | payer OTHER, SELFPAY | PROVIDERS: PCP Nurse Practitioner Family; Visit Provider Surgery ==

== ENCOUNTER 2023-07-24 10:17 | Emergency (ER) | payer OTHER, SELFPAY ==
--- NOTE | ~2023-07-24 | CT_ITS ---
EXAMINATION: CT ABDOMEN AND PELVIS WITH CONTRAST CLINICAL INFORMATION: Abdominal pain, postoperative COMPARISON: CT abdomen pelvis 06/28/2023. TECHNIQUE: Multidetector volumetric images were obtained from the superior aspect of the liver through the pubic symphysis following administration 85 mL of Omnipaque 350 intravenous contrast. Sagittal and coronal reformatted images were obtained on the technologist's workstation. Oral contrast: Yes This CT examination was performed using dose optimization techniques as appropriate, variously including the following: *Automated exposure control *Adjustment of mA and/or kV according to patient size (this includes techniques or standardized protocols for targeted exams where dose is matched to indication/reason for exam; i.e. extremities or head) *Use of iterative reconstruction technique DLP: 323 mGy-cm FINDINGS: LUNG BASES: Unremarkable. LIVER AND BILIARY TREE: Unremarkable. GALLBLADDER: Unremarkable. PANCREAS: Unremarkable. SPLEEN: Unremarkable. ADRENAL GLANDS: Unremarkable. KIDNEYS AND URETERS: Punctate nonobstructing bilateral renal calculi, measuring up to 3 mm on each side mild aortoiliac calcific atherosclerosis. GASTROINTESTINAL TRACT: Redemonstrated rectal surgical anastomosis and primary small bowel bowel anastomosis in the right lower abdomen. Enteric contrast reaches the rectum without bowel dilation or evidence of obstruction. No extraluminal enteric contrast to suggest a leak. Mild wall thickening of the cecum and proximal ascending colon, with mild pericolonic fat stranding, decreased from 06/28/2023. No organized perienteric fluid collections identified. Small, 1.5 cm soft tissue attenuation focus at the surgical bed of patient's prior small bowel anastomosis, subjacent to the prior ileostomy site (series 2, image 47), nonspecific and favored to be postsurgical or reflect evolving fat necrosis. VASCULAR: Mild aortoiliac calcific atherosclerosis. Circumaortic left renal vein. LYMPH NODES: No lymphadenopathy. PERITONEUM: No ascites. BLADDER: Mild diffuse wall thickening of the urinary bladder, greater than expected for degree of distention. PELVIC VISCERA: Status post hysterectomy. ABDOMINAL AND PELVIC WALL: Mild focal fat stranding and fluid in the right lower quadrant abdominal wall subcutaneous fat, slightly decreased in extent from 06/28/2023 without organized, rim-enhancing fluid collection. Scattered additional bilateral lower abdominal wall subcutaneous injection granulomas. OSSEOUS STRUCTURES: Mild multilevel degenerative lumbar spondylosis. CT/CT abdomen pelvis w IV con IMPRESSION: 1. Mild wall thickening of the cecum and proximal ascending colon with mild pericolonic fat stranding, decreased in extent from 06/28/2023, may reflect evolving/slightly improving colitis, which may be infectious, inflammatory, or ischemic. 2. Mild diffuse wall thickening of the urinary bladder, greater than expected for degree of distention. Recommend correlation with urinalysis to exclude cystitis. 3. Slight decrease in focal fat stranding and fluid within the right lower quadrant abdominal wall, at the site of prior ileostomy takedown, which may be sterile or infected. No organized, rim-enhancing fluid collection.
[2023-07-24 10:33] VITALS: BP 164/91; PULSE 77; RESP 16; TEMP 36.6; O2SAT 98; BMI 19.6
[2023-07-24] MEDS: 0.9 % Sodium Chloride 1,000 ML 999 ML IV ×2 (11:08→12:52)
[2023-07-24 11:10] LABS: MANUAL DIFF FLAG NO
[2023-07-24 11:12] LABS: Basophils Absolute Auto 0.1 X10*3/uL (0.0-0.2); Basophils Percent Auto 0.9 % (0-2); Eosinophils Absolute Auto 0.3 X10*3/uL (0.0-0.4); Eosinophils Percent Auto 3.3 % (0-4); Hematocrit 32.5 % (37.0-47.0); Imm Gran Abs Auto 0.03 X10*3/uL (0.00-0.03); Imm Gran Pct Auto 0.4 % (0.0-0.4); Lymphocytes Absolute Auto 1.6 X10*3/uL (1.2-4.9); Lymphocytes Percent Auto 19.7 % (20-40); Mean Corpuscular HGB Conc 33.8 g/dl (31.0-35.0); Mean Corpuscular Hemoglobin 29.4 pg (27.0-33.0); Mean Corpuscular Volume 86.9 fL (80.0-98.0); Mean Platelet Volume 8.7 fL (9.4-12.3); Monocytes Absolute Auto 0.7 X10*3/uL (0.1-1.2); Monocytes Percent Auto 8.6 % (2-11); Neutrophils Absolute Auto 5.5 x10*3/uL (2.0-8.3); Neutrophils Percent Auto 67.1 % (45-73); Platelet Count 368 X10*3/uL (160-400); Red Blood Count 3.74 X10*6/uL (4.20-5.50); Red Cell Distribution Width 13.2 % (11.0-16.0); White Blood Count 8.2 X10*3/uL (4.8-10.8)
--- NOTE | 2023-07-24 11:20 | PC.NURSE ---
Pt A+Ox4, states 9/10 pain in mid-epigastric area that feels sharp and tight. Pt states pain is worse when pressing down on abdomen. Abdomen soft, tender with palpation and non-distended. Normoactive bowel sounds. Pt had recent ostomy reversal on 06/21 where she later got c-diff. Finished PO antibiotics for c-diff on July 12. Pt eating and drinking normally, reporting loose stools (per pt new baseline). Denies vomiting, CP, and SOB. IV placed, labs obtained, fluids running. Resting in bed quietly, accompanied by . Call keita within reach.
[2023-07-24 12:15] VITALS: BP 162/75; PULSE 80; RESP 16; TEMP 36.9; O2SAT 98
[2023-07-24 12:23] LABS: Alanine Aminotransferase 19 U/L (0-31); Albumin Level 3.5 g/dL (3.5-5.0); Alkaline Phosphatase 92 U/L (39-117); Anion Gap 11 (12-20); Aspartate Amino Transferase 15 U/L (5-31); Bilirubin Total 0.7 mg/dL (0.0-1.0); Blood Urea Nitrogen 10 mg/dL (9-16); Carbon Dioxide 28 mmol/L (22-29); Chloride 107 mmol/L (96-108); Creatinine Clr Calc Pharmacy 73.9; Estimated Glomerular Filt Rate > 60; Glucose Random 94 mg/dL (60-115); Lipase 110 U/L (8-78); Potassium 3.9 mmol/L (3.3-5.1); Sodium 142 mmol/L (135-145)
--- NOTE | 2023-07-24 12:24 | ED.GENADULT ---
HPI - General Adult General Chief complaint: Abdominal Pain Stated complaint: abdominal pain Time Seen by Provider: 07/24/23 12:24 Source: patient and old records reviewed Mode of arrival: ambulatory Limitations: no limitations History of Present Illness ED Provider: Chata Villasenor PA-C HPI narrative: 58-year-old female with history of HTN, GERD, diverticulitis complicated by colovaginal fistula with sigmoid resection, status-post ileostomy reversal 06/22/23 presents for new onset epigastric pain since this morning. She has been having lower abdominal gas pains and loose stools since her initial colon resection and loop ileostomy creation in 03/03, but this morning woke up with new upper abdominal pain. Pain is sharp, intermittent, non-radiating, with associated nausea, no vomiting but one episode of dry heaving on her way to this ED. She had ileostomy reversal on 06/21 and during her hospitalization for that was found to have c.dif requiring admission for 2 weeks. She was discharged PO vancomycin through 07/15/23. Has returned to her normal amount of 2-3 loose stools per day since then, denies seeing blood in her stool. Endorses drinking 1.5 alcoholic seltzers last night, denies heavy alcohol use. Denies fever/chills, chest pain, shortness of breath. MD complaint: Epigastric pain Onset (ago): hour(s) Location: abdomen (epigastric) Radiation: non-radiation Quality: sharp Pain Consistency: intermittent Relieving factors: none Exacerbating factors: none Associated symptoms: nausea/vomiting Treatments prior to arrival: none Related Data Home Medications ?Medication ?Instructions ?Recorded ?Confirmed atorvastatin 40 mg tablet 40 mg PO DAILY@1200 03/02/23 06/22/23 acetaminophen 325 mg tablet 650 mg PO Q6H PRN Pain 06/22/23 06/22/23 (Tylenol) ibuprofen 200 mg tablet (Advil) 400 mg PO Q8H PRN Pain 06/22/23 06/22/23 zolpidem 5 mg tablet 5 mg PO BEDTIME PRN Sleep 06/22/23 06/22/23 Previous Rx's ?Medication ?Instructions ?Recorded fluoxetine 20 mg capsule 20 mg PO DAILY 90 days #90 caps 01/23/23 colostomy bags 3 #30 ea 03/05/23 ostomy supplies (Skin Prep Wipes) #1 ea 03/05/23 metoprolol tartrate 25 mg tablet 25 mg PO BID #60 tabs 07/07/23 oxycodone-acetaminophen 5 mg-325 1 tab PO TID PRN pain #10 tabs 07/07/23 mg tablet (Percocet) vancomycin 250 mg capsule 250 mg PO QID #23 caps 07/07/23 (Vancocin) Allergies Allergy/AdvReac Type Severity Reaction Status Date / Time Penicillins [PENICILLINS] Allergy Intermediate RASH Verified 07/24/23 10:35 Review of Systems Constitutional: Constitutional: Reports no additional constitutional complaints, Denies chills, Denies fever(s) and Denies night sweats Eyes: Eyes: Reports no additional eye complaints, Denies blurry vision, Denies change in vision, Denies diplopia, Denies eye discharge, Denies loss of vision and Denies eye pain ENT: Denies dizziness Cardiovascular: Cardiovascular: Reports no additional cardiovascular complaints, Denies chest pain, Denies lightheadedness, Denies Loss of Consciousness and Denies dyspnea Respiratory: Respiratory: Reports no additional respiratory complaints and Denies dyspnea Gastrointestinal: Gastrointestinal: Reports abdominal pain (upper abdominal since this morning, lower abdominal gas pains longstanding), Denies melena, Denies hematochezia, Denies change in bowel habits and Denies change in stool character Genitourinary: Genitourinary: Denies hematuria, Denies urinary frequency, Denies dysuria, Denies urinary incontinence, Denies urinary hesitancy and Denies urinary urgency Musculoskeletal: Musculoskeletal: Reports no additional musculoskeletal complaints, Denies numbness and Denies tingling Neurologic: Denies dizziness, Denies loss of vision, Denies numbness and Denies tingling Psychiatric: Psychiatric: Reports no additional psychiatric complaints Endocrine: Endocrine: Reports no additional endocrine complaints Hematologic/Lymphatic: Hematologic/Lymphatic: Reports no additional hematologic/lymphatic complaints Allergic/Immunologic: Allergic/Immunologic: Reports no additional allergic/immunologic complaints PMFSH Past Medical History Attestation statement: The following information was validated with the patient. Source: old records reviewed and nursing notes reviewed Medical History Sepsis Dental bridge present Postoperative nausea RAFAEL (generalized anxiety disorder) Insomnia Weight loss Ileostomy in place Colovaginal fistula Carpal tunnel syndrome of right wrist Chronic GERD Lipid metabolism disorder Generalized anxiety disorder Surgical History Hx of surgical procedure (~06/22/23) S/P laparotomy with lysis of adhesions History of bowel resection History of carpal tunnel surgery History of hysterectomy History of appendectomy Family History Family History Other Substance use disorder Social History Social History Household Members: Spouse Housing: House Are you a primary continuum of care manager to a significant other at home: No Do you presently have visiting nurse or other home services: No Alcohol intake: current Alcohol intake frequency: does not drink Alcohol type: wine Comment: counts correct Patient Tobacco Use Status: Former Tobacco user Years Smoked: 7 e-Cigarette/Vaping Use: Never Used Second Hand Smoke Exposure: No Advance Directives: Yes Advance Directives Information Provided: Yes Advance Directives on File: No service: No Current occupational status: employed 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 Cognitive needs: No Hearing needs: No Vision needs: Yes Physical Exam ED Vital Signs: Vital Signs - 24 hr 07/24/23 10:33 07/24/23 12:15 07/24/23 14:44 Temperature 98 F 98.4 F 98.4 F Pulse Rate 77 80 89 Respiratory Rate 16 16 15 Blood Pressure 164/91 H 162/75 H 135/71 Pulse Oximetry 98 98 99 Oxygen Delivery Method Room Air Room Air Room Air 07/24/23 16:33 Temperature 99 F Pulse Rate 83 Respiratory Rate 16 Blood Pressure 158/76 H Pulse Oximetry 98 Oxygen Delivery Method Room Air BMI result Body Mass Index 19.6 Const General: cooperative, no acute distress, alert and awake Nutritional Appearance: well nourished Orientation/consciousness: patient oriented x3 Limitations: no limitations HENMT Head: Yes normal to inspection and Yes atraumatic Ears: hearing grossly normal bilaterally and external ears normal General nose exam: Normal external nose present, no nasal discharge noted and no epistaxis Face and sinus: Yes normal facial exam, No abrasion and No laceration Mouth: Normal oral and palatal mucosa present, no drooling and no muffled voice Eyes General: appearance normal, both eyes and all related structures Periorbital: periorbital findings normal Eyelids: Yes eyelids normal Conjunctivae: conjunctivae normal Pupils: Equal, round and reactive pupils present EOM: EOMs intact bilaterally Neck Neck: Yes normal visual inspection, Yes full ROM and Yes no lymphadenopathy Chest Chest palpation & inspection: normal inspection of the chest Resp Effort & Inspection: normal respiratory effort and able to speak in complete sentences Auscultation: clear to auscultation bilaterally, no crackles, no rales, no rhonchi and no wheezes Cardio Rate: regular rate Rhythm: regular rhythm Heart sounds: no click, no gallops, no murmurs and no rubs GI Inspection: Yes normal to inspection and No distended Palpation (GI): Soft to palpation, not firm, Tenderness to palpation present (GI) in the epigastrum; with no rebound tenderness, no guarding, not rigid, no hepatosplenomegaly and no masses Auscultation: normal bowel sounds Neuro General: patient oriented x3 and moves all extremities Cranial nerves: Yes Equal, round and reactive pupils present Cognition (Neuro): normal cognition Motor exam (neuro): 5/5 motor strength present throughout Sensory Exam: Normal double simultaneous stimulation for sensation Coordination: [id number] test normal Extrem General: Yes normal to inspection, Yes full ROM and Yes capillary refill normal Psych Appearance: grossly normal Mental Status: mental status grossly normal Affect: normal affect Attitude: cooperative Thought process: Normal thought process present Thought content: Normal thought content present Insight: Good insight present (Psych) Medications Administered Discontinued Medications Generic Name Dose Route Start Last Admin Trade Name Freq PRN Reason Stop Dose Admin Diatrizoate Meglum/Diatrizoate Sod 30 ml 07/24/23 12:35 07/24/23 12:36 Diatrizoate Meglumine, Sodium 30 Ml Solution PO 07/24/23 12:36 30 ml ONCE ONE Administration Sodium Chloride 1,000 mls @ 999 mls/hr 07/24/23 11:15 07/24/23 12:52 Ns IV 07/24/23 12:15 Infused .Q1H1M TOYA Infusion Magnesium Sulfate 2 gm in 50 mls @ 25 mls/hr 07/24/23 12:23 07/24/23 14:58 Magnesium Sulfate/H2o IV 07/24/23 14:22 Infused ONCE ONE Infusion Sodium Chloride 1,000 mls @ 999 mls/hr 07/24/23 12:30 07/24/23 14:58 Ns IV 07/24/23 13:30 Infused .Q1H1M TOYA Infusion Iohexol 100 ml 07/24/23 14:45 07/24/23 14:46 Iohexol 350 Mg/Ml 100 Ml Infus..Btl IV 07/24/23 14:46 85 ml ONCE ONE Administration Magnesium Oxide 400 mg 07/24/23 15:40 07/24/23 16:11 Magnesium Oxide 400 Mg Tablet PO 07/24/23 15:41 400 mg ONCE ONE Administration Medical Decision Making Medical Decision Making [facility] Narrative: Patient is a 58 year old assigned female at with a history of HTN, GERD, diverticulitis complicated by colovaginal fistula with sigmoid resection, status-post ileostomy reversal 06/22/23 presents for new onset epigastric pain since this morning. Patient's physical exam was as noted in the physical exam portion of this note. Patient's blood work showed an elevated lipase of 110 and a decreased magnesium of 1.0 but was otherwise unremarkable. Patient's urine showed no acute process. Patient's EKG was unremarkable. Patient's abdomen/pelvis CT showed no acute process. Patient's clinical presentation is most consistent with pancreatitis. I explained my physical exam findings as well as all test results to the patient. I answered all questions asked by the patient. Patient received IV magnesium, PO magnesium, and IV fluids which upon re-evaluation, she stated helped her symptoms significantly. I stressed the importance of the patient taking her medication as prescribed. I stressed the importance of the patient following up with her primary care provider. I stressed the importance of the patient returning to the emergency department immediately if her symptoms were to worsen or if she were to develop any dizziness, shortness of breath, difficulty breathing, chest pain, blurry vision, loss of vision, nausea, vomiting, abdominal pain, fever, chills, back pain, or any other complaints. Patient verbalized agreement and understanding with this treatment plan and discharge. Differential Diagnosis Differential Diagnoses: The differential diagnosis associated with the presentation includes ACS GERD Pancreatitis Bowel obstruction Nutritional deficiency Admission/Observation Consideration of admission/observation: Escalation of care including admission/observation considered Patient would have been admitted to the hospital had her work up had any findings where hospital admission was appropriate and her clinical presentation warranted hospital admission. Lab Data [facility] Lab Attestation statement: I reviewed the patient's lab results. My interpretation of these results are in the [facility] Rationale portion of this note. 07/24/23 11:07 07/24/23 11:51 Labs: Lab Results 07/24/23 07/24/23 07/24/23 Range/Units 11:07 11:51 12:20 WBC 8.2 (4.8-10.8) X10*3/uL RBC 3.74 L (4.20-5.50) X10*6/uL Hgb 11.0 L (12.0-16.0) g/dl Hct 32.5 L (37.0-47.0) % MCV 86.9 (80.0-98.0) fL MCH 29.4 (27.0-33.0) pg MCHC 33.8 (31.0-35.0) g/dl RDW 13.2 (11.0-16.0) % Plt Count 368 D (160-400) X10*3/uL MPV 8.7 L (9.4-12.3) fL Immature Gran % (Auto) 0.4 (0.0-0.4) % Neut % (Auto) 67.1 (45-73) % Lymph % (Auto) 19.7 L (20-40) % Garvin % (Auto) 8.6 (2-11) % Eos % (Auto) 3.3 (0-4) % Baso % (Auto) 0.9 (0-2) % Lymph # (Auto) 1.6 (1.2-4.9) X10*3/uL Garvin # (Auto) 0.7 (0.1-1.2) X10*3/uL Eos # (Auto) 0.3 (0.0-0.4) X10*3/uL Baso # (Auto) 0.1 (0.0-0.2) X10*3/uL Abs Immat Gran (auto) 0.03 (0.00-0.03) X10*3/uL Absolute Neuts (auto) 5.5 (2.0-8.3) x10*3/uL Absolute Nucleated RBC 0.000 (0.0-0.012) X10*3/uL Nucleated RBC % (auto) 0.0 (0.0-0.2) /100WBC Sodium 142 (135-145) mmol/L Potassium 3.9 D (3.3-5.1) mmol/L Chloride 107 (96-108) mmol/L Carbon Dioxide 28 (22-29) mmol/L Anion Gap 11 L (12-20) BUN 10 (9-16) mg/dL Creatinine 0.62 (0.5-1.4) mg/dL Estim Creat Clear Calc 73.9 Estimated GFR > 60 Random Glucose 94 (60-115) mg/dL Calcium 9.0 D (8.4-10.2) mg/dL Phosphorus 3.6 (2.7-4.5) mg/dL Magnesium 1.0 L* (1.6-2.6) mg/dL Total Bilirubin 0.7 (0.0-1.0) mg/dL AST 15 (5-31) U/L ALT 19 (0-31) U/L Alkaline Phosphatase 92 (39-117) U/L Total Protein 7.0 (6.5-8.0) g/dL Albumin 3.5 (3.5-5.0) g/dL Lipase 110 H (8-78) U/L Urine Color Yellow Urine Appearance Clear Urine pH 6.0 (5.0-9.0) Ur Specific [place] <= 1.005 (1.005-1.025) Urine Protein Negative (Neg-Trace) mg/dL Urine Glucose (UA) Negative (Negative) mg/dL Urine Ketones Negative (Negative) mg/dL Urine Blood Negative (Negative) Urine Nitrite Negative (Negative) Ur Leukocyte Esterase Negative (Negative) Urine RBC 0-2 (0-2) /HPF Urine WBC 0-5 (0-5) /HPF Ur Squamous Epith Cells 3-5 (0-2) /HPF Urine Bacteria Trace (None Seen) Hyaline Casts 0-2 (0-2) /LPF 07/24/23 Range/Units 15:54 WBC (4.8-10.8) X10*3/uL RBC (4.20-5.50) X10*6/uL Hgb (12.0-16.0) g/dl Hct (37.0-47.0) % MCV (80.0-98.0) fL MCH (27.0-33.0) pg MCHC (31.0-35.0) g/dl RDW (11.0-16.0) % Plt Count (160-400) X10*3/uL MPV (9.4-12.3) fL Immature Gran % (Auto) (0.0-0.4) % Neut % (Auto) (45-73) % Lymph % (Auto) (20-40) % Garvin % (Auto) (2-11) % Eos % (Auto) (0-4) % Baso % (Auto) (0-2) % Lymph # (Auto) (1.2-4.9) X10*3/uL Garvin # (Auto) (0.1-1.2) X10*3/uL Eos # (Auto) (0.0-0.4) X10*3/uL Baso # (Auto) (0.0-0.2) X10*3/uL Abs Immat Gran (auto) (0.00-0.03) X10*3/uL Absolute Neuts (auto) (2.0-8.3) x10*3/uL Absolute Nucleated RBC (0.0-0.012) X10*3/uL Nucleated RBC % (auto) (0.0-0.2) /100WBC Sodium (135-145) mmol/L Potassium (3.3-5.1) mmol/L Chloride (96-108) mmol/L Carbon Dioxide (22-29) mmol/L Anion Gap (12-20) BUN (9-16) mg/dL Creatinine (0.5-1.4) mg/dL Estim Creat Clear Calc Estimated GFR Random Glucose (60-115) mg/dL Calcium (8.4-10.2) mg/dL Phosphorus (2.7-4.5) mg/dL Magnesium 1.7 (1.6-2.6) mg/dL Total Bilirubin (0.0-1.0) mg/dL AST (5-31) U/L ALT (0-31) U/L Alkaline Phosphatase (39-117) U/L Total Protein (6.5-8.0) g/dL Albumin (3.5-5.0) g/dL Lipase (8-78) U/L Urine Color Urine Appearance Urine pH (5.0-9.0) Ur Specific Hampton (1.005-1.025) Urine Protein (Neg-Trace) mg/dL Urine Glucose (UA) (Negative) mg/dL Urine Ketones (Negative) mg/dL Urine Blood (Negative) Urine Nitrite (Negative) Ur Leukocyte Esterase (Negative) Urine RBC (0-2) /HPF Urine WBC (0-5) /HPF Ur Squamous Epith Cells (0-2) /HPF Urine Bacteria (None Seen) Hyaline Casts (0-2) /LPF Independent Interpretation I performed an independent interpretation of an: EKG and CT Scan Interpretation: My interpretation is in agreement with the radiologist's impression of these imaging studies. EXAMINATION: CT ABDOMEN AND PELVIS WITH CONTRAST CLINICAL INFORMATION: Abdominal pain, postoperative COMPARISON: CT abdomen pelvis 06/28/2023. TECHNIQUE: Multidetector volumetric images were obtained from the superior aspect of the liver through the pubic symphysis following administration 85 mL of Omnipaque 350 intravenous contrast. Sagittal and coronal reformatted images were obtained on the technologist's workstation. Oral contrast: Yes This CT examination was performed using dose optimization techniques as appropriate, variously including the following: *Automated exposure control *Adjustment of mA and/or kV according to patient size (this includes techniques or standardized protocols for targeted exams where dose is matched to indication/reason for exam; i.e. extremities or head) *Use of iterative reconstruction technique DLP: 323 mGy-cm FINDINGS: LUNG BASES: Unremarkable. LIVER AND BILIARY TREE: Unremarkable. GALLBLADDER: Unremarkable. PANCREAS: Unremarkable. SPLEEN: Unremarkable. ADRENAL GLANDS: Unremarkable. KIDNEYS AND URETERS: Punctate nonobstructing bilateral renal calculi, measuring up to 3 mm on each side mild aortoiliac calcific atherosclerosis. GASTROINTESTINAL TRACT: Redemonstrated rectal surgical anastomosis and primary small bowel bowel anastomosis in the right lower abdomen. Enteric contrast reaches the rectum without bowel dilation or evidence of obstruction. No extraluminal enteric contrast to suggest a leak. Mild wall thickening of the cecum and proximal ascending colon, with mild pericolonic fat stranding, decreased from 06/28/2023. No organized perienteric fluid collections identified. Small, 1.5 cm soft tissue attenuation focus at the surgical bed of patient's prior small bowel anastomosis, subjacent to the prior ileostomy site (series 2, image 47), nonspecific and favored to be postsurgical or reflect evolving fat necrosis. VASCULAR: Mild aortoiliac calcific atherosclerosis. Circumaortic left renal vein. LYMPH NODES: No lymphadenopathy. PERITONEUM: No ascites. BLADDER: Mild diffuse wall thickening of the urinary bladder, greater than expected for degree of distention. PELVIC VISCERA: Status post hysterectomy. ABDOMINAL AND PELVIC WALL: Mild focal fat stranding and fluid in the right lower quadrant abdominal wall subcutaneous fat, slightly decreased in extent from 06/28/2023 without organized, rim-enhancing fluid collection. Scattered additional bilateral lower abdominal wall subcutaneous injection granulomas. OSSEOUS STRUCTURES: Mild multilevel degenerative lumbar spondylosis. CT/CT abdomen pelvis w IV con IMPRESSION: 1. Mild wall thickening of the cecum and proximal ascending colon with mild pericolonic fat stranding, decreased in extent from 06/28/2023, may reflect evolving/slightly improving colitis, which may be infectious, inflammatory, or ischemic. 2. Mild diffuse wall thickening of the urinary bladder, greater than expected for degree of distention. Recommend correlation with urinalysis to exclude cystitis. 3. Slight decrease in focal fat stranding and fluid within the right lower quadrant abdominal wall, at the site of prior ileostomy takedown, which may be sterile or infected. No organized, rim-enhancing fluid collection. Dictated By: Kyle Combs MD Signed By: Electronically signed by Kyle Combs MD 07/24/23 1509 Vent. Rate: 084 BPM Atrial Rate: 084 BPM P-R Int: 140 ms QRS Dur: 070 ms QT Int: 364 ms P-R-T Axes: 068 020 031 degrees QTc Int: 430 ms Normal sinus rhythm Normal ECG When compared with ECG of 28-JUN-2023 20:38, Vent. rate has decreased BY 65 BPM Nonspecific T wave abnormality no longer evident in Anterolateral leads DD/ [id number] Radiology Impression Discussion of test interpretation with radiology: I have reviewed the radiologist's reading. Critical Care Time Critical Care Time Critical Care Time: Yes Total Critical Care Time: 36 Attestation: I spent 36 minutes of Critical Care Time with this patient. This does not include time spent on separately reported billable procedures. Discharge Plan Discharge Clinical Impression: Pancreatitis, Abdominal pain, Hypomagnesemia Patient Disposition: Home, Self-Care Instructions: Pancreatitis (ED), Abdominal Pain (ED), Hypomagnesemia (ED) Additional Instructions: Follow up with your primary care provider and general surgeon. Return to the emergency department immediately if your symptoms worsen or if you develop any dizziness, shortness of breath, difficulty breathing, chest pain, blurry vision, loss of vision, nausea, vomiting, abdominal pain, fever, chills, back pain, or any other complaints. Prescriptions: No Action fluoxetine 20 mg capsule 20 mg PO DAILY 90 Days Qty: 90 1RF acetaminophen [Tylenol] 325 mg Tablet 650 mg PO Q6H PRN (Reason: Pain) ibuprofen [Advil] 200 mg Tablet 400 mg PO Q8H PRN (Reason: Pain) zolpidem 5 mg tablet 5 mg PO BEDTIME PRN (Reason: Sleep) vancomycin [Vancocin] 250 mg capsule 250 mg PO QID Qty: 23 0RF oxycodone-acetaminophen [Percocet] 5-325 mg tablet 1 tab PO TID PRN (Reason: pain) Qty: 10 0RF Rx Instructions: Partial Fill upon patient request. metoprolol tartrate 25 mg tablet 25 mg PO BID Qty: 60 0RF atorvastatin 40 mg tablet 40 mg PO DAILY@1200 (DME) colostomy bags 3 misc See Rx Instructions .ROUTE .MEDSUPPLY Qty: 30 1RF Rx Instructions: As directed (DME) Skin Prep Wipes Misc See Rx Instructions .ROUTE .MEDSUPPLY Qty: 1 1RF Rx Instructions: As directed Referrals: Armond Galeas, [employer] [Primary Care Provider] - Interventions: ED Discharge Assessment Last Done: 07/24/23 16:33 Discharge Date/Time: 07/24/23 16:34 Print Language: Czech
[2023-07-24 12:28] LABS: Appearance Urine Clear; Color Urine Yellow; Glucose Urine UA Negative (Negative); Leukocyte Esterase Urine Negative (Negative); Nitrite Urine Negative (Negative); Specific Gravity - Urine <= 1.005 (1.005-1.025); Urine Blood Negative (Negative); Urine Ketones Negative (Negative); Urine Protein Negative (Neg-Trace)
--- NOTE | 2023-07-24 12:28 | ECG_ITS ---
Test Reason : NAUSEA VOMITTING Blood Pressure : / mmHG Vent. Rate : 084 BPM Atrial Rate : 084 BPM P-R Int : 140 ms QRS Dur : 070 ms QT Int : 364 ms P-R-T Axes : 068 020 031 degrees QTc Int : 430 ms Normal sinus rhythm Normal ECG When compared with ECG of 28-JUN-2023 20:38, Vent. rate has decreased BY 65 BPM Nonspecific T wave abnormality no longer evident in Anterolateral leads Referred By: Chata Villasenor Electronically Signed By:FINA CANNON
[2023-07-24 12:33] LABS: Bacteria Urine Trace (None Seen); Hyaline Casts Urine 0-2 /LPF (0-2); RBC Urine 0-2 /HPF (0-2); WBC Urine 0-5 /HPF (0-5)
[2023-07-24] MEDS: Diatrizoate Meglumine, Sodium 30 ML SOLUTION PO (12:36)
[2023-07-24 12:39] LABS: Phosphorus 3.6 mg/dL (2.7-4.5)
[2023-07-24] MEDS: Magnesium Sulfate/H2O 2 GM/50 ML PIGGYBACK IV (12:52)
[2023-07-24 14:44] VITALS: BP 135/71; PULSE 89; RESP 15; TEMP 36.9; O2SAT 99
[2023-07-24] MEDS: iohexoL 350 MG/ML 100 ML INFUS..BTL IV (14:46)
[2023-07-24] MEDS: Magnesium Oxide 400 MG TABLET PO (16:11)
[2023-07-24 16:13] LABS: Magnesium 1.7 mg/dL (1.6-2.6)
[2023-07-24 16:33] VITALS: BP 158/76; PULSE 83; RESP 16; TEMP 37.2; O2SAT 98
== END 2023-07-24 16:34 | disposition home or self-care (01) ==
PROVIDERS: Physician Assistant Medical; Emergency Provider Emergency Medicine Emergency Medical Services; PCP Nurse Practitioner Family
DX: K85.90 Acute pancreatitis without necrosis or infection, unspecified (principal); E83.42 Hypomagnesemia; R10.13 Epigastric pain; R11.2 Nausea with vomiting, unspecified; Z93.3 Colostomy status; Z87.891 Personal history of nicotine dependence; Z79.899 Other long term (current) drug therapy; Z79.02 Long term (current) use of antithrombotics/antiplatelets
CPT/HCPCS: 36415; 74177; 80053; 81001; 83690; 83735; 84100; 85025; 93005; 96361; 96365; 96366; 99284; 99285; J3475; Q9967

== ENCOUNTER → 2023-07-24 12:28 | Outpatient (BNV) | payer OTHER, SELFPAY | PROVIDERS: Emergency Provider Emergency Medicine Emergency Medical Services; PCP Nurse Practitioner Family; Visit Provider Internal Medicine | DX: R11.2 Nausea with vomiting, unspecified (principal) | CPT/HCPCS: 93010 ==

== ENCOUNTER 2023-07-26 12:24 | Emergency (ER) | payer OTHER, SELFPAY ==
[2023-07-26 12:35] VITALS: BP 155/75; PULSE 73; RESP 16; TEMP 36.1; O2SAT 100; BMI 19.6
--- NOTE | 2023-07-26 12:35 | ED.ABDPAIN ---
HPI - Abdominal Pain General Chief Complaint: Abdominal Pain Stated Complaint: Stomach Pain Was Here on 07/24/23 Related Data Home Medications ?Medication ?Instructions ?Recorded ?Confirmed acetaminophen 325 mg tablet 650 mg PO Q6H PRN Pain 06/22/23 06/22/23 (Tylenol) ibuprofen 200 mg tablet (Advil) 400 mg PO Q8H PRN Pain 06/22/23 06/22/23 zolpidem 5 mg tablet 5 mg PO BEDTIME PRN Sleep 06/22/23 06/22/23 Previous Rx's ?Medication ?Instructions ?Recorded colostomy bags 3 #30 ea 03/05/23 ostomy supplies (Skin Prep Wipes) #1 ea 03/05/23 metoprolol tartrate 25 mg tablet 25 mg PO BID #60 tabs 07/07/23 oxycodone-acetaminophen 5 mg-325 1 tab PO TID PRN pain #10 tabs 07/07/23 mg tablet (Percocet) vancomycin 250 mg capsule 250 mg PO QID #23 caps 07/07/23 (Vancocin) atorvastatin 40 mg tablet 40 mg PO DAILY #90 tabs 07/25/23 fluoxetine 20 mg capsule 20 mg PO DAILY 90 days #90 caps 07/25/23 Allergies Allergy/AdvReac Type Severity Reaction Status Date / Time Penicillins [PENICILLINS] Allergy Intermediate RASH Verified 07/26/23 12:38 [facility] Past Medical History Medical History Sepsis Dental bridge present Postoperative nausea RAFAEL (generalized anxiety disorder) Insomnia Weight loss Ileostomy in place Colovaginal fistula Carpal tunnel syndrome of right wrist Chronic GERD Lipid metabolism disorder Generalized anxiety disorder Surgical History Hx of surgical procedure (~06/22/23) S/P laparotomy with lysis of adhesions History of bowel resection History of carpal tunnel surgery History of hysterectomy History of appendectomy Family History Family History Other Substance use disorder Social History Social History Household Members: Spouse Housing: House Are you a primary critical care educator to a significant other at home: No Do you presently have visiting nurse or other home services: No Alcohol intake: current Alcohol intake frequency: does not drink Alcohol type: wine Comment: counts correct Patient Tobacco Use Status: Former Tobacco user Years Smoked: 7 e-Cigarette/Vaping Use: Never Used Second Hand Smoke Exposure: No service: No Current occupational status: employed 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 Mid abdominal pain starting around 10:30am. Was seen on Wednesday for similar symptoms Hx: diverticulitis with sigmoid resection and ostomy creation on 03/03/23, ileostomy reversal on 06/22/23, admitted for c-diff for 2 weeks and discharged on 07/15/23. Medical Decision Making Lab Data 07/26/23 12:59 07/26/23 12:59 Labs: Lab Results 07/26/23 Range/Units 12:59 WBC 8.8 (4.8-10.8) X10*3/uL RBC 3.74 L (4.20-5.50) X10*6/uL Hgb 10.9 L (12.0-16.0) g/dl Hct 32.3 L (37.0-47.0) % MCV 86.4 (80.0-98.0) fL MCH 29.1 (27.0-33.0) pg MCHC 33.7 (31.0-35.0) g/dl RDW 13.1 (11.0-16.0) % Plt Count 362 (160-400) X10*3/uL MPV 8.8 L (9.4-12.3) fL Immature Gran % (Auto) 0.3 (0.0-0.4) % Neut % (Auto) 72.5 (45-73) % Lymph % (Auto) 17.3 L (20-40) % Baldwin % (Auto) 6.8 (2-11) % Eos % (Auto) 2.3 (0-4) % Baso % (Auto) 0.8 (0-2) % Lymph # (Auto) 1.5 (1.2-4.9) X10*3/uL Baldwin # (Auto) 0.6 (0.1-1.2) X10*3/uL Eos # (Auto) 0.2 (0.0-0.4) X10*3/uL Baso # (Auto) 0.1 (0.0-0.2) X10*3/uL Abs Immat Gran (auto) 0.03 (0.00-0.03) X10*3/uL Absolute Neuts (auto) 6.4 (2.0-8.3) x10*3/uL Absolute Nucleated RBC 0.000 (0.0-0.012) X10*3/uL Nucleated RBC % (auto) 0.0 (0.0-0.2) /100WBC Sodium 141 (135-145) mmol/L Potassium 4.4 (3.3-5.1) mmol/L Chloride 106 (96-108) mmol/L Carbon Dioxide 29 (22-29) mmol/L Anion Gap 10 L (12-20) BUN 5 L (9-16) mg/dL Creatinine 0.66 (0.5-1.4) mg/dL Estim Creat Clear Calc 69.4 Estimated GFR > 60 Random Glucose 101 (60-115) mg/dL Lactic Acid 0.8 (0.5-2.0) mmol/L Calcium 10.1 D (8.4-10.2) mg/dL Magnesium 1.4 L* (1.6-2.6) mg/dL Total Bilirubin 0.7 (0.0-1.0) mg/dL AST 19 (5-31) U/L ALT 18 (0-31) U/L Alkaline Phosphatase 90 (39-117) U/L Total Protein 7.4 (6.5-8.0) g/dL Albumin 3.8 (3.5-5.0) g/dL Medications Administered Discontinued Medications Generic Name Dose Route Start Last Admin Trade Name Devq PRN Reason Stop Dose Admin Acetaminophen 650 mg 07/26/23 12:41 07/26/23 12:45 Acetaminophen 325 Mg Tablet PO 07/26/23 12:42 650 mg ONCE ONE Administration Discharge Plan Discharge Clinical Impression: Left before treatment completed Patient Disposition: Left W/O Completing Treatment Prescriptions: No Action fluoxetine 20 mg capsule 20 mg PO DAILY 90 Days Qty: 90 1RF atorvastatin 40 mg tablet 40 mg PO DAILY Qty: 90 1RF acetaminophen [Tylenol] 325 mg Tablet 650 mg PO Q6H PRN (Reason: Pain) ibuprofen [Advil] 200 mg Tablet 400 mg PO Q8H PRN (Reason: Pain) zolpidem 5 mg tablet 5 mg PO BEDTIME PRN (Reason: Sleep) vancomycin [Vancocin] 250 mg capsule 250 mg PO QID Qty: 23 0RF oxycodone-acetaminophen [Percocet] 5-325 mg tablet 1 tab PO TID PRN (Reason: pain) Qty: 10 0RF Rx Instructions: Partial Fill upon patient request. metoprolol tartrate 25 mg tablet 25 mg PO BID Qty: 60 0RF (DME) colostomy bags 3 misc See Rx Instructions .ROUTE .MEDSUPPLY Qty: 30 1RF Rx Instructions: As directed (DME) Skin Prep Wipes Misc See Rx Instructions .ROUTE .MEDSUPPLY Qty: 1 1RF Rx Instructions: As directed Discharge Date/Time: 07/26/23 20:25
[2023-07-26] MEDS: Acetaminophen 325 MG TABLET 650 MG PO (12:45)
[2023-07-26 13:04] LABS: MANUAL DIFF FLAG NO
[2023-07-26 13:05] LABS: Basophils Absolute Auto 0.1 X10*3/uL (0.0-0.2); Basophils Percent Auto 0.8 % (0-2); Eosinophils Absolute Auto 0.2 X10*3/uL (0.0-0.4); Eosinophils Percent Auto 2.3 % (0-4); Hematocrit 32.3 % (37.0-47.0); Hemoglobin 10.9 g/dl (12.0-16.0); Imm Gran Abs Auto 0.03 X10*3/uL (0.00-0.03); Imm Gran Pct Auto 0.3 % (0.0-0.4); Lymphocytes Absolute Auto 1.5 X10*3/uL (1.2-4.9); Lymphocytes Percent Auto 17.3 % (20-40); Mean Corpuscular HGB Conc 33.7 g/dl (31.0-35.0); Mean Corpuscular Hemoglobin 29.1 pg (27.0-33.0); Mean Corpuscular Volume 86.4 fL (80.0-98.0); Mean Platelet Volume 8.8 fL (9.4-12.3); Monocytes Absolute Auto 0.6 X10*3/uL (0.1-1.2); Monocytes Percent Auto 6.8 % (2-11); Neutrophils Absolute Auto 6.4 x10*3/uL (2.0-8.3); Neutrophils Percent Auto 72.5 % (45-73); Platelet Count 362 X10*3/uL (160-400); Red Blood Count 3.74 X10*6/uL (4.20-5.50); Red Cell Distribution Width 13.1 % (11.0-16.0); White Blood Count 8.8 X10*3/uL (4.8-10.8)
[2023-07-26 13:25] LABS: Lactic Acid 0.8 mmol/L (0.5-2.0)
[2023-07-26 13:35] LABS: Alanine Aminotransferase 18 U/L (0-31); Albumin Level 3.8 g/dL (3.5-5.0); Alkaline Phosphatase 90 U/L (39-117); Anion Gap 10 (12-20); Aspartate Amino Transferase 19 U/L (5-31); Bilirubin Total 0.7 mg/dL (0.0-1.0); Blood Urea Nitrogen 5 mg/dL (9-16); Calcium 10.1 mg/dL (8.4-10.2); Carbon Dioxide 29 mmol/L (22-29); Chloride 106 mmol/L (96-108); Creatinine Clr Calc Pharmacy 69.4; Estimated Glomerular Filt Rate > 60; Glucose Random 101 mg/dL (60-115); Magnesium 1.4 mg/dL (1.6-2.6); Potassium 4.4 mmol/L (3.3-5.1); Sodium 141 mmol/L (135-145); Total Protein 7.4 g/dL (6.5-8.0)
== END 2023-07-26 20:25 | disposition left against medical advice (07) ==
LOC: HO.ED 20:23
PROVIDERS: Nurse Practitioner Family; Emergency Provider Emergency Medicine; PCP Nurse Practitioner Family
DX: R10.9 Unspecified abdominal pain (principal); Z79.899 Other long term (current) drug therapy; Z87.891 Personal history of nicotine dependence
CPT/HCPCS: 36415; 80053; 83605; 83735; 85025; 99282; 99283

== ENCOUNTER 2023-07-29 07:01 | Outpatient (REF) | payer OTHER, SELFPAY ==
[2023-07-29 10:44] LABS: Magnesium 1.5 mg/dL (1.6-2.6)
== END 2023-07-29 07:02 | disposition home or self-care (01) ==
LOC: HO.HMGCLDS 07:01
PROVIDERS: PCP Nurse Practitioner Family; Visit Provider Nurse Practitioner Family
DX: E83.42 Hypomagnesemia (principal)
CPT/HCPCS: 36415; 83735

== ENCOUNTER 2023-08-06 07:41 | Outpatient (REF) | payer OTHER, SELFPAY ==
[2023-08-06 11:48] LABS: Magnesium 1.6 mg/dL (1.6-2.6)
== END 2023-08-06 07:42 | disposition home or self-care (01) ==
LOC: HO.HMGCLDS 07:41
PROVIDERS: PCP Nurse Practitioner Family; Visit Provider Internal Medicine
DX: E83.42 Hypomagnesemia (principal)
CPT/HCPCS: 36415; 83735

== ENCOUNTER 2023-08-27 11:58 | Outpatient (REF) | payer OTHER, SELFPAY ==
[2023-08-27 13:02] LABS: MANUAL DIFF FLAG NO
[2023-08-27 13:20] LABS: Basophils Absolute Auto 0.1 X10*3/uL (0.0-0.2); Basophils Percent Auto 0.9 % (0-2); Eosinophils Absolute Auto 0.1 X10*3/uL (0.0-0.4); Eosinophils Percent Auto 2.2 % (0-4); Hematocrit 32.6 % (37.0-47.0); Imm Gran Abs Auto 0.01 X10*3/uL (0.00-0.03); Imm Gran Pct Auto 0.2 % (0.0-0.4); Lymphocytes Absolute Auto 1.5 X10*3/uL (1.2-4.9); Mean Corpuscular HGB Conc 33.7 g/dl (31.0-35.0); Mean Corpuscular Hemoglobin 30.3 pg (27.0-33.0); Mean Corpuscular Volume 89.8 fL (80.0-98.0); Mean Platelet Volume 10.1 fL (9.4-12.3); Monocytes Absolute Auto 0.5 X10*3/uL (0.1-1.2); Monocytes Percent Auto 8.6 % (2-11); Neutrophils Absolute Auto 3.4 x10*3/uL (2.0-8.3); Neutrophils Percent Auto 61.1 % (45-73); Platelet Count 250 X10*3/uL (160-400); Red Blood Count 3.63 X10*6/uL (4.20-5.50); Red Cell Distribution Width 13.2 % (11.0-16.0); White Blood Count 5.6 X10*3/uL (4.8-10.8)
[2023-08-27 20:45] LABS: Alanine Aminotransferase 12 U/L (0-31); Albumin Level 4.1 g/dL (3.5-5.0); Alkaline Phosphatase 71 U/L (39-117); Anion Gap 13 (12-20); Aspartate Amino Transferase 16 U/L (5-31); Bilirubin Total 0.7 mg/dL (0.0-1.0); Blood Urea Nitrogen 14 mg/dL (9-16); Calcium 9.6 mg/dL (8.4-10.2); Carbon Dioxide 24 mmol/L (22-29); Chloride 106 mmol/L (96-108); Estimated Glomerular Filt Rate > 60; Glucose Random 91 mg/dL (60-115); Magnesium 1.6 mg/dL (1.6-2.6); Potassium 3.8 mmol/L (3.3-5.1); Sodium 139 mmol/L (135-145); Total Protein 7.3 g/dL (6.5-8.0)
== END 2023-08-27 11:59 | disposition home or self-care (01) ==
LOC: HO.HMGCLDS 11:58
PROVIDERS: PCP Nurse Practitioner Family; Visit Provider Nurse Practitioner Family
DX: R79.0 Abnormal level of blood mineral (principal)
CPT/HCPCS: 36415; 80053; 83735; 85025

== ENCOUNTER 2023-09-02 09:21 | Outpatient (REF) | payer OTHER, SELFPAY | END 2023-09-02 09:22 | disposition home or self-care (01) | LOC: HO.MAMMO 09:21 | PROVIDERS: PCP Nurse Practitioner Family; Visit Provider Nurse Practitioner Family | DX: Z12.31 Encounter for screening mammogram for malignant neoplasm of breast (principal) | CPT/HCPCS: 77063; 77067 ==

== ENCOUNTER → 2023-09-02 09:30 | Outpatient (BNV) | payer OTHER, SELFPAY | PROVIDERS: PCP Nurse Practitioner Family; Visit Provider Radiology Diagnostic Radiology | DX: Z12.31 Encounter for screening mammogram for malignant neoplasm of breast (principal) | CPT/HCPCS: 77063; 77067 ==

== ENCOUNTER 2023-09-07 07:47 | Outpatient (AMB) | payer OTHER, SELFPAY ==
--- NOTE | 2023-09-07 07:18 | MHC.PC.OV ---
Intake Visit Reasons: Follow up on labs-Iphone Allergies Penicillins [PENICILLINS] Allergy (Intermediate, Verified 09/07/23 07:31) RASH Medication List - Last Reconciled 09/07/23 by BAILEY Silva acetaminophen (Tylenol) 650 mg PO Q6H PRN atorvastatin 40 mg PO DAILY colostomy bags As directed fluoxetine 20 mg PO DAILY 90 days ibuprofen (Advil) 400 mg PO Q8H PRN metoprolol succinate ER 25 mg PO DAILY 90 days ostomy supplies (Skin Prep Wipes) As directed oxycodone-acetaminophen 5-325 mg (Percocet) 1 tab PO TID PRN vancomycin (Vancocin) 250 mg PO QID zolpidem 5 mg PO BEDTIME PRN Tobacco use date assessed: 06/15/23 Dental Screening Dental Screen Date: 06/15/23 HPI Follow up on labs-Iphone HPI Details Pt underwent an ileostomy reversal on 06/21. She subsequently developed Cdiff which was treated with antibiotics. Pt also developed hypomagnesemia. Last magnesium level was 1.6. Repeat labs have been ordered. Pt reports doing well today. Denies fever, chills, and dizziness. taking mag oxide daily and vitamin b complex. Will cont to monitor labs. [facility] Medical History Sepsis Dental bridge present Postoperative nausea RAFAEL (generalized anxiety disorder) Insomnia Weight loss Ileostomy in place Colovaginal fistula Carpal tunnel syndrome of right wrist Chronic GERD Lipid metabolism disorder Generalized anxiety disorder Surgical History Hx of surgical procedure (~06/22/23) S/P laparotomy with lysis of adhesions History of bowel resection History of carpal tunnel surgery History of hysterectomy History of appendectomy Family History Other Substance use disorder Social History Household Members: Spouse Housing: House Are you a primary post acute care nurse to a significant other at home: No Do you presently have visiting nurse or other home services: No Alcohol intake: current Alcohol intake frequency: does not drink Alcohol type: wine Comment: counts correct Patient Tobacco Use Status: Former Tobacco user Years Smoked: 7 e-Cigarette/Vaping Use: Never Used Second Hand Smoke Exposure: No service: No Current occupational status: employed 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 Braulio Williamson, Chasity Salamanca, Jose Alberto Franco and colleagues, with an educational adelia from [employer]. Review of Systems Const Reports as per HPI Physical exam (Primary Care) Tobacco/Smoking Status: Tobacco use Status Tobacco use date assessed 06/15/23 09/07/23 07:19 Patient Tobacco Use Status Former Tobacco user 09/07/23 07:19 e-Cigarette/Vaping Use Never Used 09/07/23 07:19 Thrive Assessment: Date of Thrive Assessment Date Thrive assessed 06/23/23 09/07/23 07:19 Const General: cooperative Orientation/consciousness: patient oriented x3 Neuro General: patient oriented x3 Psych Appearance: grossly normal Mental Status: mental status grossly normal Speech and movement: Clear speech present Affect: normal affect Attitude: cooperative Thought process: Normal thought process present Thought content: Normal thought content present Insight: Good insight present (Psych) Judgement: Good judgement present (Psych) Telehealth Telehealth Telehealth Platform: [employer] Location of provider rendering services: practice address Location of patient: address on file Patient Identification confirmed using: Name, : Yes Telehealth method: video Patient verbally consented to treatment: Yes Patient verbally consented to billing insurance company: Yes Patient informed of any privacy concerns related to visit: Yes Minutes spent on Phone/Video with Pt.: 10 Assessment and Plan Assessment & Plan (1) Low magnesium level: Code(s): R79.0 - Abnormal level of blood mineral Plan: Will continue to monitor labs (2) Status post reversal of ileostomy: Code(s): Z98.890 - Other specified postprocedural states Plan: Doing well (3) Electrolyte imbalance: Code(s): E87.8 - Other disorders of electrolyte and fluid balance, not elsewhere classified Plan: Will continue to monitor labs (4) C. difficile diarrhea: Code(s): A04.72 - Enterocolitis due to Clostridium difficile, not specified as recurrent Plan: Doing well Plan The patient agreed to the use of a medical staff services coordinator for this encounter. Scribed for BAILEY Hernández by Jina Worthington medical staff services coordinator, on 09/07/2023 at 07:15 EST. Coding Level of Care Code Tele Est Pt Level 3 (27071) Diagnoses Low magnesium level R79.0 Status post reversal of ileostomy Z98.890 Electrolyte imbalance E87.8 C. difficile diarrhea A04.72
== END 2023-09-07 09:52 | disposition home or self-care (01) ==
LOC: HO.HMGC 07:47
PROVIDERS: PCP Nurse Practitioner Family; Visit Provider Nurse Practitioner Family
DX: R79.0 Abnormal level of blood mineral (principal); Z98.890 Other specified postprocedural states; E87.8 Other disorders of electrolyte and fluid balance, not elsewhere classified; A04.72 Enterocolitis due to Clostridium difficile, not specified as recurrent
CPT/HCPCS: 99213

== ENCOUNTER 2023-10-01 07:16 | Outpatient (REF) | payer OTHER, SELFPAY ==
[2023-10-01 10:09] LABS: MANUAL DIFF FLAG NO
[2023-10-01 10:22] LABS: Basophils Absolute Auto 0.1 X10*3/uL (0.0-0.2); Basophils Percent Auto 1.3 % (0-2); Eosinophils Absolute Auto 0.1 X10*3/uL (0.0-0.4); Eosinophils Percent Auto 3.2 % (0-4); Hematocrit 38.3 % (37.0-47.0); Lymphocytes Absolute Auto 1.6 X10*3/uL (1.2-4.9); Lymphocytes Percent Auto 41.4 % (20-40); Mean Corpuscular HGB Conc 33.9 g/dl (31.0-35.0); Mean Corpuscular Volume 88.5 fL (80.0-98.0); Monocytes Absolute Auto 0.3 X10*3/uL (0.1-1.2); Monocytes Percent Auto 8.7 % (2-11); Neutrophils Absolute Auto 1.7 x10*3/uL (2.0-8.3); Neutrophils Percent Auto 45.4 % (45-73); Platelet Count 237 X10*3/uL (160-400); Red Blood Count 4.33 X10*6/uL (4.20-5.50); Red Cell Distribution Width 12.3 % (11.0-16.0); White Blood Count 3.8 X10*3/uL (4.8-10.8)
[2023-10-01 10:59] LABS: Alanine Aminotransferase 26 U/L (0-31); Albumin Level 4.2 g/dL (3.5-5.0); Alkaline Phosphatase 70 U/L (39-117); Anion Gap 9 (12-20); Aspartate Amino Transferase 29 U/L (5-31); Bilirubin Total 0.7 mg/dL (0.0-1.0); Blood Urea Nitrogen 14 mg/dL (9-16); Calcium 9.8 mg/dL (8.4-10.2); Carbon Dioxide 30 mmol/L (22-29); Chloride 107 mmol/L (96-108); Estimated Glomerular Filt Rate > 60; Glucose Random 97 mg/dL (60-115); Magnesium 1.8 mg/dL (1.6-2.6); Potassium 3.9 mmol/L (3.3-5.1); Sodium 142 mmol/L (135-145); Total Protein 7.6 g/dL (6.5-8.0)
[2023-10-01 11:07] LABS: Folate 12.9 ng/mL (> or = 4.0); Vitamin B12 314 pg/mL (200-900)
== END 2023-10-01 07:17 | disposition home or self-care (01) ==
LOC: HO.HMGCLDS 07:16
PROVIDERS: PCP Nurse Practitioner Family; Visit Provider Nurse Practitioner Family
DX: E87.8 Other disorders of electrolyte and fluid balance, not elsewhere classified (principal)
CPT/HCPCS: 36415; 80053; 82607; 82746; 83735; 85025

== ENCOUNTER 2023-12-28 07:26 | Outpatient (REF) | payer OTHER, SELFPAY ==
[2023-12-28 10:01] LABS: MANUAL DIFF FLAG NO
[2023-12-28 10:17] LABS: Basophils Absolute Auto 0.1 X10*3/uL (0.0-0.2); Basophils Percent Auto 1.7 % (0-2); Eosinophils Absolute Auto 0.1 X10*3/uL (0.0-0.4); Eosinophils Percent Auto 2.2 % (0-4); Hematocrit 35.4 % (37.0-47.0); Hemoglobin 11.8 g/dl (12.0-16.0); Imm Gran Abs Auto 0.01 X10*3/uL (0.00-0.03); Imm Gran Pct Auto 0.2 % (0.0-0.4); Lymphocytes Absolute Auto 0.9 X10*3/uL (1.2-4.9); Lymphocytes Percent Auto 22.6 % (20-40); Mean Corpuscular HGB Conc 33.3 g/dl (31.0-35.0); Mean Corpuscular Hemoglobin 29.6 pg (27.0-33.0); Mean Corpuscular Volume 88.9 fL (80.0-98.0); Mean Platelet Volume 10.1 fL (9.4-12.3); Monocytes Absolute Auto 0.4 X10*3/uL (0.1-1.2); Monocytes Percent Auto 10.6 % (2-11); Neutrophils Absolute Auto 2.6 x10*3/uL (2.0-8.3); Neutrophils Percent Auto 62.7 % (45-73); Platelet Count 242 X10*3/uL (160-400); Red Blood Count 3.98 X10*6/uL (4.20-5.50); Red Cell Distribution Width 12.1 % (11.0-16.0); White Blood Count 4.2 X10*3/uL (4.8-10.8)
[2023-12-28 10:40] LABS: Appearance Urine Turbid; Color Urine Dark Yellow; Glucose Urine UA Negative (Negative); Leukocyte Esterase Urine Negative (Negative); Nitrite Urine Negative (Negative); PH 5.5 (5.0-9.0); Urine Blood Negative (Negative); Urine Ketones Negative (Negative); Urine Protein Negative (Neg-Trace)
[2023-12-28 10:44] LABS: Alanine Aminotransferase 23 U/L (0-31); Albumin Level 4.2 g/dL (3.5-5.0); Alkaline Phosphatase 76 U/L (39-117); Anion Gap 9 (12-20); Aspartate Amino Transferase 26 U/L (5-31); Bilirubin Total 1.2 mg/dL (0.0-1.0); Blood Urea Nitrogen 13 mg/dL (9-16); Calcium 9.1 mg/dL (8.4-10.2); Carbon Dioxide 27 mmol/L (22-29); Chloride 108 mmol/L (96-108); Cholesterol 162 mg/dL (<200); Estimated Glomerular Filt Rate > 60; Glucose Fasting 104 mg/dL (60-99); HDL Cholesterol 62 mg/dL (>40); LDL Cholesterol Calculated 84 mg/dL (<100); Magnesium 1.7 mg/dL (1.6-2.6); Potassium 3.6 mmol/L (3.3-5.1); Sodium 140 mmol/L (135-145); Total Protein 7.6 g/dL (6.5-8.0); Triglycerides 82 mg/dL (<150)
[2023-12-28 11:10] LABS: TSH reflex Free T4 2.51 uIU/mL (0.32-4.0); Vitamin D 25-OH Total 28.7 ng/mL (>30)
[2023-12-28 11:11] LABS: Folate 17.9 ng/mL (> or = 4.0); Vitamin B12 451 pg/mL (200-900)
[2024-01-08 06:23] LABS: Vitamin B6 24.4 ng/mL (2.1-21.7)
== END 2023-12-28 07:27 | disposition home or self-care (01) ==
LOC: HO.HMGCLDS 07:26
PROVIDERS: PCP Nurse Practitioner Family; Visit Provider Nurse Practitioner Family
DX: Z00.00 Encounter for general adult medical examination without abnormal findings (principal); E55.9 Vitamin D deficiency, unspecified; R79.0 Abnormal level of blood mineral; E87.8 Other disorders of electrolyte and fluid balance, not elsewhere classified
CPT/HCPCS: 36415; 80053; 80061; 81003; 82306; 82607; 82746; 83735; 84207; 84443; 85025; 96127

== ENCOUNTER 2023-12-28 07:26 | Outpatient (AMB) | payer OTHER, SELFPAY ==
--- NOTE | 2023-12-28 07:29 | A.OFFVIS_ITS ---
Intake Visit Reasons: Annual PE Allergies Penicillins [PENICILLINS] Allergy (Intermediate, Verified 09/07/23 07:31) RASH HPI HPI Annual PE: Details: Patient is here for physical exam. She had a ileostomy reversal back in June of 2023, further complicated with C diff and electrolyte imbalances. Patient's mammogram is up-to-date. [facility] Medical History Sepsis Dental bridge present Postoperative nausea RAFAEL (generalized anxiety disorder) Insomnia Weight loss Ileostomy in place Colovaginal fistula Carpal tunnel syndrome of right wrist Chronic GERD Lipid metabolism disorder Generalized anxiety disorder Surgical History Hx of surgical procedure (~06/22/23) S/P laparotomy with lysis of adhesions History of bowel resection History of carpal tunnel surgery History of hysterectomy History of appendectomy Family History Other Substance use disorder Social History Household Members: Spouse Housing: House Are you a primary urgent care nurse practitioner to a significant other at home: No Do you presently have visiting nurse or other home services: No Alcohol intake: current Alcohol intake frequency: does not drink Alcohol type: wine Comment: counts correct Patient Tobacco Use Status: Former Tobacco user Years Smoked: 7 e-Cigarette/Vaping Use: Never Used Second Hand Smoke Exposure: No service: No Current occupational status: employed 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 Cognitive needs: No Hearing needs: No Vision needs: Yes Review of Systems Const Denies chills and Denies fever(s) Eyes Denies blurry vision ENT Denies vertigo, Denies dizziness and Denies sore throat Card Denies chest pain at rest, Denies chest pain with activity, Denies diaphoresis, Denies dyspnea and Denies dyspnea on exertion Resp Denies cough, Denies dyspnea, Denies dyspnea on exertion and Denies wheezing GI Denies abdominal pain, Denies melena, Denies hematochezia, Denies constipation, Denies diarrhea and Denies loose stools Denies hematuria Musc Denies numbness and Denies tingling Skin/Breast Denies lesions Neuro Denies vertigo, Denies dizziness, Denies numbness and Denies tingling Psych Denies anxiety, Denies depression, Denies homicidal ideation, Denies suicidal ideation and Denies other (substance abuse) Aller/Immun Denies wheezing Physical Exam Const General: cooperative Nutritional Appearance: well nourished Orientation/consciousness: patient oriented x3 HEENT Head: Yes normal to inspection, Yes normocephalic and Yes atraumatic Ears: TM normal on the right and TM normal on the left Eyes General: appearance normal, both eyes and all related structures Alignment and Position: alignment normal and position normal Neck Neck: Yes normal visual inspection, Yes no lymphadenopathy and Yes supple Resp Effort & Inspection: normal respiratory effort Auscultation: clear to auscultation bilaterally Cardio Rate: regular rate Rhythm: regular rhythm Heart sounds: S1 normal heart sound present, S2 normal heart sound present and no murmurs GI Palpation (GI): Soft to palpation and nontender Auscultation: normal bowel sounds Skin Rashes: no rashes Neuro General: patient oriented x3, moves all extremities, no focal motor deficits and deep tendon reflexes 2+ bilaterally Romberg Test: Negative Extrem Right lower extremity: no edema Left lower extremity: no edema Psych Affect: normal affect Attitude: cooperative Thought process: Normal thought process present Assessment & Plan Assessment & Plan (1) Physical exam: Code(s): Z00.00 - Encounter for general adult medical examination without abnormal findings Category: Medical Coding Diagnoses Physical exam Z00.00
[2023-12-28 07:38] VITALS: BP 130/70; PULSE 81; O2SAT 97; BMI 21.9
--- NOTE | 2023-12-28 07:38 | A.OFFPC_ITS ---
Vital Signs 12/28/23 07:38 Height 5 ft 2 in Weight 120 lb BMI 21.9 BP 130/70 Blood Pressure Location Lt brachial Position Sitting Pulse 81 Pulse Oximetry (%) 97 Oxygen Delivery Method Room Air Intake Visit Reasons: Annual PE Intake Note: Pt is here today for her PE Allergies Penicillins [PENICILLINS] Allergy (Intermediate, Verified 09/07/23 07:31) RASH Medication List - Last Reconciled 12/28/23 by BAILEY Silva acetaminophen (Tylenol) 650 mg PO Q6H PRN atorvastatin 40 mg PO DAILY colostomy bags As directed fluoxetine 20 mg PO DAILY 90 days ibuprofen (Advil) 400 mg PO Q8H PRN losartan 25 mg PO DAILY magnesium oxide 400 mg PO DAILY metoprolol succinate ER 25 mg PO DAILY 90 days ostomy supplies (Skin Prep Wipes) As directed zolpidem 5 mg PO BEDTIME PRN 30 days Tobacco use date assessed: 12/28/23 Dental Screening Dental Screen Date: 12/28/23 Did you have a dental visit in the last 12 months?: Yes Did you have a dental problem in the last 6 months where you did not have access to dental care?: No Was dental information given to patient?: Patient has dentist HPI Annual PE HPI Details pt is here for a PE. back in JUNE pt had a reversal of a ileostomy, developed c-diff and electrolyte imbalances. Mammo is up to date. Pt remains very active, jogging and exercising. I will check with her GS when colon screen is due COUNTS INCLUDE [facility] BEDS AT THE [facility] Medical History Sepsis Dental bridge present Postoperative nausea RAFAEL (generalized anxiety disorder) Insomnia Weight loss Ileostomy in place Colovaginal fistula Carpal tunnel syndrome of right wrist Chronic GERD Lipid metabolism disorder Generalized anxiety disorder Surgical History Hx of surgical procedure (~06/22/23) S/P laparotomy with lysis of adhesions History of bowel resection History of carpal tunnel surgery History of hysterectomy History of appendectomy Family History Other Substance use disorder Social History Household Members: Spouse Housing: House Are you a primary animal caretaker to a significant other at home: No Do you presently have visiting nurse or other home services: No Alcohol intake: current Alcohol intake frequency: does not drink Alcohol type: wine Comment: counts correct Patient Tobacco Use Status: Former Tobacco user Years Smoked: 7 e-Cigarette/Vaping Use: Never Used Second Hand Smoke Exposure: No service: No Current occupational status: employed 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 1. Little interest or pleasure in doing things: not at all 2. Feeling down, depressed, or hopeless: not at all 3. Trouble falling or staying asleep, or sleeping too much: not at all 4. Feeling tired or having little energy: not at all 5. Poor appetite or overeating: not at all 6. Feeling bad about yourself - or that you are a failure or have let yourself or your family down: not at all 7. Trouble concentrating on things, such as reading the newspaper or watching television: not at all 8. Moving or speaking so slowly that other people could have noticed. Or the opposite - being so fidgety or restless that you have been moving around a lot more than usual: not at all 9. Thoughts that you would be better off or of hurting yourself in some way: not at all Total score: 0 Depression Screening Interpretation: Negative Depression Screening Done: Yes 43799 - PHQ-9 Billing: Yes Source: Developed by Drs. Braulio Williamson, Chasity Salamanca, Jose Alberto Franco and colleagues, with an educational adelia from [employer]. Thrive Questionnaire Date Thrive assessed: 12/28/23 I am a: Patient What is your living situation today?: I have a steady place to live Within the past 12 months, did the food you bought not last and you didn't have the money to get more?: Never true Within the past 12 months, did you worry whether your food would run out before you got money to buy more?: Never true Do you have trouble paying for medicines?: No Do you have trouble getting transportation to medical appointments?: No Do you have trouble paying your heating and electricity bill?: No Do you have trouble taking care of your child, family member or friend?: No Do you have trouble with day-to-day activities such as bathing, preparing meals, shopping, managing finances, etc.?: No Are you currently unemployed and looking for a job?: No Are you interested in more education?: No Please select the resources that you would like help with: None Currently or been in a relationship where the following occur: No concerns reported THRIVE Score: 0 AUDIT C Alcohol Use Questionnaire (AUDIT-C) 1. How often do you have a drink containing alcohol?: Monthly or less 2. How many drinks containing alcohol do you have on a typical day when you are drinking?: 1 or 2 3. How often do you have six or more drinks on one occasion?: Never Total Score: 1 Score Reviewed/Action Taken: Yes RAFAEL-7 AMB Questionnaire RAFAEL-7 Date RAFAEL - 7 assessed: 12/28/23 Feeling nervous, anxious, or on edge: 0 = Not at all Not being able to stop or control worryin = Not at all Worrying too much about different things: 0 = Not at all Trouble relaxin = Not at all Being so restless that it is hard to sit still: 0 = Not at all Becoming easily annoyed or irritable: 0 = Not at all Feeling afraid as if something awful might happen: 0 = Not at all Total RAFAEL-7 score (0-4 normal; 5-9 mild; 10-14 moderate; 15-21 severe): 0 Source: Developed by Drs. Braulio Williamson, Chasity Salamanca, Jose Alberto goyal nd colleagues, with an educational adelia from [employer]. RAFAEL-7 Assessment Billing RAFAEL-7 Assessment Tool: RAFAEL-7 Assessment 15081 Review of Systems Const Denies chills and Denies fever(s) Eyes Denies blurry vision ENT Denies vertigo, Denies dizziness and Denies sore throat Card Denies chest pain at rest, Denies chest pain with activity, Denies diaphoresis, Denies dyspnea and Denies dyspnea on exertion Resp Reports cough (ending cold), Denies dyspnea, Denies dyspnea on exertion and Denies wheezing GI Denies abdominal pain, Denies melena, Denies hematochezia, Denies constipation, Denies diarrhea and Denies loose stools Denies hematuria Musc Reports numbness (old stoma site region) and Reports tingling (old stoma site spot) Skin/Breast Denies lesions Neuro Denies vertigo, Denies dizziness, Reports numbness (old stoma site region) and Reports tingling (old stoma site spot) Psych Denies anxiety, Denies depression, Denies homicidal ideation, Denies suicidal ideation and Denies other (substance abuse) Aller/Immun Denies wheezing Physical exam (Primary Care) Vital Signs: Last Vital Signs Pulse 81 12/28/23 07:38 BP 130/70 12/28/23 07:38 Pulse Ox 97 12/28/23 07:38 Oxygen Delivery Method Room Air 12/28/23 07:38 BMI result Body Mass Index 21.9 Tobacco/Smoking Status: Tobacco use Status Tobacco use date assessed 12/28/23 12/28/23 07:42 Patient Tobacco Use Status Former Tobacco user 12/28/23 07:42 e-Cigarette/Vaping Use Never Used 12/28/23 07:42 Depression Screening Interpretation: Negative Thrive Assessment: Date of Thrive Assessment Date Thrive assessed 12/21/23 12/28/23 07:42 Currently or been in a relationship where the following occur: No concerns reported Const General: cooperative Nutritional Appearance: well nourished Orientation/consciousness: patient oriented x3 HENMT Head: Yes normal to inspection, Yes normocephalic and Yes atraumatic Ears: TM normal on the right and TM normal on the left Eyes General: appearance normal, both eyes and all related structures Alignment and Position: alignment normal and position normal Neck Neck: Yes normal visual inspection, Yes no lymphadenopathy and Yes supple Resp Effort & Inspection: normal respiratory effort Auscultation: clear to auscultation bilaterally Cardio Rate: regular rate Rhythm: regular rhythm Heart sounds: S1 normal heart sound present, S2 normal heart sound present and no murmurs GI Other: previous stoma site, scarring/lap sites(old) intact. Palpation (GI): Soft to palpation and nontender Auscultation: normal bowel sounds Skin Rashes: no rashes Neuro General: patient oriented x3, moves all extremities, no focal motor deficits and deep tendon reflexes 2+ bilaterally Romberg Test: Negative Extrem Right lower extremity: no edema Left lower extremity: no edema Psych Affect: normal affect Attitude: cooperative Thought process: Normal thought process present Coding Level of Care Code Est Pt Prev Care 40-64y(89765) Diagnoses Physical exam Z00.00 Low magnesium level R79.0 Electrolyte imbalance E87.8 Additional Codes RAFAEL-7 Assessment Billing - RAFAEL-7 Assessment Tool: RAFAEL-7 Assessment 29744 ([id number]) PHQ-9 - 62272 - PHQ-9 Billing: Yes ([id number]) Assessment & Plan Assessment & Plan (1) Physical exam: Code(s): Z00.00 - Encounter for general adult medical examination without abnormal findings Category: Medical Plan: labs (2) Low magnesium level: Code(s): R79.0 - Abnormal level of blood mineral Category: Medical Plan: lab (3) Electrolyte imbalance: Code(s): E87.8 - Other disorders of electrolyte and fluid balance, not elsewhere classified Category: Medical Plan: lab Orders: Orders Complete Blood Count Auto Diff Today Z00.00 - Encounter for general adult medical examination without abnormal findings TSH reflex Free T4 Today Z00.00 - Encounter for general adult medical examination without abnormal findings UA CC w/rflx Micro + Cult Today Z00.00 - Encounter for general adult medical examination without abnormal findings Lipid Panel Today Z00.00 - Encounter for general adult medical examination without abnormal findings Vitamin D 25-OH Total Today E55.9 - Vitamin D deficiency, unspecified Magnesium Today R79.0 - Abnormal level of blood mineral Comprehensive [place]. Panel Fast Today Z00.00 - Encounter for general adult medical examination without abnormal findings Vitamin B12 and Folate Today E87.8 - Other disorders of electrolyte and fluid balance, not elsewhere classified Vitamin B6 Today E87.8 - Other disorders of electrolyte and fluid balance, not elsewhere classified
== END 2023-12-28 09:11 | disposition home or self-care (01) ==
PROVIDERS: PCP Nurse Practitioner Family; Visit Provider Nurse Practitioner Family
DX: Z00.00 Encounter for general adult medical examination without abnormal findings (principal); R79.0 Abnormal level of blood mineral; E87.8 Other disorders of electrolyte and fluid balance, not elsewhere classified

== ENCOUNTER 2024-01-21 07:41 | Outpatient (REF) | payer OTHER, SELFPAY ==
--- OUTSIDE RECORDS SUMMARY | 2024-01-21 07:43 | XMS_ITS | Data Portability ---
Author Organization JANET Angela [facility]cmahan [address] Address [address] [place] [phone] Assessment No assessment recorded. Plan of Treatment Reminders Order Date Submit Date Provider Last Modified By Organization Details Last Modified Time Details Appointments None record ed. Lab None record ed. Referral None record ed. Procedures None record ed. Surgeries None record ed. Imaging None record ed. Medication Orders None record ed. Patient TargetsNo targets recorded. Patient InstructionsNo instructions recorded. Reason for Referral None Reported. Medical Equipment None Reported. Medications Name Sig Start Date Stop Date Status Note LastModified by Organization Details LastModified Time atorvastatin 40 mg tablet TAKE 1 TABLET BY MOUTH EVERY DAY FOR 90 DAYS active Not Available Not Available No t Available doxycycline hyclate 100 mg capsule TAKE 1 CAPSULE BY MOUTH TWICE A DAY FOR 7 DAYS active Not Available Not Available No t Available clindamycin HCl 300 mg capsule TAKE 1 CAPSULE BY MOUTH 4 TIMES DAILY active Not Available Not Available No t Available atenolol 100 mg tablet TAKE 1 TABLET BY MOUTH EVERY DAY FOR 90 DAYS active Not Available Not Available No t Available oxycodone-shola taminophen 5 mg-325 mg tablet TAKE 1 TABLET BY MOUTH TWICE A DAY active Not Available Not Available No t Available oxycodone-shola taminophen 2.5 mg-325 mg tablet TAKE 1 TABLET BY MOUTH EVERY DAY NEEDED FOR PAIN active Not Available Not Available No t Available mirtazapine 15 mg tablet TAKE 1 TABLET BY MOUTH EVERY DAY AT BEDTIME NEEDED FOR SLEEP active Not Available Not Available No t Available fluoxetine 20 mg capsule TAKE 1 CAPSULE BY MOUTH EVERY DAY FOR 90 DAYS active Not Available Not Available No t Available chlorhexidine gluconate 0.12 % mouthwash RINSE 15 ML'S TWICE DAILY AFTER BREAKFAST/ BEFORE BEDTIME FOLLOWING BRUSHING AND FLOSSING AND SPIT active Not Available Not Available No t Available Vitals None Recorded Social History None recorded. Functional Status None recorded. Mental Status None recorded. Family History Nothing Reported. Medical History No medical history recorded. Gynecological HistoryNo gynecological history recorded. Obstetrics History GPAL:G 0 P 0 0 0 0 Past Encounters Encounter ID Performer Location Encounter Start Date Encounter Closed Date Diagnosis/Indication Diagnosis SNOMED-CT Code Diagnosis ICD10 Code [id number] [facility] [address] [place], [place] [address] 11/01/2012 17:18:36 11/01/2012 17:56:57 [id number] [facility] [address] [place] [address] 10/20/2011 19:00:24 10/20/2011 20:23:33 [id number] [facility] [address] [place] [address] 03/06/2014 08:02:25 03/06/2014 08:18:20 [id number] [facility] [address] [place] [address] 02/08/2014 14:36:38 02/08/2014 15:14:48 [id number] [address] [address] [place] [address] 01/10/2016 09:20:34 01/10/2016 10:36:30 [id number] [address] [address] [place] [address] 03/26/2017 15:33:12 03/26/2017 17:05:53 [id number] [address] [address] [place] [address] 11/01/2016 09:57:45 11/01/2016 12:10:22 [id number] [address] [address] [place] [address] 02/11/2016 17:49:22 02/11/2016 19:17:37 Health Concerns Section Related Observation LastModified by Organization Detai ls LastModified Time None Recorded Concern Status LastModified by Organization Details LastModified Time None Recorded Advance Directives Directive None Recorded Payers Encounter Date Sequence Insurance Name Policy Number Policy Sanchez Covered Member ID Sanchez Member ID Guarantor Name 03/06/2014 1 SULY (PPO) [id number] Shruthi Helms [id number] Shruthi Helms OBGyn Episode No OBEpisode recorded.
[2024-01-21 10:31] LABS: MANUAL DIFF FLAG NO
[2024-01-21 10:41] LABS: Basophils Percent Auto 0.8 % (0-2); Eosinophils Absolute Auto 0.1 X10*3/uL (0.0-0.4); Eosinophils Percent Auto 2.8 % (0-4); Hematocrit 39.1 % (37.0-47.0); Imm Gran Abs Auto 0.01 X10*3/uL (0.00-0.03); Imm Gran Pct Auto 0.3 % (0.0-0.4); Immature Retic Fraction 5.8 % (3.0-15.9); Lymphocytes Absolute Auto 1.1 X10*3/uL (1.2-4.9); Lymphocytes Percent Auto 31.5 % (20-40); Mean Corpuscular HGB Conc 33.2 g/dl (31.0-35.0); Mean Corpuscular Volume 90.1 fL (80.0-98.0); Mean Platelet Volume 10.1 fL (9.4-12.3); Monocytes Absolute Auto 0.3 X10*3/uL (0.1-1.2); Monocytes Percent Auto 9.5 % (2-11); Neutrophils Percent Auto 55.1 % (45-73); Platelet Count 236 X10*3/uL (160-400); Red Blood Count 4.34 X10*6/uL (4.20-5.50); Red Cell Distribution Width 11.6 % (11.0-16.0); Retic HGB Equivalent 34.5 pg (30.0-35.0); Reticulocyte Percent 1.5 % (0.5-1.8); Reticulocytes Absolute 0.065 X10*6/uL (0.026-0.095); White Blood Count 3.6 X10*3/uL (4.8-10.8)
[2024-01-21 10:57] LABS: Iron 81 mcg/dL (30-160); Lactate Dehydrogenase 191 U/L (122-220); Percent Iron Saturation 29 % (15-50); Total Iron Binding Capacity 279 mcg/dL (228-428); Unsaturated Iron Binding 198 ug/dL
[2024-01-21 11:15] LABS: Ferritin 482 ng/mL (10-250)
[2024-01-21 11:36] LABS: Folate 16.5 ng/mL (> or = 4.0); Vitamin B12 453 pg/mL (200-900)
== END 2024-01-21 07:42 | disposition home or self-care (01) ==
LOC: HO.HMGCLDS 07:41
PROVIDERS: PCP Nurse Practitioner Family; Visit Provider Nurse Practitioner Family
DX: D64.9 Anemia, unspecified (principal)
CPT/HCPCS: 36415; 82607; 82728; 82746; 83540; 83615; 85025; 85045

== ENCOUNTER 2024-03-21 08:09 | Outpatient (REF) | payer OTHER, SELFPAY ==
[2024-03-21 11:00] LABS: Influenza A PCR POSITIVE (Negative); Influenza B PCR NEGATIVE (Negative); Resp Syncy Virus RNA Qual PCR NEGATIVE (Negative); SARS COV2 PCR INHOUSE NEGATIVE (Negative)
--- OUTSIDE RECORDS SUMMARY | 2024-03-21 11:05 | XMS_ITS | Data Portability ---
Author Organization JANET Angela [facility]cmahan [address] Address [address] [place] [phone] Assessment No assessment recorded. Plan of Treatment [...] Diagnosis/Indication Diagnosis SNOMED-CT Code Diagnosis ICD10 Code Diagnosis Note [id number] [facility] [address] [place], [place] [address] 11/01/2012 17:18:36 11/01/2012 17:56:57 [id number] [facility] [address] [place] [address] 10/20/2011 19:00:24 10/20/2011 20:23:33 [id number] [facility] [address] [place] [address] 03/06/2014 08:02:25 03/06/2014 08:18:20 [id number] [facility] [address] [place] [address] 02/08/2014 14:36:38 02/08/2014 15:14:48 [id number] [address] [address] [place] [address] 01/10/2016 09:20:34 01/10/2016 10:36:30 [id number] [address] [address] [place] [address] 03/26/2017 15:33:12 03/26/2017 17:05:53 [id number] [address] [place] [address] 11/01/2016 09:57:45 11/01/2016 12:10:22 [id number] [address] [address] [place] [address] 02/11/2016 17:49:22 02/11/2016 19:17:37 Health Concerns Section Related Observation LastModified by Organization Detai ls LastModified Time None Recorded Concern Status LastModified by Organization Details LastModified Time None Recorded Advance Directives Directive None Recorded Payers Encounter Date Sequence Insurance Name Policy Number Policy Sanchez Covered Member ID Sanchez Member ID Guarantor Name 03/06/2014 1 SULY (PPO) [id number] Shruthi Helms [id number] Shruthi Helms OBGyn Episode No OBEpisode recorded.
== END 2024-03-21 08:10 | disposition home or self-care (01) ==
LOC: HO.LNP 08:09
PROVIDERS: Physician Assistant; Visit Provider Nurse Practitioner Family
DX: J06.9 Acute upper respiratory infection, unspecified (principal); I10 Essential (primary) hypertension; E78.5 Hyperlipidemia, unspecified; Z87.891 Personal history of nicotine dependence
CPT/HCPCS: 0241U

== ENCOUNTER 2024-03-21 08:09 | Outpatient (AMB) | payer OTHER, SELFPAY ==
[2024-03-21 08:41] VITALS: BP 110/70; PULSE 62; TEMP 36.9; O2SAT 94
--- NOTE | 2024-03-21 08:41 | MHC.OFFWIV ---
Intake Vital Signs 03/21/24 08:41 Weight 118 lb BP 110/70 Blood Pressure Location Rt brachial Position Sitting Pulse 62 Pulse Source Pulse Oximeter Temp 98.4 F Temp Source Oral Pulse Oximetry (%) 94 Oxygen Delivery Method Room Air Intake Visit Reasons: EP bad cough, chest pain, headache Intake Note: Patient here for cough, chest pain and headache that has been present since last . Patient Tobacco Use Status: Former Tobacco user Allergies Penicillins [PENICILLINS] Allergy (Intermediate, Verified 03/21/24 08:42) RASH Do you need a note to return to daycare/school/sports/work: No HPI HPI Comments History of Present Illness Details This is a 59-year-old female with a past medical history of hypertension, hyperlipidemia, depression and diverticulitis with fistula formation and colostomy presenting for evaluation of chills that she developed on follow up by a cough, lightheadedness, ear pain, nausea and vomiting. Patient states that she has not been eating or drinking consistently and has been taking Coricidin for relief of her symptoms. [facility] Medical History Sepsis Dental bridge present Postoperative nausea RAFAEL (generalized anxiety disorder) Insomnia Weight loss Ileostomy in place Colovaginal fistula Carpal tunnel syndrome of right wrist Chronic GERD Lipid metabolism disorder Generalized anxiety disorder Surgical History Hx of surgical procedure (~06/22/23) S/P laparotomy with lysis of adhesions History of bowel resection History of carpal tunnel surgery History of hysterectomy History of appendectomy Family History Other Substance use disorder Social History Household Members: Spouse Housing: House Are you a primary special needs caregiver to a significant other at home: No Do you presently have visiting nurse or other home services: No Alcohol intake: current Alcohol intake frequency: does not drink Alcohol type: wine Comment: counts correct Patient Tobacco Use Status: Former Tobacco user Years Smoked: 7 e-Cigarette/Vaping Use: Never Used Second Hand Smoke Exposure: No service: No Current occupational status: employed 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 Cognitive needs: No Hearing needs: No Vision needs: Yes Review of Systems Const All systems reviewed & are unremarkable except as noted in HPI and below Reports chills, Reports fatigue, Denies fever(s) and Reports weakness Eyes Reports as per HPI ENT Reports no additional complaints, Reports otalgia, Denies facial pain, Denies sinus pain, Denies sinus pressure and Denies sore throat Card Reports no additional complaints Resp Reports cough, Reports pain with cough and Denies wheezing GI Reports no additional complaints, Denies diarrhea, Reports nausea and Reports vomiting Reports no additional complaints Musc Reports no additional complaints Skin/Breast Reports system reviewed and no additional complaints, except as documented Neuro Reports no additional complaints and Reports weakness Psych Reports no additional complaints Endo Reports no additional complaints and Reports fatigue González/Lymph Reports no additional complaints Aller/Immun Reports no additional complaints and Denies wheezing Physical Exam Vital Signs: Last Vital Signs Temp 98.4 F 03/21/24 08:41 Pulse 62 03/21/24 08:41 BP 110/70 03/21/24 08:41 Pulse Ox 94 03/21/24 08:41 Oxygen Delivery Method Room Air 03/21/24 08:41 Patient is afebrile. Const General: cooperative, healthy appearing, comfortable, no acute distress, well developed, alert, awake and Physically active Nutritional Appearance: average body habitus Orientation/consciousness: patient oriented x3 Limitations: no limitations HEENT Head: Yes normal to inspection and Yes normocephalic Ears: hearing grossly normal bilaterally, external ears normal, TM's normal bilaterally and EAC's normal Face and sinus: Yes normal facial exam and Yes sinuses nontender Mouth: Normal oral and palatal mucosa present and moist mucous membranes Throat: Yes posterior oropharynx normal Eyes General: appearance normal, both eyes and all related structures Neck Lymphatic: no lymphadenopathy noted Resp Effort & Inspection: normal respiratory effort, able to speak in complete sentences, no audible wheezes, Actively coughing and not tachypneic Auscultation: clear to auscultation bilaterally Cardio Rate: regular rate Rhythm: regular rhythm Skin General skin exam: no rashes or lesions noted Neuro General: patient oriented x3 Psych Appearance: grossly normal Mental Status: mental status grossly normal Insight: Good insight present (Psych) Judgement: Good judgement present (Psych) Assessment & Plan Assessment & Plan (1) Acute upper respiratory infection: Comment: SARS panel is obtained and results are pending. Code(s): J06.9 - Acute upper respiratory infection, unspecified Plan: Mucinex and Tessalon with increase fluids daily. Orders: Orders SARS-CoV2/FLU/RSV Today J06.9 - Acute upper respiratory infection, unspecified Medications: New benzonatate 100 mg PO TID 20 caps 0RF Coding Level of Care Code Est Pt Level 3 (12123) Diagnoses Acute upper respiratory infection J06.9 Time Spent (min) 20
== END 2024-03-21 09:11 | disposition home or self-care (01) ==
PROVIDERS: PCP Nurse Practitioner Family; Visit Provider Physician Assistant
DX: J06.9 Acute upper respiratory infection, unspecified (principal)

== ENCOUNTER 2024-04-20 07:53 | Outpatient (REF) | payer OTHER, SELFPAY ==
--- OUTSIDE RECORDS SUMMARY | 2024-04-20 07:56 | XMS_ITS ---
Author Name CRISP Organization Unknown Encounters Encounter Type Encounter Reason Primary Diagnosis Location Date Ambulatory [facility], [facility]. ([facility] 12/29/2021
--- OUTSIDE RECORDS SUMMARY | 2024-04-20 07:56 | XMS_ITS | Data Portability ---
Author Organization JANET Angela qunbmarquez mcmahan [address] Address [address] [place] [phone] Assessment No assessment recorded. Plan of Treatment [...] SNOMED-CT Code Diagnosis ICD10 Code Diagnosis Note [id number] [facility] [address] [place], [place] [address] 11/01/2012 17:18:36 11/01/2012 17:56:57 [id number] [facility] [address] [place] [address] 10/20/2011 19:00:24 10/20/2011 20:23:33 [id number] [facility] [address] [place] [address] 03/06/2014 08:02:25 03/06/2014 08:18:20 [id number] [facility] L [facility] [address] [place] [address] 02/08/2014 14:36:38 02/08/2014 15:14:48 [id number] [address] [address] [place] [address] 01/10/2016 09:20:34 01/10/2016 10:36:30 [id number] [address] [address] [place] [address] 03/26/2017 15:33:12 03/26/2017 17:05:53 [id number] [address] [address] [place] [address] 11/01/2016 09:57:45 11/01/2016 12:10:22 [id number] [address] [address] [place] [address] 02/11/2016 17:49:22 02/11/2016 19:17:37 Health Concerns Section Related Observation LastModified by Organization Detai ls LastModified Time None Recorded Concern Status LastModified by Organization Details LastModified Time None Recorded Advance Directives Directive None Recorded Payers Encounter Date Sequence Insurance Name Policy Number Policy Sanchez Covered Member ID Sanchez Member ID Guarantor Name 03/06/2014 1 SULY (PPO) [id number] Shruthi Helms [id number] Shruthi Helms OBGyn Episode No OBEpisode recorded.
[2024-04-20 10:09] LABS: MANUAL DIFF FLAG NO
[2024-04-20 10:14] LABS: Basophils Absolute Auto 0.1 X10*3/uL (0.0-0.2); Basophils Percent Auto 1.4 % (0-2); Eosinophils Absolute Auto 0.1 X10*3/uL (0.0-0.4); Eosinophils Percent Auto 3.3 % (0-4); Hematocrit 36.2 % (37.0-47.0); Hemoglobin 12.4 g/dl (12.0-16.0); Imm Gran Abs Auto 0.01 X10*3/uL (0.00-0.03); Imm Gran Pct Auto 0.3 % (0.0-0.4); Lymphocytes Absolute Auto 1.4 X10*3/uL (1.2-4.9); Lymphocytes Percent Auto 37.9 % (20-40); Mean Corpuscular HGB Conc 34.3 g/dl (31.0-35.0); Mean Corpuscular Hemoglobin 30.2 pg (27.0-33.0); Mean Corpuscular Volume 88.1 fL (80.0-98.0); Monocytes Absolute Auto 0.5 X10*3/uL (0.1-1.2); Monocytes Percent Auto 12.4 % (2-11); Neutrophils Absolute Auto 1.6 x10*3/uL (2.0-8.3); Neutrophils Percent Auto 44.7 % (45-73); Platelet Count 231 X10*3/uL (160-400); Red Blood Count 4.11 X10*6/uL (4.20-5.50); Red Cell Distribution Width 12.4 % (11.0-16.0); White Blood Count 3.6 X10*3/uL (4.8-10.8)
[2024-04-20 10:16] LABS: Appearance Urine Turbid; Color Urine Yellow; Glucose Urine UA Negative (Negative); Leukocyte Esterase Urine Negative (Negative); Nitrite Urine Positive (Negative); Specific Gravity - Urine >= 1.030 (1.005-1.025); UMIC TRIGGER UACC YES; Urine Blood Negative (Negative); Urine Ketones Negative (Negative); Urine Protein Negative (Neg-Trace)
[2024-04-20 10:38] LABS: Alanine Aminotransferase 21 U/L (0-31); Albumin Level 4.1 g/dL (3.5-5.0); Alkaline Phosphatase 66 U/L (39-117); Anion Gap 11 (12-20); Aspartate Amino Transferase 26 U/L (5-31); Bilirubin Total 1.4 mg/dL (0.0-1.0); Blood Urea Nitrogen 15 mg/dL (9-16); Calcium 9.5 mg/dL (8.4-10.2); Carbon Dioxide 27 mmol/L (22-29); Chloride 106 mmol/L (96-108); Estimated Glomerular Filt Rate > 60; Glucose Random 97 mg/dL (60-115); Potassium 3.6 mmol/L (3.3-5.1); Sodium 140 mmol/L (135-145); Total Protein 7.8 g/dL (6.5-8.0)
[2024-04-20 10:39] LABS: Bacteria Urine 3+ (None Seen); Calcium Oxalate Crystals Urine Present; Hyaline Casts Urine 0-2 /LPF (0-2); RBC Urine 0-2 /HPF (0-2); Squamous Epithelial Cell Urine >20 /HPF (0-2)
[2024-04-20 10:42] LABS: UACC Culture Trigger NO
[2024-04-20 10:55] LABS: Ferritin 669 ng/mL (10-250)
== END 2024-04-20 07:54 | disposition home or self-care (01) ==
LOC: HO.HMGCLDS 07:53
PROVIDERS: PCP Nurse Practitioner Family; Visit Provider Nurse Practitioner Family
DX: I10 Essential (primary) hypertension (principal); D72.819 Decreased white blood cell count, unspecified; R79.0 Abnormal level of blood mineral; R82.90 Unspecified abnormal findings in urine
CPT/HCPCS: 36415; 80053; 81001; 82728; 85025; 87086

== ENCOUNTER 2024-05-05 08:39 | Outpatient (REF) | payer OTHER, SELFPAY ==
[2024-05-05 10:20] LABS: MANUAL DIFF FLAG NO
[2024-05-05 10:28] LABS: Basophils Absolute Auto 0.1 X10*3/uL (0.0-0.2); Basophils Percent Auto 1.5 % (0-2); Eosinophils Absolute Auto 0.1 X10*3/uL (0.0-0.4); Eosinophils Percent Auto 2.7 % (0-4); Hematocrit 36.6 % (37.0-47.0); Hemoglobin 12.3 g/dl (12.0-16.0); Lymphocytes Absolute Auto 1.3 X10*3/uL (1.2-4.9); Lymphocytes Percent Auto 37.7 % (20-40); Mean Corpuscular HGB Conc 33.6 g/dl (31.0-35.0); Mean Corpuscular Hemoglobin 29.9 pg (27.0-33.0); Mean Corpuscular Volume 88.8 fL (80.0-98.0); Mean Platelet Volume 9.8 fL (9.4-12.3); Monocytes Absolute Auto 0.4 X10*3/uL (0.1-1.2); Monocytes Percent Auto 11.7 % (2-11); Neutrophils Absolute Auto 1.6 x10*3/uL (2.0-8.3); Neutrophils Percent Auto 46.4 % (45-73); Platelet Count 208 X10*3/uL (160-400); Red Blood Count 4.12 X10*6/uL (4.20-5.50); Red Cell Distribution Width 12.2 % (11.0-16.0); White Blood Count 3.3 X10*3/uL (4.8-10.8)
[2024-05-05 10:58] LABS: C Reactive Protein 0.12 mg/dL (< or = 0.50)
[2024-05-05 11:13] LABS: Ferritin 484 ng/mL (10-250)
[2024-05-05 11:15] LABS: Erythrocyte Sedimentation Rate 12 MM/HR (0-20)
[2024-05-10 11:53] LABS: Anti Nuclear Antibody Screen POSITIVE (NEGATIVE)
== END 2024-05-05 08:40 | disposition home or self-care (01) ==
LOC: HO.HMGCLDS 08:39
PROVIDERS: PCP Nurse Practitioner Family; Visit Provider Nurse Practitioner Family
DX: R79.89 Other specified abnormal findings of blood chemistry (principal)
CPT/HCPCS: 36415; 82728; 85025; 85652; 86038; 86039; 86140

== ENCOUNTER 2024-06-09 07:59 | Outpatient (REF) | payer OTHER, SELFPAY ==
--- OUTSIDE RECORDS SUMMARY | 2024-06-09 08:05 | XMS_ITS | Data Portability ---
Author Organization JANET Angela Gentor Resourcesmarquez mcmahan [address] Address [address] [place] [phone] Assessment No assessment recorded. Plan of Treatment [...] SNOMED-CT Code Diagnosis ICD10 Code Diagnosis Note [id number] Danika martinez [address] [address] JANET Mack [address] 11/01/2012 17:18:36 11/01/2012 17:56:57 [id number] Danika martinez [address] [address] [address] JANET Mack [address] 10/20/2011 19:00:24 10/20/2011 20:23:33 [id number] Danika martinez [address] [address] [address] [place]artirJANET holland [address] 03/06/2014 08:02:25 03/06/2014 08:18:20 [id number] Danika martinez [address] [address] [address] [place]JAN[place] [address] 02/08/2014 14:36:38 02/08/2014 15:14:48 [id number] [facility] [address] [place] [address] 01/10/2016 09:20:34 01/10/2016 10:36:30 [id number] [facility] [address] [place] [address] 03/26/2017 15:33:12 03/26/2017 17:05:53 [id number] [facility] [address] [place] [address] 11/01/2016 09:57:45 11/01/2016 12:10:22 [id number] [facility] [address] [place] [address] 02/11/2016 17:49:22 02/11/2016 19:17:37 Health Concerns Section Related Observation LastModified by Organization Detai ls LastModified Time None Recorded Concern Status LastModified by Organization Details LastModified Time None Recorded Advance Directives Directive None Recorded Payers Encounter Date Sequence Insurance Name Policy Number Policy Sanchez Covered Member ID Sanchez Member ID Guarantor Name 03/06/2014 1 [employer] (PPO) [id number] Shruthi Helms [id number] Shruthi Helms OBGyn Episode No OBEpisode recorded.
[2024-06-09 10:04] LABS: Appearance Urine Turbid; Color Urine Yellow; Glucose Urine UA Negative (Negative); Leukocyte Esterase Urine Negative (Negative); Nitrite Urine Negative (Negative); Specific Gravity - Urine 1.015 (1.005-1.025); Urine Blood Negative (Negative); Urine Ketones Negative (Negative); Urine Protein Negative (Neg-Trace)
[2024-06-09 10:08] LABS: MANUAL DIFF FLAG NO
[2024-06-09 10:14] LABS: Eosinophils Absolute Auto 0.1 X10*3/uL (0.0-0.4); Eosinophils Percent Auto 2.6 % (0-4); Hematocrit 38.3 % (37.0-47.0); Lymphocytes Absolute Auto 1.4 X10*3/uL (1.2-4.9); Lymphocytes Percent Auto 35.4 % (20-40); Mean Corpuscular HGB Conc 33.9 g/dl (31.0-35.0); Mean Corpuscular Hemoglobin 30.5 pg (27.0-33.0); Mean Corpuscular Volume 89.9 fL (80.0-98.0); Mean Platelet Volume 10.2 fL (9.4-12.3); Monocytes Absolute Auto 0.5 X10*3/uL (0.1-1.2); Monocytes Percent Auto 12.3 % (2-11); Neutrophils Absolute Auto 1.9 x10*3/uL (2.0-8.3); Neutrophils Percent Auto 48.7 % (45-73); Platelet Count 236 X10*3/uL (160-400); Red Blood Count 4.26 X10*6/uL (4.20-5.50); Red Cell Distribution Width 11.7 % (11.0-16.0); White Blood Count 3.9 X10*3/uL (4.8-10.8)
[2024-06-09 10:40] LABS: Alanine Aminotransferase 23 U/L (0-31); Albumin Level 4.4 g/dL (3.5-5.0); Alkaline Phosphatase 65 U/L (39-117); Anion Gap 12 (12-20); Aspartate Amino Transferase 27 U/L (5-31); Bilirubin Total 1.1 mg/dL (0.0-1.0); Blood Urea Nitrogen 19 mg/dL (9-16); C Reactive Protein 0.14 mg/dL (< or = 0.50); Calcium 9.5 mg/dL (8.4-10.2); Carbon Dioxide 27 mmol/L (22-29); Chloride 105 mmol/L (96-108); Estimated Glomerular Filt Rate > 60; Glucose Random 99 mg/dL (60-115); Iron 71 mcg/dL (30-160); Percent Iron Saturation 26 % (15-50); Potassium 3.8 mmol/L (3.3-5.1); Sodium 140 mmol/L (135-145); Total Iron Binding Capacity 272 mcg/dL (228-428); Total Protein 7.5 g/dL (6.5-8.0); Unsaturated Iron Binding 201 ug/dL
[2024-06-09 10:46] LABS: Ferritin 481 ng/mL (10-250)
[2024-06-09 10:50] LABS: Erythrocyte Sedimentation Rate 10 MM/HR (0-20)
== END 2024-06-09 08:00 | disposition home or self-care (01) ==
LOC: HO.HMGCLDS 07:59
PROVIDERS: PCP Nurse Practitioner Family; Visit Provider Nurse Practitioner Family
DX: I10 Essential (primary) hypertension (principal); R79.89 Other specified abnormal findings of blood chemistry; R76.8 Other specified abnormal immunological findings in serum
CPT/HCPCS: 36415; 80053; 81003; 82728; 83540; 85025; 85652; 86140

== ENCOUNTER 2024-09-19 11:59 | Outpatient (REF) | payer OTHER, SELFPAY ==
--- OUTSIDE RECORDS SUMMARY | 2024-09-19 12:54 | XMS_ITS ---
Author Name [facility] Organization Unknown Encounters Encounter Type Encounter Reason Primary Diagnosis Location Date Ambulatory [facility] ([facility] 12/29/2021
== END 2024-09-19 12:00 | disposition home or self-care (01) ==
LOC: HO.MAMMO 11:59
PROVIDERS: PCP Nurse Practitioner Family; Visit Provider Nurse Practitioner Family
DX: Z12.31 Encounter for screening mammogram for malignant neoplasm of breast (principal)
CPT/HCPCS: 77063; 77067

== ENCOUNTER → 2024-09-19 12:15 | Outpatient (BNV) | payer OTHER, SELFPAY | PROVIDERS: PCP Nurse Practitioner Family; Visit Provider Radiology Body Imaging | DX: Z12.31 Encounter for screening mammogram for malignant neoplasm of breast (principal) | CPT/HCPCS: 77063; 77067 ==

== ENCOUNTER 2024-12-14 10:41 | Outpatient (REF) | payer OTHER, SELFPAY ==
[2024-12-14 17:29] LABS: MANUAL DIFF FLAG NO
[2024-12-14 17:44] LABS: Hematocrit 40.2 % (37.0-47.0); Hemoglobin 13.3 g/dl (12.0-16.0); Imm Gran Abs Auto 0.01 X10*3/uL (0.00-0.03); Imm Gran Pct Auto 0.3 % (0.0-0.4); Lymphocytes Absolute Auto 1.0 X10*3/uL (1.2-4.9); Mean Corpuscular HGB Conc 33.1 g/dl (31.0-35.0); Mean Corpuscular Hemoglobin 29.6 pg (27.0-33.0); Mean Corpuscular Volume 89.3 fL (80.0-98.0); NRBC Abs Auto 0.000 X10*3/uL (0.0-0.012); NRBC Pct Auto 0.0 /100WBC (0.0-0.2); Platelet Count 206 X10*3/uL (160-400); Red Blood Count 4.50 X10*6/uL (4.20-5.50); White Blood Count 4.0 X10*3/uL (4.8-10.8)
[2024-12-14 17:51] LABS: Appearance Urine Turbid; Glucose Urine UA Negative (Negative); PH 6.0 (5.0-9.0); Specific Gravity - Urine >= 1.030 (1.005-1.025)
[2024-12-14 17:54] LABS: Alanine Aminotransferase 32 U/L (0-31); Aspartate Amino Transferase 32 U/L (5-31); Estimated Glomerular Filt Rate > 60
[2024-12-14 18:07] LABS: Total Protein Urine Random < 7 mg/dL (<12)
[2024-12-15 07:29] LABS: HBS Num1 2.43 mIU/mL (0-7.99); HBc Num1 0.09 S/CO (0.00-0.79); HBsAGNum1 0.34 S/CO (0.00-0.99); Hepatitis B Surface Antigen Negative (Negative); ~HepC Num1 0.06 S/CO (0.00-0.79); ~Hepatitis B Surface Antibody NONREACTIVE (Nonreactive); ~Hepatitis C Antibody Nonreactive (Nonreactive)
[2024-12-15 19:54] LABS: SM/Ribonucleoprotein Ab 3.8 POS AI (<1.0 NEG); Smith Protein >8.0 POS AI (<1.0 NEG)
== END 2024-12-14 10:42 | disposition home or self-care (01) ==
LOC: HO.HKASLDS 10:41
PROVIDERS: PCP Nurse Practitioner Family; Visit Provider Internal Medicine Rheumatology
DX: D72.819 Decreased white blood cell count, unspecified (principal); R79.89 Other specified abnormal findings of blood chemistry; R76.89 Other specified abnormal immunological findings in serum; R76.0 Raised antibody titer
CPT/HCPCS: 36415; 81001; 82565; 82570; 84156; 84450; 84460; 85025; 85652; 86140; 86160; 86225; 86235; 86704; 86706; 86803; 87340

== ENCOUNTER 2024-12-14 10:41 | Outpatient (AMB) | payer OTHER, SELFPAY ==
--- NOTE | 2024-12-14 10:55 | A.OFFVIS_ITS ---
Vital Signs 12/14/24 10:56 Height 5 ft 2 in Weight 128 lb 1.417 oz BMI 23.4 BP 130/82 Blood Pressure Location Rt brachial Position Sitting Pulse 85 Pulse Source Pulse Oximeter Pulse Oximetry (%) 95 Oxygen Delivery Method Room Air Intake Visit Reasons: abnormal labs Intake Note: Patient presents for abnormal labs. Accompanied by: Self / Same As Patient Allergies Penicillins (PENICILLINS) Allergy (Intermediate, Verified 12/14/24 10:56) RASH Medication List - Last Reconciled 12/14/24 by Andriy Herr MD acetaminophen (Tylenol) 650 mg PO Q6H PRN atorvastatin 40 mg PO DAILY colostomy bags As directed fluoxetine 20 mg PO DAILY 90 days losartan 25 mg PO DAILY magnesium oxide 400 mg PO DAILY ostomy supplies (Skin Prep Wipes) As directed zolpidem 5 mg PO BEDTIME PRN 30 days HPI HPI abnormal labs: Details: New patient evaluation due to positive DWIGHT 1:80 04/2024, chronic leukopenia and hyperferritinemia. 2 years ago she had abdominal surgery with iliostomy secondary to diverticulitis with fistuala to the vagina. The iliostomy was reversed. During the admission to reverse her ileostomy she developed C diff. after these events, her primary care noted that she had elevated white cell count. She did not have low white cell count in the past. She feels well at this time. She lives an active lifestyle with running and taking care of her 2 grandchildren. No fevers, dyspnea, pleurisy, ulcers, headaches, rash, sicca symptoms, abdominal pain, nausea, frothy bubbly urine, urinary symptoms, joint pain, joint swelling, neuropathy. Nail can change color in the cold. Possibly purple. When I showed her photos of Raynaud's phenomenon, she she reported that her fingertips did not change color. She does not have episodes of recurrent fevers. She has never had history of abdominal pain or surgery that was not explained. No episodes of recurrent joint swelling in the past. Medical history and medication list reviewed in expanse. Darleen (brother's daughter) has SLE. No family hx of blood disorder. Hx endometriosis s/p his hysterectomy Ex-smoker. She uses marijuana gummy to help her sleep. Denies alcohol intake. She is a caregiver for her grandchildren ages 2 and 4, 3 days a week. She used to work at a [employer] [facility] Medical History Sepsis Dental bridge present Postoperative nausea RAFAEL (generalized anxiety disorder) Insomnia Weight loss Ileostomy in place Colovaginal fistula Carpal tunnel syndrome of right wrist Chronic GERD Lipid metabolism disorder Generalized anxiety disorder Surgical History Hx of surgical procedure (~06/22/23) S/P laparotomy with lysis of adhesions History of bowel resection History of carpal tunnel surgery History of hysterectomy History of appendectomy Family History Other Substance use disorder Social History Household Members: Spouse Housing: House Are you a primary senior resident care director to a significant other at home: No Do you presently have visiting nurse or other home services: No Alcohol intake: current Alcohol intake frequency: does not drink Alcohol type: wine Comment: counts correct Patient Tobacco Use Status: Former Tobacco user Years Smoked: 7 e-Cigarette/Vaping Use: Never Used Second Hand Smoke Exposure: No service: No Current occupational status: employed 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 Good respiratory effort Skin: No lesions seen MSK: No tenderness of any joint. Heberden nodes noted bilateral. Normal range of motion of upper extremities and lower extremities. Vital Signs: Last Vital Signs Pulse 85 12/14/24 10:56 BP 130/82 12/14/24 10:56 Pulse Ox 95 12/14/24 10:56 Oxygen Delivery Method Room Air 12/14/24 10:56 BMI result Body Mass Index 23.4 Assessment & Plan Assessment & Plan (1) Leukopenia: Code(s): D72.819 - Decreased white blood cell count, unspecified Category: Medical (2) Elevated ferritin: Code(s): R79.89 - Other specified abnormal findings of blood chemistry Category: Medical (3) DWIGHT positive: Code(s): R76.8 - Other specified abnormal immunological findings in serum Category: Medical Plan 59-year-old patient with history of chronic leukopenia, hyperferritinemia and low titer positive DWIGHT presents for evaluation. She does not have any signs or symptoms suggestive of connective tissue disease. I will be further working up for SLE to complete workup with labs due to chronic leukopenia. She does not have any history to suggest periodic fever syndrome or adult onset Still's disease. I will also rule out hepatitis B and C virus as a cause of her chronic leukopenia. Return to clinic in 3 months. Orders: Orders Alanine Aminotransferase Today R76.0 - Raised antibody titer Protein Creatinine Ratio, Ur Today R76.0 - Raised antibody titer Creatinine Today R76.0 - Raised antibody titer C Reactive Protein Today R76.0 - Raised antibody titer Sm Sm/[employer] Antibodies Today R76.0 - Raised antibody titer Complement C4 Today R76.0 - Raised antibody titer Complete Blood Count Auto Diff Today R76.0 - Raised antibody titer UA ClnCatch+Micro w/rflx Cult Today R76.0 - Raised antibody titer Aspartate Amino Transferase Today R76.0 - Raised antibody titer Anti DNA DS Antibody Today R76.0 - Raised antibody titer Erythrocyte Sedimentation Rate Today R76.0 - Raised antibody titer Complement C3 Today R76.0 - Raised antibody titer Hepatitis B,C Profile Today D72.819 - Decreased white blood cell count, unspecified, R76.8 - Other specified abnormal immunological findings in serum, R79.89 - Other specified abnormal findings of blood chemistry Coding Level of Care Code New Pt Level 4 (75719) Diagnoses Leukopenia D72.819 Elevated ferritin R79.89 DWIGHT positive R76.8
[2024-12-14 10:56] VITALS: BP 130/82; PULSE 85; O2SAT 95; BMI 23.4
--- OUTSIDE RECORDS SUMMARY | 2024-12-14 12:51 | XMS_ITS | Data Portability ---
Author Organization JANET Angela AbbeyPostmarquez mcmahan [address] Address [address] [place] [address] Assessment No assessment recorded. Plan of Treatment [...] Diagnosis SNOMED-CT Code Diagnosis ICD10 Code Diagnosis IMO Codes Diagnosis Note [id number] Danika martinez [address] [address] [place] Mack [address] 11/01/2012 17:18:36 11/01/2012 17:56:57 [id number] Danika martinez [address] [address] [place] Mack [address] 10/20/2011 19:00:24 10/20/2011 20:23:33 [id number] Danika martinez [address] [address] [place]AN[place] Mack [address] 03/06/2014 08:02:25 03/06/2014 08:18:20 [id number] Danika martinez [address] [place] Mack [address] 02/08/2014 14:36:38 02/08/2014 15:14:48 [id number] [facility] [address] [place] [address] 01/10/2016 09:20:34 01/10/2016 10:36:30 [id number] [address] [address] [place] [address] 03/26/2017 15:33:12 03/26/2017 17:05:53 [id number] [address] [address] [place] [address] 11/01/2016 09:57:45 11/01/2016 12:10:22 [id number] [facility] [address] [facility] TATIANNA Yoder [address] 02/11/2016 17:49:22 02/11/2016 19:17:37 Health Concerns Section Related Observation LastModified by Organization Detai ls LastModified Time None Recorded Concern Status LastModified by Organization Details LastModified Time None Recorded Advance Directives Directive None Recorded Payers Insurance Date Sequence Insurance Name Policy Number Policy Sanchez Covered Member ID Sanchez Member ID Guarantor Name 04/08/2024 1 BCKERVIN-TATIANNA (PPO) [facility] [id number] [facility] 04/08/2024 1 [facility] - CIGNA (PPO) [id number] [facility] [id number] [facility] OBGyn Episode No OBEpisode recorded.
== END 2024-12-14 11:47 | disposition home or self-care (01) ==
LOC: HO.RHES 10:41
PROVIDERS: PCP Nurse Practitioner Family; Visit Provider Internal Medicine Rheumatology
DX: D72.819 Decreased white blood cell count, unspecified (principal); R79.89 Other specified abnormal findings of blood chemistry; R76.89 Other specified abnormal immunological findings in serum
CPT/HCPCS: 99204

== ENCOUNTER 2025-01-08 12:19 | Outpatient (AMB) | payer OTHER, SELFPAY ==
--- NOTE | 2025-01-08 12:22 | MHC.PC.OV ---
Vital Signs 01/08/25 12:24 Height 5 ft 2 in Weight 125 lb BMI 22.9 BP 138/80 Blood Pressure Location Rt brachial Position Sitting Pulse 76 Pulse Source Pulse Oximeter Pulse Oximetry (%) 98 Intake Visit Reasons: PE Allergies Penicillins (PENICILLINS) Allergy (Intermediate, Verified 01/08/25 12:25) RASH Tobacco use date assessed: 01/08/25 Dental Screening Dental Screen Date: 01/08/25 Did you have a dental visit in the last 12 months?: Yes Did you have a dental problem in the last 6 months where you did not have access to dental care?: No Was dental information given to patient?: Patient has dentist HPI PE HPI Details History of Present Illness The patient is a 60 year old individual presenting for a follow-up physical exam. The patient has a significant gastrointestinal history, including a colostomy that was subsequently reversed, and is reportedly doing much better now. The patient is currently being evaluated by rheumatology for elevated ferritin and leukopenia, with a possible lupus variant under consideration. A follow-up with hematology may also occur. The patient is completely asymptomatic, reports feeling well, and runs on a regular basis. Health Maintenance - The patient's mammogram is up to date. - The patient's colonoscopy is up to date. - Fasting labs will be ordered for the near future. Social History - The patient runs on a regular basis. Review of Systems - General: Reports feeling well and is asymptomatic. - Cardiovascular: Denies chest pain. - Respiratory: Denies shortness of breath. - Gastrointestinal: Denies abdominal pain, blood in stool, constipation, or diarrhea. - Psychiatric: Denies suicidal or homicidal ideation. Physical Exam General: Cooperative, healthy appearing, comfortable, no acute distress and well developed Orientation: Patient oriented x3 Limitations: No limitations Head: Normal to inspection Ears: Hearing grossly normal bilaterally Nose: Normal external nose present Face and sinus: Normal facial exam Eyes: Appearance normal, both eyes and all related structures Neck: Normal visual inspection and Yes full ROM Respiratory: Normal respiratory effort and able to speak in complete sentences. Clear to auscultation bilaterally Cardiovascular: Regular rate and rhythm. Normal S1 and S2 GI: Normal to inspection. Soft to palpation and nontender : testicles without masses/lesions and no hernias appreciated Skin: No rashes or lesions noted Neuro: Patient oriented x3 Extremities: Normal to inspection, no edema Results - Labs: Reports of elevated ferritin. - Labs: Reports of leukopenia. Plan 1. Annual Physical Examination The patient is asymptomatic and feels well. Fasting labs will be obtained in the near future to continue monitoring. 2. Leukopenia The patient is currently being worked up by rheumatology for leukopenia. Follow-up with hematology may also be considered. 3. Elevated Ferritin The patient is undergoing evaluation by rheumatology for elevated ferritin levels. A possible lupus variant is being considered as part of the differential diagnosis. Discussion Notes Patient Instructions - You will need to get some fasting blood tests done in the near future. [facility] Medical History Sepsis Dental bridge present Postoperative nausea RAFAEL (generalized anxiety disorder) Insomnia Weight loss Ileostomy in place Colovaginal fistula Carpal tunnel syndrome of right wrist Chronic GERD Lipid metabolism disorder Generalized anxiety disorder Surgical History Hx of surgical procedure (~06/22/23) S/P laparotomy with lysis of adhesions History of bowel resection History of carpal tunnel surgery History of hysterectomy History of appendectomy Family History Other Substance use disorder Social History Household Members: Spouse Housing: House Are you a primary care navigator to a significant other at home: No Do you presently have visiting nurse or other home services: No Alcohol intake: current Alcohol intake frequency: does not drink Alcohol type: wine Comment: counts correct Patient Tobacco Use Status: Former Tobacco user Years Smoked: 7 e-Cigarette/Vaping Use: Never Used Second Hand Smoke Exposure: No service: No Current occupational status: employed 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 1. Little interest or pleasure in doing things: not at all 2. Feeling down, depressed, or hopeless: not at all 3. Trouble falling or staying asleep, or sleeping too much: several days 4. Feeling tired or having little energy: not at all 5. Poor appetite or overeating: not at all 6. Feeling bad about yourself - or that you are a failure or have let yourself or your family down: not at all 7. Trouble concentrating on things, such as reading the newspaper or watching television: not at all 8. Moving or speaking so slowly that other people could have noticed. Or the opposite - being so fidgety or restless that you have been moving around a lot more than usual: not at all 9. Thoughts that you would be better off or of hurting yourself in some way: not at all Total score: 1 Depression Screening Interpretation: Negative Depression Screening Done: Yes 83515 - PHQ-9 Billing: Yes Source: Developed by Drs. Braulio Williamson, Chasity Salamanca, Jose Alberto Franco and colleagues, with an educational adelia from [email or web address]. Thrive Questionnaire Date Thrive assessed: 01/01/25 I am a: Patient What is your living situation today?: I have a steady place to live Within the past 12 months, did the food you bought not last and you didn't have the money to get more?: Never true Within the past 12 months, did you worry whether your food would run out before you got money to buy more?: Never true Do you have trouble paying for medicines?: No Do you have trouble getting transportation to medical appointments?: No Do you have trouble paying your heating and electricity bill?: No Do you have trouble taking care of your child, family member or friend?: No Do you have trouble with day-to-day activities such as bathing, preparing meals, shopping, managing finances, etc.?: No Are you currently unemployed and looking for a job?: No Are you interested in more education?: No Please select the resources that you would like help with: None Currently or been in a relationship where the following occur: No concerns reported THRIVE Score: 0 AUDIT C Alcohol Use Questionnaire (AUDIT-C) 1. How often do you have a drink containing alcohol?: 2-4 times a month 3. How often do you have six or more drinks on one occasion?: Never Total Score: 2 Score Reviewed/Action Taken: Yes RAFAEL-7 AMB Questionnaire RAFAEL-7 Date RAFAEL - 7 assessed: 01/08/25 Feeling nervous, anxious, or on edge: 0 = Not at all Not being able to stop or control worryin = Not at all Worrying too much about different things: 0 = Not at all Trouble relaxin = Not at all Being so restless that it is hard to sit still: 0 = Not at all Becoming easily annoyed or irritable: 0 = Not at all Feeling afraid as if something awful might happen: 0 = Not at all Total RAFAEL-7 score (0-4 normal; 5-9 mild; 10-14 moderate; 15-21 severe): 0 Source: Developed by Drs. Braulio Williamson, Chasity Salamanca, Jose Alberto rFanco and colleagues, with an educational adelia from [email or web address]. RAFAEL-7 Assessment Billing RAFAEL-7 Assessment Tool: RAFAEL-7 Assessment 32217 Physical exam (Primary Care) Vital Signs: Last Vital Signs Pulse 76 01/08/25 12:24 BP 138/80 01/08/25 12:24 Pulse Ox 98 01/08/25 12:24 BMI result Body Mass Index 22.9 Tobacco/Smoking Status: Tobacco use Status Tobacco use date assessed 01/08/25 01/08/25 12:26 Patient Tobacco Use Status Former Tobacco user 01/08/25 12:26 e-Cigarette/Vaping Use Never Used 01/08/25 12:26 PHQ-9: PHQ-9 Score PHQ-9: Total score 1 01/08/25 12:37 Depression Screening Interpretation: Negative Thrive Assessment: Date of Thrive Assessment Date Thrive assessed 01/01/25 01/08/25 12:26 Currently or been in a relationship where the following occur: No concerns reported Coding Level of Care Code Est Pt Prev Care 40-64y(67125) Diagnoses Physical exam Z00.00 Additional Codes RAFAEL-7 Assessment Billing - RAFAEL-7 Assessment Tool: RAFAEL-7 Assessment 70372 ([id number]) PHQ-9 - 23110 - PHQ-9 Billing: Yes ([id number]) Assessment & Plan Assessment & Plan (1) Physical exam: Code(s): Z00.00 - Encounter for general adult medical examination without abnormal findings Category: Medical Plan .
[2025-01-08 12:24] VITALS: BP 138/80; PULSE 76; O2SAT 98; BMI 22.9
--- OUTSIDE RECORDS SUMMARY | 2025-01-08 16:03 | XMS_ITS | Data Portability ---
Author Organization JANET Angela Airecmarquez mcmahan [address]_[facility] Address [address] [place] [address] Assessment No assessment recorded. Plan of Treatment [...] ICD10 Code Diagnosis IMO Codes Diagnosis Note [id number] Danika martinez [address] [address] [place] Mack [address] 11/01/2012 17:18:36 11/01/2012 17:56:57 [id number] Danika martinez [address] [address] [place]ANET Mack [address] 10/20/2011 19:00:24 10/20/2011 20:23:33 [id number] Danika martinez [address] JANET Mack [address] 03/06/2014 08:02:25 03/06/2014 08:18:20 [id number] Danika martinez [address] JANET Mcak [address] 02/08/2014 14:36:38 02/08/2014 15:14:48 [id number] [facility] [address] [place] [address] 01/10/2016 09:20:34 01/10/2016 10:36:30 [id number] [facility] [address] [place] [address] 03/26/2017 15:33:12 03/26/2017 17:05:53 [id number] [address] [address] [place] [address] 11/01/2016 09:57:45 11/01/2016 12:10:22 [id number] [facility] [address] [facility] TATIANNA Yoder [address] 02/11/2016 17:49:22 02/11/2016 19:17:37 Health Concerns Section Related Observation LastModified by Organization Detai ls LastModified Time None Recorded Concern Status LastModified by Organization Details LastModified Time None Recorded Advance Directives Directive None Recorded Payers Insurance Date Sequence Insurance Name Policy Number Policy Sanchez Covered Member ID Sanchez Member ID Guarantor Name 04/08/2024 1 BCKERVIN-TATIANNA (PPO) [facility] [id number] [facility] 04/08/2024 1 [facility]-[employer] - CIGNA (PPO) [id number] [facility] [id number] [facility] OBGyn Episode No OBEpisode recorded.
== END 2025-01-08 13:50 | disposition home or self-care (01) ==
LOC: HO.HMCC 12:20
PROVIDERS: PCP Nurse Practitioner Family; Visit Provider Nurse Practitioner Family
DX: Z00.00 Encounter for general adult medical examination without abnormal findings (principal)

== ENCOUNTER → 2025-01-08 12:19 | Outpatient (BNVA) | payer OTHER, SELFPAY | PROVIDERS: PCP Nurse Practitioner Family; Visit Provider Nurse Practitioner Family | DX: Z00.00 Encounter for general adult medical examination without abnormal findings (principal) | CPT/HCPCS: 96127 ==